=== PATIENT | male | born 1965 | race Caucasian/White ===

== ENCOUNTER 2018-11-07 19:41 | Observation (INO) | payer BC, SELFPAY ==
[2018-11-07 19:50] VITALS: BP 164/120; PULSE 103; RESP 16; TEMP 36.8
[2018-11-07 20:03] VITALS: RESP 16
[2018-11-07 20:16] VITALS: PULSE 100
[2018-11-07] MEDS: Labetalol 100 MG/20 ML VIAL 20 MG IVP ×2 (20:16→20:54)
[2018-11-07 20:32] LABS: Abs Immature Grans 0.02 k/cumm (0.0-0.09); Absolute Basophil Count 0.02 k/cumm (0.0-0.2); Absolute Monocyte Count 1.03 k/cumm (0.11-0.7); Basophils % 0.2; Eosinophils % 0.5; HGB 15.8 g/dL (13.5-17.5); Immature Grans % 0.2; Lymphocytes % 20.5; Mean Corp. HGB Concentration 33.6 g/dL (32.0-36.0); Mean Corpuscular Hemoglobin 31.3 pg (27.0-33.0); Mean Corpuscular Volume 93.3 fL (80-95); Mean Platelet Volume 11.9 fL (8.0-11.0); Monocytes % 9.4; Neutrophils % 69.2; Platelet Count 165 x1000/uL (130-400); RBC 5.04 m/cumm (4.50-6.00); RBC Distribution Width 12.4 % (11.8-14.1)
[2018-11-07 20:36] LABS: Absolute Eosinophil Count 0.06 k/cumm (0.0-0.7); Absolute Lymphocyte Count 2.26 k/cumm (1.2-3.4); Absolute Neutrophil Count 7.61 k/cumm (1.2-6.7)
--- NOTE | 2018-11-07 20:36 | DI.RAD_ITS ---
SYMPTOM/DIAGNOSIS: HYPERTENSIVE URGENCY PA AND LATERAL CHEST: Comparison is made with rib films dated 05/23/14. The heart is enlarged. The aorta is mildly tortuous. The lungs appear clear. Degenerative changes are again noted in the spine. IMPRESSION: Cardiomegaly. No acute abnormality.
--- NOTE | 2018-11-07 20:49 | W.ED.GENAD ---
Discharge Plan Disposition Patient Disposition: [facility] INPATIENT Condition: Good Discharge Details Chief Complaint: GenMedical Clinical Impression: Asymptomatic hypertensive urgency Primary Care Provider: Frank Saavedra ED Provider: Orlando Steen Medical Decision Making Patient with markedly elevated BP here that by number alone needs to be addressed. IV established and labs obtained. EKG and CXR ordered. He is mildly tachycardic and looks like he had been on beta rola in past so will give dose of labetalol for BP. Do not want to drop pressure to low to quickly. Also need to consider DM since report of blurry vision, polydypsia and polyuria as well. Quite likely patient will need admission to get blood pressure to a reasonable level. Laboratory studies for the most part are unremarkable. He is not anemic nor does he have significant elevation of LFTs. Kidney function is normal. Sugar is 142. EKG with evidence of LVH. Chest x-ray with evidence of cardiomegaly. First dose of labetalol did not bring his pressure down a lot. Second dose of 20 mg labetalol IV has got him to 200/100. Looks like he was previously on 3 different medications for blood pressure. While he is asymptomatic I would still consider this hypertensive urgency given the level of elevation. Will discuss with hospital last admission for management of blood pressure to reasonable level before discharge. Patient seen by Dr. Saavedra. Patient has agreed to admission for monitoring of blood pressure and starting oral meds. Diastolic has started to go back up status post 2 doses of IV labetalol. Lab Data Lab results reviewed: Yes I reviewed the patient's lab results. ECG Data Attestation: I personally reviewed and interpreted this ECG (s) as follows: Prior ECG tracings: not available for review Interpretation: Sinus rhythm at 85 with normal axis and intervals but evidence of LVH. No acute ST changes. HPI General Mode of arrival: ambulatory. Date/Time Provider Initiated Documentation: 11/07/18 19:58. Limitations to Documentation: no limitations. Information obtained by: patient. HPI Narrative: Patient presents to ED for evaluation of elevated blood pressure. He has a history of HTN but stop taking medications on his own sometime ago. He has not seen a PCP in years. He denies smoking but does not exercise or eat well and drinks on average 4 vodka drinks a day. He took his blood pressure last week on a whim and it was very high. He stopped drinking alcohol and started to eat a little better and try to exercise. Tonight while at work he had a short episode of lightheadedness but did not pass out or fall. He has a very mild headache. He has had blurry vision but thinks he needs new glasses. He reports drinking a lot of water and urinating frequently. He had no neuro changes, chest pain. He has decreased exercise tolerance and gets SOB quickly but does not get chest pain. He took his blood pressure tonight after the dizzy episode and found his pressure to be 250/130. This prompted him to come in. Related Data Allergies Allergy/AdvReac Type Severity Reaction Status Date / Time No Known Drug Allergies Allergy Unverified 05/12/15 11:03 General Stated Complaint: GenMedical SOFIA: 2 Review of Systems Review of Systems 03/09 Review of Systems completed and is negative except as stated above in HPI (Systems reviewed: Const, Eyes, ENT, Resp, CV, GI, , MSK, Skin, Neuro) [facility] Medical History Essential hypertension Surgical History Repair of umbilical hernia (05/26/15) Social History Smoking/Tobacco Use Status: Never Alcohol Intake: current Alcohol Intake frequency: 3 or more drinks per day Alcohol type: hard liquor Drug use: Never Exam Narrative Exam Narrative: Vitals: Afebrile. Mild tachycardia but marked hypertension. Const: Obese male in NAD. HEENT: NC/AT. Normal facial exam. Eyes: Normal conjunctiva and sclera. PERRL and EOMI Neck: Supple. Trachea midline. Lungs: Normal respiratory effort. Lungs are clear. Cor: RRR without murmur/gallop. Good radial pulses. GI: Soft and non-distended. Neuro: A+O x 3. CN II-XII in tact. Speech, gait, strength and sensation all normal. Ext: No C/C/E. Skin: Warm and dry without rash. Course Vital Signs Temperature 98.3 F 11/07/18 19:50 Pulse 103 H 11/07/18 19:50 Respiratory Rate 16 11/07/18 19:50 Blood Pressure 164/120 H 11/07/18 19:50 Temperature 98.3 F 11/07/18 19:50 Temperature Source Temporal Artery Scan 11/07/18 19:50 Pulse 100 H 11/07/18 20:16 Respiratory Rate 16 11/07/18 20:03 Respiratory Effort Non-Labored 11/07/18 20:03 Respiratory Depth Normal 11/07/18 20:03 Respiratory Pattern Normal 11/07/18 20:03 Blood Pressure 164/120 H 11/07/18 19:50 Blood Pressure Position Sitting 11/07/18 19:50 Oxygen Delivery Method Room Air 11/07/18 19:50 Oxygen Flow Rate 0 11/07/18 19:50 Lab/Test Results Lab/Test Results: Laboratory Tests Range/Units 11/07/18 20:11 WBC (4.4-10.8) k/cumm 11.00 H RBC (4.50-6.00) m/cumm 5.04 Hgb (13.5-17.5) g/dL 15.8 Hct (40.0-50.0) % 47.0 MCV (80-95) fL 93.3 MCH (27.0-33.0) pg 31.3 MCHC (32.0-36.0) g/dL 33.6 RDW (11.8-14.1) % 12.4 Plt Count (130-400) x1000/uL 165 MPV (8.0-11.0) fL 11.9 H Immature Gran % 0.2 Neutrophils % 69.2 Lymphocytes % 20.5 Monocytes % 9.4 Eosinophils % 0.5 Basophils % 0.2 Absolute Neutrophils (1.2-6.7) k/cumm 7.61 H Absolute Lymphocytes (1.2-3.4) k/cumm 2.26 Absolute Monocytes (0.11-0.7) k/cumm 1.03 H Absolute Eosinophils (0.0-0.7) k/cumm 0.06 Absolute Basophils (0.0-0.2) k/cumm 0.02
[2018-11-07 20:53] LABS: ALT 74 U/L (12-78); AST 44 U/L (15-37); Albumin 4.4 g/dL (3.4-5.0); Alkaline Phosphatase 97 U/L (46-116); Anion Gap 11.7 mmol/L (3-11); BUN 19 mg/dL (7-18); Bilirubin, Total 0.3 mg/dL (0.2-1.0); CO2 24.3 mmol/L (21.0-32.0); Calcium 9.3 mg/dL (8.5-10.1); Chloride 102 mmol/L (98-107); Glucose 142 mg/dL (70-100); Sodium 138 mmol/L (136-145); Total Protein 8.6 g/dL (6.4-8.2)
[2018-11-07 20:54] VITALS: PULSE 86
[2018-11-07 20:57] LABS: Troponin I < 0.02 ng/mL (0.00-0.06)
--- NOTE | 2018-11-07 21:22 | DI.VRAD_ITS ---
EXAM: XR Chest, 2 Views EXAM DATE/TIME: 11/07/2018 8:10 PM CLINICAL HISTORY: 53 years old, male; Signs and symptoms; Other: Hypertensive urgency TECHNIQUE: Imaging protocol: XR of the chest, 2 views. COMPARISON: CR LEFT RIBS PA CXR ONLY-3VIEWS 05/23/2014 1:02 PM FINDINGS: There is cardiomegaly. No infiltrates are present. There is no pleural effusion or pneumothorax. The pulmonary vascularity is normal. There are degenerative changes of the spine. IMPRESSION: 1. Cardiomegaly. 2. No focal infiltrates. Dictated and Authenticated by: Sher Culver MD. Ordering:ANOOP Perry MD
--- NOTE | 2018-11-07 22:15 | W.PM.HP.N ---
Date of service: 11/07/18 Time of Service: 22:16 Assessment and Plan (1) HTN (hypertension): Current visit: Yes Status: Chronic Severe hypertension, asymptomatic. Will resume prior triple therapy. Once BP begins to trend downward would advise close follow up as outpatient. History of Present Illness Chief Complaint: hypertension Narrative: 53 male with h/o HTN, non-compliant, off meds for a number of years, previously well controlled on triple therapy (Atenolol 25, HCTZ 25 and Lisinopril, unknown dose). Has noted increased BP for some time now. Today at work felt lightheaded for a few seconds, checked BP, noted 250/130 and came to ER. In ER BP reported as similar (I cannot locate this) patient given Labetalol 100 IV x 2 with BP transiently improved bu recurring most recently 160/120. Patient admitted for further management. patient denies CP, SOB, YEH. Initial labs of note for EKG showing no acute changes but LVH in limb leads and CXR with cardiomegaly. Review of Systems Review of Systems All systems reviewed & are unremarkable except as noted in HPI and below PFSH Medical History Essential hypertension Surgical History Repair of umbilical hernia (05/26/15) Social History Smoking/Tobacco Use Status: Never Alcohol Intake: current Alcohol Intake frequency: 3 or more drinks per day Alcohol type: hard liquor Drug use: Never Meds Allergies Allergy/AdvReac Type Severity Reaction Status Date / Time No Known Drug Allergies Allergy Unverified 05/12/15 11:03 Exam Narrative Exam Narrative: 160/124, 86, 14, 36.8; HEENT shows optic discs are sharp; neck supple; lungs clear; heart RRR, cannot feel PMI; abdomen no bruit, soft, NT; extr: no edema; neuro ox3, non-focal Results Labs : 11/07/18 20:11 11/07/18 20:14 Laboratory Results - last 24 hr 11/07/18 11/07/18 20:11 20:14 WBC 11.00 H RBC 5.04 Hgb 15.8 Hct 47.0 MCV 93.3 MCH 31.3 MCHC 33.6 RDW 12.4 Plt Count 165 MPV 11.9 H Immature Gran % 0.2 Neutrophils % 69.2 Lymphocytes % 20.5 Monocytes % 9.4 Eosinophils % 0.5 Basophils % 0.2 Absolute Neutrophils 7.61 H Absolute Lymphocytes 2.26 Absolute Monocytes 1.03 H Absolute Eosinophils 0.06 Absolute Basophils 0.02 Sodium 138 Potassium 4.0 Chloride 102 Carbon Dioxide 24.3 Anion Gap 11.7 H BUN 19 H Creatinine 0.90 Estimated GFR/1.73 m2 >= 60.00 Glucose 142 H Calcium 9.3 Magnesium 2.0 Total Bilirubin 0.3 AST 44 H ALT 74 Alkaline Phosphatase 97 Troponin I < 0.02 Total Protein 8.6 H Albumin 4.4 Last Vital Signs Temp 36.8 C 11/07/18 19:50 Pulse 86 11/07/18 20:54 Resp 16 11/07/18 20:03 BP 164/120 H 11/07/18 19:50
[2018-11-07] MEDS: hydroCHLOROthiazide 25 MG TAB PO (22:44)
[2018-11-07] MEDS: Lisinopril 10 MG TAB PO (22:44)
[2018-11-07] MEDS: Atenolol 25 MG TAB PO (22:45)
[2018-11-07 23:10] VITALS: BP 200/110; PULSE 75; RESP 16; TEMP 37.2; O2SAT 96
[2018-11-07 23:15] VITALS: O2SAT 96
[2018-11-08 01:00] VITALS: BP 164/80
[2018-11-08 02:22] LABS: Bilirubin Negative (Negative); Blood Negative (Negative); Clarity Clear; Glucose Negative (Negative); Ketones Negative (Negative); Leukocyte Esterase Negative (Negative); Nitrite Negative (Negative); Specific Gravity >= 1.030 (1.005-1.025); Urobilinogen 0.2 EU/dL (Up TO 0.2); pH 5.5 (5-8)
[2018-11-08 02:26] LABS: Bacteria Negative HPF (Negative); C & S Indicated? No; Casts 0-2 Hyaline LPF (Negative); Crystals Negative HPF (Negative); Epithelial Cells Rare HPF (Negative); Mucus Negative (Negative); RBC 0-2 (0-2); WBC 0-2 HPF (0-5)
[2018-11-08 04:47] VITALS: BP 157/80
[2018-11-08 07:27] VITALS: BP 205/101; PULSE 61; RESP 18; TEMP 36.3; O2SAT 96
[2018-11-08 07:45] VITALS: BP 203/130
--- NOTE | 2018-11-08 08:36 | PDOC.CMIN ---
- If Service Date Differs Date of service: 11/08/18 Time of Service: 08:36 Care Management Initial Assess REASON FOR HOSPITALIZATION:: HTN PAST MEDICAL HISTORY/PAST SURGICAL HISTORY:: Medical History: Essential hypertension. Surgical History: Repair of umbilical hernia (05/26/15) PREVIOUS FUNCTIONAL STATUS/SOCIAL/FAMILY SUPPORTS:: Robert lives alone in a single family dwelling in [place] [facility]. 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 He is completely independent with all activities. CURRENT FUNCTIONAL STATUS:: Robert was fully dressed and ready for D/C when CM visited. He stated he is feeling better and that his blood pressure is down a little. He states he knows that he needs to be more compliant with taking his meds and thaat this was a wake up call ADVANCE DIRECTIVES:: None on file at [facility] Has patient been provided with information about the portal?: No Did the patient sign up for the portal?: No CODE STATUS:: Full Code INSURANCE COVERAGE / FINANCIAL ISSUES:: BS CURRENT HOME/COMMUNITY SERVICES/EQUIPMENT:: none PRIMARY CARE PHYSICIAN:: Frank Saavedra MD POTENTIAL DISCHARGE NEEDS:: Follow up appointment with PCP and discharge plan of care. PATIENT/FAMILY EDUCATION NEEDS:: Discharge plkan, limiattions, follow up plan of care, Ask Me Three. ANTICIPATED BARRIERS TO DISCHARGE:: none TRANSPORTATION:: Robert will drive himself home in his private vehicle. PLAN:: Robert will be discharged home with no services. He will follow up with his PCP and discharge plaan of care.
--- NOTE | 2018-11-08 08:40 | INITIAL_ITS ---
- If Service Date Differs Date of service: 11/08/18 Time of Service: 08:36 Care Management Initial Assess REASON FOR HOSPITALIZATION:: HTN PAST MEDICAL HISTORY/PAST SURGICAL HISTORY:: Medical History: Essential hypertension. Surgical History: Repair of umbilical hernia (05/26/15) PREVIOUS FUNCTIONAL STATUS/SOCIAL/FAMILY SUPPORTS:: Robert lives alone in a single family dwelling in [place] [facility]. 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 He is completely independent with all activities. CURRENT FUNCTIONAL STATUS:: Robert was fully dressed and ready for D/C when CM visited. He stated he is feeling better and that his blood pressure is down a little. He states he knows that he needs to be more compliant with taking his meds and thaat this was a wake up call ADVANCE DIRECTIVES:: None on file at [facility] Has patient been provided with information about the portal?: No Did the patient sign up for the portal?: No CODE STATUS:: Full Code INSURANCE COVERAGE / FINANCIAL ISSUES:: BS CURRENT HOME/COMMUNITY SERVICES/EQUIPMENT:: none PRIMARY CARE PHYSICIAN:: Frank Saavedra MD POTENTIAL DISCHARGE NEEDS:: Follow up appointment with PCP and discharge plan of care. PATIENT/FAMILY EDUCATION NEEDS:: Discharge plkan, limiattions, follow up plan of care, Ask Me Three. ANTICIPATED BARRIERS TO DISCHARGE:: none TRANSPORTATION:: Robert will drive himself home in his private vehicle. PLAN:: Robert will be discharged home with no services. He will follow up with his PCP and discharge plaan of care.
[2018-11-08] MEDS: Normal Saline Flush 10 ML SYR IVP (08:53)
[2018-11-08 09:32] LABS: Abs Immature Grans 0.01 k/cumm (0.0-0.09); Absolute Basophil Count 0.02 k/cumm (0.0-0.2); Absolute Eosinophil Count 0.04 k/cumm (0.0-0.7); Absolute Monocyte Count 0.97 k/cumm (0.11-0.7); Absolute Neutrophil Count 5.83 k/cumm (1.2-6.7); Basophils % 0.2; Eosinophils % 0.5; HCT 46.1 % (40.0-50.0); HGB 15.6 g/dL (13.5-17.5); Immature Grans % 0.1; Lymphocytes % 20.8; Mean Corp. HGB Concentration 33.8 g/dL (32.0-36.0); Mean Corpuscular Hemoglobin 31.5 pg (27.0-33.0); Mean Corpuscular Volume 92.9 fL (80-95); Mean Platelet Volume 11.9 fL (8.0-11.0); Monocytes % 11.2; Neutrophils % 67.2; Platelet Count 173 x1000/uL (130-400); RBC 4.96 m/cumm (4.50-6.00); RBC Distribution Width 12.4 % (11.8-14.1); White Blood Cell Count 8.67 k/cumm (4.4-10.8)
[2018-11-08 09:38] LABS: Anion Gap 9.6 mmol/L (3-11); BUN 12 mg/dL (7-18); CO2 27.4 mmol/L (21.0-32.0); CREATININE 0.73 mg/dL (0.70-1.30); Calcium 9.3 mg/dL (8.5-10.1); Chloride 102 mmol/L (98-107); Glucose 129 mg/dL (70-100); Potassium 4.1 mmol/L (3.5-5.1); Sodium 139 mmol/L (136-145)
[2018-11-08] MEDS: Lisinopril 10 MG TAB PO (10:41)
[2018-11-08] MEDS: Atenolol 25 MG TAB PO (10:41)
[2018-11-08] MEDS: hydroCHLOROthiazide 25 MG TAB PO (10:42)
[2018-11-08 11:30] VITALS: BP 191/104; PULSE 58; RESP 17; TEMP 36.4; O2SAT 96
[2018-11-08 12:58] VITALS: BP 182/96; PULSE 56
--- NOTE | 2018-11-08 13:39 | W.PM.DS.N ---
Date of service: 11/08/18 Time of Service: 13:39 DS: Diagnosis Discharge Diagnosis (1) HTN (hypertension): Status: Chronic Discharge Plan Disposition Patient Disposition: HOME Condition: Improving Discharge Details Chief Complaint: GenMedical Reason For Visit: HYPERTENSION Admit Date/Time: 11/07/18 22:27 Admit Provider: Frank Saavedra Attending Provider: Frank Saavedra Primary Care Provider: Frank Saavedra ED Provider: [facility] Hospital Course: 53 male with h/o HTN, non-compliant, off meds for a number of years, previously well controlled on triple therapy (Atenolol 25, HCTZ 25 and Lisinopril, unknown dose). Has noted increased BP for some time now. Yesterday at work felt lightheaded for a few seconds, checked BP, noted 250/130 and came to ER. In ER BP reported as similar, patient given Labetalol 100 IV x 2 with BP transiently improved but recurring most recently 160/120. Patient admitted for further management. patient denies CP, SOB, YEH. Initial labs of note for EKG showing no acute changes but LVH in limb leads and CXR with cardiomegaly. BP on last check was 182/96 after HCTZ, Lisinopril and Atenolol which I am comfortable with in the setting of a BP that was 250/130 for a sustained amount of time. He will go home on the regimen and need follow up in 1 week with PCP they will need to closely monitor his blood pressure and adjust medications as needed. He should also take his blood pressure twice a day and report readings to PCP. Follow the DASH diet, increase exercise and adopt stress relieving techniques, all of the measures were discussed with the patient. Recommend an ECHO. 1) HTN (hypertension): Severe hypertension, asymptomatic. Will resume prior triple therapy. Once BP begins to trend downward would advise close follow up as outpatient. Labs not showing organ damage. Continue HCTZ, atenolol, and lisinopril Home Meds and New Rx's Prescriptions: New atenolol 25 mg tablet 25 mg PO DAILY Qty: 30 RF: 0 lisinopril 10 mg tablet 10 mg PO DAILY Qty: 30 RF: 0 hydrochlorothiazide 25 mg tablet 25 mg PO DAILY Qty: 30 RF: 0 Discharge Instructions Instructions: Heart Failure (GEN), Chronic Hypertension (GEN), DASH Eating Plan (GEN), Hypertensive Crisis (GEN), Effects of a Stroke (GEN) Additional Instructions: Follow up with a PCP in 1 week. TAKE YOUR BLOOD PRESSURE MEDICATION DAILY. Take your blood pressure twice a day, once in the morning and once in the evening, Make sure you have been resting for at least 10 min prior to taking.Write them down and bring them to you doctor appointment. START EXERCISING. At least 30 mins daily. Start using more stress reducing techniques. Seek Medical attention immediately if you start to have chest pain, shortness of breath, nausea, vomiting, diarrhea. Stand Alone Forms: Nursing Discharge Form Referrals: Frank Saavedra MD [Primary Care Provider] - (Please call PCP on Saturday to schedule a follow-up appointment) Activity:: Activity as Tolerated Equipment/Supplies:: No Equipment Needed Diet:: As Tolerated Discharge Orders Discharge Orders: Discharge Order (Routine); Ordered 11/08/18 Ordered By: Renetta Alonzo Exam Narrative Exam Narrative: ; HEENT shows optic discs are sharp; neck supple; lungs clear; heart RRR, cannot feel PMI; abdomen no bruit, soft, NT; extr: no edema; neuro ox3, non-focal DS: Data Vitals/I&O Vitals and I&O: Vital Signs Temperature 36.4 C L 11/08/18 11:30 Temperature Source Tympanic 11/08/18 11:30 Pulse 56 L 11/08/18 12:58 Pulse Rhythm Regular 11/08/18 10:51 Respiratory Rate 17 11/08/18 11:30 Respiratory Effort 11/08/18 10:51 Respiratory Depth Normal 11/08/18 10:51 Respiratory Pattern Normal 11/08/18 10:51 Blood Pressure 182/96 H 11/08/18 12:58 Blood Pressure Position Sitting 11/07/18 19:50 Pulse Oximetry 96 11/08/18 11:30 Oxygen Delivery Method Room Air 11/08/18 11:30 Oxygen Flow Rate 0 11/08/18 11:30 Comment 11/08/18 07:27 Intake & Output 11/07/18 11/08/18 11/08/18 23:59 11:59 23:59 Intake Total 1150 / 1390 240 / 1390 Balance 1150 / 1390 240 / 1390 Weight 113.398 kg Intake: Oral 1150 / 1390 240 / 1390 Other: Urine Color Yellow Urine Appearance Clear Urine Odor None Voiding Methods Toilet Completed studies during hospitalization [Text1]: EXAM: XR Chest, 2 Views EXAM DATE/TIME: 11/07/2018 8:10 PM CLINICAL HISTORY: 53 years old, male; Signs and symptoms; Other: Hypertensive urgency TECHNIQUE: Imaging protocol: XR of the chest, 2 views. COMPARISON: CR LEFT RIBS PA CXR ONLY-3VIEWS 05/23/2014 1:02 PM FINDINGS: There is cardiomegaly. No infiltrates are present. There is no pleural effusion or pneumothorax. The pulmonary vascularity is normal. There are degenerative changes of the spine. IMPRESSION: 1. Cardiomegaly. 2. No focal infiltrates. Labs on day of discharge: Labs from last 24 hours 11/08/18 11/08/18 11/08/18 09:15 09:15 09:15 WBC 8.67 RBC 4.96 Hgb 15.6 Hct 46.1 MCV 92.9 MCH 31.5 MCHC 33.8 RDW 12.4 Plt Count 173 MPV 11.9 H Immature Gran % 0.1 Neutrophils % 67.2 Lymphocytes % 20.8 Monocytes % 11.2 Eosinophils % 0.5 Basophils % 0.2 Absolute Neutrophils 5.83 Absolute Lymphocytes 1.80 Absolute Monocytes 0.97 H Absolute Eosinophils 0.04 Absolute Basophils 0.02 Sodium 139 Potassium 4.1 Chloride 102 Carbon Dioxide 27.4 Anion Gap 9.6 BUN 12 D Creatinine 0.73 Estimated GFR/1.73 m2 >= 60.00 Glucose 129 H Calcium 9.3 Magnesium 2.0 Total Bilirubin AST ALT Alkaline Phosphatase Troponin I Total Protein Albumin Urine Color Urine Clarity Urine pH Ur Specific [place] Urine Protein Urine Ketones Urine Blood Urine Nitrite Urine Bilirubin Urine Urobilinogen Ur Leukocyte Esterase Urine RBC Urine WBC Ur Epithelial Cells Urine Crystals Urine Bacteria Urine Casts Urine Mucus Ur Culture Indicated? Urine Glucose 11/08/18 11/07/18 11/07/18 01:20 20:14 20:11 WBC 11.00 H RBC 5.04 Hgb 15.8 Hct 47.0 MCV 93.3 MCH 31.3 MCHC 33.6 RDW 12.4 Plt Count 165 MPV 11.9 H Immature Gran % 0.2 Neutrophils % 69.2 Lymphocytes % 20.5 Monocytes % 9.4 Eosinophils % 0.5 Basophils % 0.2 Absolute Neutrophils 7.61 H Absolute Lymphocytes 2.26 Absolute Monocytes 1.03 H Absolute Eosinophils 0.06 Absolute Basophils 0.02 Sodium 138 Potassium 4.0 Chloride 102 Carbon Dioxide 24.3 Anion Gap 11.7 H BUN 19 H Creatinine 0.90 Estimated GFR/1.73 m2 >= 60.00 Glucose 142 H Calcium 9.3 Magnesium 2.0 Total Bilirubin 0.3 AST 44 H ALT 74 Alkaline Phosphatase 97 Troponin I < 0.02 Total Protein 8.6 H Albumin 4.4 Urine Color Yellow Urine Clarity Clear Urine pH 5.5 Ur Specific [place] >= 1.030 H Urine Protein 100 H Urine Ketones Negative Urine Blood Negative Urine Nitrite Negative Urine Bilirubin Negative Urine Urobilinogen 0.2 Ur Leukocyte Esterase Negative Urine RBC 0-2 Urine WBC 0-2 Ur Epithelial Cells Rare Urine Crystals Negative Urine Bacteria Negative Urine Casts 0-2 hyaline Urine Mucus Negative Ur Culture Indicated? No Urine Glucose Negative [facility] Medical History Essential hypertension Surgical History Repair of umbilical hernia (05/26/15) Social History Smoking/Tobacco Use Status: Never Alcohol Intake: current Alcohol Intake frequency: 3 or more drinks per day Alcohol type: hard liquor Drug use: Never
--- NOTE | 2018-11-08 17:48 | PDOC.CMDIS ---
- If Service Date Differs Date of service: 11/08/18 Time of Service: 17:48 LACE Index Scoring Tool - Questions: Length of Stay (in days): 1 Acuity (Admit via E.D.?): Yes E.D. Visits: 1 - Answers: Total Score: 5 Risk of Readmission: Low Risk Care Management Discharge Reason for Hospitalization: HTN Discharge Plan: Home with no services. Follow up with PCP. Patient/Family Education Needs: Discharge plan, limitations, Ask Me Three.
== END 2018-11-08 15:21 | disposition home or self-care (01) ==
LOC: ER 22:45 → MS 11-08 13:43
PROVIDERS: Nurse Practitioner Family; Admitting Provider General Practice; Emergency Provider Emergency Medicine; PCP General Practice; Visit Provider Internal Medicine
DX: I10 Essential (primary) hypertension (principal); T46.5X6A Underdosing of other antihypertensive drugs, initial encounter; I51.7 Cardiomegaly
CPT/HCPCS: 36415; 80048; 80053; 93005; 99222; 99239; 99285; 71046; 81003; 81015; 83735; 84484; 85025; 93010; 99217; 99219; G0378

== ENCOUNTER 2018-11-26 08:28 | Outpatient (CLI) | payer BC, SELFPAY ==
[2018-11-26 09:27] LABS: Anion Gap 11.8 mmol/L (3-11); BUN 24 mg/dL (7-18); CO2 26.2 mmol/L (21.0-32.0); CREATININE 1.03 mg/dL (0.70-1.30); Calculated LDL 128 mg/dL; Chloride 104 mmol/L (98-107); Cholesterol 189 mg/dL (50-200); Glucose 131 mg/dL (70-100); HDL Cholesterol 38 mg/dL (40-60); Potassium 4.3 mmol/L (3.5-5.1); Sodium 142 mmol/L (136-145); Triglyceride 118 mg/dL (30-150)
== END 2018-11-26 08:48 ==
PROVIDERS: PCP General Practice; Visit Provider General Practice
DX: I10 Essential (primary) hypertension (principal); Z13.220 Encounter for screening for lipoid disorders; Z13.1 Encounter for screening for diabetes mellitus
CPT/HCPCS: 36415; 80051; 80061; 82947; 83721; 84520; 82565

== ENCOUNTER 2019-01-19 10:36 | Outpatient (CLI) | payer BC, SELFPAY ==
[2019-01-19 11:53] LABS: CREATININE 1.06 mg/dL (0.70-1.30); Potassium 4.5 mmol/L (3.5-5.1)
== END 2019-01-19 10:56 ==
PROVIDERS: PCP General Practice; Visit Provider General Practice
DX: I10 Essential (primary) hypertension (principal)
CPT/HCPCS: 36415; 82565; 84132

== ENCOUNTER 2019-02-17 06:30 | Emergency (ER) | payer BC, SELFPAY ==
[2019-02-17 06:33] VITALS: BP 196/100; PULSE 102; RESP 32; TEMP 36.7; O2SAT 95
--- NOTE | 2019-02-17 06:54 | ED.GENADUL_ITS ---
Discharge Plan Disposition Patient Disposition: HOME Condition: Stable Discharge Details Chief Complaint: RespSymp Clinical Impression: Acute bronchospasm, Reactive airway disease Primary Care Provider: Frank Saavedra ED Provider: Divina Hussein Home Meds and New Rx's Prescriptions: New prednisone 20 mg tablet See Rx Instructions .ROUTE .COMPLEX Qty: 12 RF: 0 Continued atenolol 25 mg tablet 25 mg PO DAILY Qty: 30 RF: 0 lisinopril 10 mg tablet 10 mg PO DAILY Qty: 30 RF: 0 hydrochlorothiazide 25 mg tablet 25 mg PO DAILY Qty: 30 RF: 0 Discharge Instructions Instructions: Reactive Airways Disease (ED), Bronchospasm (ED) Additional Instructions: Drink plenty fluids and get plenty of rest. Take the steroids until finished. Use the albuterol inhaler as needed and directed for shortness of breath or wheezing. Follow-up with your scheduled appointment with your primary care doctor on Saturday. Return immediately to the emergency department if you develop any worsening or new concerning symptoms. Discharge Data Discharge Date/Time-TO BE ENTERED AT DEPARTURE: 02/17/19 11:38 Discharge Physician: Divina Hussein Medical Decision Making <Orlando Steen MD - Last Filed: 02/17/19 23:08> Patient presenting with shortness of breath and with exertion, mild to moderate distress. Denies having fever or URI symptoms at this time. Sore throat and cough over the weekend which resolved. Has no chest pain or pressure. He has fairly good air exchange, maybe mildly diminished. No significant wheezing. Will give DuoNeb to see if any help. But will also consider cardiac etiology, PE. Blood pressure is elevated though not to the point where I would expect flash pulmonary edema/hypertensive emergency. I do not appreciate any rails. EKG is sinus with some slight nonspecific ST depression in the precordial lateral leads. IV in place. Laboratory studies sent. DuoNeb did not really seem to help the patient, maybe a little bit. Lung sounds the same to me. Still seems quite short of breath. I have canceled chest x-ray and will proceed with CTA despite lack of risk factors for PE. He just does not seem to be straightforward reactive airway. Labs are still pending. Will go ahead and give another albuterol neb. 8:00 - Patient actually feels a little better after the second neb. Blood pressures come down. Saturation now 100%. Laboratory studies are unremarkable. First troponin negative. D-dimer negative. BNP 300 but not significantly elevated. Will proceed with CTA as planned. If negative will plan 3-hour troponin and EKG. Will give another neb and Solu-Medrol. Will sign over to my colleague, Dr. Hussein. Medical Records Medical records reviewed: Yes I reviewed the patient's medical records. Lab Data Lab results reviewed: Yes I reviewed the patient's lab results. ECG Data Attestation: I personally reviewed and interpreted this ECG (s) as follows: Prior ECG tracings: available for review Interpretation: Sinus rhythm at 88. Normal axis and intervals. Nonspecific ST depression in precordial lateral leads. Slightly different from previous done in October of this year. <Divina Hussein, - Last Filed: 02/21/19 09:08> 0800 --please see Dr. Steen's note for initial presentation, exam and plan. 53-year-old male with history of hypertension who presents with shortness of breath both with exertion since last night. Admits to URI symptoms over the weekend that has since resolved. Denies any chest pain, fever, recent travel, recent surgery. He was given 2 neb treatments and admits to improvement of symptoms. EKG notes a rate of 88, sinus with less than [address] depression noted in V6. There is no acute ST elevation. Case endorsed to follow-up on labs and CT imaging with plan for repeat troponin and EKG. Labs reviewed and note a normal white blood cell count, electrolytes, coagulation studies including d-dimer, troponin and BNP. CT chest negative. 0830 --Upon my evaluation, patient has normal breath sounds and no lower extremity edema. He appears to have minimal shortness of breath while speaking. His oxygen saturation is 94% on room air. We will give an aerogen neb and reassess. 1020 --patient feels much better. Second troponin negative and repeat EKG unchanged. He ambulated around the ED with respiratory and his oxygen saturation was 97% on room air and he denied any significant shortness of breath and felt good to go home. Will treat for reactive airway disease. We will send home with a prescription for prednisone as well as albuterol inhaler. He is advised to drink plenty fluids, get plenty of rest, follow-up with his primary care doctor and return here at any time if worse. Medical Records Medical records reviewed: Yes I reviewed the patient's medical records. Imaging Data Radiologic Study: Radiologist's impression: CT CHEST PE CTA CLINICAL HISTORY: SOB. TECHNIQUE: The exam was performed according to the usual protocol with 100 cc's of Omnipaque 350. COMPARISON: No exams were available for comparison FINDINGS: There is no evidence of a pulmonary embolism. Lungs are clear. There is no pleural effusion. The heart is not enlarged. There is no pericardial effusion. There are minimal atherosclerotic changes involving the aorta without evidence of an aneurysm or dissection. IMPRESSION: No evidence of pulmonary embolism. No evidence of acute cardiopulmonary disease. Lab Data Lab results reviewed: Yes I reviewed the patient's lab results. Labs: Laboratory Tests Range/Units 02/17/19 02/17/19 02/17/19 07:00 07:00 07:00 WBC (4.4-10.8) k/cumm 9.96 RBC (4.50-6.00) m/cumm 4.58 Hgb (13.5-17.5) g/dL 14.7 Hct (40.0-50.0) % 43.6 MCV (80-95) fL 95.2 H MCH (27.0-33.0) pg 32.1 MCHC (32.0-36.0) g/dL 33.7 RDW (11.8-14.1) % 12.6 Plt Count (130-400) x1000/uL 208 MPV (8.0-11.0) fL 11.1 H Immature Gran % 0.3 Neutrophils % 73.3 Lymphocytes % 14.1 Monocytes % 10.1 Eosinophils % 2.0 Basophils % 0.2 Absolute Neutrophils (1.2-6.7) k/cumm 7.30 H Absolute Lymphocytes (1.2-3.4) k/cumm 1.40 Absolute Monocytes (0.11-0.7) k/cumm 1.01 H Absolute Eosinophils (0.0-0.7) k/cumm 0.20 Absolute Basophils (0.0-0.2) k/cumm 0.02 PT (9.3-11.0) sec 10.1 INR (0.9-1.1) 1.0 APTT (21.0-31.4) sec 27.7 D-Dimer (<500) ng/mlFEU 323 Sodium (136-145) mmol/L 141 Potassium (3.5-5.1) mmol/L 4.0 Chloride (98-107) mmol/L 106 Carbon Dioxide (21.0-32.0) mmol/L 23.5 Anion Gap (3-11) mmol/L 11.5 H BUN (7-18) mg/dL 27 H Creatinine (0.70-1.30) mg/dL 1.20 Estimated GFR/1.73 m2 (mL/min/1.73m2) >= 60.00 Glucose (70-100) mg/dL 152 H Calcium (8.5-10.1) mg/dL 8.8 Magnesium (1.8-2.4) mg/dL 1.9 Total Bilirubin (0.2-1.0) mg/dL 0.6 AST (15-37) U/L 18 ALT (16-63) U/L 30 Alkaline Phosphatase (46-116) U/L 85 Troponin I (0.00-0.06) ng/mL < 0.05 NT-Pro-B Natriuret Pep ( - 299) pg/mL 300 H Total Protein (6.4-8.2) g/dL 8.2 Albumin (3.4-5.0) g/dL 4.2 Range/Units 02/17/19 09:57 WBC (4.4-10.8) k/cumm RBC (4.50-6.00) m/cumm Hgb (13.5-17.5) g/dL Hct (40.0-50.0) % MCV (80-95) fL MCH (27.0-33.0) pg MCHC (32.0-36.0) g/dL RDW (11.8-14.1) % Plt Count (130-400) x1000/uL MPV (8.0-11.0) fL Immature Gran % Neutrophils % Lymphocytes % Monocytes % Eosinophils % Basophils % Absolute Neutrophils (1.2-6.7) k/cumm Absolute Lymphocytes (1.2-3.4) k/cumm Absolute Monocytes (0.11-0.7) k/cumm Absolute Eosinophils (0.0-0.7) k/cumm Absolute Basophils (0.0-0.2) k/cumm PT (9.3-11.0) sec INR (0.9-1.1) APTT (21.0-31.4) sec D-Dimer (<500) ng/mlFEU Sodium (136-145) mmol/L Potassium (3.5-5.1) mmol/L Chloride (98-107) mmol/L Carbon Dioxide (21.0-32.0) mmol/L Anion Gap (3-11) mmol/L BUN (7-18) mg/dL Creatinine (0.70-1.30) mg/dL Estimated GFR/1.73 m2 (mL/min/1.73m2) Glucose (70-100) mg/dL Calcium (8.5-10.1) mg/dL Magnesium (1.8-2.4) mg/dL Total Bilirubin (0.2-1.0) mg/dL AST (15-37) U/L ALT (16-63) U/L Alkaline Phosphatase (46-116) U/L Troponin I (0.00-0.06) ng/mL < 0.05 NT-Pro-B Natriuret Pep ( - 299) pg/mL Total Protein (6.4-8.2) g/dL Albumin (3.4-5.0) g/dL ECG Data Attestation: I personally reviewed and interpreted this ECG (s) as follows: Interpretation: #1 --Rate of 88, sinus, less than [address] depression in V6. No acute ST elevation. DC 154. QTc 419. QRS 94. #2 --Rate of 89, sinus, less than [address] depression in lead I. No acute ST elevation. T wave inversion in lead III. DC 148. QTc 433. QRS 98. HPI <Orlando Steen MD - Last Filed: 02/17/19 23:08> General Mode of arrival: ambulatory . Date/Time Provider Initiated Documentation: 02/17/19 06:43 . Limitations to Documentation: no limitations . Information obtained by: patient, RN notes reviewed and old records reviewed . HPI Narrative: Patient presents to ED with complaints of progressive shortness of breath overnight. Patient reports having sore throat and cough over the weekend. This actually seemed all resolved by yesterday. However, he started to feel short of breath. Throughout the night it seemed to get worse. This morning while trying to get ready for work he could not catch his breath at all. Exertion makes him extremely short of breath. He has had no fever. His URI type symptoms have resolved. He has no chest pain, pressure, tightness. He is not a smoker. He does not have a history of asthma. He denies having any leg pain or swelling. He was in significant respiratory distress on arrival to the ED. Related Data Home Medications Medication Instructions Recorded Confirmed atenolol 25 mg PO DAILY #30 tab 11/08/18 02/17/19 hydrochlorothiazide 25 mg PO DAILY #30 tab 11/08/18 02/17/19 lisinopril 10 mg PO DAILY #30 tab 11/08/18 02/17/19 prednisone See Rx Instructions .ROUTE 02/17/19 .COMPLEX #12 tab Previous Rx's Medication Instructions Recorded atenolol 25 mg PO DAILY #30 tab 11/08/18 hydrochlorothiazide 25 mg PO DAILY #30 tab 11/08/18 lisinopril 10 mg PO DAILY #30 tab 11/08/18 prednisone See Rx Instructions .ROUTE 02/17/19 .COMPLEX #12 tab Allergies Allergy/AdvReac Type Severity Reaction Status Date / Time No Known Drug Allergies Allergy Unverified 02/17/19 06:36 General Stated Complaint: RespSymp SOFIA: 2 Review of Systems <Orlando Steen MD - Last Filed: 02/17/19 23:08> Review of Systems Narrative: 03/09 Review of Systems completed and is negative except as stated above in HPI (Systems reviewed: Const, Eyes, ENT, Resp, CV, GI, , MSK, Skin, Neuro) PFSH <Orlando Steen MD - Last Filed: 02/17/19 23:08> Medical History Essential hypertension Surgical History Repair of umbilical hernia (05/26/15) Social History Smoking/Tobacco Use Status: Never Alcohol Intake: current Alcohol Intake frequency: 3 or more drinks per day Alcohol type: hard liquor Drug use: Never Substance use type: does not use Do you feel safe at home: Yes Do you feel safe in your relationship?: Yes Exam <Orlando Steen MD - Last Filed: 02/17/19 23:08> Narrative Exam Narrative: Vitals: Afebrile. Hypertensive, tachycardic and tachypneic with respiratory distress. Saturations low to mid 90s on room air. Const: WDWN male in mild to moderate respiratory distress. HEENT: NC/AT. Normal facial exam. TMs clear bilateral. OP clear. Eyes: Normal conjunctiva and sclera. Neck: Supple. Trachea midline. No stridor. Lungs: Somewhat decreased air exchange. Slight expiratory wheezing. Cor: RRR without murmur/gallop. Tacycardic. Good radial pulses. GI: Soft. NT/ND. Neuro: A+O x 3. CN grossly in tact. Good strength and no focal deficit. Ext: No C/C/E. No calf tenderness. Skin: Warm and dry without rash. Course <Orlando Stene MD - Last Filed: 02/17/19 23:08> Vital Signs Vital signs: Vital Signs Temperature 98.1 F 02/17/19 06:33 Pulse 102 H 02/17/19 06:33 Respiratory Rate 32 H 02/17/19 06:33 Blood Pressure 196/100 H 02/17/19 06:33 Pulse Oximetry 95 02/17/19 06:33 Temperature 98.1 F 02/17/19 06:33 Temperature Source Skin 02/17/19 06:33 Pulse 102 H 02/17/19 06:33 Respiratory Rate 32 H 02/17/19 06:33 Respiratory Effort Tripod 02/17/19 06:39 Respiratory Depth Deep 02/17/19 06:39 Blood Pressure 196/100 H 02/17/19 06:33 Blood Pressure Position Sitting 02/17/19 06:33 Pulse Oximetry 95 02/17/19 06:33 Oxygen Delivery Method Room Air 02/17/19 06:33 Oxygen Flow Rate 0 02/17/19 06:33 Pain Level 0 02/17/19 06:33 Sign Out <Orlando Steen MD - Last Filed: 02/17/19 23:08> Sign Out Data: Sign Out Comment: Patient pending CTA of the chest. Will need second troponin and EKG. Will give steroids and repeat neb. Last updated by Orlando Steen MD at 02/17/19 08:06
[2019-02-17] MEDS: Albuterol/Ipratropium 3 ML UPD VIAL UPD (06:57)
[2019-02-17] MEDS: Albuterol 2.5 MG/3 ML INH SOLN VIAL UPD ×2 (07:01→07:30)
[2019-02-17 07:08] VITALS: PULSE 97; RESP 34; RESP 8; O2SAT 95
[2019-02-17 07:18] LABS: Abs Immature Grans 0.03 k/cumm (0.0-0.09); Absolute Basophil Count 0.02 k/cumm (0.0-0.2); Absolute Monocyte Count 1.01 k/cumm (0.11-0.7); Basophils % 0.2; HCT 43.6 % (40.0-50.0); HGB 14.7 g/dL (13.5-17.5); Immature Grans % 0.3; Lymphocytes % 14.1; Mean Corp. HGB Concentration 33.7 g/dL (32.0-36.0); Mean Corpuscular Hemoglobin 32.1 pg (27.0-33.0); Mean Corpuscular Volume 95.2 fL (80-95); Mean Platelet Volume 11.1 fL (8.0-11.0); Monocytes % 10.1; Neutrophils % 73.3; Platelet Count 208 x1000/uL (130-400); RBC 4.58 m/cumm (4.50-6.00); RBC Distribution Width 12.6 % (11.8-14.1); White Blood Cell Count 9.96 k/cumm (4.4-10.8)
[2019-02-17 07:26] LABS: PTT Activated 27.7 sec (21.0-31.4); Prothrombin Time 10.1 sec (9.3-11.0)
[2019-02-17 07:39] LABS: ALT 30 U/L (16-63); AST 18 U/L (15-37); Albumin 4.2 g/dL (3.4-5.0); Alkaline Phosphatase 85 U/L (46-116); Anion Gap 11.5 mmol/L (3-11); BUN 27 mg/dL (7-18); Bilirubin, Total 0.6 mg/dL (0.2-1.0); CO2 23.5 mmol/L (21.0-32.0); Calcium 8.8 mg/dL (8.5-10.1); Chloride 106 mmol/L (98-107); Glucose 152 mg/dL (70-100); Magnesium 1.9 mg/dL (1.8-2.4); NT-proBNP 300 pg/mL; Sodium 141 mmol/L (136-145); Total Protein 8.2 g/dL (6.4-8.2)
[2019-02-17 07:44] LABS: D-Dimer 323 ng/mlFEU (<500)
[2019-02-17 07:48] LABS: Troponin I < 0.05 ng/mL (0.00-0.06)
[2019-02-17] MEDS: Omnipaque 350 MG/ML 100 ML BTL IJ (08:30)
--- NOTE | 2019-02-17 08:30 | DI.CT_ITS ---
EXAM: CT CHEST PE CTA CLINICAL HISTORY: SOB. TECHNIQUE: The exam was performed according to the usual protocol with 100 cc's of Omnipaque 350. COMPARISON: No exams were available for comparison FINDINGS: There is no evidence of a pulmonary embolism. Lungs are clear. There is no pleural effusion. The hea rt is not enlarged. There is no pericardial effusion. There are minimal atherosclerotic changes invol ving the aorta without evidence of an aneurysm or dissection. IMPRESSION: No evidence of pulmonary embolism. No evidence of acute cardiopulmonary disease.
[2019-02-17] MEDS: methylPREDNISolone SUCC 125 MG VIAL IVP (09:32)
[2019-02-17 10:21] VITALS: PULSE 87; RESP 1; RESP 20; RESP 8; O2SAT 100
[2019-02-17] MEDS: Albuterol 2.5 MG/3 ML INH SOLN VIAL (10:21)
[2019-02-17 10:22] LABS: Troponin I < 0.05 ng/mL (0.00-0.06)
--- NOTE | 2019-02-17 10:33 | RESPIRATORY ---
02/17/19 Exercise SpO2 walk on RA for 400ft. Pre: 96% RA, HR 106, RR 20. During walk: SpO2 96% HR 116, Post: SpO2 97% HR 110 RR 24. Reported to Dr. Hussein.
[2019-02-17 10:51] VITALS: RESP 1; RESP 24
[2019-02-17] MEDS: Albuterol HFA 8 GM 60 PUFF INH IH (11:07)
--- NOTE | 2019-02-17 11:17 | RESPIRATORY ---
02/17/19 Pt given two puffs of ventolin inhaler with a spacer. Instructed on inhaler use, breathe hold and proper technic with a 10 sec breath hold along with waiting one min between puffs.
== END 2019-02-17 11:38 | disposition home or self-care (01) ==
PROVIDERS: Emergency Medicine; Emergency Provider Physician Assistant; PCP General Practice
DX: J98.01 Acute bronchospasm (principal); J45.909 Unspecified asthma, uncomplicated; I10 Essential (primary) hypertension
CPT/HCPCS: 36415; 71275; 80053; 93005; 94640; 99285; 83735; 83880; 84484; 85025; 85379; 85610; 85730; 93010; J2930; J3490; J7613; J7620

== ENCOUNTER 2019-03-01 18:17 | Inpatient (IN) | payer BC, SELFPAY ==
[2019-03-01] VITALS (23 sets, daily range): BP systolic 132–199; BP diastolic 86–134; PULSE 74–110; RESP 11–36; TEMP 36.5–37.6; O2SAT 95–98
--- NOTE | 2019-03-01 18:34 | DI.CT_ITS ---
EXAM: CT HEAD - STROKE PROTOCOL CLINICAL HISTORY: slurred speech, LUE weakness/numb, lt face droop. TECHNIQUE: A noncontrast enhanced examination was performed. COMPARISON: No exams were available for comparison FINDINGS: There is no evidence of an intra or extra-axial hemorrhage. Day-white matter distinction is maintain ed. Ventricles are normal. There is no skull fracture. Note is made of a small retention cyst in the left maxillary sinus. There is no evidence of a mastoid effusion. The soft tissues are unremarkable . IMPRESSION: No acute intracranial process is demonstrated.
--- NOTE | 2019-03-01 18:35 | DI.CT_ITS ---
EXAM: CT BRAIN AND NECK CTA CLINICAL HISTORY: left facial droop, LUE weakness. TECHNIQUE: Study was carried out with an intravenous injection of 100 cc of Omnipaque 350. Axial CT angiography was performed with multi-slice acquisition and multi-planar and/or 3D reconstruc tions. COMPARISON: CT CHEST PE CTA from 02/17/2019 FINDINGS: CTA BRAIN: Right internal carotid artery is unremarkable. Right anterior cerebral artery, the right m iddle and posterior cerebral arteries are unremarkable. The right vertebral artery is unremarkable. L eft internal carotid artery is unremarkable. The left anterior cerebral, left middle cerebral and lef t posterior cerebral artery are unremarkable. The left vertebral artery is intact. The basilar arter y is unremarkable with no evidence of occlusion or stenosis. There is no aneurysm. CTA EXAMINATION OF THE NECK: Visualized ascending aorta is ectatic at 4.6 cm. Right common carotid ar merlyn is unremarkable with no evidence of stenosis, dissection or occlusion. Right internal carotid a rtery is unremarkable. The right external carotid artery and right vertebral artery are unremarkable. The left common carotid artery, left internal carotid artery, external carotid artery and left verteb ral artery are unremarkable. There is no evidence of dissection, occlusion or stenosis. The bony structures are unremarkable. No evidence of a fracture or subluxation. There is no signific ant soft tissue swelling. IMPRESSION: No acute abnormality is demonstrated. No acute findings are identified.
--- NOTE | 2019-03-01 18:36 | DI.RAD_ITS ---
EXAM: XR CHEST 2V PA LATERAL INDICATION: stroke. COMPARISON: XR CHEST 2V PA LATERAL from 11/07/2018 TECHNIQUE: 2D digital imaging was performed. FINDINGS: The lungs are well expanded and free of infiltrate. There is no evidence of a pneumothorax or pleura l effusion. Cardiovascular structures are intact. IMPRESSION: No evidence of acute cardiopulmonary disease.
--- NOTE | 2019-03-01 18:37 | ED.GENADUL_ITS ---
Discharge Plan Disposition Condition: Stable Discharge Details Chief Complaint: CVA/TIA Admit Date/Time: 03/01/19 19:43 Admit Provider: Frank Watkins Attending Provider: Selena Gar Primary Care Provider: Frank Saavedra ED Provider: Corey Barboza Discharge Instructions Activity:: Activity as Tolerated Equipment/Supplies:: No Equipment Needed Diet:: As Tolerated Discharge Orders Discharge Orders: Discharge Order (Routine); Ordered 03/03/19 Ordered By: Selena Gar Discharge Data Discharge Date/Time-TO BE ENTERED AT DEPARTURE: 03/01/19 20:25 Medical Decision Making 18:50 --53-year-old male here with left upper extremity weakness, left facial droop, mild dysarthria. Patient is hypertensive and tachycardic. He is quite anxious. NIH stroke scale performed at 1840: 5 points Screening ECG was reviewed and interpreted by me: Sinus tachycardia 105 bpm, normal axis, poor R wave progression, nonspecific ST depression noted inferior lateral, symptoms similar although less pronounced on prior ECG from 02/17/2019. Will obtain stat CT head and CTA of the head and neck. 19:19 --CT head interpreted by radiology: No acute finding. CTA of the head interpreted by radiology: No acute findings. CT a of the neck interpreted by radiology: No acute findings. Chest x-ray reviewed and interpreted by radiology: No acute finding. We will give aspirin 325 mg. -- On reassessment, patient remains hypertensive with blood pressure 160/91. Continues to have persistent deficits. -- Spoke with Dr. Otto saab at [facility] [place], [place] who recommends conservative therapy. Not a candidate for TPA or intravascular treatment. Will admit to hospitalist. HPI General Mode of arrival: ambulatory . Date/Time Provider Initiated Documentation: 03/01/19 18:23 . Limitations to Documentation: no limitations . Information obtained by: patient . HPI Narrative: 53-year-old male presents with chief complaint of generally not feeling well. Patient notes that he woke up around 2 AM this morning with slurred speech and weakness of his left arm. The symptoms have persisted today. He had trouble using his left hand with fine motor today. He also noted some left facial weakness that has persisted. Symptoms are severe. No modifiers. He denies headache. No chest pain. Related Data Home Medications Medication Instructions Recorded Confirmed atenolol 25 mg PO DAILY #30 tab 11/08/18 03/01/19 hydrochlorothiazide 25 mg PO DAILY #30 tab 11/08/18 03/01/19 lisinopril 10 mg PO DAILY #30 tab 11/08/18 03/01/19 albuterol sulfate 2 puff INHALATION 6XD PRN 03/01/19 03/01/19 aspirin 81 mg PO DAILY #30 tab 03/03/19 atorvastatin [Lipitor] 40 mg PO QPM #30 tab 03/03/19 Previous Rx's Medication Instructions Recorded atenolol 25 mg PO DAILY #30 tab 11/08/18 hydrochlorothiazide 25 mg PO DAILY #30 tab 11/08/18 lisinopril 10 mg PO DAILY #30 tab 11/08/18 aspirin 81 mg PO DAILY #30 tab 03/03/19 atorvastatin [Lipitor] 40 mg PO QPM #30 tab 03/03/19 Allergies Allergy/AdvReac Type Severity Reaction Status Date / Time No Known Drug Allergies Allergy Unverified 02/17/19 06:36 General Stated Complaint: CVA/TIA SOFIA: 2 Review of Systems Review of Systems ROS Unobtainable: All systems reviewed & are unremarkable except as noted in HPI and below Constitutional Constitutional: Denies fever(s) and Denies headache(s) ENT Ears, Nose, Mouth, and Throat: Denies headache(s) Neurologic Neurologic: Reports as per HPI and Denies headache(s) [facility] Medical History Asthma (Chronic) Essential hypertension ETOH abuse (Chronic) HTN (hypertension) (Chronic) Surgical History Repair of umbilical hernia (05/26/15) Family History Mother Bladder cancer Maternal Uncle Bladder cancer Father CML (chronic myelocytic leukemia) Other Heart disease Social History Smoking/Tobacco Use Status: Never Counseling given: counseling >3 minutes Alcohol Intake: current Alcohol Intake frequency: 3 or more drinks per day Alcohol type: hard liquor Drug use: Never Substance use type: does not use Household members: none 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 [employer] Do you feel safe at home: Yes Do you feel safe in your relationship?: Yes Exam Const General: cooperative and no acute distress HENMT Head: normocephalic and atraumatic Mouth: moist mucous membranes Eyes Conjunctivae: normal conjunctivae Sclera: normal sclerae EOM: EOM intact bilaterally Neck Neck: trachea midline and supple Resp Auscultation: clear to auscultation bilaterally, no rales, no rhonchi and no wheezes Cardio Jugular venous pressure: no JVD Rate: regular rate and not tachycardic Rhythm: regular rhythm GI Palpation: soft, not firm, no guarding, no masses, not rigid and nontender Skin General skin exam: no rashes or lesions noted Neuro General: alert, awake, oriented x3 and tone normal Cranial Nerves: PERRL, accommodation normal, EOM intact bilaterally, no nystagmus and tongue midline Cognition: normal cognition Speech: other (Dysarthria mild) Motor: pronator drift (left upper extremity ) and other (Left facial droop, left upper extremity strength 4/5 ) Sensory Exam: upper extremity (Decreased sensation to light touch left upper extremity compared to right) Extrem General: no edema Psych Appearance: grossly normal Mental Status: mental status grossly normal Course Vital Signs Vital signs: Vital Signs Temperature 37.6 C H 03/01/19 18:21 Pulse 110 H 03/01/19 18:21 Respiratory Rate 16 03/01/19 18:21 Blood Pressure 199/94 H 03/01/19 18:21 Pulse Oximetry 98 03/01/19 18:21 Temperature 37.6 C H 03/01/19 18:21 Temperature Source Skin 03/01/19 18:21 Pulse 110 H 03/01/19 18:21 Respiratory Rate 16 03/01/19 18:24 Respiratory Effort Non-Labored 03/01/19 18:24 Respiratory Depth Normal 03/01/19 18:24 Respiratory Pattern Normal 03/01/19 18:24 Blood Pressure 199/94 H 03/01/19 18:21 Pulse Oximetry 98 03/01/19 18:21 Pain Level 0 03/01/19 18:21
[2019-03-01 18:47] LABS: Abs Immature Grans 0.07 k/cumm (0.0-0.09); Absolute Basophil Count 0.03 k/cumm (0.0-0.2); Absolute Monocyte Count 1.73 k/cumm (0.11-0.7); Absolute Neutrophil Count 10.86 k/cumm (1.2-6.7); Basophils % 0.2; Eosinophils % 0.9; HCT 45.6 % (40.0-50.0); HGB 15.6 g/dL (13.5-17.5); Immature Grans % 0.4; Mean Corp. HGB Concentration 34.2 g/dL (32.0-36.0); Mean Corpuscular Hemoglobin 32.2 pg (27.0-33.0); Mean Corpuscular Volume 94.2 fL (80-95); Monocytes % 10.8; Neutrophils % 67.7; Platelet Count 246 x1000/uL (130-400); RBC 4.84 m/cumm (4.50-6.00); RBC Distribution Width 12.4 % (11.8-14.1); White Blood Cell Count 16.04 k/cumm (4.4-10.8)
[2019-03-01 18:49] LABS: Absolute Eosinophil Count 0.14 k/cumm (0.0-0.7); Absolute Lymphocyte Count 3.21 k/cumm (1.2-3.4)
[2019-03-01] MEDS: Normal Saline Flush 10 ML SYR IVP ×2 (18:56→21:17)
[2019-03-01] MEDS: Omnipaque 350 MG/ML 100 ML BTL IJ (18:56)
[2019-03-01 19:01] LABS: Diff Comment Diff Reviewed; RBC Morphology Normal
--- NOTE | 2019-03-01 19:01 | DI.VRAD_ITS ---
PROCEDURE INFORMATION: Exam: CT Head Without Contrast Exam date and time: 03/01/2019 6:43 PM Clinical history: 53 years old, male; Weakness, facial; Additional info: L facial droop, weakness in lue TECHNIQUE: Imaging protocol: Computed tomography of the head without contrast. COMPARISON: No relevant prior studies available. FINDINGS: Brain: Normal. No hemorrhage. Unremarkable white matter. No mass effect. Ventricles: Normal. No ventriculomegaly. Bones/joints: Unremarkable. No acute fracture. Sinuses: Small retention cyst in the left maxillary sinus. Mastoid air cells: Visualized mastoid air cells are well aerated. Soft tissues: Unremarkable. IMPRESSION: No acute finding. Dictated and Authenticated by: German Amador MD. Ordering:CHRIS Nicole MD
--- NOTE | 2019-03-01 19:11 | DI.VRAD_ITS ---
PROCEDURE INFORMATION: Exam: CT Angiography Head With Contrast Exam date and time: 03/01/2019 6:49 PM Clinical history: 53 years old, male; Weakness; Additional info: L facial droop, weakness in lue TECHNIQUE: Imaging protocol: Computed tomography angiography of the head with intravenous contrast. 3D rendering: MIP reconstructed images were created and reviewed. COMPARISON: No relevant prior studies available. FINDINGS: Right internal carotid artery: Unremarkable. Intracranial segment is patent with no significant stenosis. No aneurysm. Right anterior cerebral artery: Unremarkable. No occlusion or significant stenosis. No aneurysm. Right middle cerebral artery: Unremarkable. No occlusion or significant stenosis. No aneurysm. Right posterior cerebral artery: Unremarkable. No occlusion or significant stenosis. No aneurysm. Right vertebral artery: Unremarkable. No occlusion or significant stenosis. No aneurysm. Left internal carotid artery: Unremarkable. Intracranial segment is patent with no significant stenosis. No aneurysm. Left anterior cerebral artery: Unremarkable. No occlusion or significant stenosis. No aneurysm. Left middle cerebral artery: Unremarkable. No occlusion or significant stenosis. No aneurysm. Left posterior cerebral artery: Unremarkable. No occlusion or significant stenosis. No aneurysm. Left vertebral artery: Unremarkable. No occlusion or significant stenosis. No aneurysm. Basilar artery: Unremarkable. No occlusion or significant stenosis. No aneurysm. IMPRESSION: No acute findings. PROCEDURE INFORMATION: Exam: CT Angiography Neck With Contrast Exam date and time: 03/01/2019 6:49 PM Clinical history: 53 years old, male; Weakness; Additional info: L facial droop, weakness in lue TECHNIQUE: Imaging protocol: Computed tomography angiography of the neck with intravenous contrast. 3D rendering: MIP reconstructed images were created and reviewed. COMPARISON: No relevant prior studies available. FINDINGS: VASCULATURE: Right common carotid artery: Unremarkable. No stenosis. No dissection or occlusion. Right internal carotid artery: Unremarkable extracranial segment. No stenosis. No dissection or occlusion. Right external carotid artery: Unremarkable. No occlusion or stenosis of the origin. Right vertebral artery: Unremarkable. No stenosis. No dissection or occlusion. Left common carotid artery: Unremarkable. No stenosis. No dissection or occlusion. Left internal carotid artery: Unremarkable extracranial segment. No stenosis. No dissection or occlusion. Left external carotid artery: Unremarkable. No occlusion or stenosis of the origin. Left vertebral artery: Unremarkable. No stenosis. No dissection or occlusion. NECK: Bones/joints: No acute fracture. Soft tissues: Normal. No significant soft tissue swelling. IMPRESSION: No acute findings. COMMENT: Reference per NASCET criteria for degree of stenosis: Mild: less than 50% stenosis. Moderate: 50-69% stenosis. Severe: 70-94% stenosis. Near occlusion: 95-99% stenosis. Dictated and Authenticated by: German Amador MD. Ordering:CHRIS Nicole MD
--- NOTE | 2019-03-01 19:12 | DI.VRAD_ITS ---
PROCEDURE INFORMATION: Exam: XR Chest, 2 Views Exam date and time: 03/01/2019 7:01 PM Clinical history: 53 years old, male; Other: Stroke; Additional info: L facial droop, weakness in lue TECHNIQUE: Imaging protocol: XR of the chest Views: 2 views. COMPARISON: CR XR CHEST 2V PA LATERAL 11/07/2018 8:34 PM FINDINGS: Lungs: Unremarkable. No consolidation. Pleural space: Unremarkable. No pleural effusion. No pneumothorax. Heart/Mediastinum: Unremarkable. No cardiomegaly. Vasculature: Mild atherosclerosis. Bones/joints: Degenerative changes in the spine. IMPRESSION: No acute finding. Dictated and Authenticated by: German Amador MD. Ordering:CHRIS Nicole MD
[2019-03-01 19:13] LABS: ALT 32 U/L (16-63); AST 21 U/L (15-37); Albumin 4.4 g/dL (3.4-5.0); Alkaline Phosphatase 81 U/L (46-116); Anion Gap 13.5 mmol/L (3-11); BUN 18 mg/dL (7-18); Bilirubin, Total 0.7 mg/dL (0.2-1.0); CO2 24.5 mmol/L (21.0-32.0); CREATININE 1.18 mg/dL (0.70-1.30); Calcium 9.2 mg/dL (8.5-10.1); Chloride 100 mmol/L (98-107); Glucose 138 mg/dL (70-100); Potassium 3.2 mmol/L (3.5-5.1); Sodium 138 mmol/L (136-145); Total Protein 8.5 g/dL (6.4-8.2)
[2019-03-01 19:14] LABS: Troponin I < 0.05 ng/mL (0.00-0.06)
[2019-03-01] MEDS: Aspirin 325 MG TAB PO (19:21)
--- NOTE | 2019-03-01 19:58 | W.PM.HP.N ---
Date of service: 03/01/19 Time of Service: 19:58 Assessment and Plan Assessment and plan (1) CVA (cerebral vascular accident): Start date: 03/01/19 Status: Acute Assessment and plan: This is a 53-year-old gentleman who awakened at 2 AM the morning of admission with left facial droop, dysarthria and left upper extremity weakness. His left upper extremity weakness is slightly improved the rest of the symptoms have persisted. He is on full dose aspirin and conservative therapy with follow-up MRI in the morning ordered. He will not be on any further anticoagulation or be transferred for thrombolytic therapy because of risk of hemorrhage with his acute stroke symptoms. He will be on neurochecks and telemetry overnight. Thus far his telemetry reveals normal sinus rhythm and his troponins were negative upon admission. Qualifiers: CVA mechanism: thrombosis Laterality of affected vessel: right Precerebral and cerebral artery: middle cerebral artery Qualified Code(s): I63.311 - Cerebral infarction due to thrombosis of right middle cerebral artery (2) HTN (hypertension): Status: Chronic Assessment and plan: Present the patient has hypertension slightly exacerbated but we will follow closely without aggressive treatments as he has had a recent stroke. Troponins were negative and telemetry does reveal normal sinus rhythm. Qualifiers: Hypertension type: essential hypertension Qualified Code(s): I10 - Essential (primary) hypertension (3) Asthma: Status: Chronic Assessment and plan: This problem is not active the patient will be treated with as needed nebulizers while in the hospital. Qualifiers: Asthma severity: mild Asthma persistence: intermittent Asthma complication type: uncomplicated Qualified Code(s): J45.20 - Mild intermittent asthma, uncomplicated History of Present Illness History of Present Illness Chief Complaint: Acute onset of left facial droop and left arm weakness Narrative: This is a 53-year-old gentleman who has had chronic hypertension who began to have left facial droop with slurred speech and left arm weakness at 02:00, early the morning of admission. He was not word searching or having problems saying what he wanted but simply slurred becasue of the weakness. He said that he is a stubborn [place] and felt that this will go away so stayed home. He did have someone with him at the time. His right-sided weakness persisted throughout the day so he could start to use his arm slightly more but had problems with fine motor activity. He reported to the ED for evaluation with persistence of neurological deficits. He had no headache, palpitations or chest pain. He had no seizure activity, GI or complaints. In the ED his evaluation revealed a non-conclusive CT of the head and CTA of the head and neck. Labs were unrevealing and the patient did have slight hypertension. The ED physician did speak to Dr. Oscar [facility] neurology and they recommended conservative therapy. He was not a candidate for TPA or invasive intravascular treatment. At the time I saw the patient he was persistent with some neurological deficits though he could not move his left arm better than earlier in the day. He had no headache and no new complaints. Review of Systems Review of Systems Narrative: 13 point review of systems otherwise unrevealing or stable. FOR[facility]LY [facility] Medical History Asthma (Chronic) Essential hypertension HTN (hypertension) (Chronic) Surgical History Repair of umbilical hernia (05/26/15) Social History Smoking/Tobacco Use Status: Never Alcohol Intake: current Alcohol Intake frequency: 3 or more drinks per day Alcohol type: hard liquor Drug use: Never Substance use type: does not use Do you feel safe at home: Yes Do you feel safe in your relationship?: Yes Meds Home Medications and Allergies Home Medications Medication Instructions Recorded Confirmed Type atenolol 25 mg PO DAILY #30 tab 11/08/18 03/01/19 Rx hydrochlorothiazide 25 mg PO DAILY #30 tab 11/08/18 03/01/19 Rx lisinopril 10 mg PO DAILY #30 tab 11/08/18 03/01/19 Rx albuterol sulfate 2 puff INHALATION 6XD PRN 03/01/19 03/01/19 History Allergies Allergy/AdvReac Type Severity Reaction Status Date / Time No Known Drug Allergies Allergy Unverified 02/17/19 06:36 Exam Narrative Exam Narrative: General: Patient appears appropriate for age, slightly anxious but alert and oriented x3. He is in no acute distress. He has a flattened affect with good eye contact. HEENT: Normocephalic with eyes revealing pupils equal and reactive to light symmetrically, extraocular movement intact without nystagmus and sclera anicteric. Ears normal, oropharynx with moist mucosa and good dentition with tongue protruding to the left. Neck: Supple without JVD and no carotid bruits. Back: Without CVA tenderness. Lungs: Fair aeration with bronchovesicular breath sounds diffusely, no adventitious sounds with no focalizing rales, no rhonchi and no wheezes. Normal inspiratory expiratory phase ratio. Heart: Regular rate and rhythm without murmurs or gallops appreciated. Abdomen: Protuberant and obese but soft, nontender and no palpable hepatosplenomegaly. Bowel sounds positive in all quadrants. Genitalia/rectal: Not examined. Extremities: Without clubbing, cyanosis or edema with peripheral pulses 2+ and full over dorsalis pedis pulses and good capillary refill. Joints normal with full range of motion. Skin: Normal color, good turgor and no rashes. Warm and dry. Neuro: Cranial nerves II through XII grossly intact except for left facial droop when patient smiles and the tongue protruding toward the left. These may be more central nervous system deficits. Motor reveals 3-5 strength of the left upper extremity otherwise 5 out of 5 strength over the rest of the exam. No Babinski's elicited. Sensory grossly intact. Results Imaging Imaging Studies: Exam(s) PROCEDURE INFORMATION: Exam: XR Chest, 2 Views Exam date and time: 03/01/2019 7:01 PM Clinical history: 53 years old, male; Other: Stroke; Additional info: L facial droop, weakness in lue TECHNIQUE: Imaging protocol: XR of the chest Views: 2 views. COMPARISON: CR XR CHEST 2V PA LATERAL 11/07/2018 8:34 PM FINDINGS: Lungs: Unremarkable. No consolidation. Pleural space: Unremarkable. No pleural effusion. No pneumothorax. Heart/Mediastinum: Unremarkable. No cardiomegaly. Vasculature: Mild atherosclerosis. Bones/joints: Degenerative changes in the spine. IMPRESSION: No acute finding. Dictated and Authenticated by: German Amador MD. Exam(s) PROCEDURE INFORMATION: Exam: CT Head Without Contrast Exam date and time: 03/01/2019 6:43 PM Clinical history: 53 years old, male; Weakness, facial; Additional info: L facial droop, weakness in lue TECHNIQUE: Imaging protocol: Computed tomography of the head without contrast. COMPARISON: No relevant prior studies available. FINDINGS: Brain: Normal. No hemorrhage. Unremarkable white matter. No mass effect. Ventricles: Normal. No ventriculomegaly. Bones/joints: Unremarkable. No acute fracture. Sinuses: Small retention cyst in the left maxillary sinus. Mastoid air cells: Visualized mastoid air cells are well aerated. Soft tissues: Unremarkable. IMPRESSION: No acute finding. Dictated and Authenticated by: German Amador MD. Exam(s) PROCEDURE INFORMATION: Exam: CT Angiography Head With Contrast Exam date and time: 03/01/2019 6:49 PM Clinical history: 53 years old, male; Weakness; Additional info: L facial droop, weakness in lue TECHNIQUE: Imaging protocol: Computed tomography angiography of the head with intravenous contrast. 3D rendering: MIP reconstructed images were created and reviewed. COMPARISON: No relevant prior studies available. FINDINGS: Right internal carotid artery: Unremarkable. Intracranial segment is patent with no significant stenosis. No aneurysm. Right anterior cerebral artery: Unremarkable. No occlusion or significant stenosis. No aneurysm. Right middle cerebral artery: Unremarkable. No occlusion or significant stenosis. No aneurysm. Right posterior cerebral artery: Unremarkable. No occlusion or significant stenosis. No aneurysm. Right vertebral artery: Unremarkable. No occlusion or significant stenosis. No aneurysm. Left internal carotid artery: Unremarkable. Intracranial segment is patent with no significant stenosis. No aneurysm. Left anterior cerebral artery: Unremarkable. No occlusion or significant stenosis. No aneurysm. Left middle cerebral artery: Unremarkable. No occlusion or significant stenosis. No aneurysm. Left posterior cerebral artery: Unremarkable. No occlusion or significant stenosis. No aneurysm. Left vertebral artery: Unremarkable. No occlusion or significant stenosis. No aneurysm. Basilar artery: Unremarkable. No occlusion or significant stenosis. No aneurysm. IMPRESSION: No acute findings. PROCEDURE INFORMATION: Exam: CT Angiography Neck With Contrast Exam date and time: 03/01/2019 6:49 PM Clinical history: 53 years old, male; Weakness; Additional info: L facial droop, weakness in lue TECHNIQUE: Imaging protocol: Computed tomography angiography of the neck with intravenous contrast. 3D rendering: MIP reconstructed images were created and reviewed. COMPARISON: No relevant prior studies available. FINDINGS: VASCULATURE: Right common carotid artery: Unremarkable. No stenosis. No dissection or occlusion. Right internal carotid artery: Unremarkable extracranial segment. No stenosis. No dissection or occlusion. Right external carotid artery: Unremarkable. No occlusion or stenosis of the origin. Right vertebral artery: Unremarkable. No stenosis. No dissection or occlusion. Left common carotid artery: Unremarkable. No stenosis. No dissection or occlusion. Left internal carotid artery: Unremarkable extracranial segment. No stenosis. No dissection or occlusion. Left external carotid artery: Unremarkable. No occlusion or stenosis of the origin. Left vertebral artery: Unremarkable. No stenosis. No dissection or occlusion. NECK: Bones/joints: No acute fracture. Soft tissues: Normal. No significant soft tissue swelling. IMPRESSION: No acute findings. COMMENT: Reference per NASCET criteria for degree of stenosis: Mild: less than 50% stenosis. Moderate: 50-69% stenosis. Severe: 70-94% stenosis. Near occlusion: 95-99% stenosis. Dictated and Authenticated by: German Amador MD Labs Result diagrams: 03/01/19 18:30 03/01/19 18:30 Labs: Laboratory Results - last 24 hr 03/01/19 03/01/19 18:30 18:30 WBC 16.04 H RBC 4.84 Hgb 15.6 Hct 45.6 MCV 94.2 MCH 32.2 MCHC 34.2 RDW 12.4 Plt Count 246 MPV 11.0 Immature Gran % 0.4 Neutrophils % 67.7 Lymphocytes % 20.0 Monocytes % 10.8 Eosinophils % 0.9 Basophils % 0.2 Absolute Neutrophils 10.86 H Absolute Lymphocytes 3.21 Absolute Monocytes 1.73 H Absolute Eosinophils 0.14 Absolute Basophils 0.03 Differential Comment Diff reviewed RBC Morphology Normal Sodium 138 Potassium 3.2 L Chloride 100 Carbon Dioxide 24.5 Anion Gap 13.5 H BUN 18 Creatinine 1.18 Estimated GFR/1.73 m2 >= 60.00 Glucose 138 H Calcium 9.2 Magnesium 2.0 Total Bilirubin 0.7 AST 21 ALT 32 Alkaline Phosphatase 81 Troponin I < 0.05 Total Protein 8.5 H Albumin 4.4 Last Vital Signs Temp 37.6 C H 03/01/19 18:21 Pulse 89 03/01/19 18:52 Resp 24 03/01/19 18:53 BP 169/86 H 03/01/19 18:52 Pulse Ox 98 03/01/19 18:53
[2019-03-01] MEDS: POTASSIUM CHLORIDE 10 MEQ/100 ML BAG 100 MEQ IVPB (21:16)
[2019-03-01 21:40] LABS: Prothrombin Time 10.4 sec (9.3-11.0)
[2019-03-01 21:55] LABS: TSH (W/Ref FT4) 2.55 uIU/mL (0.36-3.74)
[2019-03-01 22:08] LABS: Troponin I < 0.05 ng/mL (0.00-0.06)
[2019-03-02] VITALS (10 sets, daily range): BP systolic 128–173; BP diastolic 80–109; PULSE 66–91; RESP 17–18; TEMP 36.3–37.2; O2SAT 94–96
[2019-03-02] MEDS: Atorvastatin 40 MG TAB PO ×2 (02:13→20:12)
[2019-03-02 07:29] LABS: Mean Corp. HGB Concentration 33.3 g/dL (32.0-36.0); Mean Corpuscular Volume 95.9 fL (80-95); Mean Platelet Volume 11.1 fL (8.0-11.0); Platelet Count 225 x1000/uL (130-400); RBC 4.38 m/cumm (4.50-6.00); RBC Distribution Width 12.4 % (11.8-14.1); White Blood Cell Count 11.37 k/cumm (4.4-10.8)
[2019-03-02 07:45] LABS: ALT 28 U/L (16-63); AST 16 U/L (15-37); Albumin 3.8 g/dL (3.4-5.0); Alkaline Phosphatase 70 U/L (46-116); Anion Gap 7.9 mmol/L (3-11); BUN 16 mg/dL (7-18); Bilirubin, Total 0.8 mg/dL (0.2-1.0); CO2 28.1 mmol/L (21.0-32.0); CREATININE 1.03 mg/dL (0.70-1.30); Calcium 8.8 mg/dL (8.5-10.1); Calculated LDL 113 mg/dL; Chloride 103 mmol/L (98-107); Cholesterol 180 mg/dL (50-200); Glucose 121 mg/dL (70-100); HDL Cholesterol 43 mg/dL (40-60); Potassium 4.1 mmol/L (3.5-5.1); Sodium 139 mmol/L (136-145); Total Protein 7.5 g/dL (6.4-8.2); Triglyceride 123 mg/dL (30-150)
[2019-03-02] MEDS: Potassium Chloride 10 MEQ TABCR PO (08:32)
[2019-03-02] MEDS: Aspirin E.C. 325 MG TABEC PO (08:32)
[2019-03-02] MEDS: LORazepam 2 MG/ML VIAL 1 MG IVP ×2 (10:43→11:40)
[2019-03-02] MEDS: Normal Saline Flush 10 ML SYR IVP ×2 (10:44→11:40)
[2019-03-02 11:03] LABS: Bilirubin Negative (Negative); Blood Negative (Negative); Clarity Clear (Clear); Glucose Negative (Negative); Ketones Negative (Negative); Leukocyte Esterase Negative (Negative); Nitrite Negative (Negative); Specific Gravity 1.015 (1.005-1.025)
--- NOTE | 2019-03-02 12:08 | DI.MRI_ITS ---
EXAM: MR BRAIN WO CLINICAL HISTORY: suspected CVA. TECHNIQUE: Multiplanar multisequence MRI was performed. COMPARISON: No exams were available for comparison FINDINGS: MR examination of the brain was performed according to the usual protocol. There is slight generaliz ed cerebral atrophy. Slight prominence of periventricular white matter signal noted may represent ea rly microvascular ischemic changes. There is crescentic area of abnormal signal which appears to cor respond to posterior limb of the internal capsule on the right seen on FLAIR images. Diffusion-weigh winston imaging shows diffusion restriction this area and ADC mapping confirms low signal at this site. Findings are suggestive of a small area of infarction, acute or subacute. No other signal abnormalit y identified in the brain. The temporal bone structures appear intact as visualized. Orbital struct ures appear normal. Pituitary is unremarkable as visualized. There is grossly normal flow in the ci [id number] vasculature. Susceptibility weighted imaging is unremarkable. IMPRESSION: Conclusion findings suggesting acute or subacute infarction, nonhemorrhagic, in the right internal ca psule posterior limb.
--- NOTE | 2019-03-02 12:13 | PHARADMIT ---
Admission Pharmacy Clinical Review CVA R cerebral hemisphere, HTN Code Status Full Code Current Weight 106.5 kg Renally Cleared and Narrow Therapeutic Index Meds Crcl ~88.0 mL/min current meds okay QTc Value / Action Taken QTc 439 BP Control, Fever BP 173/105 afebrile Electrolytes reviewed within normal limits DVT Prophylaxis none due to risk of hemorrhage with acute stroke symptoms per h&P Opiate Usage / Scheduled Bowel Regimen Ordered no/prn Plt/SCr for Heparin / Enoxaparin plt 225 SCr 1.03 INR for Warfarin n/a H/H stable, WBC/Bands h/h 14.0/42.0 WBC 11.37 Antibiotic appropriateness none Cultures and Sensitivities urine culture pending Surgical ABX d/c within 24 hr n/a DM control / Insulin Dosing BG 121 none Heart Failure (Check EF%) (CAN's, B-Block, Diuretics) atenolol, HCTZ, lisinopril IV to PO Switch n/a Home Meds Reviewed yes Home Meds Not Ordered all ordered Comments MRI today speech consult ordered
--- NOTE | 2019-03-02 14:43 | IN_ITS ---
Date of service: 03/02/19 Time of Service: 13:25 PT Notes Inpatient Physical Therapy Evaluation Date: 03/02/19 Referring Doctor: Dr. Gar PT Orders: PT CONSULT: limited ability to ambulate Precautions: standard Patient Profile/Admitting Diagnosis: From the emergency room 03/01/19 after presenting with facial droop, dysarthria, and left upper weakness. He was diagnosed with acute CVA and admitted for medical management. PMHX: Hypertension, asthma Social History/Home Situation: Patient lives with a roommate in the community, home has 4 steps to enter. He is fully independent at baseline. 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 Equipment Owned/DME: None Subjective: Patient states that he is feeling fine, and is anxious to leave the hospital as soon as possible. 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 He reports that he has had weakness in his left upper extremity, although feels significantly better today. He has been up walking around his room independently. Objective: General Observation: Resting in bed. Readily conversant and pleasant. No lines. Mild facial droop on the left. Mental Status: A&Ox3. Pain: denies ROM: Right Upper Extremity: WFL Left Upper Extremity: WFL Right Lower Extremity: WFL Left Lower Extremity: WFL Strength: Right Upper Extremity: Shoulder flexion 5/5. Biceps 5/5. Internal rotation 5/5. External rotation 5/5. Community Health Program Coordinator is strong, although not assessed by dynomometer. Left Upper Extremity: Shoulder flexion 3-/5. Biceps 3/5. Shoulder internal rotation 3+/5. Shoulder external rotation 3-/5. Patient lacks full bridge maintainer initially; with mirroring activities is able to perform a full, although weak, bridge maintainer. Digit adduction 3/5. Abduction 3/5. Right Lower Extremity: Hip flexion 5/5. Quads 5/5. Ankle dorsiflexion 5/5. Left Lower Extremity: Hip flexion 5/5. Quads 5/5. Ankle dorsiflexion 5/5. Bed Mobility/Transfers: Supine?sit: Independent with HOB at 0 degrees Sit to supine: Independent with HOB at 0 degrees Sit?stand: Independent Stand?sit: Independent Gait: Patient ambulance 300 feet independently, without assistive device. Balance: Static Sitting: Normal Dynamic Sitting: Normal Static Standing: Good Dynamic Standing: Good Patient is able to tolerate unsupported small base of support standing, although with increased trunk sway and need for CG. He is able to effectively complete single leg standing x10 seconds on each side with CG. Coordination: Moderate deficit with alternating toe tapping. Fine motor: Severely diminished fine motor with thumb to digit tapping on the left Special Tests: Mobility Limitations Standardized Measure [facility] 6 clicks Basic Mobility Inpatient Short Form: Raw Score: 24 CMS Score: 0% deficit Informed Consent/Education: Patient instructed in purpose of PT consult and plan of care. Treatment: Today's session consisted of evaluation, followed by instruction in upper extremity strengthening activities. Patient was instructed in mirroring exercises with bilateral completion of gripping activities, intrinsic hand strengthening, and gravity reduced shoulder strengthening activities. These can all be found noted on flowsheet. Assessment: Patient is a 53 year old male referred to physical therapy services with the diagnosis of CVA. Patient presents with clinical signs and symptoms consistent with diagnosis, with improving overall mobility per patient report although continued left hemiparesis with significant upper extremity weakness. Patient is extremely anxious to leave the hospital and get back to work, and he does demonstrate safety sufficient to allow for return home once medically cleared. He will however require PT or OT intervention to address his upper extremity deficits on an outpatient basis. I started him with an early exercise program today and encouraged him to complete these on an hourly basis during the acute phases of recovery to maximize functional outcomes. He currently demonstrates the following impairment level findings: 1. Decreased left upper extremity strength 2. Decreased coordination Impairments are contributing to the following functional limitations: A 1. Patient lacks functional reach of left upper extremity 2. Patient lacks functional bridge maintainer with left upper extremity Patient is assessed as a Moderate [id number] complexity based on the following: History: 53-year-old male presenting with left hemiparesis due to CVA. Complicating factors include hypertension, and strong desire to leave the hospital as soon as possible due to a highly demanding job. Examination: Functional limitations as noted above Presentation: Evolving, due to patient being acutely status post CVA Decision Making: Moderate complexity Goals: Goals X1 week 1. Independent with home exercise program 2. Patient able to demonstrate effective functional reach with left upper extremity Plan of Care/Treatment Plan: 1-2x/day, 7 days/week x 1 week. Plan of care has been reviewed with the NURSING ASSISTANTS TEACHER providing the service under Physical Therapy direction. Initiate Physical Therapy intervention for strengthening, bed mobility, transfers, gait, stairs, balance training, use of assistive device. DISCHARGE RECOMMENDATIONS: Home with recommendation for outpatient PT/OT TREATMENT CODE/TIME: 1:25-2:00 ([id number], [id number]) Davina Tejeda, PT, DPT [facility]
--- NOTE | 2019-03-02 16:51 | NCONE_ITS ---
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 Bashir is a 53 year-old, right-handed man who was admitted for: #1. Right hemisphere ischemic stroke manifested by dysarthria, dysphagia, and left arm >face > leg weakness likely secondary to small vessel disease. Continue work-up with TTE, A1c, and telemetry. Pending TTE, will consider prolonged cardiac monitoring. In the meantime, continue aspirin + atorvastatin for secondary stroke prevention. Continue permissive hypertension - can slowly re-start home BP meds tomorrow. Needs PT/OT. Consider sleep study as an outpatient. #2. Dysphagia/dysarthria. Bedside swallow study was negative. Unfortunately, we do not have ST available at this time. Will likely need outpatient ST. He should follow-up in the neurology clinic in 4-6 weeks. History of Present Illness History of Present Illness Chief Complaint: stroke Narrative: Handedness: right. HPI: Mr. Bashir is a 53 year-old man with a PMH of hypertension, asthma, and alcohol use. He woke up on 03/01/19 at ~2am to use the bathroom (he gets up ~2x per night since starting HCTZ). At that time, he noted left arm weakness. He went back to bed. When he awoke later, he noted left face weakness and dysarthria in addition to the left arm weakness. His symptoms persisted throughout the day, so that he eventually presented to the ER. In the ER, he was noted to have a BP 199/94. A laboratory work-up was significant for WBC16.04 --> 11.37. He was started on aspirin 325mg daily along with atorvastatin 40mg HS and admitted for further work-up. His initial NIHSS was 5. He was not a candidate for tPA as he was outside of the time window. Since admission, he has had modest improvement in all of his symptoms. He has not choked on any liquids but did choke a little on some coffee cake. We do not have ST available in our hospital at this time. He has undergone the work-up as below. He sleeps between 8-10 hours per night. He is not sure if he snores. He generally feels rested. -CT head: small right BG hypodensity concerning for an acute/subacute infarct. I personally viewed these images. -MRI brain w/o: acute/subacute ischemic infarct in the right internal capsule. I personally viewed these images. -CTA head/neck: no significant stenosis. I personally viewed these images. -TTE: pending. -Labs: A1c pending. LDL 113. -Tele: unremarkable. Consults Requesting physician: Frank Watkins Review of Systems Review of Systems ROS Unobtainable: All systems reviewed & are unremarkable except as noted in HPI and below PFSH Medical History Asthma (Chronic) Essential hypertension ETOH abuse (Chronic) HTN (hypertension) (Chronic) Surgical History Repair of umbilical hernia (05/26/15) Family History Mother Bladder cancer Maternal Uncle Bladder cancer Father CML (chronic myelocytic leukemia) Other Heart disease Social History Smoking/Tobacco Use Status: Never Counseling given: counseling >3 minutes Alcohol Intake: current Alcohol Intake frequency: 3 or more drinks per day Alcohol type: hard liquor Drug use: Never Substance use type: does not use Household members: none 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 [employer] Do you feel safe at home: Yes Do you feel safe in your relationship?: Yes Visit Medication and Allergies Active Medications Generic Name Dose Route Start Last Admin Trade Name Freq PRN Reason Stop Dose Admin Acetaminophen 650 mg 03/01/19 19:43 Tylenol PO Q4H PRN PRN Al Hydrox/Mg Hydrox/Simethicone 30 ml 03/01/19 19:43 Mylanta Liquid PO Q2H PRN PRN Albuterol Sulfate 2.5 mg 03/01/19 19:54 Proventil Updraft UPD Q3H PRN PRN Aspirin 325 mg 03/02/19 08:30 03/02/19 08:32 Ecotrin PO 325 mg DAILY JAY Administration Atenolol 25 mg 03/02/19 08:30 03/02/19 08:33 Tenormin PO Not Given DAILY [facility] Atorvastatin Calcium 40 mg 03/02/19 20:00 Lipitor PO QPM [facility] Dimethicone/Zinc Oxide 0 gm 03/01/19 19:43 Antonio Protect Cream TP PRN PRN Docusate Sodium 100 mg 03/01/19 19:43 Colace PO TID PRN PRN Hydrochlorothiazide 25 mg 03/02/19 08:30 03/02/19 08:33 Hydrodiuril PO Not Given DAILY [facility] IV Miscellaneous Supplies 1 each 03/01/19 18:30 IV DIRECTED [facility] Lisinopril 10 mg 03/02/19 08:30 03/02/19 08:34 Prinivil PO Not Given DAILY [facility] Magnesium Hydroxide 30 ml 03/01/19 19:43 Milk Of Magnesia PO DAILY PRN PRN Polyethylene Glycol 17 gm 03/01/19 19:43 Miralax PO DAILY PRN PRN Constipation Potassium Chloride 10 meq 03/02/19 08:30 03/02/19 08:32 K-Dur PO 10 meq DAILY JAY Administration Sodium Chloride 0 ml 03/01/19 18:29 03/02/19 11:40 Saline Flush 10 Ml Syringe IVP 10 ml PRN PRN Administration Allergies No Known Drug Allergies Allergy (Unverified 02/17/19 06:36) Exam Narrative Exam Narrative: Physical Exam: Gen: Patient of apparent stated age, NAD Head and face: no facial or cranial abnormalities Neck: Supple, no meningismus, no occipital tenderness CV: RRR, no murmur Resp: CTA B/L Abd: soft, nontender, nondistended Ext: No edema. No clubbing or cyanosis. No bony deformity. Neuro Exam: Language: fluency, naming, repetition, and comprehension intact; Mental Status: AAOx3, current events intact, fund of knowledge intact; Speech: mild dysarthria Cranial nerves: Funduscopy: not performed CN II: visual dc intact CN III, IV, : extraocular movements intact, no nystagmus, pupils symmetric and reactive to light CN V: face sensation intact to LT and PP CN VII: L lower face weakness noticeable when smiling; CN VIII: hearing intact bilaterally CN IX, X: palate rises symmetrically CN XI: trapezius/SCM 5/5 bilaterally CN XII: protrudes tongue symmetrically Sensory: intact to LT, PP, and joint position in all extremities; reduced vibration in the toes bilaterally; Motor: bulk and tone intact. Fine motor movements reduced on the left with a le ft pronator drift. Strength 5/5 throughout RUE and RLE. 4-/5 LUE with 5/5 at deltoid and wrist extension. 4+/5 L hip flexor; all else LLE 5/5. Reflexes: 2+ at the biceps, triceps, brachioradialis; reduced at the patella and achilles tendons bilaterally; R toe down going; L neutral; Coordination: FTN and HTS intact bilaterally Gait: deferred; Results Last Vital Signs Temp 37 C 03/02/19 16:42 Pulse 77 03/02/19 16:42 Resp 18 03/02/19 16:42 BP 154/101 H 03/02/19 16:42 Pulse Ox 94 L 03/02/19 16:42 Labs Result diagrams: 03/02/19 06:40 03/02/19 06:40 Labs: Laboratory Results - last 24 hr 03/01/19 03/01/19 03/01/19 18:30 18:30 21:20 WBC 16.04 H RBC 4.84 Hgb 15.6 Hct 45.6 MCV 94.2 MCH 32.2 MCHC 34.2 RDW 12.4 Plt Count 246 MPV 11.0 Immature Gran % 0.4 Neutrophils % 67.7 Lymphocytes % 20.0 Monocytes % 10.8 Eosinophils % 0.9 Basophils % 0.2 Absolute Neutrophils 10.86 H Absolute Lymphocytes 3.21 Absolute Monocytes 1.73 H Absolute Eosinophils 0.14 Absolute Basophils 0.03 Differential Comment Diff reviewed RBC Morphology Normal PT INR Sodium 138 Potassium 3.2 L Chloride 100 Carbon Dioxide 24.5 Anion Gap 13.5 H BUN 18 Creatinine 1.18 Estimated GFR/1.73 m2 >= 60.00 Glucose 138 H Calcium 9.2 Magnesium 2.0 Total Bilirubin 0.7 AST 21 ALT 32 Alkaline Phosphatase 81 Troponin I < 0.05 < 0.05 Total Protein 8.5 H Albumin 4.4 Triglycerides Total Cholesterol LDL Cholesterol, Calc HDL Cholesterol TSH Urine Color Urine Clarity Urine pH Ur Specific [place] Urine Protein Urine Ketones Urine Blood Urine Nitrite Urine Bilirubin Urine Urobilinogen Ur Leukocyte Esterase Urine Glucose 03/01/19 03/01/19 03/02/19 21:20 21:20 06:40 WBC RBC Hgb Hct MCV MCH MCHC RDW Plt Count MPV Immature Gran % Neutrophils % Lymphocytes % Monocytes % Eosinophils % Basophils % Absolute Neutrophils Absolute Lymphocytes Absolute Monocytes Absolute Eosinophils Absolute Basophils Differential Comment RBC Morphology PT 10.4 INR 1.0 Sodium 139 Potassium 4.1 D Chloride 103 Carbon Dioxide 28.1 Anion Gap 7.9 BUN 16 Creatinine 1.03 Estimated GFR/1.73 m2 >= 60.00 Glucose 121 H Calcium 8.8 Magnesium Total Bilirubin 0.8 AST 16 ALT 28 Alkaline Phosphatase 70 Troponin I Total Protein 7.5 Albumin 3.8 Triglycerides 123 Total Cholesterol 180 LDL Cholesterol, Calc 113 HDL Cholesterol 43 TSH 2.55 Urine Color Urine Clarity Urine pH Ur Specific [place] Urine Protein Urine Ketones Urine Blood Urine Nitrite Urine Bilirubin Urine Urobilinogen Ur Leukocyte Esterase Urine Glucose 03/02/19 03/02/19 06:40 10:44 WBC 11.37 H RBC 4.38 L Hgb 14.0 Hct 42.0 MCV 95.9 H MCH 32.0 MCHC 33.3 RDW 12.4 Plt Count 225 MPV 11.1 H Immature Gran % Neutrophils % Lymphocytes % Monocytes % Eosinophils % Basophils % Absolute Neutrophils Absolute Lymphocytes Absolute Monocytes Absolute Eosinophils Absolute Basophils Differential Comment RBC Morphology PT INR Sodium Potassium Chloride Carbon Dioxide Anion Gap BUN Creatinine Estimated GFR/1.73 m2 Glucose Calcium Magnesium Total Bilirubin AST ALT Alkaline Phosphatase Troponin I Total Protein Albumin Triglycerides Total Cholesterol LDL Cholesterol, Calc HDL Cholesterol TSH Urine Color Yellow Urine Clarity Clear Urine pH 8.0 Ur Specific [place] 1.015 Urine Protein Negative Urine Ketones Negative Urine Blood Negative Urine Nitrite Negative Urine Bilirubin Negative Urine Urobilinogen 1.0 H Ur Leukocyte Esterase Negative Urine Glucose Negative
--- NOTE | 2019-03-02 19:21 | INITIAL_ITS ---
- If Service Date Differs Date of service: 03/02/19 Time of Service: 19:21 Care Management Initial Assess REASON FOR HOSPITALIZATION:: CVA PAST MEDICAL HISTORY/PAST SURGICAL HISTORY:: Medical History: Asthma (Chronic). Essential hypertension. HTN (hypertension) (Chronic). Surgical History: Repair of umbilical hernia (05/26/15) PREVIOUS FUNCTIONAL STATUS/SOCIAL/FAMILY SUPPORTS:: Henrry lives in a single family, 2 story home in [place], [place]. He has a roomate that he has known for a long time who needs some assistance which Henrry provides. 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 He is completely independent in the community and with all care and acticvities. Henrry has 2 brothers and a sister who all live locally and are very supportive. CURRENT FUNCTIONAL STATUS:: Henrry was sitting up in bed when CM came to meet with him. He was pleasant and cooperative and asked pertinent questions. Henrry shared that he had had high blood pressure for years but had decided to stop taking his medication until he was hospitalized a few months ago for a hypertensive emergency. He stated that he knows he works too hard and has a lot of stress and that he needs to slow down. ADVANCE DIRECTIVES:: Does not have currently but would like a copy of the [place] State Directives. Has patient been provided with information about the portal?: No Did the patient sign up for the portal?: No (no interest) CODE STATUS:: Full Code INSURANCE COVERAGE / FINANCIAL ISSUES:: BC BS CURRENT HOME/COMMUNITY SERVICES/EQUIPMENT:: none PRIMARY CARE PHYSICIAN:: Bartolome Saavedra POTENTIAL DISCHARGE NEEDS:: Follow up with PCP and discharge plan of care PATIENT/FAMILY EDUCATION NEEDS:: Discharge plan, limitations, follow up plan and Ask Me Three TRANSPORTATION:: via private vehicle with family PLAN:: Henrry will be discharged home with new PT and OT, possibly on an outpatient basis vs home health. He will transport with family. CM to continue to support patient, family and discharge planning needs.
--- NOTE | 2019-03-02 19:21 | PGE_ITS ---
Date of Service Date of service: 03/02/19 Time of Service: 19:21 Assessment and Plan Assessment and plan (1) CVA (cerebral vascular accident): Status: Acute Assessment and plan: Awaiting echo. For now, continue aspirin/statin. Monitor on tele. Qualifiers: CVA mechanism: thrombosis Precerebral and cerebral artery: middle cerebral artery Laterality of affected vessel: right Qualified Code(s): I63.3 11 - Cerebral infarction due to thrombosis of right middle cerebral artery (2) HTN (hypertension): Status: Chronic Assessment and plan: Hold antihypertensives today/tonight - permissive hypertension. Qualifiers: Hypertension type: essential hypertension Qualified Code(s): I10 - Essential (primary) hypertension (3) Asthma: Status: Chronic Assessment and plan: Asymptomatic - f/u as outpatient. Qualifiers: Asthma severity: mild Asthma persistence: intermittent Asthma complication type: uncomplicated Qualified Code(s): J45.20 - Mild intermittent asthma, uncomplicated (4) Obesity: Status: Chronic Assessment and plan: Patient could have YAMEL - something to consider if there any evidence of Afib on tele/pulmonary hypertension on echo. (5) DVT prophylaxis: Status: Acute Assessment and plan: SCD's. Chemical ppx On hold in setting of acute CVA - increases risk of hemorrhagic conversion (6) Discharge planning issues: Status: Acute Assessment and plan: Full code Likely discharge home tomorrow Subjective Subjective Interval history since last seen: Mr Bashir states he is feeling a little bit better today. He did rule in for a CVA based on his MRI. He was able to walk with PT unassisted. Denies dizziness, headache, visual changes, numbness, tingling, chest pain, shortness of breath, nausea, difficulty swallowing. He continues to report weakness in his LUE, but not in his LLE. Exam Narrative Exam Narrative: General: very pleasant middle-aged male who appears to be in great spirits, joking, A&Ox3 Neuro: L-facial droop, but the tongue deviation I saw was to the right. LUE strenght 3-4/5, LLE 4/5, RUE/RLE 5/5 strength Heart: RRR, no m/r/g Lungs: CTAB GI: abdomen is soft, nontender, nondistended Extremities: no e/c/c BLE's, 1+ pedal pulses B Objective Objective Clinical Data: Abnormal lab results 03/02/19 03/02/19 03/02/19 Range/Units 06:40 06:40 10:44 WBC 11.37 H (4.4-10.8) k/cumm RBC 4.38 L (4.50-6.00) m/cumm MCV 95.9 H (80-95) fL MPV 11.1 H (8.0-11.0) fL Glucose 121 H (70-100) mg/dL Urine Urobilinogen 1.0 H (Up TO 0.2) EU/dL Vital Signs Temperature 37 C 03/02/19 16:42 Temperature Source Tympanic 03/02/19 16:42 Pulse 77 03/02/19 16:42 Pulse Rhythm Regular 03/02/19 09:46 Pulse 89 03/01/19 20:01 Respiratory Rate 18 03/02/19 16:42 Respiratory Effort 03/02/19 09:46 Respiratory Depth Normal 03/02/19 09:46 Respiratory Pattern Normal 03/02/19 09:46 Blood Pressure 154/101 H 03/02/19 16:42 Blood Pressure Mean 106 03/01/19 20:00 Pulse Oximetry 94 L 03/02/19 16:42 Oxygen Delivery Method Room Air 03/02/19 16:42 Oxygen Flow Rate 0 03/02/19 16:42 Pain Level 0 03/02/19 16:42 Comment 03/02/19 11:02 Intake & Output 03/01/19 03/02/19 03/02/19 23:59 11:59 23:59 Intake Total 250 / 740 490 / 740 Output Total 400 / 400 Balance 250 / 340 90 / 340 Weight 109 kg 106.5 kg Intake: Oral 250 / 740 490 / 740 Output: Urine 400 / 400 Other: Urine Color Pale Yellow Yellow Urine Appearance Clear Clear Urine Odor Normal Normal None Comment pt reported voiding twice this moring Voiding Methods Toilet Toilet Laboratory Results WBC 11.37 k/cumm (4.4-10.8) H 03/02/19 06:40 RBC 4.38 m/cumm (4.50-6.00) L 03/02/19 06:40 Hgb 14.0 g/dL (13.5-17.5) 03/02/19 06:40 Hct 42.0 % (40.0-50.0) 03/02/19 06:40 MCV 95.9 fL (80-95) H 03/02/19 06:40 MCH 32.0 pg (27.0-33.0) 03/02/19 06:40 MCHC 33.3 g/dL (32.0-36.0) 03/02/19 06:40 RDW 12.4 % (11.8-14.1) 03/02/19 06:40 Plt Count 225 x1000/uL (130-400) 03/02/19 06:40 MPV 11.1 fL (8.0-11.0) H 03/02/19 06:40 Immature Gran % 0.4 03/01/19 18:30 Neutrophils % 67.7 03/01/19 18:30 Lymphocytes % 20.0 03/01/19 18:30 Monocytes % 10.8 03/01/19 18:30 Eosinophils % 0.9 03/01/19 18:30 Basophils % 0.2 03/01/19 18:30 Absolute Neutrophils 10.86 k/cumm (1.2-6.7) H 03/01/19 18:30 Absolute Lymphocytes 3.21 k/cumm (1.2-3.4) 03/01/19 18:30 Absolute Monocytes 1.73 k/cumm (0.11-0.7) H 03/01/19 18:30 Absolute Eosinophils 0.14 k/cumm (0.0-0.7) 03/01/19 18:30 Absolute Basophils 0.03 k/cumm (0.0-0.2) 03/01/19 18:30 Differential Comment Diff reviewed 03/01/19 18:30 RBC Morphology Normal 03/01/19 18:30 PT 10.4 sec (9.3-11.0) 03/01/19 21:20 INR 1.0 (0.9-1.1) 03/01/19 21:20 Sodium 139 mmol/L (136-145) 03/02/19 06:40 Potassium 4.1 mmol/L (3.5-5.1) D 03/02/19 06:40 Chloride 103 mmol/L (98-107) 03/02/19 06:40 Carbon Dioxide 28.1 mmol/L (21.0-32.0) 03/02/19 06:40 Anion Gap 7.9 mmol/L (3-11) 03/02/19 06:40 BUN 16 mg/dL (7-18) 03/02/19 06:40 Creatinine 1.03 mg/dL (0.70-1.30) 03/02/19 06:40 Estimated GFR/1.73 m2 >= 60.00 (mL/min/1.73m2) 03/02/19 06:40 Glucose 121 mg/dL (70-100) H 03/02/19 06:40 Calcium 8.8 mg/dL (8.5-10.1) 03/02/19 06:40 Magnesium 2.0 mg/dL (1.8-2.4) 03/01/19 18:30 Total Bilirubin 0.8 mg/dL (0.2-1.0) 03/02/19 06:40 AST 16 U/L (15-37) 03/02/19 06:40 ALT 28 U/L (16-63) 03/02/19 06:40 Alkaline Phosphatase 70 U/L (46-116) 03/02/19 06:40 Troponin I < 0.05 ng/mL (0.00-0.06) 03/01/19 21:20 Total Protein 7.5 g/dL (6.4-8.2) 03/02/19 06:40 Albumin 3.8 g/dL (3.4-5.0) 03/02/19 06:40 Triglycerides 123 mg/dL (30-150) 03/02/19 06:40 Total Cholesterol 180 mg/dL (50-200) 03/02/19 06:40 LDL Cholesterol, Calc 113 mg/dL 03/02/19 06:40 HDL Cholesterol 43 mg/dL (40-60) 03/02/19 06:40 TSH 2.55 uIU/mL (0.36-3.74) 03/01/19 21:20 Urine Color Yellow (Yellow) 03/02/19 10:44 Urine Clarity Clear (Clear) 03/02/19 10:44 Urine pH 8.0 (5-8) 03/02/19 10:44 Ur Specific [place] 1.015 (1.005-1.025) 03/02/19 10:44 Urine Protein Negative mg/dL (Negative) 03/02/19 10:44 Urine Ketones Negative mg/dL (Negative) 03/02/19 10:44 Urine Blood Negative (Negative) 03/02/19 10:44 Urine Nitrite Negative (Negative) 03/02/19 10:44 Urine Bilirubin Negative (Negative) 03/02/19 10:44 Urine Urobilinogen 1.0 EU/dL (Up TO 0.2) H 03/02/19 10:44 Ur Leukocyte Esterase Negative (Negative) 03/02/19 10:44 Urine Glucose Negative mg/dL (Negative) 03/02/19 10:44 MRI brain: Conclusion findings suggesting acute or subacute infarction, nonhemorrhagic, in the right internal capsule posterior limb.
[2019-03-02] MEDS: Melatonin 3 MG TAB PO (21:27)
[2019-03-03] VITALS (10 sets, daily range): BP systolic 134–154; BP diastolic 75–99; PULSE 65–94; RESP 16–18; TEMP 35.9–37.6; O2SAT 96–99
[2019-03-03 07:32] LABS: Abs Immature Grans 0.03 k/cumm (0.0-0.09); Absolute Basophil Count 0.02 k/cumm (0.0-0.2); Absolute Eosinophil Count 0.31 k/cumm (0.0-0.7); Absolute Lymphocyte Count 1.61 k/cumm (1.2-3.4); Absolute Monocyte Count 1.14 k/cumm (0.11-0.7); Absolute Neutrophil Count 7.67 k/cumm (1.2-6.7); Basophils % 0.2; Eosinophils % 2.9; HCT 42.4 % (40.0-50.0); HGB 14.2 g/dL (13.5-17.5); Immature Grans % 0.3; Lymphocytes % 14.9; Mean Corp. HGB Concentration 33.5 g/dL (32.0-36.0); Mean Corpuscular Hemoglobin 31.8 pg (27.0-33.0); Mean Corpuscular Volume 94.9 fL (80-95); Mean Platelet Volume 11.2 fL (8.0-11.0); Monocytes % 10.6; Neutrophils % 71.1; Platelet Count 231 x1000/uL (130-400); RBC 4.47 m/cumm (4.50-6.00); RBC Distribution Width 12.2 % (11.8-14.1); White Blood Cell Count 10.78 k/cumm (4.4-10.8)
[2019-03-03 07:35] LABS: Anion Gap 12.1 mmol/L (3-11); BUN 17 mg/dL (7-18); CO2 23.9 mmol/L (21.0-32.0); CREATININE 0.93 mg/dL (0.70-1.30); Calcium 8.9 mg/dL (8.5-10.1); Chloride 104 mmol/L (98-107); Glucose 121 mg/dL (70-100); Magnesium 1.9 mg/dL (1.8-2.4); Potassium 4.1 mmol/L (3.5-5.1); Sodium 140 mmol/L (136-145)
[2019-03-03 07:39] LABS: Hemoglobin A1C 5.7 % (4.5-6.2)
[2019-03-03] MEDS: Potassium Chloride 10 MEQ TABCR PO (08:00)
[2019-03-03] MEDS: Aspirin E.C. 325 MG TABEC PO (08:00)
--- NOTE | 2019-03-03 08:23 | PT.INTREAT ---
Date of service: 03/03/19 Time of Service: 08:24 PT Notes Inpatient Physical Therapy Treatment Note [facility] Date: 03/03/19 PRECAUTIONS: Fall, L UE weakness SUBJECTIVE: Robert states that he is feeling significantly better, reporting that he has regained strength in his L UE, that he has been performing his HEP independently, as instructed, and that he was able to get a good night's sleep. OBJECTIVE: PAIN: No c/o pain BED MOBILITY/TRANSFERS Sit-stand: I Stand-sit: I GAIT Assistive Device: No AD Weight bearing: Full Assist: I Distance: 400' THEREX: Reviewed HEP, added foam cube squeezes x10 each hour. STAIRS: Up/down 3x4 and 2x6 using 1 rail and a step-over pattern, independently ASSESSMENT: Patient tolerated session well without complaint. He is independent with gait, transfers, and stairs at this time. PLAN: As per primary PT TREATMENT CODE/TIME: 8 minutes; [id number]
--- NOTE | 2019-03-03 10:30 | OT.INIE ---
Occupational Therapy Notes Inpatient Occupational Therapy Evaluation Date: 03/03/19 Referring Doctor:Selena Gar MD OT Orders: Eval and treat- Limited ability Precautions: Standard PATIENT PROFILE/ADMITTING DIAGNOSIS: Pt is a 53 year old male who was referred to skilled OT services through the ER on 03/01/19 with facial droop, dysarthria, and left upper weakness. He was diagnosed with acute CVA. Past Medical History: Medical History Asthma (Chronic) Essential hypertension ETOH abuse (Chronic) HTN (hypertension) (Chronic) Surgical History Repair of umbilical hernia (05/26/15) Social History/Home Situation: Pt lives with a roommate who he reports that he cares for. He states that he is totally (I) at baseline for all ADLs/IADLs. 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 He has a tub/shower for bathing which he reports that he stands and has no difficulty. He reports that he has 3-4 stairs to enter his home and has (B) railings. Equipment owned/DME: None SUBJECTIVE: Pt was sitting in chair when OT arrived. He was agreeable to skilled OT services and reports that he would like to return home today if possible. OBJECTIVE: General Observation: Pleasant and able to answer questions appropriately, pt was dressing in hat, pants and hospital gown when OT arrived. Mental Status: A&Ox3 Pain: no c/o pain ROM: RUE AROM WFL L UE AROM WFL STRENGTH: RUE 5/5 throughout globally LUE 5/5 throughout globally FUNCTIONAL MOBILITY/ADLS: Transfers no (A) Device Supine-sit (I) Sit-supine (I) Sit-Stand (I) Stand-sit (I) Bed-Chair (I) BATHING standing at sink Bathing UE (I) Bathing LE (I) DRESSING Sitting in chair Dressing UE (I) don and doffing hospital gown Dressing LE (I) don and doffing (B) socks and pants GROOMING (I) with brushing teeth standing at sink TOILETING On toilet (I) EATING NT BALANCE: Static sitting Normal Dynamic Sitting Normal Static Standing Normal Dynamic Standing Normal SPECIAL TESTS: Daily Activity Limitations Standardized Measure [facility] AM -PAC ?6 clicks? Daily Activity Inpatient Short Form: Raw score: 24 Standardized score: 57.54 CMS score: 0.00% INFORMED CONSENT/EDUCATION: Pt instructed in purpose of OT Consult and plan of care. ASSESSMENT: Patient is a 53-year-old male referred to occupational therapy services with diagnosis of with acute CVA. Pt was seen for OT consult. He has full functional mobility and full (I) in his ADL/IADL Routines. His strength is at his baseline level of function and he functionally is able to perform his ADLs at his baseline level of function. Based on this, OT will plan to discharge pt from skilled OT services. Patient is assessed as a Low [id number] complexity based on the following: History: See above Examination: see functional limitations as listed above Presentation: evolving Decision Making: [facility] score 24 GOALS N/A PLAN OF CARE/TREATMENT PLAN: OT consult only. DISCHARGE RECOMMENDATIONS home when medically cleared per MD. TREATMENT TIME/MINUTES/CODES [id number], [id number], 15 minutes (07:55) Ifeoma Fagan OTR/L [facility]
--- NOTE | 2019-03-03 12:25 | DI.US_ITS ---
APPROVED REPORT EXAM: Comprehensive 2D, Doppler, and color-flow Echocardiogram Patient [place]: [place] Historian: ALESHA Arevalo (AE) Rhythm: NSR Indications: suspected CVA Left Ventricle The left ventricle is normal size. The left ventricular systolic function is normal. The left ventric ular ejection fraction is within the normal range. There is normal left ventricular wall thickness. T here is normal LV segmental wall motion. Diastolic function is indeterminant LVEF is 60-65%. Right Ventricle The right ventricle is normal size. The right ventricular systolic function is normal. Atria The left atrium size is normal. The right atrium size is normal. lipomatous IAS. Aortic Valve The aortic valve is normal in structure. There is no aortic valvular stenosis. No aortic regurgitatio n is present. Mitral Valve The mitral valve is normal in structure. No evidence of mitral valve stenosis. There is no mitral justin ve regurgitation noted. Tricuspid Valve The tricuspid valve is normal in structure. Trace to mild tricuspid regurgitation. Estimated RVSP is within normal limits Pulmonic Valve The pulmonary valve is normal in structure. Trace pulmonic regurgitation. Great Vessels mildly dilated aortic root (4.0cm) normal in size. collapses more than 50%. lots of IVC flow Pericardium There is no pericardial effusion. 2D Dimensions IVSd 1.5 cm M: 0.6-1.2 LA Volume Index A4C 24.0 mL/m2 PWd 1.3 cm M: 0.6 - 1.2 LA Area A4C 18.5 cm2 LVDd 4.6 cm M: 4.2 - 5.9 LVDs 3.0 cm M: 2.5 - 4.0 Aortic Root 3.8 cm M: 3.1 - 3.7 RA Area A4C 12.0 cm2 LVOT 2.0 cm (M/F) 1.5-2.5 Ascending Aorta 4.0 cm M: 2.6 - 3.4 LVEF (Lanier's) 60.8 % M: 52 - 72 FS 34.6 % LV Diastology E/A Ratio 0.8 MED E' 0.0 (<0.07 m/s) LV E/e MED 14.5 (>14) LAT E' 0.1 (<0.1 m/s) LV E/e LAT 10.4 (>14) Aortic Valve LVOT Peak Nestor. 1.5 m/s LVOT Peak Gr. 9.3 mmHg LVOT Mean Gr. 4.1 mmHg LVOT VTI 0.3 m Mitral Valve MV E Max Nestor. 0.7 (0.4-1.3 m/s) MV A Velocity 0.9 (0.4-1.3 m/s) E/A Ratio 0.7 MV Decel. Time 239.0 (160-240 msec) MV PHT 69.4 msec MVA PHT 3.2 cm2 Tricuspid Valve TR P. Velocity 2.6 m/s TR P. Gradient 27.9 mmHg Conclusion Left Ventricle : The left ventricle is normal size. There is normal left ventricular wall thickness. Diastolic function is indeterminant The left ventricular systolic function is normal. The left ventri cular ejection fraction is within the normal range. There is normal LV segmental wall motion. LVEF is 60-65%. Right Ventricle : The right ventricle is normal size. The right ventricular systolic function is norm al. Atria : The left atrium size is normal. The right atrium size is normal. Aortic Valve : The aortic valve is normal in structure. No aortic regurgitation is present. There is no aortic valvular stenosis. Mitral Valve : The mitral valve is normal in structure. There is no mitral valve regurgitation noted. Tricuspid Valve : The tricuspid valve is normal in structure. Trace to mild tricuspid regurgitation. Estimated RVSP is within normal limits Great Vessels : mildly dilated aortic root (4.0cm) Pericardium : There is no pericardial effusion. Great Vessels : normal in size. collapses more than 50%. lots of IVC flow Summary: This study is not ideal for evaluating CVA as the study was not done with bubbles. However, there is no clear cardiac source of emboli.
--- NOTE | 2019-03-03 16:28 | W.PM.PROGNOT ---
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 Bashir is a 53 year-old, right-handed man who was admitted for: #1. Right hemisphere ischemic stroke manifested by dysarthria, dysphagia, and left arm >face > leg weakness likely secondary to small vessel disease. Work-up is complete. I do not thin he needs extended cardiac monitoring at this time. Continue aspirin (switching to 81mg daily is fine) + atorvastatin for secondary stroke prevention. Ok to slowly resume home BP meds. Consider sleep study as an outpatient. PT/OT recs as per them. #2. Dysphagia/dysarthria. This has resolved. No need for outpatient PT. He should follow-up in the neurology clinic in 4-6 weeks. Subjective Subjective Interval history since last seen: Stable overnight. No events on tele. Significant improvement neurologically. Feels essentially back to baseline. TTE performed with normal EF and LA. A1c 5.7. Exam Narrative Exam Narrative: Physical Exam: Constitutional: Patient of apparent stated age, well nourished, well developed, no acute distress Neuro: MS/Language/Speech: Alert, oriented, clear language (fluency and comprehension), no dysarthria CN: no facial asymmetry Motor: Normal bulk and tone. FMM intact, no pronator drift. 5/5 strength in bilateral upper and lower extremities except for 4++++/5 in LUE biceps/triceps. Coordination: no ataxia Gait: cleared by PT Objective Objective Clinical Data: Abnormal lab results 03/03/19 03/03/19 Range/Units 06:58 06:58 RBC 4.47 L (4.50-6.00) m/cumm MPV 11.2 H (8.0-11.0) fL Absolute Neutrophils 7.67 H (1.2-6.7) k/cumm Absolute Monocytes 1.14 H (0.11-0.7) k/cumm Anion Gap 12.1 H (3-11) mmol/L Glucose 121 H (70-100) mg/dL Vital Signs Temperature 37.0 C 03/03/19 15:29 Temperature Source Tympanic 03/03/19 15:29 Pulse 79 03/03/19 15:29 Pulse Rhythm Regular 03/03/19 07:52 Pulse 89 03/01/19 20:01 Respiratory Rate 18 03/03/19 15:29 Respiratory Effort Non-Labored 03/03/19 07:52 Respiratory Depth Normal 03/03/19 07:52 Respiratory Pattern Normal 03/03/19 07:52 Blood Pressure 138/82 03/03/19 15:29 Blood Pressure Mean 106 03/01/19 20:00 Pulse Oximetry 96 03/03/19 15:29 Oxygen Delivery Method Room Air 03/03/19 15:29 Oxygen Flow Rate 0 03/03/19 15:29 Pain Level 0 03/03/19 11:33 Comment 03/03/19 07:20 Intake & Output 03/02/19 03/03/19 03/03/19 23:59 11:59 23:59 Intake Total 490 / 740 240 / 480 240 / 480 Output Total 400 / 400 Balance 90 / 340 240 / 480 240 / 480 Weight 107.1 kg Intake: Oral 490 / 740 240 / 480 240 / 480 Output: Urine 400 / 400 Other: Urine Color Pale Yellow Urine Appearance Clear Clear Urine Odor None Comment patient denies any urinary problems Voiding Methods Toilet Laboratory Results WBC 10.78 k/cumm (4.4-10.8) 03/03/19 06:58 RBC 4.47 m/cumm (4.50-6.00) L 03/03/19 06:58 Hgb 14.2 g/dL (13.5-17.5) 03/03/19 06:58 Hct 42.4 % (40.0-50.0) 03/03/19 06:58 MCV 94.9 fL (80-95) 03/03/19 06:58 MCH 31.8 pg (27.0-33.0) 03/03/19 06:58 MCHC 33.5 g/dL (32.0-36.0) 03/03/19 06:58 RDW 12.2 % (11.8-14.1) 03/03/19 06:58 Plt Count 231 x1000/uL (130-400) 03/03/19 06:58 MPV 11.2 fL (8.0-11.0) H 03/03/19 06:58 Immature Gran % 0.3 03/03/19 06:58 Neutrophils % 71.1 03/03/19 06:58 Lymphocytes % 14.9 03/03/19 06:58 Monocytes % 10.6 03/03/19 06:58 Eosinophils % 2.9 03/03/19 06:58 Basophils % 0.2 03/03/19 06:58 Absolute Neutrophils 7.67 k/cumm (1.2-6.7) H 03/03/19 06:58 Absolute Lymphocytes 1.61 k/cumm (1.2-3.4) 03/03/19 06:58 Absolute Monocytes 1.14 k/cumm (0.11-0.7) H 03/03/19 06:58 Absolute Eosinophils 0.31 k/cumm (0.0-0.7) 03/03/19 06:58 Absolute Basophils 0.02 k/cumm (0.0-0.2) 03/03/19 06:58 Differential Comment Diff reviewed 03/01/19 18:30 RBC Morphology Normal 03/01/19 18:30 PT 10.4 sec (9.3-11.0) 03/01/19 21:20 INR 1.0 (0.9-1.1) 03/01/19 21:20 Sodium 140 mmol/L (136-145) 03/03/19 06:58 Potassium 4.1 mmol/L (3.5-5.1) 03/03/19 06:58 Chloride 104 mmol/L (98-107) 03/03/19 06:58 Carbon Dioxide 23.9 mmol/L (21.0-32.0) 03/03/19 06:58 Anion Gap 12.1 mmol/L (3-11) H 03/03/19 06:58 BUN 17 mg/dL (7-18) 03/03/19 06:58 Creatinine 0.93 mg/dL (0.70-1.30) 03/03/19 06:58 Estimated GFR/1.73 m2 >= 60.00 (mL/min/1.73m2) 03/03/19 06:58 Glucose 121 mg/dL (70-100) H 03/03/19 06:58 Hemoglobin A1c 5.7 % (4.5-6.2) 03/03/19 06:58 Calcium 8.9 mg/dL (8.5-10.1) 03/03/19 06:58 Magnesium 1.9 mg/dL (1.8-2.4) 03/03/19 06:58 Total Bilirubin 0.8 mg/dL (0.2-1.0) 03/02/19 06:40 AST 16 U/L (15-37) 03/02/19 06:40 ALT 28 U/L (16-63) 03/02/19 06:40 Alkaline Phosphatase 70 U/L (46-116) 03/02/19 06:40 Troponin I < 0.05 ng/mL (0.00-0.06) 03/01/19 21:20 Total Protein 7.5 g/dL (6.4-8.2) 03/02/19 06:40 Albumin 3.8 g/dL (3.4-5.0) 03/02/19 06:40 Triglycerides 123 mg/dL (30-150) 03/02/19 06:40 Total Cholesterol 180 mg/dL (50-200) 03/02/19 06:40 LDL Cholesterol, Calc 113 mg/dL 03/02/19 06:40 HDL Cholesterol 43 mg/dL (40-60) 03/02/19 06:40 TSH 2.55 uIU/mL (0.36-3.74) 03/01/19 21:20 Urine Color Yellow (Yellow) 03/02/19 10:44 Urine Clarity Clear (Clear) 03/02/19 10:44 Urine pH 8.0 (5-8) 03/02/19 10:44 Ur Specific [place] 1.015 (1.005-1.025) 03/02/19 10:44 Urine Protein Negative mg/dL (Negative) 03/02/19 10:44 Urine Ketones Negative mg/dL (Negative) 03/02/19 10:44 Urine Blood Negative (Negative) 03/02/19 10:44 Urine Nitrite Negative (Negative) 03/02/19 10:44 Urine Bilirubin Negative (Negative) 03/02/19 10:44 Urine Urobilinogen 1.0 EU/dL (Up TO 0.2) H 03/02/19 10:44 Ur Leukocyte Esterase Negative (Negative) 03/02/19 10:44 Urine Glucose Negative mg/dL (Negative) 03/02/19 10:44
--- NOTE | 2019-03-03 17:16 | PDOC.CMDIS ---
- If Service Date Differs Date of service: 03/03/19 Time of Service: 17:16 LACE Index Scoring Tool - Questions: Length of Stay (in days): 2 Acuity (Admit via E.D.?): Yes Comorbidities: Cerebrovascular Disease E.D. Visits: 3 - Answers: Total Score: 9 Risk of Readmission: Low Risk Care Management Discharge Reason for Hospitalization: CVA Discharge Plan: Henrry will discharge home today with new outpatient PT. He will follow up with his PCP and discharge plan of care. Henrry will transport via private vehicle with family. Patient/Family Education Needs: Discharge plan, limitations, follow up plan, Ask Me Three
--- NOTE | 2019-03-03 17:25 | DSE_ITS ---
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: Status: Acute (2) Left hemiparesis: Status: Acute (3) Dysarthria: Status: Resolved Discharge Plan Disposition Patient Disposition: HOME Condition: Stable Discharge Details Chief Complaint: CVA/TIA Reason For Visit: CVA R CEREBRAL HEMISPHERE, HTN Admit Date/Time: 03/01/19 19:43 Admit Provider: Frank Watkins Attending Provider: Frank Watkins Primary Care Provider: Frank Saavedra ED Provider: Corey Barboza Hospital Course Hospital Course: Mr Gutierrez is a 53 year old male with PMHx of hypertension, asthma, and obesity, who was admitted to [facility] on 03/01/19 with an acute right hemispheric thrombotic stroke, felt to be due to small vessel disease. His neurological deficits on presentation were L facail droop, L-sided deviation of the tongue, dysarthria, dysphagia, LUE and LLE weakness. He was treated with aspirin, statin, permissive hypertension. He did not have any arrhythmic events on tele. His echo did not show any structural abnormalities. The MRI of his brain revealed an acute ischemic stroke in the posterior limb or right internal capsule. By 03/03/19, his deficits are nearly completely resolved. The patient is being referred to speech therapy and physical therapy which he can attend if he feels that it is needed (if he notices some of the deficits more at home). He is being asked to resume his blood pressure medications one at a time, to follow up with his PCP in 1-[address] Palacios in 4-6 weeks. Care for patient and completion of his discharge summary on the day of discharge took 45 minutes. Home Meds and New Rx's Prescriptions: New atorvastatin [Lipitor] 40 mg Tablet 40 mg PO QPM Qty: 30 RF: 0 aspirin 81 mg tablet,delayed release (DR/EC) 81 mg PO DAILY Qty: 30 RF: 0 Continued albuterol sulfate 90 mcg/actuation Hfa Aerosol Inhaler 2 puff INHALATION 6XD PRNRF: 0 atenolol 25 mg tablet 25 mg PO DAILY Qty: 30 RF: 0 lisinopril 10 mg tablet 10 mg PO DAILY Qty: 30 RF: 0 hydrochlorothiazide 25 mg tablet 25 mg PO DAILY Qty: 30 RF: 0 Discharge Instructions Instructions: Aspirin (By mouth), Atorvastatin (By mouth), Ischemic Stroke (DC), Effects of a Stroke (DC) Additional Instructions: Return to the hospital with any fever, bleedin, chest pain, shortness of breath, or new neurological symptoms. Follow up with your PCP within 1-[address] Palacios in 4-6 weeks. Follow up with physical therapy and speech therapy if you are noticing any residual deficits from your stroke. Care Plan Goals: Home with referrals for outpatient speech and physical therapy prn. Referrals: Frank Saavedra MD [Primary Care Provider] - Vielka Palacios MD [ [facility] STAFF PHYSICIAN] - Domingo Archibald PT [PHYSICAL THERAPIST] - (prn follow up post-CVA) Activity:: Activity as Tolerated Equipment/Supplies:: No Equipment Needed Diet:: As Tolerated Discharge Orders Discharge Orders: Discharge Order (Routine); Ordered 03/03/19 Ordered By: Selena Gar DS: Summary Status at Discharge Functional status at discharge: independent ambulation Overall status at discharge: patient is back to baseline Mental Status: mental status grossly normal Speech and Movement: speech and movement normal Mood: congruent mood Affect: normal affect Exam Narrative Exam Narrative: General: very pleasant middle-aged male who appears to be in great spirits, joking, A&Ox3 Neuro: L facial droop resolved, tongue midline, LUE/LLE/RUE/RLE strength 5/5. No dysarthria. Heart: RRR, no m/r/g Lungs: CTAB GI: abdomen is soft, nontender, nondistended Extremities: no e/c/c BLE's, 1+ pedal pulses B Psych Mental Status: mental status grossly normal Speech and Movement: speech and movement normal Mood: congruent mood Affect: normal affect DS: Data Vitals/I&O Vitals and I&O: Vital Signs Temperature 37.0 C 03/03/19 15:29 Temperature Source Tympanic 03/03/19 15:29 Pulse 82 03/03/19 15:35 Pulse Rhythm Regular 03/03/19 07:52 Pulse 89 03/01/19 20:01 Respiratory Rate 18 03/03/19 15:29 Respiratory Effort Non-Labored 03/03/19 07:52 Respiratory Depth Normal 03/03/19 07:52 Respiratory Pattern Normal 03/03/19 07:52 Blood Pressure 138/82 03/03/19 15:29 Blood Pressure Mean 106 03/01/19 20:00 Pulse Oximetry 96 03/03/19 15:29 Oxygen Delivery Method Room Air 03/03/19 15:29 Oxygen Flow Rate 0 03/03/19 15:29 Pain Level 0 03/03/19 11:33 Comment 03/03/19 07:20 Intake & Output 03/02/19 03/03/19 03/03/19 23:59 11:59 23:59 Intake Total 490 / 740 240 / 480 240 / 480 Output Total 400 / 400 Balance 90 / 340 240 / 480 240 / 480 Weight 107.1 kg Intake: Oral 490 / 740 240 / 480 240 / 480 Output: Urine 400 / 400 Other: Urine Color Pale Yellow Urine Appearance Clear Clear Urine Odor None Comment patient denies any urinary problems Voiding Methods Toilet Data Completed and Pending Completed studies during hospitalization [Text1]: CT head without contrast 03/01/19: No acute intracranial process is demonstrated. CTA head/neck: No acute abnormality is demonstrated. No acute findings are identified. CXR: No evidence of acute cardiopulmonary disease. MRI brain w/o contrast 03/02/19: Conclusion findings suggesting acute or subacute infarction, nonhemorrhagic, in the right internal capsule posterior limb. Echo 03/03/19: Left Ventricle : The left ventricle is normal size. There is normal left ventricular wall thickness. Diastolic function is indeterminant The left ventricular systolic function is normal. The left ventricular ejection fraction is within the normal range. There is normal LV segmental wall motion. LVEF is 60-65%. Right Ventricle : The right ventricle is normal size. The right ventricular systolic function is normal. Atria : The left atrium size is normal. The right atrium size is normal. Aortic Valve : The aortic valve is normal in structure. No aortic regurgitation is present. There is no aortic valvular stenosis. Mitral Valve : The mitral valve is normal in structure. There is no mitral valve regurgitation noted. Tricuspid Valve : The tricuspid valve is normal in structure. Trace to mild tricuspid regurgitation. Estimated RVSP is within normal limits Great Vessels : mildly dilated aortic root (4.0cm) Pericardium : There is no pericardial effusion. Great Vessels : normal in size. collapses more than 50%. lots of IVC flow Summary: This study is not ideal for evaluating CVA as the study was not done with bubbles. However, there is no clear cardiac source of emboli. Labs on day of discharge: Labs from last 24 hours 03/03/19 03/03/19 03/03/19 06:58 06:58 06:58 WBC 10.78 RBC 4.47 L Hgb 14.2 Hct 42.4 MCV 94.9 MCH 31.8 MCHC 33.5 RDW 12.2 Plt Count 231 MPV 11.2 H Immature Gran % 0.3 Neutrophils % 71.1 Lymphocytes % 14.9 Monocytes % 10.6 Eosinophils % 2.9 Basophils % 0.2 Absolute Neutrophils 7.67 H Absolute Lymphocytes 1.61 Absolute Monocytes 1.14 H Absolute Eosinophils 0.31 Absolute Basophils 0.02 Sodium 140 Potassium 4.1 Chloride 104 Carbon Dioxide 23.9 Anion Gap 12.1 H BUN 17 Creatinine 0.93 Estimated GFR/1.73 m2 >= 60.00 Glucose 121 H Hemoglobin A1c 5.7 Calcium 8.9 Magnesium 1.9 Preliminary micro results at discharge 03/02/19 10:44 Urine Culture - Preliminary Urine - Clean Catch Gram Positive Pamela,Mixed [facility] Medical History Asthma (Chronic) Essential hypertension ETOH abuse (Chronic) HTN (hypertension) (Chronic) Surgical History Repair of umbilical hernia (05/26/15) Family History Mother Bladder cancer Maternal Uncle Bladder cancer Father CML (chronic myelocytic leukemia) Other Heart disease Social History Smoking/Tobacco Use Status: Never Counseling given: counseling >3 minutes Alcohol Intake: current Alcohol Intake frequency: 3 or more drinks per day Alcohol type: hard liquor Drug use: Never Substance use type: does not use Household members: none 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
--- NOTE | 2019-03-04 13:06 | INDS_ITS ---
Date of service: 03/03/19 PT Notes Inpatient Physical Therapy Discharge Summary Dates: 03/02/2019 Dates of Service: 03/02/2019 through 03/03/2019 This is a clinical summary of care provided on the duration of dates listed above. No charge was made in the completion of this documentation. Referring Doctor: Dr. Gar PT Orders: PT CONSULT: limited ability to ambulate Precautions: Standard. Patient Profile/Admitting Diagnosis: From the emergency room 03/01/19 after presenting with facial droop, dysarthria, and left upper weakness. He was diagnosed with acute CVA and admitted for medical management. PMHX: Hypertension, asthma Social History/Home Situation: Patient lives with a roommate in the community, home has 4 steps to enter. He is fully independent at baseline. 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 Equipment Owned/DME: None Subjective: NT Objective: General Observation: NT Mental Status: NT Pain: denies ROM: Right Upper Extremity: WFL Left Upper Extremity: WFL Right Lower Extremity: WFL Left Lower Extremity: WFL Strength: Right Upper Extremity: Shoulder flexion 5/5. Biceps 5/5. Internal rotation 5/5. External rotation 5/5. Stock Raiser is strong, although not assessed by dynomometer. Left Upper Extremity: Shoulder flexion 3-/5. Biceps 3/5. Shoulder internal rotation 3+/5. Shoulder external rotation 3-/5. Patient lacks full packaging associate initially; with mirroring activities is able to perform a full, although weak, packaging associate. Digit adduction 3/5. Abduction 3/5. Right Lower Extremity: Hip flexion 5/5. Quads 5/5. Ankle dorsiflexion 5/5. Left Lower Extremity: Hip flexion 5/5. Quads 5/5. Ankle dorsiflexion 5/5. Bed Mobility/Transfers: Supine?sit: Independent with HOB at 0 degrees Sit to supine: Independent with HOB at 0 degrees Sit?stand: Independent Stand?sit: Independent Gait: Patient ambulance 300 feet independently, without assistive device. Balance: Static Sitting: Normal Dynamic Sitting: Normal Static Standing: Good Dynamic Standing: Good Patient is able to tolerate unsupported small base of support standing, although with increased trunk sway and need for CG. He is able to effectively complete single leg standing x10 seconds on each side with CG. Coordination: Moderate deficit with alternating toe tapping. Fine motor: Severely diminished fine motor with thumb to digit tapping on the left Assessment: Patient is a 53-year-old male referred to physical therapy services with the diagnosis of CVA. Patient presents with clinical signs and symptoms consistent with diagnosis, with improving overall mobility per patient report although continued left hemiparesis with significant upper extremity weakness. Patient is extremely anxious to leave the hospital and get back to work, and he does demonstrate safety sufficient to allow for return home once medically cleared. He will however require PT or OT intervention to address his upper extremity deficits on an outpatient basis. I started him with an early exercise program today and encouraged him to complete these on an hourly basis during the acute phases of recovery to maximize functional outcomes. He currently demonstrates the following impairment level findings: 1. Decreased left upper extremity strength 2. Decreased coordination Impairments are contributing to the following functional limitations: 1. Patient lacks functional reach of left upper extremity 2. Patient lacks functional packaging associate with left upper extremity Goals: Goals X1 week 1. Independent with home exercise program MET 2. Patient able to demonstrate effective functional reach with left upper extremity MET DISCHARGE RECOMMENDATIONS: Home with recommendation for outpatient PT/OT. TREATMENT CODE/TIME: NC. Bessy Mackey, PT, DPT, CLT [facility]
== END 2019-03-03 18:11 | disposition home or self-care (01) | DRG 65 ==
LOC: ER 18:23 → MS 20:29
PROVIDERS: Admitting Provider Family Medicine; Emergency Provider Student in an Organized Health Care Education/Training Program; PCP General Practice; Visit Provider Internal Medicine
DX: I63.311 Cerebral infarction due to thrombosis of right middle cerebral artery (principal); G81.94 Hemiplegia, unspecified affecting left nondominant side; I67.89 Other cerebrovascular disease; R29.810 Facial weakness; R47.1 Dysarthria and anarthria; R13.10 Dysphagia, unspecified; I10 Essential (primary) hypertension; R73.03 Prediabetes
CPT/HCPCS: 36415; 36416; 70496; 70498; 80048; 80053; 80061; 82962; 85027; 93005; 97112; 97162; 97165; 97530; 97535; 99223; 99232; 99239; 99255; 99285; 70450; 70551; 71046; 81003; 83036; 83735; 84443; 84484; 85025; 85610; 87086; 93010; 93306; J2060; J3480; J3490

== ENCOUNTER 2019-07-10 00:33 | Outpatient (CLI) | payer BC, SELFPAY ==
[2019-07-10 08:38] LABS: ALT 27 U/L (16-63); Calculated LDL 107 mg/dL (<100); Cholesterol 172 mg/dL (<200); HDL Cholesterol 56 mg/dL (40-60); Triglyceride 45 mg/dL (<150)
== END 2019-07-10 00:53 ==
PROVIDERS: PCP Family Medicine; Visit Provider Family Medicine
DX: I10 Essential (primary) hypertension (principal); M10.9 Gout, unspecified; I63.311 Cerebral infarction due to thrombosis of right middle cerebral artery; J45.20 Mild intermittent asthma, uncomplicated
CPT/HCPCS: 36415; 80061; 84460

== ENCOUNTER 2020-05-05 21:15 | Outpatient (REF) | payer BC, SELFPAY | END 2020-05-05 21:35 | LOC: NCHCN 21:15 | PROVIDERS: PCP Family Medicine; Visit Provider Physician Assistant | DX: L08.9 Local infection of the skin and subcutaneous tissue, unspecified (principal); B95.8 Unspecified staphylococcus as the cause of diseases classified elsewhere | CPT/HCPCS: 87077; 87070; 87205 ==

== ENCOUNTER 2020-08-22 15:17 | Outpatient (REF) | payer BC, SELFPAY ==
[2020-08-22 20:58] LABS: Calculated LDL 109 mg/dL (<100); Cholesterol 188 mg/dL (<200); HDL Cholesterol 60 mg/dL (40-60); Triglyceride 98 mg/dL (<150)
[2020-08-22 21:25] LABS: Hemoglobin A1C 6.1 % (<5.7)
== END 2020-08-22 15:18 | disposition home or self-care (01) ==
LOC: LBN 15:17
PROVIDERS: PCP Family Medicine; Visit Provider Nurse Practitioner Family
DX: E78.5 Hyperlipidemia, unspecified (principal); Z13.1 Encounter for screening for diabetes mellitus
CPT/HCPCS: 80061; 83036

== ENCOUNTER 2020-09-09 09:51 | Outpatient (CLI) | payer BC, SELFPAY ==
[2020-09-10 15:02] LABS: COVID-19 RT-PCR UVMMC Result Negative (Negative)
== END 2020-09-09 09:52 | disposition home or self-care (01) ==
LOC: LBO 09:51
PROVIDERS: PCP Family Medicine; Visit Provider Nurse Practitioner Family
DX: Z20.822 Contact with and (suspected) exposure to COVID-19 (principal)
CPT/HCPCS: U0003

== ENCOUNTER 2020-09-10 12:32 | Outpatient (CLI) | payer BC, SELFPAY ==
--- NOTE | 2020-09-10 12:45 | DI.RAD_ITS ---
EXAM: XR WRIST RT COMPLETE CLINICAL HISTORY: right wrist pain - r/o osteopathalogy TECHNIQUE: COMPARISON: No exams were available for comparison FINDINGS: Four views were obtained. There is question of linear lucency in the navicular waist seen on one vie w, fracture cannot be confirmed but the possibility of a nondisplaced fracture is raised. CT correla tion suggested if clinically appropriate. IMPRESSION: RADIATION DOSE DELIVERED: Total DLP
--- NOTE | 2020-09-10 13:29 | DI.VRAD_ITS ---
PROCEDURE INFORMATION: Exam: XR Right Wrist Exam date and time: 09/10/2020 12:54 PM Age: 55 years old Clinical indication: Injury or trauma; Fall; Blunt trauma (contusions or hematomas); Wrist; Right TECHNIQUE: Imaging protocol: XR Right wrist. Views: 3 or more views. COMPARISON: No relevant prior studies available. FINDINGS: Bones/joints: Lucency in the distal pole of the scaphoid suspicious for a nondisplaced fracture. CT would be helpful in further evaluation. Benign cystic changes in the lunate. Soft tissues: Soft tissue swelling IMPRESSION: Linear lucency in the distal pole of the scaphoid suspicious for a nondisplaced fracture. CT would be helpful in further evaluation. Dictated and Authenticated by: Emily Kaufman MD. Ordering:LALITA Kong MD
== END 2020-09-10 12:52 ==
PROVIDERS: PCP Family Medicine; Visit Provider Nurse Practitioner Family
DX: M25.531 Pain in right wrist (principal); R93.7 Abnormal findings on diagnostic imaging of other parts of musculoskeletal system
CPT/HCPCS: 73110

== ENCOUNTER 2020-09-10 16:42 | Outpatient (REF) | payer BC, SELFPAY ==
[2020-09-10 15:16] LABS: Uric Acid 8.1 mg/dL (3.5-7.2)
== END 2020-09-10 16:43 | disposition home or self-care (01) ==
LOC: LBN 16:42
PROVIDERS: PCP Family Medicine; Visit Provider Nurse Practitioner Family
DX: M25.531 Pain in right wrist (principal)
CPT/HCPCS: 84550

== ENCOUNTER 2020-09-15 03:22 | Outpatient (CLI) | payer BC, SELFPAY ==
[2020-09-16 10:02] LABS: COVID-19 RT-PCR UVMMC Result Negative (Negative)
== END 2020-09-15 03:23 | disposition home or self-care (01) ==
LOC: LBO 03:22
PROVIDERS: PCP Family Medicine; Visit Provider Nurse Practitioner Family
DX: Z20.822 Contact with and (suspected) exposure to COVID-19 (principal)
CPT/HCPCS: U0003

== ENCOUNTER 2020-11-21 10:17 | Outpatient (CLI) | payer BC, SELFPAY ==
--- NOTE | 2020-11-21 10:00 | DI.RAD_ITS ---
Exam(s) XR WRIST RT LIMITED EXAM: XR WRIST RT LIMITED CLINICAL HISTORY: pain. TECHNIQUE: 2D digital imaging was performed. COMPARISON: CR,XR XR WRIST RT COMPLETE from 09/10/2020 FINDINGS: On this limited two view study there is no evidence of obvious fracture nor carpal dislocation.. The re is no radiopaque foreign body. No significant osseous lesions. No radiopaque foreign body IMPRESSION: DATA REPOSITORY: RADIATION DOSE DELIVERED:
== END 2020-11-21 10:18 | disposition home or self-care (01) ==
LOC: DIORS 10:17
PROVIDERS: PCP Nurse Practitioner Family; Referring Provider Nurse Practitioner Family; Visit Provider Physician Assistant Surgical
DX: M25.531 Pain in right wrist (principal)
CPT/HCPCS: 73100

== ENCOUNTER 2021-03-30 21:11 | Outpatient (REF) | payer BC, SELFPAY ==
[2021-04-01 09:26] LABS: COVID-19 RT-PCR UVMMC Result Negative (Negative)
== END 2021-03-30 21:12 | disposition home or self-care (01) ==
LOC: NCHCN 21:11
PROVIDERS: PCP Nurse Practitioner Family; Visit Provider Nurse Practitioner Family
DX: Z20.822 Contact with and (suspected) exposure to COVID-19 (principal)
CPT/HCPCS: U0003

== ENCOUNTER 2021-12-04 11:09 | Day surgery (SDC) | payer BC, SELFPAY ==
--- NOTE | 2021-12-04 10:30 | HPE_ITS ---
Assessment and Plan Assessment and plan (1) Nuclear sclerotic cataract of left eye: Status: Chronic Assessment and plan: Assessment: Nuclear cataract of the left eye, following pars plana vitrectomy/retinal detachment surgery plan: Cataract extraction with lens implantation of the left eye. (2) History of vitrectomy: Status: Acute (3) History of detached retina repair: Status: Acute History of Present Illness History of Present Illness Chief Complaint: Progressive decreased vision, left eye Narrative: The patient is a 56-year-old male who suffered a retinal detachment in the left eye in April 2021. He underwent surgical repair at [facility] with pars plana vitrectomy, endolaser, and gas. He has now developed a dense nuclear cataract in the left eye with significant decreased visual acuity and myopic shift. The option of cataract surgery was offered to the patient and he wished to proceed. 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 (Acute) Gout (Chronic) Hyperlipemia (Acute) Scapholunate ligament injury with no instability (Acute) Nuclear sclerotic cataract of left eye (Chronic) History of vitrectomy (Acute) History of detached retina repair (Acute) Medical History (Updated 12/04/21 @ 12:56 by Soledad Dow) Essential hypertension History of claustrophobia Surgical History Repair of umbilical hernia (05/26/15) Family History Mother , age 59 Bladder cancer Asthma Hypertension Maternal Uncle Bladder cancer Father , age 86 CML (chronic myelocytic leukemia) Stroke Brother Asthma Brother Asthma Maternal Grandfather No problems noted. Paternal Grandfather , age 72 Heart disease Maternal Grandmother No problems noted. 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 [employer] Pets and animals: Yes Pets and animals: cat(s), dog(s) and fish Sexually active: No Do you think of yourself as: straight/heterosexual Current gender identity: male What is your relationship status?: never How often do you talk on the phone with friends or family?: three or more times per week How often do you get together with friends or relatives?: twice per week How often do you attend quaker or moravian services?: decline to answer Do you belong to any clubs or organized social groups?: yes Panel score (0-1 are the most socially isolated patients): 2 What type of physical activity do you participate in: none Frequency: does not exercise Kyung/Cheondoism: None Special kyung needs: No Seatbelt use: always Drive intox or ride w/intox 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 Do you feel safe at home: Yes Do you feel safe in your relationship?: Yes Meds Allergies and Home Medications Allergies Allergy/AdvReac Type Severity Reaction Status Date / Time atorvastatin [From Lipitor] Allergy Intermediate rash Verified 12/04/21 12:19 Home Medications Medication Instructions Recorded Confirmed Type albuterol sulfate 90 mcg/actuation 2 puff inhalation Q4H PRN 11/11/20 12/04/21 Rx aerosol inhaler bronchospasm #8.5 grams metoprolol succinate 25 mg 25 mg PO DAILY #90 tabs 12/08/20 12/04/21 Rx tablet,extended release 24 hr buspirone 30 mg tablet 30 mg PO BID #60 tabs 02/01/21 12/04/21 Rx hydrochlorothiazide 25 mg tablet 25 mg PO DAILY #90 tabs 02/01/21 12/04/21 Rx nifedipine 30 mg tablet,extended 30 mg PO DAILY #90 tabs 02/01/21 12/04/21 Rx release pravastatin 10 mg tablet 10 mg PO QHS #90 tabs 02/01/21 12/04/21 Rx loratadine 10 mg tablet (Claritin) 10 mg PO DAILY #90 tabs 03/30/21 12/04/21 Rx aspirin 81 mg tablet,delayed 81 mg PO DAILY #90 tabs 09/11/21 12/04/21 Rx release lisinopril 40 mg tablet 40 mg PO DAILY #90 tabs 09/11/21 12/04/21 Rx Exam Eyes Other: Corrected visual acuity is 20/25 right eye, 20/70 left eye. Intraocular pressure is 16 right eye, 11 left eye. Extraocular motility is normal. Slit- lamp examination reveals a moderate nuclear cataract with moderate brunescent in the left eye. The right lens is clear. Otherwise the anterior segment is garrison l in both eyes. Funduscopic examination reveals disc cupping of 0.3 OU. In the left eye there are laser scars superior temporally. Resp Auscultation: clear to auscultation bilaterally Cardio Rate: regular rate Rhythm: regular rhythm
[2021-12-04] MEDS: Tropicam./Phenyleph. (1/2.5%) 5 ML BTL OS ×3 (12:37→12:56)
[2021-12-04 12:39] VITALS: BP 158/101; PULSE 89; RESP 16; TEMP 37.2; O2SAT 98
--- NOTE | 2021-12-04 12:42 | ANES.PREOP_ITS ---
General Info Date of Service Date Performed: 12/04/21 Height: 6 ft Weight: 113.398 kg Body Mass Index (BMI): 33.9 Surgical Procedure: Operation Date: 12/04/21 14:40 Proposed Procedure Side Surgeon p Cataract Extraction with IOL Implant Left Boston Villarreal MD Meds Allergies and Home Medications Allergies Allergy/AdvReac Type Severity Reaction Status Date / Time atorvastatin [From Lipitor] Allergy Intermediate rash Verified 12/04/21 12:19 Home Medication Medication Instructions Recorded albuterol sulfate 90 mcg/actuation 2 puff inhalation Q4H PRN 11/11/20 aerosol inhaler bronchospasm #8.5 grams metoprolol succinate 25 mg 25 mg PO DAILY #90 tabs 12/08/20 tablet,extended release 24 hr buspirone 30 mg tablet 30 mg PO BID #60 tabs 02/01/21 hydrochlorothiazide 25 mg tablet 25 mg PO DAILY #90 tabs 02/01/21 nifedipine 30 mg tablet,extended 30 mg PO DAILY #90 tabs 02/01/21 release pravastatin 10 mg tablet 10 mg PO QHS #90 tabs 02/01/21 loratadine 10 mg tablet (Claritin) 10 mg PO DAILY #90 tabs 03/30/21 aspirin 81 mg tablet,delayed 81 mg PO DAILY #90 tabs 09/11/21 release lisinopril 40 mg tablet 40 mg PO DAILY #90 tabs 09/11/21 Current Visit Medications: Current Medications Generic Name Dose Route Start Last Admin Trade Name Freq PRN Reason Stop Dose Admin Acetaminophen 1,000 mg 12/04/21 06:00 Acetaminophen 500 Mg Tab PO Q4H PRN PRN Miscellaneous Medication 0 ml 12/04/21 06:00 Prednisolone 1%, Moxifloxacin 0.5%, Nepafenac 0.1% 5ml Btl OS DIRECTED [facility] Miscellaneous Medication 0 ml 12/04/21 06:00 12/04/21 12:37 Tropicam./Phenyleph. 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 Obesity E66.9 Asthma J45.909 HTN (hypertension) 10/21/13 I10 Medical History Medical History (Updated 12/04/21 @ 12:56 by Soledad Dow) Essential hypertension History of claustrophobia Surgical History Surgical History Repair of umbilical hernia (05/26/15) Tobacco Smoking/Tobacco Use Status: Never Passive smoking exposure: Yes Counseling given: counseling >3 minutes Alcohol Alcohol Intake: current Alcohol intake frequency: 3 or more drinks per day Alcohol type: hard liquor Substance Use Substance use: Never Substance use type: does not use Vital Signs and Lab Results Lab Results Blood Type / Crossmatch: No Data to Display Complete Blood Count: No Data to Display Complete Metabolic Panel: No Data to Display Liver Function Panel: No Data to Display Coagulation Panel: No Data to Display Cardiac Panel: No Data to Display Arterial Blood Gas: No Data to Display Venous Blood Gas: No Data to Display Pancreas Panel: No Data to Display Thyroid Panel: No Data to Display Infectious Disease: No Data to Display Blood Cultures: No Data to Display Toxicology Panel: No Data to Display Imaging and Studies Imaging and Studies Study information below may be from another EMR and interpreted by another provider. Please see original notes in EMR for more complete details. Echocardiogram Summary: Left Ventricle : The left ventricle is normal size. There is normal left ventricular wall thickness. Diastolic function is indeterminant The left ventricular systolic function is normal. The left ventricular ejection fraction is within the normal range. There is normal LV segmental wall motion. LVEF is 60-65%. Right Ventricle : The right ventricle is normal size. The right ventricular systolic function is normal. Atria : The left atrium size is normal. The right atrium size is normal. Aortic Valve : The aortic valve is normal in structure. No aortic regurgitation is present. There is no aortic valvular stenosis. Mitral Valve : The mitral valve is normal in structure. There is no mitral valve regurgitation noted. Tricuspid Valve : The tricuspid valve is normal in structure. Trace to mild tricuspid regurgitation. Estimated RVSP is within normal limits Great Vessels : mildly dilated aortic root (4.0cm) Pericardium : There is no pericardial effusion. Great Vessels : normal in size. collapses more than 50%. lots of IVC flow Summary: This study is not ideal for evaluating CVA as the study was not done with bubbles. However, there is no clear cardiac source of emboli. 03/03/19 Anesthesia Assessment and Plan Anesthesia History Personal History: No History of Anesthesia Complications Family History: No Family History of Anesthesia Complications Exercise Tolerance Exercise Tolerance: Metabolic Equivalents<4 Pertinent Negatives Pertinent Negatives: No Symptoms of GERD, No Major Cardiovascular Symptoms or Complaints, No Major Pulmonary Symptoms or Complaints and No History of CVA/TIA Cardiac & Pulmonary Exam Cardiac Exam: Normal S1/S2 Heart Sounds Pulmonary Exam: Clear Bilateral Breath Sounds and Active Dry Cough Implantable Cardiac Device Does patient have a Pacemaker or an ICD?: No Airway Exam Known Difficult Airway: No Mallampati Class: 3 Mouth Opening: Normal (> 3cm) Thyromental Distance: Greater than 3 cm Neck Range of Motion: Full ROM Neck Circumference: Normal Teeth Condition: Normal Dentition ASA Classification ASA Score: ASA 2 Emergency Case?: No NPO Status NPO Status: NPO Clears >2 hours, Solids >8 hours Anesthesia Plan Resuscitation Status: Full Code Anesthesia Technique: MAC Anesthesia Airway Planned: Natural Airway Monitors Used: Standard Monitors
[2021-12-04 13:39] VITALS: BMI 33.9
[2021-12-04] MEDS: Balanced Salt Soln.-PLUS 500 ML BAG (14:15)
[2021-12-04] MEDS: Tetracaine 0.5% 4 ML BTL OS (14:15)
[2021-12-04] MEDS: Duovisc Viscoelastic System EACH 1 EACH (14:16)
[2021-12-04] MEDS: Lidocaine 2% Jelly 6 ML SYR (14:18)
[2021-12-04] MEDS: Povidone-Iodine Ophth 30 ML BTL (14:20)
[2021-12-04] MEDS: Trypan Blue 0.06% 0.5 ML SYR (14:20)
--- NOTE | 2021-12-04 14:33 | W.PM.DSUDISC ---
Discharge Plan Disposition Patient Disposition: HOME Condition: Good Discharge Details Attending Provider: Boston Villarreal Primary Care Provider: Ector Mora Home Meds and New Rx's Prescriptions: No Action loratadine [Claritin] 10 mg tablet 10 mg PO DAILY Qty: 90 3RF albuterol sulfate 90 mcg/actuation HFA aerosol inhaler 2 puff INHALATION Q4H PRN (Reason: bronchospasm) Qty: 8.5 5RF metoprolol succinate 25 mg tablet extended release 24 hr 25 mg PO DAILY Qty: 90 3RF buspirone 30 mg tablet 30 mg PO BID Qty: 60 11RF Rx Instructions: One half tab twice daily for 2 weeks then 1 tab twice daily hydrochlorothiazide 25 mg tablet 25 mg PO DAILY Qty: 90 3RF nifedipine 30 mg tablet extended release 30 mg PO DAILY Qty: 90 3RF pravastatin 10 mg tablet 10 mg PO QHS Qty: 90 3RF lisinopril 40 mg tablet 40 mg PO DAILY Qty: 90 4RF aspirin 81 mg tablet,delayed release (DR/EC) 81 mg PO DAILY Qty: 90 1RF Discharge Instructions Stand Alone Forms: Post-op Topical Cataract, Xavier Colin (DSU) Discharge Orders Discharge Orders: Discharge Order (Routine); Ordered 12/04/21 Ordered By: Boston Villarreal DS: Diagnosis Discharge Diagnosis (1) Nuclear sclerotic cataract of left eye: Status: Resolved (2) History of vitrectomy: Status: Resolved (3) History of detached retina repair: Status: Resolved
--- NOTE | 2021-12-04 14:34 | W.PM.OP ---
Date of service: 12/04/21 Time of Service: 14:34 Operative Note Operative Note DATE OF PROCEDURE: 12/04/21 PRE-OP DIAGNOSIS: Nuclear cataract, left eye Status post pars plana vitrectomy with endolaser and gas for retinal detachment repair, left eye Poor red reflex, left eye secondary to cataract POST-OP DIAGNOSIS: same Severe diffuse zonular laxity PROCEDURE: Cataract extraction using phacoemulsification with intraocular lens implant, left eye, using capsular staining with Vision Blue Implantation of capsular tension ring SURGEON: Boston Villarreal ANESTHESIA TYPE: Local By Surgeon and MAC Refer to Anesthesia Record COMPLICATIONS: None Patient was transported to: same day Patient's condition: stable Implants: Christian [employer] Christian / [employer] Tecnis [id number] Morcher Type 15A Capsular tension ring Indications: Progressive decreased vision due to cataract, left eye, with poor red reflex Procedure Description: CATARACT SURGERY OPERATIVE REPORT PREOPERATIVE DIAGNOSIS: 1. Nuclear cataract, left eye 2. Poor red reflex secondary to #1 3. Status post pars plana vitrectomy with endolaser and gas for retinal detachment POSTOPERATIVE DIAGNOSIS: Same OPERATION: 1. Cataract extraction using phacoemulsification with posterior chamber intraocular lens implant, left eye. 2. Capsular staining with Vision Blue 3. Implantation of capsular tension ring, Morcher Type 15A IOL: IOL Donor Specialist/Model: Christian & Christian / LINDA Tecnis [id number] IOL Power: + 17.0 diopters IOL Serial Number: [id number] Optic Diameter: 6.0 mm Haptic/Overall Diameter: 13.0 mm PHACO INFO: Gonzalez Centurion Vision System with OZil and Active Fluidics Cumulative Dispersed Energy (CDE): 9.50 seconds SURGEON: Boston Villarreal MD, EDMUNDO ANESTHESIA: Monitored [facility] [place] [place] with local sub-tenon's anesthetic infiltration COMPLICATIONS: None SPECIMENS: None INDICATIONS FOR PROCEDURE: The patient is a 56-year-old gentleman with history of myopia who underwent repair of retinal detachment in the left eye in April 2021 with pars plana vitrectomy, endolaser, and gas. He has now developed a significant nuclear cataract of the left eye. The option of cataract surgery was offered to the patient and he wished to proceed. PROCEDURE: The correct surgical eye was identified and marked as the left eye and the pupil was dilated in the preoperative area using mydriatics and cycloplegics. The dilated pupil size was 8.0 mm. Oral sedation was administered in the form of an Imprimis MKO Melt (midazolam 3mg/ketamine 25mg/ondansetron 2mg). . The patient was brought to the operating room where cardiopulmonary monitoring was instituted and surgical time-out was performed, confirming the correct operative eye and IOL power. Topical anesthesia was administered and ophthalmic povidone-iodine 5% was instilled into the conjunctival fornices. Lidocaine gel was applied to the cornea and the arlene-ocular area was prepped with Betadine 10% solution and draped in the usual sterile fashion for intraocular surgery, including an aperture drape. A Tegaderm transparent film dressing was cut in half and used to cover the lashes and lid margins. Care was taken to sequester the lashes and lid margins under the Tegaderm dressing. A lid speculum was placed between the lids of the operative eye and the Gonzalez LuxOR Revalia operating microscope was maneuvered into position. Sonya scissors were then used to make a conjunctival buttonhole approximately 6mm posterior to the limbus in the inferonasal quadrant. Blunt dissection was carried out to expose bare sclera, and a blunt-tipped sub-tenon?s anesthesia cannula was introduced and passed posteriorly along the globe where non-preserved plain lidocaine was injected into posterior sub-Tenon?s space. A sideport knife was used to make a paracentesis port superiorly/superiortemporally. Intraocular phenylephrine/lidocaine was injected int the anterior chamber.. Air was then injected into the anterior chamber, followed by Vision Blue, which was painted over the anterior capsule and then irrigated out using BSS. The anterior chamber was filled with viscoelastic. A keratome knife was used to create a 2-plane near clear corneal tunnel extending approximately 2 mm into clear cornea temporally. A flap was raised on the anterior capsule and capsulorhexis forceps were used to complete a continuous curvilinear capsulorhexis of 5.5 mm. The anterior chamber was noted to be quite deep with significant zonular laxity. Balanced salt solution was then used to perform cortical cleaving hydrodissection and nuclear hydrodelineation until the lens could be freely rotated within the capsular bag. The lens nucleus was then disassembled and removed within the capsular bag and iris plane using phacoemulsification. Residual cortical material was removed using the 45-degree angled silicone I/A tip with 0.3mm port. The posterior capsule was carefully polished to remove as much residual lens epithelial cells as safely possible. The capsular bag was then inflated and the anterior chamber deepened with viscoelastic. A Morcher Type 15A capsular tension ring was then inserted into the capsular bag for additional zonular support. The lens implant described above was inserted into the capsular bag using the LINDA [place] Injector. A Kuglen hook was used to dial the IOL into position. Residual viscoelastic was then removed first from posterior to the IOL, then from the anterior chamber using the I/A handpiece. The lens implant was noted to center nicely within the capsular bag. The incisions were stromally hydrated, and the anterior chamber was reformed using BSS. Then 0.5cc of moxifloxacin 1.0mg/ml were injected into the capsular bag and anterior chamber. The incisions were checked with a Weck spear and found to be secure. Several drops of ophthalmic povidone-iodine 5% were then applied to the eye followed by two drops of Imprimis combination prednisolone/moxifloxacin/nepafenac solution. The drapes were removed and a clear plastic protective eye shield was placed over the eye. The patient was then returned to Same Day Surgery in stable condition.
[2021-12-04 14:39] VITALS: BP 138/93; PULSE 80; RESP 16; TEMP 36.6; O2SAT 97
--- NOTE | 2021-12-04 14:52 | W.ANESPOSTOP ---
Postoperative Evaluation Date, Time and Location Date Performed: 12/04/21 Time Performed: 14:52 Patient Location: Day Surgery Unit Vital Signs Most Recent Imported Vital Signs: Most Recent Vital Signs Temp Pulse Resp BP Pulse Ox 36.6 C 80 16 138/93 H 97 12/04/21 14:39 12/04/21 14:39 12/04/21 14:39 12/04/21 14:39 12/04/21 14:39 Pain Score Most Recent Pain Score: Most Recent Pain Score Pain Level 0 12/04/21 12:39 Assessment Mental Status: Awake (Alert & Oriented to Patient Baseline) Airway and Respiratory Function: Patent airway with normal (patient baseline) respiratory exam Cardiovascular Function: Hemodynamically Stable Hydration Status: Adequately Hydrated Nausea & Vomiting: No Nausea or Vomiting Pain: Pt. Denies Any Pain Peripheral Nerve Block: Patient did not receive a nerve block
[2021-12-04 14:53] VITALS: BP 149/90; PULSE 77; RESP 16; TEMP 36.5; O2SAT 97
== END 2021-12-04 15:12 | disposition home or self-care (01) ==
PROVIDERS: PCP Nurse Practitioner Family; Visit Provider Ophthalmology
PROC: (CPT 66982; principal; 2021-12-04 14:30)
DX: H25.12 Age-related nuclear cataract, left eye (principal); H21.89 Other specified disorders of iris and ciliary body; I10 Essential (primary) hypertension; J45.909 Unspecified asthma, uncomplicated; E78.5 Hyperlipidemia, unspecified; F10.10 Alcohol abuse, uncomplicated
CPT/HCPCS: 66982; V2632

== ENCOUNTER 2022-04-26 16:53 | Emergency (ER) | payer BC, SELFPAY ==
[2022-04-26 17:11] VITALS: BP 165/103; PULSE 92; RESP 15; TEMP 36.9; O2SAT 98
--- NOTE | 2022-04-26 18:10 | DI.RAD_ITS ---
Exam(s) XR KNEE LT 3V AP,LAT,MARK EXAM: XR KNEE LT 3V AP,LAT,MARK CLINICAL HISTORY: Left knee pain. TECHNIQUE: 2D digital imaging was performed. Three views. COMPARISON: No exams were available for comparison FINDINGS: BONES: No acute fracture is present. No bony destructive lesion is seen. JOINTS: The knee is normally aligned. No joint effusion is seen. SOFT TISSUE: Anterior soft tissue swelling. IMPRESSION: Anterior soft tissue swelling. No bony abnormality. DATA REPOSITORY: RADIATION DOSE DELIVERED:
--- NOTE | 2022-04-26 18:53 | DI.VRAD_ITS ---
PROCEDURE INFORMATION: Exam: XR Left Knee Exam date and time: 04/26/2022 18:42 Age: 56 years old Clinical indication: Pain; Knee; Left; Additional info: Left knee pain, no injury TECHNIQUE: Imaging protocol: Radiologic exam of the Left knee. Views: 3 views. COMPARISON: No relevant prior studies available. FINDINGS: Bones/joints: No acute fracture or subluxation. Soft tissues: Swelling in the anterior knee without a significant joint effusion. IMPRESSION: 1. No acute bony pathology. 2. Swelling in the anterior knee without a significant joint effusion. Dictated and Authenticated by: Brenda Mtz MD. Ordering:LAURA Marina MD
[2022-04-26 19:33] VITALS: PULSE 87; TEMP 37.1; O2SAT 96
--- NOTE | 2022-04-26 19:44 | ED.GENADUL_ITS ---
Discharge Plan Disposition Condition: Stable Discharge Details Chief Complaint: GenMedical Clinical Impression: Swelling of left lower extremity Primary Care Provider: Ector Mora ED Provider: Laina Coppola Home Meds and New Rx's Prescriptions: Continued loratadine [Claritin] 10 mg tablet 10 mg PO DAILY Qty: 90 3RF buspirone 30 mg tablet 30 mg PO BID Qty: 60 11RF Rx Instructions: One half tab twice daily for 2 weeks then 1 tab twice daily lisinopril 40 mg tablet 40 mg PO DAILY Qty: 90 4RF aspirin 81 mg tablet,delayed release (DR/EC) 81 mg PO DAILY Qty: 90 1RF metoprolol succinate 25 mg tablet extended release 24 hr 25 mg PO DAILY Qty: 90 3RF albuterol sulfate 90 mcg/actuation HFA aerosol inhaler 2 puff INHALATION Q4H PRN (Reason: bronchospasm) Qty: 8.5 5RF hydrochlorothiazide 25 mg tablet 25 mg PO DAILY Qty: 90 3RF nifedipine 30 mg tablet extended release 30 mg PO DAILY Qty: 90 3RF pravastatin 10 mg tablet 10 mg PO QHS Qty: 90 3RF Discharge Instructions Instructions: Leg Edema (ED) Additional Instructions: Please present to the radiology department tomorrow for an ultrasound Doppler of your lower extremity. I am concerned that you do have a blood clot in your leg. Please take your aspirin tomorrow morning. We did give you an Eliquis which is a blood thinner tonight. Please present to the ER directly after getting the ultrasound done. Please return to the ER sooner for any chest pain, shortness of breath or concerns. Follow up with primary care provider in 3-5 days. Return to ED sooner if any worsening or concerns. Increase oral fluids. Take the pain medication with food every 4-6 hours as directed. Referrals: Ector Mora, [employer] [Primary Care Provider] - 1 week Discharge Data Discharge Date/Time-TO BE ENTERED AT DEPARTURE: 04/26/22 20:47 Medical Decision Making 56-year-old male presents to the ER with chief complaint of left lower extremity pain and swelling which he reports for the last 2 weeks. Reports that the Pain went away on Saturday and then came back on Saturday. He denies any known injury. Denies any chest pain no shortness of breath does have a history of gout he did take some Medication which he states did not work. He was sent here by his PCP to rule out DVT. He is speaking in full sentences has no other complaints or associated symptoms. Denies any fever or chills. Past medical history includes CVA approximately 3 years ago, hypertension, gout, hyperlipidemia, obesity, asthma X-ray ordered from waiting room, results are noted below no bony abnormality. I do suspect DVT. We will give patient 10 mg of Eliquis and I will order an outpatient ultrasound to rule out DVT given some oxycodone home with instructions to return in the a.m. This text was generated using [employer] system, please disregard any oddities of phrase or misspellings. Imaging Data Radiologic Study: Imaging: X-Ray Radiologist's impression: Imaging protocol: Radiologic exam of the Left knee. Views: 3 views. COMPARISON: No relevant prior studies available. FINDINGS: Bones/joints: No acute fracture or subluxation. Soft tissues: Swelling in the anterior knee without a significant joint effusion. IMPRESSION: 1. No acute bony pathology. 2. Swelling in the anterior knee without a significant joint effusion. Sign Out No HPI General Mode of arrival: ambulatory . Date/Time Provider Initiated Documentation: 04/26/22 17:31 . Limitations to Documentation: no limitations . Information obtained by: patient, RN notes reviewed and old records reviewed . HPI Narrative: 56-year-old male presents to the ER with chief complaint of left lower extremity pain and swelling which he reports for the last 2 weeks. Reports that the Pain went away on Saturday and then came back on Saturday. He denies any known injury. Denies any chest pain no shortness of breath does have a history of gout he did take some Medication which he states did not work. He was sent here by his PCP to rule out DVT. He is speaking in full sentences has no other complaints or associated symptoms. Denies any fever or chills. Past medical history includes CVA approximately 3 years ago, hypertension, gout, hyperlipidemia, obesity, asthma Related Data Home Medications Medication Instructions Recorded Confirmed buspirone 30 mg tablet 30 mg PO BID #60 tabs 02/01/21 04/27/22 loratadine 10 mg tablet (Claritin) 10 mg PO DAILY #90 tabs 03/30/21 04/27/22 aspirin 81 mg tablet,delayed 81 mg PO DAILY #90 tabs 09/11/21 04/27/22 release lisinopril 40 mg tablet 40 mg PO DAILY #90 tabs 09/11/21 04/27/22 metoprolol succinate 25 mg 25 mg PO DAILY #90 tabs 22 04/27/22 tablet,extended release 24 hr albuterol sulfate 90 mcg/actuation 2 puff inhalation Q4H PRN 03/30/22 04/27/22 aerosol inhaler bronchospasm #8.5 grams hydrochlorothiazide 25 mg tablet 25 mg PO DAILY #90 tabs 04/18/22 04/27/22 nifedipine 30 mg tablet,extended 30 mg PO DAILY #90 tabs 04/18/22 04/27/22 release pravastatin 10 mg tablet 10 mg PO QHS #90 tabs 04/18/22 04/27/22 Previous Rx's Medication Instructions Recorded buspirone 30 mg tablet 30 mg PO BID #60 tabs 02/01/21 loratadine 10 mg tablet (Claritin) 10 mg PO DAILY #90 tabs 03/30/21 aspirin 81 mg tablet,delayed 81 mg PO DAILY #90 tabs 09/11/21 release lisinopril 40 mg tablet 40 mg PO DAILY #90 tabs 09/11/21 metoprolol succinate 25 mg 25 mg PO DAILY #90 tabs 03/23/22 tablet,extended release 24 hr albuterol sulfate 90 mcg/actuation 2 puff inhalation Q4H PRN 03/30/22 aerosol inhaler bronchospasm #8.5 grams hydrochlorothiazide 25 mg tablet 25 mg PO DAILY #90 tabs 04/18/22 nifedipine 30 mg tablet,extended 30 mg PO DAILY #90 tabs 04/18/22 release pravastatin 10 mg tablet 10 mg PO QHS #90 tabs 04/18/22 Allergies Allergy/AdvReac Type Severity Reaction Status Date / Time atorvastatin [From Lipitor] Allergy Intermediate rash Verified 04/27/22 10:16 General Stated Complaint: GenMedical SOFIA: 3 Review of Systems All systems reviewed & are unremarkable except as noted in HPI and below Cardiovascular Cardiovascular: Denies chest pain at rest and Denies dyspnea Respiratory Respiratory: Denies dyspnea Musculoskeletal Musculoskeletal: Reports as per HPI, Reports arthralgias and Reports other (Leg swelling) PFSH All Active Problems Swelling of left lower extremity (Acute) Left leg pain (Acute) HTN (hypertension) (Chronic 10/21/13) Asthma (Chronic) Obesity (Chronic) ETOH abuse (Chronic) 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 Paternal Grandfather , age 72 Heart disease Maternal Grandmother No problems noted. 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[employer] Pets and animals: Yes Pets and animals: cat(s), dog(s) and fish Sexually active: No Do you think of yourself as: straight/heterosexual Current gender identity: male What is your relationship status?: never How often do you talk on the phone with friends or family?: three or more times per week How often do you get together with friends or relatives?: twice per week How often do you attend evangelical or rastafari services?: decline to answer Do you belong to any clubs or organized social groups?: yes Panel score (0-1 are the most socially isolated patients): 2 What type of physical activity do you participate in: none Frequency: does not exercise Kyung/Congregation: None Special kyung needs: No Seatbelt use: always Drive intox or ride w/intox motor vehicle escort driver: No Do you feel safe at home: Yes Do you feel safe in your relationship?: Yes Exam Narrative Exam Narrative: Constitutional: Alert and oriented x3. Appears stated age. Normal body habitus. Head: Normocephalic, no trauma. Eyes: Pupils PERRL, Red reflex noted, EOM's intact. Eyelids symmetrical without lesions, discharge, or swelling. ENT: Bilateral TM's WNL, External ear normal to inspection, no mastoid TTP, swelling, or erythema, Nasal turbinates WNL, no nasal discharge. Normal dentition, Posterior pharynx WNL, no exudate. Chest: RRR, Normal S1, S2, distal pulses intact. Resp: Lungs clear to auscultation bilaterally, no wheezes, rales, or rhonchi. Abdomen: Soft, non-distended, Normoactive bowel sounds all 4 quads. Musculoskeletal: Normal gait, 5/5 strength to all four extremities. Does have some left lower extremity swelling, tenderness and warmth. Swelling noted from lower knee down to foot. No significant erythema. Skin: No suspicious rashes or lesions. Capillary refill less than 2 sec. Neurologic: Cranial nerves II-XII intact. Alert and oriented x 3. Motor: No deficits noted. Sensory: Intact bilaterally all 4 extremities. Reflexes: DTR's intact bilaterally.. Hematologic/Lymphatic: No ecchymosis, no lymphadenopathy. Extrem Left lower extremity: lower leg Details: tenderness, localized swelling, non- pitting edema and warmth Course Vital Signs Vital signs: Vital Signs Temperature 36.9 C 04/26/22 17:11 Pulse 92 H 04/26/22 17:11 Respiratory Rate 15 04/26/22 17:11 Blood Pressure 165/103 H 04/26/22 17:11 Pulse Oximetry 98 04/26/22 17:11 Temperature 37.1 C 04/26/22 19:33 Temperature Source Tympanic 04/26/22 19:33 Pulse 87 04/26/22 19:33 Respiratory Rate 15 04/26/22 17:11 Blood Pressure 165/103 H 04/26/22 17:11 Blood Pressure Position Sitting 04/26/22 17:11 Pulse Oximetry 96 04/26/22 19:33 Oxygen Delivery Method Room Air 04/26/22 19:33 Oxygen Flow Rate 0 04/26/22 19:33 Pain Level 10 04/26/22 19:33
[2022-04-26 20:32] VITALS: RESP 22
[2022-04-26] MEDS: Apixaban 5 MG TAB 10 MG PO (20:35)
== END 2022-04-26 20:47 ==
PROVIDERS: Emergency Provider Registered Nurse Emergency; PCP Nurse Practitioner Family
DX: M79.89 Other specified soft tissue disorders (principal); M79.662 Pain in left lower leg; M25.562 Pain in left knee
CPT/HCPCS: 73562; 99283

== ENCOUNTER 2022-04-27 09:52 | Emergency (ER) | payer BC, SELFPAY ==
--- OUTSIDE RECORDS SUMMARY | 2022-04-27 10:05 | XMS_ITS | Encounter Summary ---
:1965 Author Organization [facility] Address [address] [place] [address] Care Team Providers Name Role Phone Unavailable Primary Care Provider Unavailable Encounter Details Date Type Department Care Team Description 05/21/2021 Orders Only [facility] Orlando Walton MD Horses[place] retinal tear of left eye (Prim anastasia Dx); Ophthalmology - [address] Vitre ous hemorrhage of left eye (HCC-CMS) (HCC); [facility] Bilateral retinal lattice degeneration [address] [place] [address] [address], [place] [id number] (Wo rk) Social History Tobacco Use Types Packs/Day Years Used Date Smoking Tobacco: Never Assessed Sex Assigned at Date Recorded Not on file documented as of this encounter Plan of Treatment Not on filedocumented as of this encounter Visit Diagnoses Diagnosis Horseshoe retinal tear of left eye - Joy brower Horseshoe tear of retina without detachm ent Vitreous hemorrhage of left eye (HCC-CMS ) (HCC) Vitreous hemorrhage 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
--- OUTSIDE RECORDS SUMMARY | 2022-04-27 10:05 | XMS_ITS | Encounter Summary ---
:1965 Author Organization [facility] Address [address] [place] [address] Care Team Providers Name Role Phone Ector Mora Primary Care Provider Reason for Visit Auth/Cert Specialty Diagnoses / Procedures Referred By Contact Refer red To Contact Diagnoses Horseshoe retinal tear of left eye Vitreous hemorrhage of left eye (HCC-CMS) (HCC) Bilateral retinal lattice degeneration Procedures NY VITRECTOMY,FOCAL LASER RX RETINA NY PROPH RETINAL DTCHMNT W/O DRG PHOTOCOAGULATION VITRECTOMY, MECHANICAL, PARS PLANA APPROACH, WITH ENDOLASER FOCAL PHOTOCOAGULATION PHOTOCOAGULATION, RETINA, FOR RETINAL DETACHMENT PROPHYLAXIS Referral ID Status Reason Start Date Expiration Date Visits Requ ested Visits Authorized [id number] 1 1 Encounter Details Date Type Department Care Team Description 05/22/2021 Hospital Encounter [facility] OR Orlando Walton MD 111 [facility] [address] [phone] [facility] Level [address] [place] [address] (Wo rk) Social History Tobacco Use Types Packs/Day Years Used Date Smoking Tobacco: Never Smokeless Tobacco: Never Sex Assigned at Date Recorded Not on file documented as of this encounter Last Filed Vital Signs Vital Sign Reading Time Taken Comments Blood Pressure 147/82 05/22/20212014 EST Pulse - - Temperature 37 ??C (98.6 ??F) 05/22/20212005 EST Respiratory Rate 18 05/22/20212014 EST Oxygen Saturation 94% 05/22/20212014 EST Inhaled Oxygen Concentration - - Weight 117.5 kg (259 lb 0.7 oz) 05/22/2021 1447 EST Height 182.9 cm (6') 05/22/2021 1447 EST Body Mass Index 35.13 05/22/2021 1447 EST documented in this encounter Discharge Instructions Discharge Instr - AVS First Orlando Chaudhari MD - 05/22/2021 19:20 EST Sleep right ear down for 7 days. Avoid sleeping on your back - face up - until gas bubble is gone. Avoid lifting weights over 10 pds, bending below the waist or straining for 7 days. Keep patch on the eye until tomorrow's follow-up appointment. documented in this encounter Medications at Time of Discharge Medication Sig Dispensed Refills Start Date End Date albuterol 90 mcg/actuation Inhale 2 Puffs as 0 inhaler directed every 4 hours as needed for Wheezing. aspirin chewable 81 mg tablet Take 81 mg by 0 mouth daily. busPIRone (BUSPAR) 30 mg Take 30 mg by 0 tablet mouth 2 times daily. hydroCHLOROthiazide Take 25 mg by 0 (HYDRODIURIL) 25 mg tablet mouth daily. lisinopriL (PRINIVIL) 40 mg Take 40 mg by 0 tablet mouth daily. loratadine (CLARITIN) 10 mg Take 10 mg by 0 tablet mouth daily. metoprolol SUCCinate Take 25 mg by 0 (TOPROL-XL) 25 mg tablet mouth daily. NIFEdipine XL (PROCARDIA-XL) Take 30 mg by 0 30 mg tablet mouth daily. pravastatin (PRAVACHOL) 10 mg Take 10 mg by 0 tablet mouth daily. predniSONE (DELTASONE) 20 mg Take 20 mg by 0 tablet mouth daily. documented as of this encounter Discharge Disposition Disposition Code Departure Means Destination Comments Home or Self Snf home with sister documented in this encounter Progress Notes Camila Vergara RN - 05/22/2021 1607 EST 1553: MD Shannon at to evaluate patient d/t elevated BP. IVP Labetalol given per MD Shannon. BP now 123/87. Pt now c/o mild headache. 1604: Versed and IV Tylenol given per MD Shannon. Galindo, Shastajose Doshi APRN CNM - 05/22/[address] Shiva ames paged regarding pts HTN. Shasta Doshi IVAN Galindo CNM 05/22/21 15:06 documented in this encounter Procedure Notes Orlando Walton MD - 05/22/2021 1921 ESTProcedure(s): NY RPR RETINAL DTCHMNT W/VITRECTOMY ANY METH; NY PROPH RETINAL DTCHMNT W/O DRG PHOTOCOAGULATION Pre-Procedure Diagnose(s): Retinal tear of left eye; Vitreous hemorrhage of left eye (HCC-CMS) (HCC); Lattice degeneration of both retinas Post-Procedure Diagnose(s): Retinal detachment of left eye with multiple breaks; Vitreous hemorrhageof left eye (HCC-CMS) (HCC); Lattice degeneration of both retinas Surgery date: 05/22/2021 Pre-operative diagnosis: Vitreal heme and retinal tear left eye. Lattice degeneration right eye. Post operative diagnosis: Multiple retinal tears, localized retinal detachment, lattice degenerationand vitreal heme secondary to vessels bridging tears left eye. Lattice degeneration right eye. Surgery: Pars plana vitrectomy, fluid-air exchange, endolaser, 20% SF6 gas left eye. Prophylactic laser retinopexy around lattice lesions right eye. Surgeon: Orlando Walton MD Anesthesia: General Findings: Four retinal tears associated to lattice lesions in superotemporal quadrant, with localized retinal detachment posterior to equator, inferior lattice degeneration left eye. Superior and inferior patched of lattice degeneration right eye. Technique: Patient was identified in the pre-operative area, informed consent having previously been obtained, discussing risks including pain, bleeding, high eye pressure, infection, inflammation, need for more surgery, loss of of vision and loss of eye. Operative left eye was marked. Patient was then transported to the operating room and laid in supine position. A time out was called to identify the patient, the operative site, and the procedure being performed. General anesthesia via endotracheal intubation was induced without difficulty. The patient was positioned under the microscope and the left eye was prepped with povidone iodine and draped in the usual sterile fashion for ophthalmic surgery. Appropriate exposure was achieved with the use of a lid speculum. Three trocars were inserted 4.0 mm from the limbus, one in the inferotemporal quadrant, one in the superotemporal quadrant, and one in the superonasal quadrant. The infusion port was placed through theinferotemporal trocar and visualized in the vitreous cavity prior to starting the infusion. There were no problems with the cannula placements. Core vitrectomy was then performed with light pipe and vitrector. The posterior hyaloid was detachedfrom the posterior pole. The vitreous hemorrhage was evacuated. Vitreous was then shaved peripherally. Careful examination of the retina through the Resight wide angle lens, using scleral indentation, revealed four retinal tears associated to lattice lesions in the superotemporal quadrant, with a localized retinal detachment posterior to the equator, and inferior patched of lattice degeneration. The tears were marked with endodiathermy. Fluid-air exchange was performed using a soft tip cannula. Endolaser was applied around the retinal tears and patches of lattice as well as 360 degrees posterior to the ora sussy. All 3 cannulas were removed, and each of the sclerotomies was closed using 7-0 vicryl if not water/air tight. Intraocular pressure was ensured to be physiologic. Solumedrol and Ancef solutions were injected subconjunctivally. The lid speculum was removed, Maxitrol ointment was placed onto the eye. A patch and shield were placed for protection on the left eye. Attention was then directed to the right eye. Laser (#950 spots) was applied in a barricade fashion around the inferior and superior patches of lattice degeneration using light indirect ophthalmoscope and scleral indentation, through a 20D lens. Anesthesia was reversed, and the patient was brought to the postanesthesia care unit in stable condition. The patient tolerated the procedure well without complication. Estimated Blood Loss Minimal. Total IV Fluids Per anesthesia documentation. Specimen(s) None. Complications None. documented in this encounter Nursing Notes Camila Vergara RN - 05/22/2021 8981 EST Preop Covid DOS screening questionnaire Please document by exception (only check those that apply). Have you had any of the following symptoms recently? No Yes Chronic ? Cough Shortness of breath or difficulty breathing Fever Chills Fatigue Muscle or body aches Severe Headache New loss of taste or smell Sore throat Congestion or runny nose Rash Nausea, vomiting, or diarrhea (rare in adults. More common in children) Were you covid tested? No When: Results: Vaccinated: YES See admission vital signs documentation for admission temperature. documented in this encounter Plan of Treatment Not on filedocumented as of this encounter Procedures Procedure Name Priority Date/Time Associated Diagnosis Comme nts PHOTOCOAGULATION, 05/22/2021 16:59 EST Horseshoe retin al tear RETINA, FOR RETINAL of left eye DETACHMENT PROPHYLAXIS Vitreous hemorrhag e of left eye ([facility]) (HCC) Bilateral retinal lattice degeneration Special Needs endolaser and indirect laser VITRECTOMY, MECHANICAL, PARS 05/22/2021 16:59 ES T Horseshoe retinal tear of left PLANA APPROACH, WITH ENDOLASER e ye FOCAL PHOTOCOAGULATION Vitreous hemorrhag e of left eye ([facility]) (H CC) Bilateral retinal lattice degeneration Special Needs endolaser and indirect laser documented in this encounter Visit Diagnoses Diagnosis Vitreous hemorrhage of left eye ([facility] ) ([facility]) Vitreous hemorrhage Lattice degeneration of retina, bilatera l 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 Horseshoe tear of retina without detachm ent documented in this encounter Admitting Diagnoses Diagnosis Vitreous hemorrhage of left eye ([facility] ) ([facility]) Vitreous hemorrhage Lattice degeneration of retina, bilatera l 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1 mg/mL syringe 0.5 mg 0.5 mg, intravenous, PRN, Starting on Mo n 05/22/21 at 1854, Until Sat05/22/21 at 2239, Symptomatic HR < 50, Routine, Recovery (only) diphenhydrAMINE (BENADRYL) injection 12. 5 mg 12.5 mg, intravenous, PRN, 1 dose, Starting on Sat at 1854, Until Sat05/22/21 at 2239, nausea, Routine, Recovery (only) fentaNYL citrate (PF) injection 25-50 mc g 25-50 mcg, intravenous, EVERY 5 MIN PRN, Starting on Sat05/22/21 at 1854, Until Sat05/22/21 at 2239, Pain, Routine, Recovery (only) lactated ringers (LR) infusion Restarted 05/22/2021 17:09 EST 30 mL/hr, intravenous, CONTINUOUS, Starting on Sat05/22/21 at 1500, Until Sat05/22/21 at 2239, Routine, Preprocedure New Bag 05/22/2021 15:16 EST 30 mL/hr 30 mL/hr lactated ringers (LR) infusion New Bag 05/22/2021 19:43 EST 75 mL/hr at 75 mL/hr, intravenous, PACU CONTINUOUS, Starting on Sat05/22/21 at 1915, Until Sat05/22/21 at 223, Routine, Recovery (only) Restarted 05/22/2021 19:30 EST 75 mL/hr metoclopramide (REGLAN) injection 10 mg 10 mg, intravenous, PRN, 1 dose, Starting on 05/22 at 1854, Until Sat05/22/21 at 2239, Nausea, Routine, Recovery (only) naloxone (NARCAN) injection 0.2 mg 0.2 mg, intravenous, PRN, Starting on Mo n 05/22/21 at 1854, Until Sat05/22/21 at 2239, Opioid Reversal, Routine, Recovery (only) ondansetron (PF) (ZOFRAN) injection 4 mg 4 mg, intravenous, PRN, 1 dose, Starting on Sat at 1854, Until Sat05/22/21 at 2239, Nausea, Vomiting, Routine, Recovery (only) phenylephrine (MYDFRIN) 2.5 % ophthalmic Given 05/22/2021 15:57 EST 1 Drop solution 1 Drop 1 Drop, right eye, PRE-OP Q 5 MINUTES, 3 doses, Starting on Sat05/22/21 at 1523, Until Sat05/22/21 at 1557, vitreoretinal surgery, Routine, Preprocedure Given 05/22/2021 15:51 EST 1 Drop Given 05/22/2021 15:43 EST 1 Drop phenylephrine (MYDFRIN) 2.5 % ophthalmic Given 05/22/2021 15:57 EST 1 Drop solution 1 Drop 1 Drop, left eye, PRE-OP Q 5 MINUTES, 3 doses, Starting on Sat05/22/21 at 1523, Until Sat05/22/21 at 1557, vitreoretinal surgery, Routine, Preprocedure Given 05/22/2021 15:50 EST 1 Drop Given 05/22/2021 15:44 EST 1 Drop tropicamide (MYDRIACYL) 1 % ophthalmic solution Given 05/22/2021 15:57 EST 1 Drop 1 Drop 1 Drop, both eyes, PRE-OP Q 5 MINUTES, 3 doses, Starting on Sat05/22/21 at 1523, Until Sat05/22/21 at 1557, vitreoretinal surgery, Routine, Preprocedure Given 05/22/2021 15:51 EST 1 Drop Given 05/22/2021 15:42 EST 1 Drop documented in this encounter Historical Medications This list may reflect changes made after this encounter. Medication Sig Dispensed Refills Start Date End Date predniSONE (DELTASONE) 20 mg Take 20 mg by 0 tablet mouth daily. pravastatin (PRAVACHOL) 10 mg Take 10 mg by 0 tablet mouth daily. NIFEdipine XL (PROCARDIA-XL) Take 30 mg by 0 30 mg tablet mouth daily. metoprolol SUCCinate Take 25 mg by 0 (TOPROL-XL) 25 mg tablet mouth daily. loratadine (CLARITIN) 10 mg Take 10 mg by 0 tablet mouth daily. lisinopriL (PRINIVIL) 40 mg Take 40 mg by 0 tablet mouth daily. hydroCHLOROthiazide Take 25 mg by 0 (HYDRODIURIL) 25 mg tablet mouth daily. busPIRone (BUSPAR) 30 mg Take 30 mg by 0 tablet mouth 2 times daily. aspirin chewable 81 mg tablet Take 81 mg by 0 mouth daily. albuterol 90 mcg/actuation Inhale 2 Puffs as 0 inhaler directed every 4 hours as needed for Wheezing. added in this encounter Active and Recently Administered Medications Times are shown in EST. Continuous Medication Order 05/20/2021 05/21/2021 05/22/2021 lactated ringers (LR) infusion 1 516 (New Bag - Provider: Barbra Briceno RN)1708 (Paused - Provider: Deric Swan CRNA - Comment: Switch to gravity)1709 (Restarted - Provider: Deric Swan CRNA) at 30 mL/hr, 30 mL/hr, intravenous, CONT INUOUS, Starting on Sat05/22/21 at 1500, Until Sat05/22/21 at 2239, Routine, Preprocedure lactated ringers (LR) infusion 1 930 (Restarted - Provider: Jose Luis Marin RN)1943 (New Bag - Provider: Jose Luis Marin RN) at 75 mL/hr, intravenous, PACU CONTINUOU S, Starting on Sat05/22/21 at 1915, Until Sat05/22/21 at 2239, Routine, Recovery (only) PRN Medication Order 05/20/2021 05/21/2021 05/22/2021 acetaminophen (TYLENOL) solution unit dose cup 995 mg(Linked Tania up 1) 995 mg (rounded from 1,000 mg), oral, NY N, 1 dose, Starting on Sat05/22/21 at 2200, Until Sat05/22/21 at 2239, Pain, Routine, Recovery (only) acetaminophen (TYLENOL) tablet 1,000 mg(Linked Group 1) 1,000 mg, oral, PRN, 1 dose, Starting on Sat05/22/21 at 2200, Until Sat05/22/21 at 2239, Pain, Routine, Recovery (only) atropine 0.1 mg/mL syringe 0.5 mg 0.5 mg, intravenous, PRN, Starting on Mo n 05/22/21 at 1854, Until 05/22/21 at 2239, Symptomatic HR < 50, Routine, Recovery (only) diphenhydrAMINE (BENADRYL) injection 12.5 mg 12.5 mg, intravenous, PRN, 1 dose, Start ing on Sat05/22/21 at 1854, Until Sat05/22/21 at 2239, nausea, Routine, Recovery (only) fentaNYL citrate (PF) injection 25-50 mcg 25-50 mcg, intravenous, EVERY 5 MIN PRN, Starting on Sat05/22/21 at 1854, Until Sat05/22/21 at 2239, Pain, Routine, Recovery (only) methylPREDNISolone sod suc(PF) (SOLU-MEDROL) injection (CANCELED ) 1836 (Given - Provider: Orlando Walton MD - Comment: [id number]) PRN, Starting on Sat05/22/21 at 1837, U ntil Sat05/22/21 at 1924, Routine, Intraprocedure metoclopramide (REGLAN) injection 10 mg 10 mg, intravenous, PRN, 1 dose, Startin g on Sat05/22/21 at 1854, Until Sat05/22/21 at 2239, Nausea, Routine, Recovery (only) naloxone (NARCAN) injection 0.2 mg 0.2 mg, intravenous, PRN, Starting on Mo 05/22/21 at 1854, Until Sat05/22/21 at 2239, Opioid Reversal, Routine, Recovery (only) ondansetron (PF) (ZOFRAN) injection 4 mg 4 mg, intravenous, PRN, 1 dose, Starting on Sat05/22/21 at 1854, Until Sat05/22/21 at 2239, Nausea, Vomiting, Routine, Recovery (only) phenylephrine (MYDFRIN) 2.5 % ophthalmic solution 1 Drop (COMPLE ILA) 1543 (Given - Provider: Shasta Galindo APRN CNM)1551 (Given - Provider: Shasta Gailndo APRN CNM)1557 (Given - Provider: Shasta Galindo APRN CNM) 1 Drop, right eye, PRE-OP Q 5 MINUTES, 3 doses, Starting on Sat05/22/21 at 1523, Until Discontinued, vitreoretinal surgery, Routine, Preprocedure phenylephrine (MYDFRIN) 2.5 % ophthalmic solution 1 Drop (COMPLE ILA) 1544 (Given - Provider: Shasta Galindo APRN CNM)1550 (Given - Provider: Shasta Galindo APRN CNM)1557 (Given - Provider: Shasta Galindo APRN CNM) 1 Drop, left eye, PRE-OP Q 5 MINUTES, 3 doses, Starting on Sat05/22/21 at 1523, Until Discontinued, vitreoretinal surgery, Routine, Preprocedure sterile water (PF) 2.5 mL with ceFAZolin (ANCEF) 1 g (CANCELED) 1837 (Given - Provider: Orlando Walton MD) PRN, Starting on Sat05/22/21 at 1837, U ntil Sat05/22/21 at 1924, Routine, Intraprocedure tropicamide (MYDRIACYL) 1 % ophthalmic solution 1 Drop (COMPLETE D) 1542 (Given - Provider: Shasta Galindo APRN CNM)1551 (Given - Provider: Shasta Galindo APRN CNM)1557 (Given - Provider: Shasta Galindo APRN CNM) 1 Drop, both eyes, PRE-OP Q 5 MINUTES, 3 doses, Starting on Sat05/22/21 at 1523, Until Discontinued, vitreoretinal surgery, Routine, Preprocedure Linked Groups Order Group 1: acetaminophen (TYLENOL) solution unit dose cup 995 mgJump to med 995 mg (rounded from 1,000 mg), oral, [place] N, 1 dose, Starting on Sat05/22/21 at 2200, Until Sat05/22/21 at 2239, Pain, Routine, Recovery (only) Or acetaminophen (TYLENOL) tablet 1,000 mgJump to med 1,000 mg, oral, PRN, 1 dose, Starting on Sat05/22/21 at 2200, Until Sat05/22/21 at 2239, Pain, Routine, Recovery (only) documented in this encounter Orders Medications Ordered That Might Not Have Count Last Ord ered Date First Ordered Date Been Administered acetaminophen (TYLENOL) solution unit dose 1 05/22 cup 995 mg acetaminophen (TYLENOL) tablet 1,000 mg 1 05/22/20 21 atropine 0.1 mg/mL syringe 0.5 mg 1 05/22/2021 diphenhydrAMINE (BENADRYL) injection 12.5 1 2020 mg fentaNYL citrate (PF) injection 25-50 mcg 1 2020 HYDROmorphone (DILAUDID) tablet 2-4 mg 1 HYDROmorphone (PF) (DILAUDID) 0.5 mg/0.5 1 021 mL syringe 0.3-0.5 mg lidocaine (PF) 10 mg/mL (1 %) injection 2 1 2020 mg methylPREDNISolone sod suc(PF) 1 05/22/2021 (SOLU-MEDROL) injection metoclopramide (REGLAN) injection 10 mg 1 05/22/20 21 naloxone (NARCAN) injection 0.2 mg 1 05/22/2021 ondansetron (PF) (ZOFRAN) injection 4 mg 1 021 sterile water (PF) 2.5 mL with ceFAZolin 1 021 (ANCEF) 1 g Discharge Count Last Ordered Date First Ordered Date DISCHARGE PATIENT 1 05/22/2021 documented in this encounter Care Teams Technical Services Consultant Relationship Specialty Start Date End Date Ector Mora PCP - General Family Medicine - 05/22/[address] [place] [id number] documented as of this encounter
--- OUTSIDE RECORDS SUMMARY | 2022-04-27 10:05 | XMS_ITS | Encounter Summary ---
:1965 Author Organization [facility] Address [address] [place] [address] Care Team Providers Name Role Phone Ector Mora Primary Care Provider Encounter Details Date Type Department Care Team Description 09/15/2020 Lab Requisition [facility] Outr Resulting Lab, Pathology & Laboratory Provider [facility] [address] [place], [place] [id number] Social History Tobacco Use Types Packs/Day Years Used Date Smoking Tobacco: Never Assessed Sex Assigned at Date Recorded Not on file documented as of this encounter Plan of Treatment Not on filedocumented as of this encounter Procedures Procedure Name Priority Date/Time Associated Diagnosis Comme nts COVID-19 TEST [facility] Today 09/15/2020 8:41 EDT LAB PCR COVID-19 TESTING Routine 09/15/2020 8:41 EDT Resu lts for this procedure are i n the results section. documented in this encounter Results [facility] (09/15/2020 8:41 EDT) Specimen Anatomical Location Collection Method Collection Time Received Time (Source) / Laterality / Volume Swab ENTIRE NASOPHARYNX 09/15/2020 8:41 2020 / Unknown EDT 16:04 EDT Provider Outr Resulting Lab MICROBIOLOGY - GENERAL ORD ERABLES Performing Organization Address City/State/ZIP Code Phon e Number [facility] [address] [place] [address] SERVICES COVID-19 TESTING (09/15/2020 8:41 EDT) [facility] Signature COVID-19 Negative Negative 09/16/2020 [facility] MEDICAL rt-PCR Result 9:55 EDT [facility] Comment: This test has not been FDA cleared or ap proved. This test has been authorized by FDA under an EUA for use by authorized laboratories. This test has been authorized only for detection of nucleic acid fro m 2019-nCoV, not for any other viruses o r pathogens. This test is only authorized for the duration of the declaration that circumstances exist justifying the authorization of emergency use of in vitro d iagnostic tests for detection and/or phan gnosis of 2019-nCoV under section 564(b)(1) of Act, 21 U.S.C ?? 360bbb-3(b) (1), unless the authorization is terminated or revoked sooner. Negative results do not preclude 2019-nC oV infection and should not be used as the sole basis for treatment or other patient management decisions. Negative results must be combined with clinical observa tions, patient history, and epidemiologi gerald information. Testing was performed using the angelo SA RS-CoV-2 assay ([employer] on the Angelo 6800 System Performing Lab [address] [address] [facility] Lab 09/16/2020 9:5 5 EDT [facility] SERVICES Specimen Anatomical Collection Method Collection Time Receive d Time (Source) Location / / Volume Laterality Swab 09/15/2020 8:41 09/15/2020 EDT 16:04 EDT Provider Outr Resulting Lab MICROBIOLOGY - GENERAL ORD ERABLES Performing Organization Address City/State/ZIP Code Phon e Number [facility] [address] [place] [address] SERVICES documented in this encounter Visit Diagnoses Not on filedocumented in this encounter Care Teams Table Games Dual Rate Supervisor Relationship Specialty Start Date End Date cEtor Mora PCP - General Family Medicine - 05/22/[address] [place] [phone] documented as of this encounter
--- OUTSIDE RECORDS SUMMARY | 2022-04-27 10:05 | XMS_ITS | Encounter Summary ---
:1965 Author Organization [facility] Address [address] [place] [address] Care Team Providers Name Role Phone Ector Mora Primary Care Provider Reason for Visit Auth/Cert Specialty Diagnoses / Procedures Referred By Contact Refer red To Contact Diagnoses Horseshoe retinal tear of left eye Vitreous hemorrhage of left eye (HCC-CMS) (HCC) Bilateral retinal lattice degeneration Procedures SC VITRECTOMY,FOCAL LASER RX RETINA SC PROPH RETINAL DTCHMNT W/O DRG PHOTOCOAGULATION VITRECTOMY, MECHANICAL, PARS PLANA APPROACH, WITH ENDOLASER FOCAL PHOTOCOAGULATION PHOTOCOAGULATION, RETINA, FOR RETINAL DETACHMENT PROPHYLAXIS Referral ID Status Reason Start Date Expiration Date Visits Requ ested Visits Authorized [id number] 1 1 Encounter Details Date Type Department Care Team Description 05/22/2021 Surgery [facility] OR Orlando Walton MD Vitrectomy Laser, LEFT [address] [facility] e [address] [facility] EYE, Laser RIGHT EYE [place], [place] [id number] [place] [address] [[id number] (CPT??)] [phone] [address], [address] [place] [address] (Wo rk) Surgery Details Date/Time Status Location OR Service Patient Class Case Case Trauma Class Type Case? 05/22/21 Posted [facility] - Less 1650 Outpatient than 24 Surgery hours Panel 1 Procedure LRB Anes Op Region Wound Class Commen ts Vitrectomy Laser, LEFT EYE, Laser Left General Eye Cl ass I/ Clean RIGHT EYE PHOTOCOAGULATION, RETINA, FOR RETINAL Right General Eye Class I/ Clean DETACHMENT PROPHYLAXIS Surgeon Surgeon Role Service Panel Orlando Walotn MD Primary Ophthalmology 1 Special Needs endolaser and indirect laser documented in this encounter Social History Tobacco Use Types Packs/Day Years Used Date Smoking Tobacco: Never Smokeless Tobacco: Never Sex Assigned at Date Recorded Not on file documented as of this encounter Last Filed Vital Signs Vital Sign Reading Time Taken Comments Blood Pressure 136/84 05/22/2021 1645 EST Pulse - - Temperature 36.7 ??C (98.1 ??F) 05/22/2021 1455 EST Respiratory Rate - - Oxygen Saturation 98% 05/22/2021 1455 EST Inhaled Oxygen Concentration - - Weight 117.5 kg (259 lb 0.7 oz) 05/22/2021 1447 EST Height 182.9 cm (6') 05/22/2021 1447 EST Body Mass Index 35.13 05/22/2021 1447 EST documented in this encounter Discharge Instructions Discharge Instr - AVS First PageOrlando Walton MD - 05/22/2021 19:20 EST Sleep right [...] Departure Means Destination Comments Home or Self Senior Care home with sister documented in this encounter Progress Notes Camila Vergara RN - 05/22/2021 1607 EST 1553: MD Shannon at to evaluate patient d/t elevated BP. IVP Labetalol given per MD Shannon. BP now 123/87. Pt now c/o mild headache. 1604: Versed and IV Tylenol given per MD Shannon. Shasta Galindo APRN CNM - 05/22/[address] Shannon cortex paged regarding pts HTN. Shasta Galindo APRN CNM 05/22/21 15:06 documented in this encounter Procedure Notes Orlando Walton MD - 05/22/2021 1921 ESTProcedure(s): SC RPR RETINAL DTCHMNT W/VITRECTOMY ANY METH; SC PROPH RETINAL DTCHMNT W/O DRG PHOTOCOAGULATION Pre-Procedure Diagnose(s): Retinal tear of left eye; Vitreous hemorrhage of left eye ([facility]) ([facility]); Lattice degeneration of both retinas Post-Procedure Diagnose(s): Retinal detachment of left eye with multiple breaks; Vitreous hemorrhageof left eye (HCC-CMS) ([facility]); Lattice degeneration of both retinas Surgery date: [...] documented in this encounter Nursing Notes Camila Vergara, AKHIL - 05/22/2021 1624 EST Preop Covid DOS screening questionnaire Please [...] PROPHYLAXIS Vitreous hemorrhag e of left eye ([facility]) ([facility]) Bilateral retinal lattice degeneration Special Needs endolaser and indirect laser VITRECTOMY, MECHANICAL, PARS 05/22/2021 16:59 ES T Horseshoe retinal tear of left PLANA APPROACH, WITH ENDOLASER e ye FOCAL PHOTOCOAGULATION Vitreous hemorrhag e of left eye ([facility]) ([facility]) Bilateral retinal lattice degeneration Special Needs endolaser and indirect laser documented in this encounter Visit Diagnoses Diagnosis Vitreous hemorrhage of left eye ([facility] ) ([facility]) Vitreous hemorrhage Lattice degeneration of retina, bilatera l 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 Horseshoe tear of retina without detachm ent Horseshoe retinal tear of left eye Horseshoe tear of retina without detachm ent Vitreous hemorrhage of left eye ([facility] ) ([facility]) Vitreous hemorrhage 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 documented in this encounter Admitting Diagnoses Diagnosis Vitreous hemorrhage of left eye (HCC-CMS ) (HCC) Vitreous hemorrhage Lattice degeneration of retina, bilatera [...] on Sat05/22/21 at 2200, Until Sat05/22/21 at 2238, Pain, Routine, Recov hammad (only) acetaminophen (TYLENOL) tablet 1,000 mg 1,000 mg, oral, PRN, 1 dose, Starting on Sat05/22/21 at 2200, Until Sat05/22/21 at 2238, Pain, Routine, Recovery (only) atropine 0.1 mg/mL syringe 0.5 mg 0.5 mg, intravenous, PRN, Starting on Mo n 05/22/21 at 1854, Until Sat05/22/21 at 2238, Symptomatic HR < 50, Routine, Recovery (only) diphenhydrAMINE (BENADRYL) injection 12. 5 mg 12.5 mg, intravenous, PRN, 1 dose, Starting on Sat at 1854, Until Sat05/22/21 at 2238, nausea, Routine, Recovery (only) fentaNYL citrate (PF) injection 25-50 mc g 25-50 mcg, intravenous, EVERY 5 MIN PRN, Starting on Sat05/22/21 at 1854, Until Sat05/22/21 at 2238, Pain, Routine, Recovery (only) lactated ringers (LR) infusion Restarted 05/22/2021 17:09 EST 30 mL/hr, intravenous, CONTINUOUS, Starting on Sat05/22/21 at 1500, Until Sat05/22/21 at 2238, Routine, Preprocedure New Bag 05/22/2021 15:16 EST 30 mL/hr 30 mL/hr lactated ringers (LR) infusion New Bag 05/22/2021 19:43 EST 75 mL/hr at 75 mL/hr, intravenous, PACU CONTINUOUS, Starting on Sat05/22/21 at 1915, Until Sat05/22/21 at 2239, Routine, Recovery (only) Restarted 05/22/2021 19:30 EST 75 mL/hr methylPREDNISolone sod suc(PF) Given 05/22/2021 18:37 EST 0.5 mg Left Eye (SOLU-MEDROL) injection PRN, Starting on Sat05/22/21 at 1837, Until Sat05/22/21 at 1924, Routine, Intraprocedure metoclopramide (REGLAN) [...] Drop Given 05/22/2021 15:44 EST 1 Drop sterile water (PF) 2.5 mL with ceFAZolin Given 05/22/2021 18:37 EST 2.5 mL Left Eye (ANCEF) 1 g PRN, Starting on Sat05/22/21 at 1837, Until Sat05/22/21 at 1924, Routine, Intraprocedure tropicamide (MYDRIACYL) 1 % ophthalmic solution Given [...] 1 930 (Restarted - Provider: Jose Luis Marin, AKHIL)1943 (New Bag - Provider: Jose Luis Marin RN) at 75 mL/hr, intravenous, PACU CONTINUOU S, Starting on Sat05/22/21 at 1915, Until Sat05/22/21 at 2239, Routine, Recovery (only) PRN Medication Order 05/20/2021 05/21/2021 05/22/2021 acetaminophen (TYLENOL) solution unit dose cup 995 mg(Linked Tania up 1) 995 mg (rounded from 1,000 mg), oral, SC N, 1 dose, Starting on Sat05/22/21 at 2200, Until Sat05/22/21 at 223, Pain, Routine, Recovery (only) acetaminophen (TYLENOL) tablet 1,000 mg(Linked Group 1) 1,000 mg, oral, PRN, 1 dose, Starting on Sat05/22/21 at 2200, Until Sat05/22/21 at 223, Pain, Routine, Recovery (only) atropine 0.1 mg/mL syringe 0.5 mg 0.5 mg, intravenous, PRN, Starting on Mo n 05/22/21 at 1854, Until Sat05/22/21 at 2239, Symptomatic HR < 50, Routine, Recovery (only) diphenhydrAMINE (BENADRYL) injection 12.5 mg 12.5 mg, intravenous, PRN, 1 dose, Start ing on Sat05/22/21 at 1854, Until Sat05/22/21 at 223, nausea, Routine, Recovery (only) fentaNYL citrate (PF) injection 25-50 mcg 25-50 mcg, intravenous, EVERY 5 MIN PRN, Starting on Sat05/22/21 at 1854, Until Sat05/22/21 at 2239, Pain, Routine, Recovery (only) methylPREDNISolone sod suc(PF) (SOLU-MEDROL) injection (CANCELED ) 1836 (Given - Provider: Orlando Walton MD - Comment: [id number]) PRN, Starting on Sat05/22/21 at 1837, U [...] mL with ceFAZolin (ANCEF) 1 g (CANCELED) 1836 (Given - Provider: Orlando Walton MD) PRN, Starting on Sat05/22/21 at 1837, U ntil Sat05/22/21 at 1924, Routine, Intraprocedure tropicamide (MYDRIACYL) 1 % ophthalmic solution 1 Drop (COMPLETE D) 1542 (Given - Provider: Shasta Galindo APRN CNM)1551 (Given - Provider: Shasta S Galindo, HEEL BREASTER CNM)1557 (Given - Provider: Shasta Galindo APRN CNM) 1 Drop, both eyes, PRE-OP Q 5 MINUTES, 3 doses, Starting on Sat05/22/21 at 1523, Until Discontinued, vitreoretinal surgery, Routine, Preprocedure Linked Groups Order Group 1: acetaminophen (TYLENOL) solution unit dose cup 995 mgJump to med 995 mg (rounded from 1,000 mg), oral, SC N, 1 dose, Starting on Sat05/22/21 at [...] acetaminophen (TYLENOL) tablet 1,000 mg 1 05/22/20 atropine 0.1 mg/mL syringe 0.5 mg 1 05/22/2021 diphenhydrAMINE (BENADRYL) injection 12.5 1 2020 mg fentaNYL citrate (PF) injection 25-50 mcg 1 2020 HYDROmorphone (DILAUDID) tablet 2-4 mg 1 HYDROmorphone (PF) (DILAUDID) 0.5 mg/0.5 1 021 mL syringe 0.3-0.5 mg lidocaine (PF) 10 mg/mL (1 %) injection 2 1 2020 mg metoclopramide (REGLAN) injection 10 mg 1 05/22/20 naloxone (NARCAN) injection 0.2 mg 1 05/22/2021 ondansetron (PF) (ZOFRAN) injection 4 mg 1 021 Discharge Count Last Ordered Date First Ordered Date DISCHARGE PATIENT 1 05/22/2021 documented in this encounter Care Teams Chief Diversity Officer Relationship Specialty Start Date End Date Ector Mora PCP - General Family Medicine - 05/22/[address] [phone] documented as of this encounter
--- OUTSIDE RECORDS SUMMARY | 2022-04-27 10:05 | XMS_ITS | Encounter Summary ---
:1965 Author Organization [facility] Address [address] [place] [address] Care Team Providers Name Role Phone Ector Mora Primary Care Provider Encounter Details Date Type Department Care Team Description 09/09/2020 Lab Requisition [facility] Outr Resulting Lab, Pathology & Laboratory Provider [facility] [address] [id number] Social History Tobacco Use Types Packs/Day Years Used Date Smoking Tobacco: Never Assessed Sex Assigned at Date Recorded Not on file documented as of this encounter Plan of Treatment Not on filedocumented as of this encounter Procedures Procedure Name Priority Date/Time Associated Diagnosis Comme nts COVID-19 TEST [facility] Today 09/09/2020 10:39 LAB PCR EDT COVID-19 TESTING Routine 09/09/2020 10:39 Results for this EDT procedure are i n the results section. documented in this encounter Results COVID-19 TEST [facility] LAB PCR (09/09/2020 10:39 EDT) Specimen Anatomical Location Collection Method Collection Time Received Time (Source) / Laterality / Volume Swab ENTIRE NASOPHARYNX 09/09/2020 10:39 09/09 / Unknown EDT 15:45 EDT Provider Outr Resulting Lab MICROBIOLOGY - GENERAL ORD ERABLES Performing Organization Address City/State/ZIP Code Phon e Number [facility] [address] [place] [address] SERVICES COVID-19 TESTING (09/09/2020 10:39 EDT) [facility] COVID-19 Negative Negative 09/10/2020 [facility] MEDICAL rt-PCR Result 14:58 EDT [facility]ENTER [facility] SERVICES Comment: This test [...] using the angelo SA RS-CoV-2 assay ([employer] on the Angelo 6800 System Performing Lab Angelo [address] [facility] 09/10/2020 14:58 E DT [facility] Lab LABORATORY SERVICES Specimen Anatomical Collection Method Collection Time Receive d Time (Source) Location / / Volume Laterality Swab 09/09/2020 10:39 09/09/2020 EDT 15:45 EDT Provider Outr Resulting Lab MICROBIOLOGY - GENERAL ORD ERABLES Performing Organization Address City/State/ZIP Code Phon e Number [facility] [address] [place] [address] SERVICES documented in this encounter Visit Diagnoses Not on filedocumented in this encounter Care Teams Tumor Registrar Relationship Specialty Start Date End Date Ector Mora PCP - General Family Medicine - 05/22/[address] [place] [address] documented as of this encounter
--- OUTSIDE RECORDS SUMMARY | 2022-04-27 10:05 | XMS_ITS | Encounter Summary ---
:1965 Author Organization [facility] Address [address] [place] [address] Care Team Providers Name Role Phone Ector Mora Primary Care Provider Encounter Details Date Type Department Care Team Description 03/31/2021 Lab Requisition [facility] Outr Resulting Lab, Pathology & Laboratory Provider [facility] [address] [id number] Social History Tobacco Use Types Packs/Day Years Used Date Smoking Tobacco: Never Assessed Sex Assigned at Date Recorded Not on file documented as of this encounter Plan of Treatment Not on filedocumented as of this encounter Procedures Procedure Name Priority Date/Time Associated Diagnosis Comme nts COVID-19 TEST [facility] Today 03/30/2021 9:20 EDT LAB PCR COVID-19 TESTING Routine 03/30/2021 9:20 EDT Resu lts for this procedure are i n the results section. documented in this encounter Results COVID-19 TEST [facility] (03/30/2021 9:20 EDT) Specimen Anatomical Location Collection Method Collection Time Received Time (Source) / Laterality / Volume Swab ENTIRE NASOPHARYNX 03/30/2021 9:20 2020 / Unknown EDT 15:54 EDT Provider Outr Resulting Lab MICROBIOLOGY - GENERAL ORD ERABLES Performing Organization Address City/State/ZIP Code Phon e Number [facility] [address] [place] [address] SERVICES COVID-19 TESTING (03/30/2021 9:20 EDT) [facility] Signature COVID-19 Negative Negative 04/01/2021 [facility] MEDICAL rt-PCR Result 9:19 EDT CENTER LAB[facility] SERVICES Comment: This test [...] using the angelo SA RS-CoV-2 assay ([employer] on the Angelo 6800 System Performing Lab Angel[address] [facility] Lab 04/01/2021 9:1 9 EDT [facility] SERVICES Specimen Anatomical Collection Method Collection Time Receive d Time (Source) Location / / Volume Laterality Swab 03/30/2021 9:20 03/31/2021 EDT 15:54 EDT Provider Outr Resulting Lab MICROBIOLOGY - GENERAL ORD ERABLES Performing Organization Address City/State/ZIP Code Phon e Number [facility] [address] [place] [address] SERVICES documented in this encounter Visit Diagnoses Not on filedocumented in this encounter Care Teams Manager Trust Relationship Specialty Start Date End Date Ector Mora PCP - General Family Medicine - 05/22/[address] [place] [phone] documented as of this encounter
--- OUTSIDE RECORDS SUMMARY | 2022-04-27 10:05 | XMS_ITS | Encounter Summary ---
:1965 Author Organization [facility] Address [address] [place] [address] Care Team Providers Name Role Phone Ector Mora Primary Care Provider Reason for Visit Reason Comments Eye Problem Encounter Details Date Type Department Care Team Description 10/03/[address] [facility] Orlando Walton MD Ophthalmology - [address], [address] [place] [address] [place], [place] [phone] (Wo rk) Social History Tobacco Use Types Packs/Day Years Used Date Smoking Tobacco: Never Smokeless Tobacco: Never Sex Assigned at Date Recorded Not on file documented as of this encounter Progress Notes Orlando Walton MD - 10/03/2021 1445 EDT Chief Complaint Patient presents with ??? Eye Problem Comments 2 month f/u. HST left eye S/p PPV, EL, SF6 left eye 05/22/21. Lattice degeneration both eyes, s/p laser of lattice right eye 05/22/21. Vision seems a little worse in the left eye, wondering if cataract is worse. No pain, flashes, or floaters. No drops. HPI Location: Both eyes Pain: 0 - No pain Quality: Severity: Moderate Duration: Months Timing: Constant Lasts: Months Context: 2 month f/u. HST left eye S/p PPV, EL, SF6 left eye 05/22/21. Lattice degeneration both eyes, s/p laser of lattice right eye 05/22/21. Vision seems a little worse in the left eye, wondering ifcataract is worse. No pain, flashes, or floaters. No drops. Modifying factors: Glasses. s/p PPV, EL, SF6 left eye 05/22/21. s/p laser of lattice right eye 05/22/21. Associated Signs & Symptoms: Vision seems a little worse in the left eye, wondering if cataract is worse. No pain, flashes, or floaters. Visual Fluctuations: None Attestation: Base Eye Exam Visual Acuity (Snellen - Linear) Right Left Dist cc 20/25 -1 20/60 Dist ph cc 20/50 Correction: Glasses Tonometry (Applanation, 14:49) Right Left Pressure 17 17 Pupils Pupils Dark Light React APD Right PERRL 4 3 Brisk None Left PERRL 6 non reactive None Extraocular Movement Right Left Full, Ortho Full, Ortho Neuro/Psych Oriented x3: Yes Mood/Affect: Normal Dilation Both eyes: Tropicamide 1%, Phenylephrine 2.5% @ 14:49 Slit Lamp and Fundus Exam Slit Lamp Exam Right Left Lids/Lashes Normal Normal Conjunctiva/Sclera White and quiet White and quiet Cornea Clear Clear Anterior Chamber Deep and quiet Deep and quiet Iris Round and reactive Round and reactive Lens 1+ Cortical cataract 2+ Nuclear sclerosis, 1+ Cortical cataract, feathering Vitreous Clear, no posterior vitreous detachment Clear, S/P PPV Fundus Exam Right Left Disc Healthy Rim Healthy Rim C/D Ratio 0.1 Macula Normal Normal Vessels Normal Normal Periphery Lattice degeneration surrounded by laser barricade attached with retinal tears surroundedby laser scars Please refer to large retinal drawing. DIAGNOSES: 1. Bilateral retinal lattice degeneration 2. Horseshoe retinal tear of left eye 3. Mixed type age-related cataract, both eyes Assessment Retina attached both eyes S/p 05/22/2021 PPV, EL, SF6 for tears and vitreal heme left eye S/p 05/22/2021 laser retinopexy around lattice lesions right eye No PVR ?? Myopic shift with significant cataract formation in the left eye Pt will see Dr. Villarreal in October for evaluation I would like to see patient one month after cataract surgery Return in about 6 months (around 04/05/2022). I have reviewed the past medical, family, social and surgical history. I have reviewed the meds, allergies, and problem list. I performed my own HPI and reviewed the ROS. I personally completed the exam. The patient was instructed to call our office or go to emergency room if worse vision, worse symptoms, or new/other concerns arise. Orlando Walton MD I am scribing for Dr. Orlando Walton MD while he is personally performing the service. LEO Raphael (Scribe) documented in this encounter Plan of Treatment Not on filedocumented as of this encounter Visit Diagnoses Diagnosis Bilateral retinal lattice degeneration - Primary 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 Horseshoe tear of retina without detachm ent Mixed type age-related cataract, both ey es documented in this encounter Eye Exam Visual Acuity (Snellen - Linear) Right eye Left eye Dist cc 20/25 -1 20/60 Dist ph cc 20/50 Correction: Glasses Tonometry (Applanation, 14:49) Right eye Left eye Pressure 17 17 Pupils Pupils Dark Light React APD Right eye PERRL 4 3 Brisk None Left eye PERRL 6 non reactive None Extraocular Movement Right eye Left eye Full, Ortho Full, Ortho Neuro/Psych Oriented x3: Yes Mood/Affect: Normal Dilation Both eyes: Tropicamide 1%, Phenylephrine 2.5% @ 14:49 Slit Lamp Exam Right eye Left eye Lids/Lashes Normal Normal Conjunctiva/Sclera White and quiet White and quiet Cornea Clear Clear Anterior Chamber Deep and quiet Deep and quiet Iris Round and reactive Round and reactive Lens 1+ Cortical cataract 2+ Nuclear sclerosi s, 1+ Cortical cataract, feathering Vitreous Clear, no posterior vitreous Clear, S/P PPV detachment Fundus Exam Right eye Left eye Disc Healthy Rim Healthy Rim C/D Ratio 0.1 Macula Normal Normal Vessels Normal Normal Periphery Lattice degeneration surrounded by attac hed with retinal tears laser barricade surrounded by laser scars Care Teams Gear Finisher Relationship Specialty Start Date End Date Ector Mora PCP - General Family Medicine - 05/22/[address] [phone] documented as of this encounter
--- OUTSIDE RECORDS SUMMARY | 2022-04-27 10:05 | XMS_ITS | Encounter Summary ---
:1965 Author Organization [facility] Address [address] [place] [address] Care Team Providers Name Role Phone Ector Mora Primary Care Provider Reason for Visit Reason Comments Post-OP Follow Up Encounter Details Date Type Department Care Team Description 08/03/2021 Office Visit [facility] Orlando Walton MD Ophthalmology - [address], [address], [address] [place] [address] [place], [place] [phone] (Wo rk) Social History Tobacco Use Types Packs/Day Years Used Date Smoking Tobacco: Never Smokeless Tobacco: Never Sex Assigned at Date Recorded Not on file documented as of this encounter Progress Notes Orlando Walton MD - 08/03/2021 6728 EST Chief Complaint Patient presents with ??? Post-OP Follow Up Comments S/p PPV, EL, SF6 for tears and vitreal heme left eye 05/22/2021, s/p laser retinopexy around lattice lesions right eye 05/22/2021. Pt c/o blurred vision left >> right eye. Pt feel both eyes don't seem right since surgery. Denies eye pain/discomfort. Pred BID both eyes. Gtts: Pred 2/2. HPI Location: Both eyes Pain: 0 - No pain Quality: Severity: Moderate Duration: Months Timing: Constant Lasts: Continuous Context: S/p PPV, EL, SF6 for tears and vitreal heme left eye 05/22/2021, s/p laser retinopexy around lattice lesions right eye 05/22/2021. Pt c/o blurred vision left >> right eye. Pt feel both eyes don't seem right since surgery. Denies eye pain/discomfort. Pred BID both eyes. Gtts: Pred 2/2. Modifying factors: Glasses- new left lens updated 1 mo ago. Associated Signs & Symptoms: Blurred vision left eye >> right eye. Visual Fluctuations: Attestation: Base Eye Exam Visual Acuity (Snellen - Linear) Right Left Dist cc 20/20 -1 20/70 Dist ph cc 20/40 Correction: Glasses Tonometry (Applanation, 14:56) Right Left Pressure 17 20 Pupils Dark React APD Right 4 Slow None Left 7 no reactive None Neuro/Psych Oriented x3: Yes Mood/Affect: Normal Dilation Both eyes: Tropicamide 1%, Phenylephrine 2.5% @ 14:59 Slit Lamp and Fundus Exam Slit Lamp Exam Right Left Lids/Lashes Normal Normal Conjunctiva/Sclera White and quiet White and quiet Cornea Clear Clear Anterior Chamber Deep and quiet Deep and quiet Iris Round and reactive Round and reactive Lens 1+ Cortical cataract 1+ Nuclear sclerosis, 1+ Cortical cataract, feathering Vitreous Clear, no posterior vitreous detachment Clear, S/P PPV Fundus Exam Right Left Disc Healthy Rim Healthy Rim C/D Ratio 0.1 Macula Normal Normal Vessels Normal Normal Periphery Lattice degeneration surrounded by laser barricade attached with retinal tears surroundedby laser scars Please refer to large retinal drawing. IMAGING: DIAGNOSES: 1. Horseshoe retinal tear of left eye 2. Lattice degeneration of retina, bilateral Assessment Retina attached both eyes S/p 05/22/2021 PPV, EL, SF6 for tears and vitreal heme left eye S/p 05/22/2021 laser retinopexy around lattice lesions right eye No PVR Stop PF ?? Myopic shift with significant cataract formation in the left eye Patient hesitant to consult for CE+IOL Consult with tuckpointer cleaner caulker for refraction update left eye Return in 2 months I have reviewed the past medical, family, [...] while he is personally performing the service. BRIAN Velasquez (Scribe) documented in this encounter Plan of Treatment Not on filedocumented as of this encounter Visit Diagnoses Diagnosis Horseshoe retinal tear of left eye - Joy brower Horseshoe tear of retina without detachm ent Lattice degeneration of retina, bilatera l Lattice degeneration of peripheral retin a documented in this encounter Eye Exam Visual Acuity (Snellen - Linear) Right eye Left eye Dist cc 20/20 -1 20/70 Dist ph cc 20/40 Correction: Glasses Tonometry (Applanation, 14:56) Right eye Left eye Pressure 17 20 Pupils Dark React APD Right eye 4 Slow None Left eye 7 no reactive None Neuro/Psych Oriented x3: Yes Mood/Affect: Normal Dilation Both eyes: Tropicamide 1%, Phenylephrine 2.5% @ 14:59 Slit Lamp Exam Right eye Left eye Lids/Lashes Normal Normal Conjunctiva/Sclera White and quiet White and quiet Cornea Clear Clear Anterior Chamber Deep and quiet Deep and quiet Iris Round and reactive Round and reactive Lens 1+ Cortical cataract 1+ Nuclear sclerosi s, 1+ Cortical cataract, feathering Vitreous Clear, no posterior vitreous Clear, S/P PPV detachment Fundus Exam Right eye Left eye Disc Healthy Rim Healthy Rim C/D Ratio 0.1 Macula Normal Normal Vessels Normal Normal Periphery Lattice degeneration surrounded by attac hed with retinal tears laser barricade surrounded by laser scars Care Teams Formula Weigher Relationship Specialty Start Date End Date Ector Mora PCP - General Family Medicine - 05/22/[address] [phone] documented as of this encounter
--- OUTSIDE RECORDS SUMMARY | 2022-04-27 10:05 | XMS_ITS | Encounter Summary ---
:1965 Author Organization [facility] Address [address] [place] [address] Care Team Providers Name Role Phone Ector Mora Primary Care Provider Reason for Visit Auth/Cert Specialty Diagnoses / Procedures Referred By Contact Refer red To Contact Diagnoses Horseshoe retinal tear of left eye Vitreous hemorrhage of left eye (HCC-CMS) (HCC) Bilateral retinal lattice degeneration Procedures OH VITRECTOMY,FOCAL LASER RX RETINA OH PROPH RETINAL DTCHMNT W/O DRG PHOTOCOAGULATION VITRECTOMY, MECHANICAL, PARS PLANA APPROACH, WITH ENDOLASER FOCAL PHOTOCOAGULATION PHOTOCOAGULATION, RETINA, FOR RETINAL DETACHMENT PROPHYLAXIS Referral ID Status Reason Start Date Expiration Date Visits Requ ested Visits Authorized [id number] 1 1 Encounter Details Date Type Department Care Team Description 05/22/2021 Anesthesia Event [facility] OR Diomedes Crum MD [address] [phone] [place] [address] Gracie Solano CRNA [address] [phone] [place] [address] Anesthesia Record Procedure Summary Procedure Name Responsible Anesthesia Start Anesthesia Stop Anesthesiologist Time Time Vitrectomy Laser, Diomedes Crum MD 05/22/21 1709 05/22/21 1931 LEFT EYE, Laser RIGHT EYE (Left: Eye) Events Date Time Event Comment 05/22/2021 1709 An Start The patient was re-evaluated immediately before moderate or deep sedation use, before anesthesia induction, or be fore the anesthesia procedure. 1709 An Start Data 1718 An Induction The patient was reevaluated immediately before moderate or deep sedation use and before anesthesia induction. 1722 An Intubation 1732 Anesthesia Ready 10 minute post intubation wait for absence of preop Covid test 191 An Extubation Spontaneous vent ilation resumed; any neuromuscular blockade reverse d or spontaneously resolved; TOF and DBS without fade ; purposeful movement; awake extubation 191 An Patient Move Spurious BP 1924 an stop data 193 Handoff to RN I completed my h andoff to the receiving nurse during which we: 1. Carey ntified the patient 2. Identified the responsible provider 3. Reviewed the pertinent medical history 4. Discussed the surgical course 5. Reviewed intra-o p anesthesia management and issues during anesthesi a 6. Set expectations for post-procedure p eriod 7. Allowed opportunity for questions and ac knowledgement of understanding. 1930 An Stop Name Total ePHEDrine pre-filled syringe 5 mg fentanyl citrate (PF) injection 100 mcg midazolam (versed) 1 mg/mL 2 mL vial 2 mg ondansetron (PF) (ZOFRAN) injection 4 mg lidocaine 2% (PF) injection glass vial 100 mg propOFol (DIPRIVAN) injection 853,350 mcg rocuronium 10 mg/mL vial 130 mg sugammadex 100 mg/mL 2 mL vial 200 mg labetalol 20 mg/4 mL pre-filled syringe 10 mg acetaminophen 10 mg/ml 100 mL infusion 1,000 mg albuterol inhaler 10 Puff lactated ringers (LR) infusion 0 mL Agents Name Insp Sevoflurane Exp Sevoflurane O2 N2O Air Blood No blood administrations on file. Lines, Drains, and Airways Type Details Placement Removal Wound 05/22/21; 175; Incision; 05/22/21 1751 by Left; Eye; N Vannessa Watson, AKHIL Peripheral IV 05/22/21; 1458; 05/29/21; 05/22/21 1458 by 05/22 by 20; 1.25; B Shasta Mei, Kasi Yuan ea RN Introcan; Posterior, CNM Right; Forearm; Inserted by RN (Camila Griffin RN); 1; None; 2% Chlorhexidine with IPA; 05/22/21; 2034; Discharged; No complications Non-Surgical Airway 05/22/21; 1746 (created 05/22/21 1746 by 1917 by via procedure Deric Swan K ardamion documentation); 05/22/21; SNEHA Ugarte CRNA 1917 documented in this encounter Social History Tobacco Use Types Packs/Day Years Used Date Smoking Tobacco: Never Smokeless Tobacco: Never Sex Assigned at Date Recorded Not on file documented as of this encounter OR Notes Anesthesia Postprocedure Evaluation - Deric Swan CRNA - 05/22/2021 193 EST Patient: Robert Bashir Vital signs were reviewed with the recovery nurse. Complete vitals history is available in the Epic flowsheets. Vitals Value Taken Time BP 113/65 05/22/210 Temp 05/22/211932 Resp 19 05/22/211932 Pulse From Oximetry 73 BPM 05/22/211932 SpO2 96 % 05/22/211932 Vitals shown include unvalidated device data. Last Pain Score - Numeric Pain Level (Scale 1-10): 0 Type of Anesthesia - general Anesthesia Post Evaluation Post-procedure vitals reviewed and are stable. Level of consciousness: alert and oriented Temperature status: normothermia Respiratory status: airway patent, O2 Sat-appropriate for condition and room air Cardiovascular status: appropriate for condition Hydration status: adequate Nausea/Vomiting: none Pain management: adequate Post-Op Assessment: patient tolerated procedure well with no complications Patient participation: able to participate Disposition: outpatient/home Anesthesia Complications: No apparent anesthesia complications Anesthesia Procedure Notes - Deric Swan CRNA - 05/22/2021 1745 ESTAssociated Order(s): Airway Airway Date/Time: 05/22/2021 17:22 Urgency: elective Airway not difficult General Information and Staff Patient location during procedure: OR Performed: resident/HIGH SCHOOL ACADEMIC COACH/AA Indications and Patient Condition Indications for airway management: anesthesia Sedation level: GA Preoxygenated: yes Patient position: sniffing Ventilation assessment: 2 - Oral airway inserted Final Airway Details Final airway type: endotracheal airway Successful airway: ETT Cuffed: yes Successful intubation technique: direct laryngoscopy Facilitating devices/methods: intubating stylet Endotracheal tube insertion site: oral Blade: Ortiz Blade size: #3 ETT size (mm): 7.5 Cormack-Lehane Classification: grade I - full view of glottis Placement verified by: capnometry and palpation of cuff Inital cuff pressure (cm H2O): 25 Measured from: teeth ETT to teeth (cm): 22 Number of attempts at approach: 1 Anesthesia Preprocedure Evaluation - Norma Shannon MD - 05/22/2021 0716 EST Images from the original note were not included. Anesthesia Preprocedure Evaluation Robert is a 55 year old male with a history of stroke (takes baby ASA daily), hypertension, asthma (uses inhaler 4 x per week), per Dr. Fox's note. No other PMH found in [facility] [place]. He presents with ahorseshoe retinal tear of left eye. He presents for a vitrectomy of that left eye. Patient Medical History, including Anesthesia History reviewed. Chart and Nursing Notes reviewed, including NPO status and Medication History. Additional ROS/History Findings: COVID-19 vaccination status unknown. No recent PCR on file. Not on File Review of Systems Constitutional: Negative for chills and fever. HENT: Negative for sore throat. Respiratory: Negative for cough, shortness of breath and wheezing. Cardiovascular: Negative for chest pain and palpitations. Gastrointestinal: Negative for heartburn. Neurological: Positive for headaches. No past medical history on file. Relevant Problems No relevant active problems Physical Exam Airway Mallampati: II TM distance: >3 FB Neck ROM: full Cardiovascular - normal exam Rhythm: regular Rate: normal Dental Pulmonary - normal exam Breath sounds clear to auscultation Abdominal (+) obese Anesthesia Plan ASA 3 Anesthesia Type - general, to include intravenous induction. Block for post-op pain? No Anesthesia plan and risks discussed. Informed consent obtained from patient. Specific risks discussed were nausea and vomiting. Code status discussed? No The preoperative history and physical which was performed within 30 days of this procedure, has beenreviewed and the clinically appropriate elements of the physical examination have been repeated. There are no changes to the documented history and physical or, if so, such changes are documented in this note PAT Note Notes from 04/22/21 through 05/22/21 No notes of this type exist for this encounter. documented in this encounter Plan of Treatment Not on filedocumented as of this encounter Procedures Procedure Name Priority Date/Time Associated Comments Diagnosis ANESTHESIA Routine 05/22/2021 17:22 Results for this INTUBATION EST procedure are i n the results section. documented in this encounter Results OH AN ELECTIVE ENDOTRACHEAL AIRWAY (05/22/2021 17:22 EST) Narrative Deric Swan CRNA - 021 17:22 EST Deric Swan CRNA ? 05/22/2021 17:46 Airway Date/Time: 05/22/2021 17:22 Urgency: elective Airway not difficult General Information and Staff Patient location during procedure: OR Performed: resident/HIGH SCHOOL ACADEMIC COACH/AA Indications and Patient Condition Indications for airway management: anest hesia Sedation level: GA Preoxygenated: yes Patient position: sniffing Ventilation assessment: 2 - Oral airway inserted Final Airway Details Final airway type: endotracheal airway Successful airway: ETT Cuffed: yes Successful intubation technique: direct laryngoscopy Facilitating devices/methods: intubating stylet Endotracheal tube insertion site: oral Blade: Ortiz Blade size: #3 ETT size (mm): 7.5 Cormack-Lehane Classification: grade I - full view of glottis Placement verified by: capnometry and pa lpation of cuff Inital cuff pressure (cm H2O): 25 Measured from: teeth ETT to teeth (cm): 22 Number of attempts at approach: 1 Luis Daniel Lemos MD ANESTHESIA ORDERABLES documented in this encounter Visit Diagnoses Not on filedocumented in this encounter Administered Medications Inactive Administered Medications - up to 3 most recent administrations Medication Order MAR Action Action Date Dose Rate Site acetaminophen (OFIRMEV) IV Given 05/22/2021 16:04 EST 1,000 mg solution intravenous, PRN, Starting on Sat05/22/21 at 1604, Until Sat05/22/21 at 1931, Routine, Anesthesia Intraprocedure albuterol inhaler Given 05/22/2021 17:22 EST 10 Puffs inhalation, PRN, Starting on Sat05/22/21 at 1722, Until Sat05/22/21 at 1931, Routine, Anesthesia Intraprocedure ePHEDrine injection 25 mg/5 mL syringe Given 05/22/2021 18:27 EST 5 mg intravenous, PRN, Starting on Sat05/22/21 at 1827, Until Sat05/22/21 at 1931, Routine, Anesthesia Intraprocedure fentaNYL citrate (PF) injection Given 05/22/2021 17:19 EST 100 mcg intravenous, PRN, Starting on Sat05/22/21 at 1719, Until Sat05/22/21 at 193, Routine, Anesthesia Intraprocedure labetaloL (TRANDATE) injection Given 05/22/2021 15:53 EST 10 mg intravenous, PRN, Starting on Sat05/22/21 at 1553, Until Sat05/22/21 at 193, Routine, Anesthesia Intraprocedure lactated ringers (LR) infusion Restarted 05/22/2021 17:09 EST 30 mL/hr, intravenous, CONTINUOUS, Starting on Sat05/22/21 at 1500, Until Sat05/22/21 at 2239, Routine, Preprocedure New Bag 05/22/2021 15:16 EST 30 mL/hr 30 mL/hr lidocaine (PF) 20 mg/mL (2 %) injection Given 05/22/2021 17:20 EST 100 mg intravenous, PRN, Starting on Sat05/22/21 at 1720, Until Sat05/22/21 at 193, Routine, Anesthesia Intraprocedure midazolam (PF) (VERSED) injection Given 05/22/2021 16:04 EST 2 mg intravenous, PRN, Starting on Sat05/22/21 at 1604, Until Sat05/22/21 at 193, Routine, Anesthesia Intraprocedure ondansetron (PF) (ZOFRAN) injection Given 05/22/2021 18:41 EST 4 mg intravenous, PRN, Starting on Sat05/22/21 at 1841, Until Sat05/22/21 at 1931, Routine, Anesthesia Intraprocedure propOFol (DIPRIVAN) injection Restarted 05/22/2021 18:43 100 mcg/kg/min 70.5 mL/hr intravenous, PRN, Starting on EST 05/22/21 at 1720, Until Sat05/22/21 at 1931, Routine, Anesthesia Intraprocedure Given 05/22/2021 18:42 EST 40 mg New Bag 05/22/2021 17:33 EST 40 mcg/kg/min 28.2 mL/hr rocuronium (ZEMURON) injection Given 05/22/2021 18:22 EST 30 mg intravenous, PRN, Starting on 05/22/21 at 1721, Until 05/22/21 at 1931, Routine, Anesthesia Intraprocedure Given 05/22/2021 17:50 EST 40 mg Given 05/22/2021 17:21 EST 60 mg sugammadex (BRIDION) injection Given 05/22/2021 19:13 EST 200 mg intravenous, PRN, Starting on Sat05/22/21 at 1913, Until 05/22/21 at 193, Routine, Anesthesia Intraprocedure documented in this encounter Care Teams Corn Crop Supervisor Relationship Specialty Start Date End Date Ector Mora PCP - General Family Medicine - 05/22/[address] [phone] documented as of this encounter
--- OUTSIDE RECORDS SUMMARY | 2022-04-27 10:05 | XMS_ITS | Encounter Summary ---
:1965 Author Organization 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 Post-OP Follow Up Comments Post op (?) left eye - HST with VH. Post LASER right for lattice (preventative). No eye pain. +floaters left, ?new. HPI Location: Both eyes Pain: 0 - No pain Quality: Blurry Severity: Moderate Duration: Days Timing: Constant Lasts: Continuous Context: post op for vitreous hemorrhage and retinal tear left eye and lattice degeneration right eye, with LASER Modifying factors: S/p PPV, AFX, laser, 20% SF6 left eye 05/22/21 and s/p Prophylactic laser retinopexy around lattice lesions right eye 05/22/21 Associated Signs & Symptoms: No pain in his left eye. Sleeps on right side now. Visual Fluctuations: None Attestation: Base Eye Exam Visual Acuity (Snellen - Linear) Right Left Dist cc 20/25 20/80-2 Dist ph cc NI Correction: Glasses Tonometry (Applanation, 14:51, WS) Right Left Pressure 15 11 Pupils Dark Light React Right 5 5 Slow Left 8 8 Fixed WS Neuro/Psych Oriented x3: Yes Mood/Affect: Normal Dilation Both eyes: Tropicamide 1%, Phenylephrine 2.5% @ 14:51 Slit Lamp and Fundus Exam Slit Lamp Exam Right Left Lids/Lashes Normal Normal Conjunctiva/Sclera White and quiet White and quiet Cornea Clear Clear Anterior Chamber Deep and quiet Deep and quiet Iris Round and reactive Round and reactive Lens 1+ Nuclear sclerosis, 1+ Cortical cataract 1+ Nuclear sclerosis, 1+ Cortical cataract, feathering Vitreous Clear, no posterior vitreous detachment 30% gas fill Fundus Exam Right Left Disc Healthy Rim Healthy Rim C/D Ratio 0.1 Macula Normal Normal Vessels Normal Normal Periphery Lattice degeneration surrounded by laser barricade attached with retinal tears surroundedby laser scars Please refer to large retinal drawing. IMAGING: DIAGNOSES: 1. Horseshoe retinal tear of left eye 2. Bilateral retinal lattice degeneration Assessment Retina attached both eyes S/p 05/22/2021 PPV, EL, SF6 for tears and vitreal heme left eye S/p 05/22/2021 laser retinopexy around lattice lesions right eye Vision limited by lens feathering and cataract PF qid left eye Sleep right ear down for one more week. Then just avoid face up positioning. 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 documented in this encounter Eye Exam Visual Acuity (Snellen - Linear) Right eye Left eye Dist cc 20/25 20/80-2 Dist ph cc NI Correction: Glasses Tonometry (Applanation, 14:51, WS) Right eye Left eye Pressure 15 11 Pupils Dark Light React Right eye 5 5 Slow Left eye 8 8 Fixed WS Neuro/Psych Oriented x3: Yes Mood/Affect: Normal Dilation Both eyes: Tropicamide 1%, Phenylephrine 2.5% @ 14:51 Slit Lamp Exam Right eye Left eye Lids/Lashes Normal Normal Conjunctiva/Sclera White and quiet White and quiet Cornea Clear Clear Anterior Chamber Deep and quiet Deep and quiet Iris Round and reactive Round and reactive Lens 1+ Nuclear sclerosis, 1+ Cortical 1+ Nuc lear sclerosis, 1+ Cortical cataract cataract, feathering Vitreous Clear, no posterior vitreous 30% gas steve l detachment Fundus Exam Right eye Left eye Disc Healthy Rim Healthy Rim C/D Ratio 0.1 Macula Normal Normal Vessels Normal Normal Periphery Lattice degeneration surrounded by attac hed with retinal tears laser barricade surrounded by laser scars Care Teams Sketcher Relationship Specialty Start Date End Date Ector Mora PCP - General Family Medicine - 05/22/[address] [phone] documented as of this encounter
--- OUTSIDE RECORDS SUMMARY | 2022-04-27 10:05 | XMS_ITS | Encounter Summary ---
:1965 Author Organization [facility] Address [address] [place] [address] Care Team Providers Name Role Phone Ector Mora Primary Care Provider Reason for Visit Reason Comments Eye Problem Encounter Details Date Type Department Care Team Description 01/09/2022 Office Visit [facility] Orlando Walton MD Ophthalmology - [address], [address], [address] [place] [address] [place], [place] [phone] (Wo rk) Social History Tobacco Use Types Packs/Day Years Used Date Smoking Tobacco: Never Smokeless Tobacco: Never Sex Assigned at Date Recorded Not on file documented as of this encounter Progress Notes Orlando Walton MD - 01/09/2022 1500 EDT Chief Complaint Patient presents with ??? Eye Problem Comments Follow up on Hx of PPVx, EL, Gas SF6 left eye and s/p Laser to lattice right eye 05/22/21. Recent Cataract Sx with Dr Mari. HPI Location: Left eye Pain: 0 - No pain Quality: Severity: Mild Duration: Months Timing: Constant Lasts: Continuous Context: Follow up on Hx of PPVx, EL, Gas SF6 left eye and s/p Laser to lattice right eye 05/22/21. Recent Cataract Sx with Dr Mari. Modifying factors: S/p Cataract Sx 12/04/21 Associated Signs & Symptoms: VA improved greatly per pt. after Sx. No new F and F. No pain. No drops. Visual Fluctuations: None Attestation: Base Eye Exam Visual Acuity (Snellen - Linear) Right Left Dist sc 20/25 20/40 -1 Dist ph sc 20/20 -1 Tonometry (Applanation, 15:02) Right Left Pressure 15 14 Pupils Pupils APD Right PERRL - Left PERRL - Neuro/Psych Oriented x3: Yes Mood/Affect: Normal Dilation Both eyes: Tropicamide 1%, Phenylephrine 2.5% @ 15:02 Slit Lamp and Fundus Exam Slit Lamp Exam Right Left Lids/Lashes Normal Normal Conjunctiva/Sclera White and quiet White and quiet Cornea Clear Clear Anterior Chamber Deep and quiet Deep and quiet Iris Dilated Dilated Lens 1+ Cortical cataract Posterior chamber intraocular lens Vitreous Clear, no posterior vitreous detachment Clear, S/P PPV Fundus Exam Right Left Disc Healthy Rim Healthy Rim C/D Ratio 0.1 Macula Normal Normal Vessels Normal Normal Periphery Lattice degeneration surrounded by laser barricade attached with retinal tears surroundedby laser scars, atrophic hole Please refer to large retinal drawing. IMAGING: Prophylaxis of Retinal Detachment, Laser - OS - Left Eye Oph Retinal Laser Note Robert Bashir is here and consented to the following: Procedure Laser Retinopexy Indication: Hole Side: Left Eye Surgeon: Orlando Walton MD PROCEDURE: Anesthesia Type: Topical Proparacine HCl 0.4% Ophthalmic solution The patient was taken to the laser room where a total of 90 spots of 0.1 sec duration and green wavelength were placed around temporal hole. Lens used: super quad lens. Power: 200 mW Spot size: 400 um I certify that a Final Verification has been performed by the surgical team immediately prior to this procedure to verbally confirm patient identity, procedure and when applicable, site. Name of Rand Maker: RR Post op diagnosis/findings: retinal hole left Disposition/ Complications: The patient tolerated the procedure well and left the office in good condition. Followup/ Instructions: 6-8 months DIAGNOSES: 1. Horseshoe retinal tear of left eye 2. Bilateral retinal lattice degeneration 3. Pseudophakia of left eye 4. Retinal hole, left PROPHYLAXIS OF RETINAL DETACHMENT, LASER - OS - LEFT EYE Assessment Retina attached both eyes S/p 05/22/2021 PPV, EL, SF6 for tears and vitreal heme left eye S/p 05/22/2021 laser retinopexy around lattice lesions right eye No PVR Retinal hole left eye Offer laser retinopexy today to reduce risk of vision loss or retinal detachment Patient agrees Beautiful Pseudophakia left eye Return in about 8 months (around 09/09/2022), or if symptoms worsen or fail to improve. I have reviewed the past medical, family, [...] Procedure Name Priority Date/Time Associated Comments Diagnosis PROPHYLAXIS OF Routine 01/09/2022 16:32 Retinal hole, left Res ults for this RETINAL DETACHMENT, EDT procedur e are in LASER - OS - LEFT EYE the re sults section. documented in this encounter Results PROPHYLAXIS OF RETINAL DETACHMENT, LASER - OS - LEFT EYE (01/09/2022 16:32 EDT) Specimen (Source) Anatomical Location Collection Method / Collectio n Time Received Time / Laterality Volume Narrative [facility] POINT OF CARE - 01/10/2022 12:14 E DT Oph Retinal Laser Note Robert Bashir is here and consented to the following: Procedure Laser Retinopexy Indication: Hole Side: Left Eye Surgeon: Orlando Walton MD PROCEDURE: Anesthesia Type: Topical Proparacine HCl 0.4% Ophthalmic solution The patient was taken to the laser room where a total of 90 spots of 0.1 sec duration and green wavelength were p laced around temporal hole. Lens used: super quad lens. Power: 200 mW Spot size: 400 um I certify that a Final Verification has been performed by the surgical team immediately prior to this procedure to verbally confirm patient identity, procedure and when applicable, site. Name of Rand Maker: RR Post op diagnosis/findings: retinal hole left Disposition/ Complications: The patient tolerated the procedure well and left the office in good condition. Followup/ Instructions: 6-8 months Orlando Walton MD OPHTH CLINIC PROCEDURES Performing Organization Address City/State/ZIP Code Phon e Number [facility] POINT OF CARE documented in this encounter Visit Diagnoses Diagnosis Horseshoe retinal tear of left eye - Joy brower Horseshoe tear of retina without detachm ent 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 Pseudophakia of left eye Lens replaced by other means Retinal hole, left documented in this encounter Eye Exam Visual Acuity (Snellen - Linear) Right eye Left eye Dist sc 20/25 20/40 -1 Dist ph sc 20/20 -1 Tonometry (Applanation, 15:02) Right eye Left eye Pressure 15 14 Pupils Pupils APD Right eye PERRL - Left eye PERRL - Neuro/Psych Oriented x3: Yes Mood/Affect: Normal Dilation Both eyes: Tropicamide 1%, Phenylephrine 2.5% @ 15:02 Slit Lamp Exam Right eye Left eye Lids/Lashes Normal Normal Conjunctiva/Sclera White and quiet White and quiet Cornea Clear Clear Anterior Chamber Deep and quiet Deep and quiet Iris Dilated Dilated Lens 1+ Cortical cataract Posterior chamber i ntraocular lens Vitreous Clear, no posterior vitreous Clear, S/P PPV detachment Fundus Exam Right eye Left eye Disc Healthy Rim Healthy Rim C/D Ratio 0.1 Macula Normal Normal Vessels Normal Normal Periphery Lattice degeneration surrounded by attac hed with retinal tears laser barricade surrounded by laser scars, atrophic hole Care Teams Pattern Cutter Relationship Specialty Start Date End Date Ector Mora PCP - General Family Medicine - 05/22/[address] [place] [phone] documented as of this encounter
--- OUTSIDE RECORDS SUMMARY | 2022-04-27 10:05 | XMS_ITS | Encounter Summary ---
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 You may wear your eyeglasses during the day. You should wear the plastic eye shield over your eye while sleeping for 7 days. Avoid bending, stooping, lifting objects over 15 pounds, or any strenuous activity for one week. Avoid getting water in the eye for one week. Take Tylenol or gently apply ice compresses to the eye to relieve mild discomfort. No tub bathing, swimming or hot tubbing for 1 month. You may shower, but try to avoid getting water directly in the eye. The following position is required after surgery and should be maintained 45 minutes out of each hour: head upright during the day and sleep on right ear at night It is common to experience some discomfort immediately after the surgery and for several days afterward. This is primarily related to swelling on the outside of the eye and around the eyelids. A scratchy feeling or occasional sharp pain is normal. Ice compresses gently placed on the swollen areas (ice placed inside a resealable plastic bag works well) reduce the aching and soreness. Tylenol E.S. is also helpful for minor aching. If you have a deep ache or throbbing pain that does not respond to Tylenol or other [id number] medication, please call Dr Melgoza at [phone]. Redness is common and gradually diminishes over time. Some patients may notice a patch of blood on the outside of the eye. This is similar to bruising on the skin and slowly resolves on its own. Visual recovery varies with different types of surgery and the preop problem and may take several weeks to months to occur. If, however, you should experience a sudden loss of vision postop call Jenn Chand or Dr. Gee immediately at [phone]. You may begin using drops after the patch has been removed. Please wait five minutes between different drops given at the same time. Your drops are listed below: Prednisolone and Ofloxacin left eye 4x a day Bring all drops with you for each follow-up appointment. If you have any questions or concerns you may call Dr. Barajas, Dr Walton, Dr. Melgoza or Dr. Gee at [phone] and they will be happy to assist you. documented in this encounter Progress Notes Orlando Walton MD - 05/23/2021 0945 EST Chief Complaint Patient presents with ??? Post-OP Follow Up Comments 1 day post op for vitreous hemorrhage and retinal tear left eye and lattice degeneration right eye. HPI Location: Both eyes Pain: 0 - No pain Quality: Blurry Severity: Moderate Duration: Days Timing: Constant Lasts: Continuous Context: 1 day post op for vitreous hemorrhage and retinal tear left eye and lattice degeneration right eye. Modifying factors: S/p PPV, AFX, laser, 20% SF6 left eye 05/22/21 and s/p Prophylactic laser retinopexy around lattice lesions right eye 05/22/21 Associated Signs & Symptoms: Patient slept good. No pain in his left eye. Discomfort in his neckform having his head tipped down. Visual Fluctuations: None Attestation: Base Eye Exam Visual Acuity (Snellen - Linear) Right Left Dist sc 20/30 -1 CF at face Dist ph sc 20/25 Tonometry (Applanation, 10:36) Right Left Pressure 11 10 Pupils Dark Right Left dilated Neuro/Psych Oriented x3: Yes Mood/Affect: Normal Dilation Both eyes: Tropicamide 1%, Phenylephrine 2.5% @ 10:37 Slit Lamp and Fundus Exam Slit Lamp Exam Right Left Lids/Lashes Normal Normal Conjunctiva/Sclera White and quiet White and quiet Cornea Clear Clear Anterior Chamber Deep and quiet Deep and quiet Iris Round and reactive Round and reactive Lens 1+ Nuclear sclerosis, 1+ Cortical cataract 1+ Nuclear sclerosis, 1+ Cortical cataract, feathering Vitreous Clear, no posterior vitreous detachment >90% gas fill Fundus Exam Right Left Disc Healthy Rim Healthy Rim C/D Ratio 0.1 Macula Normal Normal Vessels Normal Normal Periphery Lattice degeneration surrounded by laser barricade attached with retinal tears surroundedby laser scars Please refer to large retinal drawing. DIAGNOSES: 1. 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 FELIPE Mcarthur (Scribe) documented in this encounter Plan of Treatment Not on filedocumented as of this encounter Visit Diagnoses Diagnosis Horseshoe retinal tear of left eye - Joy brower Horseshoe tear of retina without detachm ent 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 documented in this encounter Eye Exam Visual Acuity (Snellen - Linear) Right eye Left eye Dist sc 20/30 -1 CF at face Dist ph sc 20/25 Tonometry (Applanation, 10:36) Right eye Left eye Pressure 11 10 Pupils Dark Right eye Left eye dilated Neuro/Psych Oriented x3: Yes Mood/Affect: Normal Dilation Both eyes: Tropicamide 1%, Phenylephrine 2.5% @ 10:37 Slit Lamp Exam Right eye Left eye Lids/Lashes Normal Normal Conjunctiva/Sclera White and quiet White and quiet Cornea Clear Clear Anterior Chamber Deep and quiet Deep and quiet Iris Round and reactive Round and reactive Lens 1+ Nuclear sclerosis, 1+ Cortical 1+ Nuc lear sclerosis, 1+ Cortical cataract cataract, feathering Vitreous Clear, no posterior vitreous >90% gas fi ll detachment Fundus Exam Right eye Left eye Disc Healthy Rim Healthy Rim C/D Ratio 0.1 Macula Normal Normal Vessels Normal Normal Periphery Lattice degeneration surrounded by attac hed with retinal tears laser barricade surrounded by laser scars Care Teams Shirt Marker Relationship Specialty Start Date End Date Ector Mora PCP - General Family Medicine - 05/22/[address] [phone] documented as of this encounter
--- OUTSIDE RECORDS SUMMARY | 2022-04-27 10:05 | XMS_ITS | Clinical Summary ---
:1965 Author Organization [facility] Address [address] [place] [address] Care Team Providers Name Role Phone Ector Mora Primary Care Provider Allergies No known active allergies Medications Medication Sig Dispensed Refills Start Date End Date Status albuterol 90 mcg/actuation Inhale 2 Puffs 0 Active inhaler as directed every 4 hours as needed for Wheezing. aspirin chewable 81 mg Take 81 mg by 0 Active tablet mouth daily. busPIRone (BUSPAR) 30 mg Take 30 mg by 0 Active tablet mouth 2 times daily. hydroCHLOROthiazide Take 25 mg by 0 Active (HYDRODIURIL) 25 mg tablet mouth daily. lisinopriL (PRINIVIL) 40 Take 40 mg by 0 Active mg tablet mouth daily. loratadine (CLARITIN) 10 Take 10 mg by 0 Active mg tablet mouth daily. metoprolol SUCCinate Take 25 mg by 0 Active (TOPROL-XL) 25 mg tablet mouth daily. NIFEdipine XL Take 30 mg by 0 Ac tive (PROCARDIA-XL) 30 mg mouth daily. tablet pravastatin (PRAVACHOL) 10 Take 10 mg by 0 Active mg tablet mouth daily. predniSONE (DELTASONE) 20 Take 20 mg by 0 Active mg tablet mouth daily. prednisoLONE (PRED FORTE) Place 1 Drop 10 mL 3 05/29/2021 Active 1 % ophthalmic suspension into the left eye 4 times daily. Additional Information Patient not taking. Reported on 10/03/2021 ofloxacin (OCUFLOX) 0.3 % Place 1 Drop into the left 10 mL 3 05/29/2021 Active ophthalmic solution eye 4 times daily. Additional Information Patient not taking. Reported on 06/22/2021 Active Problems Problem Noted Date Vitreous hemorrhage of left eye (HCC-CMS) 05/21/2021 Mixed type age-related cataract, both eyes 05/21/2021 Bilateral retinal lattice degeneration 05/21/2021 Horseshoe retinal tear of left eye 05/21/2021 Overview: Added automatically from request for kamla nuñez [id number] Medical History Medical History Date Comments Cerebral artery occlusion with cerebral infarction ([facility] ([facility]) 2019 Hypertension Asthma Social History Tobacco Use Types Packs/Day Years Used Date Smoking Tobacco: Never Smokeless Tobacco: Never Sex Assigned at Date Recorded Not on file Obstetrics History Last Filed Vital Signs Vital Sign Reading [...] Body Mass Index 35.13 05/22/2021 1447 EST Plan of Treatment Health Maintenance Due Date Last Done Comments Hepatitis C Screen 1965 COVID-19 Vaccine (#1) 01/15/1966 Insurance Payer Benefit Plan / Subscriber ID Effective Dates Phone Addre ss Type Group [facility] [id number] 2020-Present [address] [facility] [place] [address] Diane QUIROZ (Work) [id number] Robert Bashir Personal/Family Self [address] (Home) [place] [address] Diane QUIROZ (Work) [phone] Robert Bashir Personal/Family Self [address] (Home) [place] [address] Diane QUIROZ (Work) [id number] Robert Bashir Personal/Family Self [address] (Home) [place] [address] GABRIELLA V T (Work) [phone] Robert Bashir Personal/Family Self [address] (Home) [facility] [phone] GABRIELLA V T (Work) [phone] Robert Bashir Personal/Family Self [address] (Home) [place] [address] GABRIELLA, V T (Work) [phone] Robert Bashir Personal/Family Self [address] (Home) [place] [address] GABRIELLA V T (Work) [phone] Robert Bashir Personal/Family Self [address] (Home) [place] [address] GABRIELLA V T (Work) [phone] Advance Directives For more information, please contact: [phone] Latest Code Status on File Code Status Date Activated Date Inactivated Comments Full Code 05/22/2021 14:44 05/22/2021 19:34 When the patient has NO PULSE: Full Code / CPR Who Made the Decision? Default/Not Discussed Care Teams Turbine Engineer Relationship Specialty Start Date End Date Ector Mora PCP - General Family Medicine - 05/22/[address] [phone]
--- OUTSIDE RECORDS SUMMARY | 2022-04-27 10:05 | XMS_ITS | Encounter Summary ---
:1965 Author Organization [facility] Address [address] [place] [address] Care Team Providers Name Role Phone Ector Mora Primary Care Provider Reason for Visit Reason Onset Date Comments Medications Refill 05/24/2021 Encounter Details Date Type Department Care Team Description 05/24/2021 Refill [facility] Orlando Walton MD Medications Refill Ophthalmology - [address], [address], [address] [place], [place] [address] [place] [phone] (Wo rk) Social History Tobacco Use Types Packs/Day Years Used Date Smoking Tobacco: Never Smokeless Tobacco: Never Sex Assigned at Date Recorded Not on file documented as of this encounter Ordered Prescriptions Prescription Sig Dispensed Refills Start Date End Date ofloxacin (OCUFLOX) 0.3 % Place 1 Drop into 10 mL 3 07/2021 ophthalmic solution the left eye 4 times daily. prednisoLONE (PRED FORTE) 1 Place 1 Drop into 10 mL 3 0 05/29/2021 % ophthalmic suspension the left eye 4 times daily. documented in this encounter Miscellaneous Notes Telephone Encounter - Dayne Cespedes RN - 05/24/2021 0988 EST Called and spoke to patient. Stated meds were called in. He should follow up with them before heading over to pick them up. .Dayne Cespedes RN 05/24/2021 9:33 Telephone Encounter - Allison Moe - 05/24/2021 0916 EST Patient called looking for his two prescriptions that he was told to take. He just got off the phone with his pharmacy and they don't have them yet. I told the patient they are waiting for Dr. Walton to sign off on them. He's concerned that he hasn't started them. Telephone Encounter - Karlene Ferrer, AKHIL - 05/24/2021 0911 EST Spoke to [facility] to order Prednisolone Acetate 1% ophthalmic solution 10 mL with 3 refills with directions of instilling 1 drop into the left eye 4 times daily. In addition, Ofloxacin 0.3% ophthalmic solution 10 mL with 3 refills with directions of instilling 1 drop into the left eye [address] Walton's orders. Karlene Ferrer, AKHIL Telephone Encounter - Mily Mann - 05/24/2021 0858 EST Pt's pharmacy called. He is supposed to be on some post surgical drops but neither were called in. Should be Prednisolone and Ofloxacin documented in this encounter Plan of Treatment Not on filedocumented as of this encounter Visit Diagnoses Not on filedocumented in this encounter Care Teams Etl Manager Relationship Specialty Start Date End Date Ector Mora PCP - General Family Medicine - 05/22/[address] [phone] documented as of this encounter
--- OUTSIDE RECORDS SUMMARY | 2022-04-27 10:05 | XMS_ITS | Encounter Summary ---
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 Post-OP Follow Up Comments S/p 05/22/2021 PPV, EL, SF6 for tears and vitreal heme left eye, S/p 05/22/2021 laser retinopexy around lattice lesions right eye, Va both eyes stable no change, no pain in eyes but increased YEH around the whole head, only rare floaters now, no flashes, PF QID left eye, HPI Location: Both eyes Pain: 0 - No pain Quality: Blurry Severity: Moderate Duration: Days Timing: Constant Lasts: Continuous Context: S/p 05/22/2021 PPV, EL, SF6 for tears and vitreal heme left eyeS/p 05/22/2021 laser retinopexy around lattice lesions right eye Modifying factors: surgery/laser Associated Signs & Symptoms: no pain Visual Fluctuations: None Attestation: Base Eye Exam Visual Acuity (Snellen - Linear) Right Left Dist cc 20/20 -1 20/250-1 Dist ph cc 20/30 Correction: Glasses Tonometry (Applanation, 15:16) Right Left Pressure 15 19 Pupils Dark Light React APD Right 4 3 Slow None Left 7 non reactive None Neuro/Psych Oriented x3: Yes Mood/Affect: Normal Dilation Both eyes: Tropicamide 1%, Phenylephrine 2.5% @ 15:16 Slit Lamp and Fundus Exam Slit Lamp [...] 2. 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 MIGUELANGEL Ny (Scribe) documented in this encounter Plan of [...] eye Left eye Dist cc 20/20 -1 20/250-1 Dist ph cc 20/30 Correction: Glasses Tonometry (Applanation, 15:16) Right eye Left eye Pressure 15 19 Pupils Dark Light React APD Right eye 4 3 Slow None Left eye 7 non reactive None Neuro/Psych Oriented x3: Yes Mood/Affect: Normal Dilation Both eyes: Tropicamide 1%, Phenylephrine 2.5% @ 15:16 Slit Lamp Exam Right eye Left eye [...] barricade surrounded by laser scars Care Teams Fitness Worker Relationship Specialty Start Date End Date Ector Mora PCP - General Family Medicine - 05/22/[address] [phone] documented as of this encounter
--- OUTSIDE RECORDS SUMMARY | 2022-04-27 10:05 | XMS_ITS | Encounter Summary ---
:1965 Author Organization [facility] Address [address] [place] [address] Care Team Providers Name Role Phone Ector Mora Primary Care Provider Reason for Visit Reason Onset Date Comments Other 05/22/2021 Surgery Encounter Details Date Type Department Care Team Description 05/22/2021 Telephone [facility] Orlando Walton MD Other (Surgery) Ophthalmology - [address], [address], [facility] [address] [place], [place] [address] [place] [phone] (Wo rk) Social History Tobacco Use Types Packs/Day Years Used Date Smoking Tobacco: Never Smokeless Tobacco: Never Sex Assigned at Date Recorded Not on file documented as of this encounter Miscellaneous Notes Telephone Encounter - Yuriy Small - 05/22/2021 0949 EST Called patient back to give them OR time for TODAY 05/[address] Walton. Also gave patient fasting instructions and set them up with one day post op appointment Telephone Encounter - Melanie Lopez - 05/22/2021 0843 EST PT called to find out what time his surgery would be today. I did transfer him to OR line to see if they had an update yet. PCB if you have more info for him, as he is trying to organize a ride. Thanks! documented in this encounter Plan of Treatment Not on filedocumented as of this encounter Visit Diagnoses Not on filedocumented in this encounter Care Teams Mining Technician Relationship Specialty Start Date End Date Ector Mora PCP - General Family Medicine - 05/22/[address] [phone] documented as of this encounter
[2022-04-27 10:14] VITALS: BP 168/84; PULSE 88; RESP 18; TEMP 37.2; O2SAT 98
--- NOTE | 2022-04-27 10:46 | ED.GENADUL_ITS ---
Discharge Plan Disposition Patient Disposition: Home Condition: Stable Discharge Details Clinical Impression: Left leg pain Primary Care Provider: Ector Mora ED Provider: Adam Spivey Home Meds and New Rx's Prescriptions: Continued loratadine [Claritin] 10 mg tablet 10 mg PO DAILY Qty: 90 3RF buspirone 30 mg tablet 30 mg PO BID Qty: 60 11RF Rx Instructions: One half tab twice daily for 2 weeks then 1 tab twice daily lisinopril 40 mg tablet 40 mg PO DAILY Qty: 90 4RF aspirin 81 mg tablet,delayed release (DR/EC) 81 mg PO DAILY Qty: 90 1RF metoprolol succinate 25 mg tablet extended release 24 hr 25 mg PO DAILY Qty: 90 3RF albuterol sulfate 90 mcg/actuation HFA aerosol inhaler 2 puff INHALATION Q4H PRN (Reason: bronchospasm) Qty: 8.5 5RF hydrochlorothiazide 25 mg tablet 25 mg PO DAILY Qty: 90 3RF nifedipine 30 mg tablet extended release 30 mg PO DAILY Qty: 90 3RF pravastatin 10 mg tablet 10 mg PO QHS Qty: 90 3RF Discharge Instructions Instructions: Leg Pain (ED) Additional Instructions: Ultrasound of your left lower extremity is negative for DVT. Rest, elevate, cool and/or warm compresses every 2 hours for 20 minutes. Please watch for new or worsening symptoms and return to the ER for any concerns. Lastly, please contact your primary care provider later today or tomorrow to discuss your ER visit, ongoing symptoms, need for outpatient reevaluation. Medical Decision Making 56-year-old gentleman presents complaining of 2-3 weeks of left lower extremity pain, x-ray negative yesterday, given 1 dose of Eliquis and sent to the ra diology department today for ultrasound, presents now for results. Clinically he appears well, nontoxic. Pulse in the 80s, afebrile. Ultrasound is unremarkable. Discussed findings with patient. Patient is relieved. Crutches were offered but declined. Patient has 1 additional Percocet as provided in the ER yesterday. We discussed [id number] medication and if he continues to need additional stronger analgesia this will need to go through his PCP. Recommended contacting his PCP to discuss his ongoing symptoms and need for outpatient reevaluation. Standard discharge and return precautions were provided. Patient understands, is agreeable to this plan, and has no additional questions or concerns upon discharge. This documentation was generated using [employer]ian dictation system, please disregard any oddities of phrase or misspellings. Medical Records Medical records reviewed: Yes I reviewed the patient's medical records. Imaging Data Radiologic Study: Attestation: I personally reviewed and interpreted this imaging study as follows: Imaging: Ultrasound Radiologist's impression: Exam(s) US LOWER EXTREMITY VENOUS LT EXAM: US LOWER EXTREMITY VENOUS LT CLINICAL HISTORY: LEFT LOWER EXTREMITY SWELLING, PAIN. TECHNIQUE: Lower extremity venous ultrasound performed using grayscale, color- flow, and spectral Doppler analysis. COMPARISON: No exams were available for comparison FINDINGS: The common femoral, femoral and popliteal veins demonstrate normal compressibility, augmentation, and color Doppler. The posterior tibial veins are patent. No saphenous vein thrombosis or other superficial venous thrombosis is seen. No hematoma or Murcia's cyst is seen. Mild edema in the lower leg. IMPRESSION: Negative lower extremity ultrasound. No evidence of DVT. Sign Out No HPI General Mode of arrival: ambulatory . Date/Time Provider Initiated Documentation: 04/27/22 10:38 . Limitations to Documentation: no limitations . Information obtained by: patient . History of Present Illness 56 year old M presents to the emergency department with the chief complaint of LLE pain, described as moderate, with intensity rated at 6. Quality is described as aching, and is localized to the left and lower extremity. Patient reports no radiation. Patient started experiencing this week(s) (2-3) and it has been constant. No relieving factors improve symptom(s), No exacerbating factors reported . Patient notes no other symptoms.. Patient did receive the following treatments prior to arrival, none HPI Narrative: Pt here for US results Related Data Home Medications Medication Instructions Recorded Confirmed buspirone 30 mg tablet 30 mg PO BID #60 tabs 02/01/21 04/27/22 loratadine 10 mg tablet (Claritin) 10 mg PO DAILY #90 tabs 03/30/21 04/27/22 aspirin 81 mg tablet,delayed 81 mg PO DAILY #90 tabs 09/11/21 04/27/22 release lisinopril 40 mg tablet 40 mg PO DAILY #90 tabs 09/11/21 04/27/22 metoprolol succinate 25 mg 25 mg PO DAILY #90 tabs 03/23/22 04/27/22 tablet,extended release 24 hr albuterol sulfate 90 mcg/actuation 2 puff inhalation Q4H PRN 03/30/22 04/27/22 aerosol inhaler bronchospasm #8.5 grams hydrochlorothiazide 25 mg tablet 25 mg PO DAILY #90 tabs 04/18/22 04/27/22 nifedipine 30 mg tablet,extended 30 mg PO DAILY #90 tabs 04/18/22 04/27/22 release pravastatin 10 mg tablet 10 mg PO QHS #90 tabs 04/18/22 04/27/22 Previous Rx's Medication Instructions Recorded buspirone 30 mg tablet 30 mg PO BID #60 tabs 02/01/21 loratadine 10 mg tablet (Claritin) 10 mg PO DAILY #90 tabs 03/30/21 aspirin 81 mg tablet,delayed 81 mg PO DAILY #90 tabs 09/11/21 release lisinopril 40 mg tablet 40 mg PO DAILY #90 tabs 09/11/21 metoprolol succinate 25 mg 25 mg PO DAILY #90 tabs 03/23/22 tablet,extended release 24 hr albuterol sulfate 90 mcg/actuation 2 puff inhalation Q4H PRN 03/30/22 aerosol inhaler bronchospasm #8.5 grams hydrochlorothiazide 25 mg tablet 25 mg PO DAILY #90 tabs 04/18/22 nifedipine 30 mg tablet,extended 30 mg PO DAILY #90 tabs 04/18/22 release pravastatin 10 mg tablet 10 mg PO QHS #90 tabs 04/18/22 Allergies Allergy/AdvReac Type Severity Reaction Status Date / Time atorvastatin [From Lipitor] Allergy Intermediate rash Verified 04/27/22 10:16 General Stated Complaint: Recheck SOFIA: 4 Review of Systems Constitutional Constitutional: Denies fever(s) and Denies weakness Cardiovascular Cardiovascular: Denies chest pain and Denies dyspnea Respiratory Respiratory: Denies dyspnea Musculoskeletal Musculoskeletal: Denies arthralgias, Denies numbness and Denies tingling Integumentary/Breasts Skin/Breast: Denies erythema Neurologic Neurologic: Denies numbness, Denies tingling and Denies weakness PFSH All Active Problems Swelling of left lower extremity (Acute) Left leg pain (Acute) HTN (hypertension) (Chronic 10/21/13) Asthma (Chronic) Obesity (Chronic) ETOH abuse (Chronic) 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 Paternal Grandfather , age 72 Heart disease Maternal Grandmother No problems noted. 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 [employer] Pets and animals: Yes Pets and animals: cat(s), dog(s) and fish Sexually active: No Do you think of yourself as: straight/heterosexual Current gender identity: male What is your relationship status?: never How often do you talk on the phone with friends or family?: three or more times per week How often do you get together with friends or relatives?: twice per week How often do you attend christianity or yazdanism services?: decline to answer Do you belong to any clubs or organized social groups?: yes Panel score (0-1 are the most socially isolated patients): 2 What type of physical activity do you participate in: none Frequency: does not exercise Kyung/Rastafarian: None Special kyung needs: No Seatbelt use: always Drive intox or ride w/intox hazardous materials driver: No Do you feel safe at home: Yes Do you feel safe in your relationship?: Yes Exam Const General: cooperative, healthy appearing, comfortable and no acute distress Orientation: alert and awake [facility] Head: normal to inspection, normocephalic and atraumatic Eyes Conjunctivae: conjunctivae normal Neck Neck: normal visual inspection, full ROM, trachea midline and supple Resp Effort & Inspection: normal respiratory effort and able to speak in complete sentences Cardio Rate: regular rate Rhythm: regular rhythm Skin General skin exam: no rashes or lesions noted Neuro General: patient alert, patient awake, moves all extremities and no focal motor deficits Cognition: normal cognition Speech: speech normal Gait: antalgic Motor: muscle tone normal throughout Sensory Exam: no sensory deficits noted Extrem General: full ROM and capillary refill normal Other: Left lower extremity diffuse discomfort across the entire lower extremity from the knee to ankle. There is 1+ edema. Normal capillary refill and pedal pulse. He has multiple varicose veins. Knee and ankle with full range of motion. Stable. No erythema, warmth, signs of secondary infection. Psych Appearance: grossly normal Mental Status: mental status grossly normal Course Vital Signs Vital signs: Vital Signs Temperature 37.2 C 04/27/22 10:14 Pulse 88 04/27/22 10:14 Respiratory Rate 18 04/27/22 10:14 Blood Pressure 168/84 H 04/27/22 10:14 Pulse Oximetry 98 04/27/22 10:14 Temperature 37.2 C 04/27/22 10:14 Temperature Source Temporal Artery Scan 04/27/22 10:14 Pulse 88 04/27/22 10:14 Respiratory Rate 18 04/27/22 10:14 Respiratory Effort Non-Labored 04/27/22 10:16 Blood Pressure 168/84 H 04/27/22 10:14 Blood Pressure Position Sitting 04/27/22 10:14 Pulse Oximetry 98 04/27/22 10:14 Oxygen Delivery Method Room Air 04/27/22 10:14 Oxygen Flow Rate 0 04/27/22 10:14 PAWSS Have you Been Recently Intoxicated or Drunk Within the Last 30 days?: No Have you Ever Experienced Previous Episodes of Alcohol Withdrawal?: No Have you ever Experienced Withdrawal Seizures?: No Have you ever Experienced Delirium Tremens(DT)s?: No Have you ever undergone Alcohol Rehabilitation Treatment (i.e, inpt ot outpatient treatment programs)?: No Have you ever Experienced Blackouts?: No Have you ever Combined Alcohol with other Downers within the last 90 days?: No Have you ever Combined Alcohol with any other Substance of Abuse during the last 90 days?: No Positive Blood Alcohol level on Presentation? [PCS.BAL]: No Evidence of Increased Autonomic Activity (i.e. HR>120, tremor, sweating, agitation, nausea)?: No Result: 0
== END 2022-04-27 11:04 | disposition home or self-care (01) ==
PROVIDERS: Emergency Provider Physician Assistant; PCP Nurse Practitioner Family
DX: M79.662 Pain in left lower leg (principal); Z71.2 Person consulting for explanation of examination or test findings

== ENCOUNTER 2022-06-12 13:39 | Outpatient (CLI) | payer BC, SELFPAY ==
[2022-06-12 14:59] LABS: Uric Acid 9.4 mg/dL (3.5-7.2)
== END 2022-06-12 13:40 | disposition home or self-care (01) ==
LOC: LBO 13:40
PROVIDERS: PCP Nurse Practitioner Family; Visit Provider Nurse Practitioner Family
DX: M10.9 Gout, unspecified (principal)
CPT/HCPCS: 36415; 84550

== ENCOUNTER 2022-07-16 02:50 | Outpatient (CLI) | payer BC, SELFPAY ==
[2022-07-16 15:21] LABS: Uric Acid 8.1 mg/dL (3.5-7.2)
== END 2022-07-16 02:51 | disposition home or self-care (01) ==
LOC: LBO 02:50
PROVIDERS: PCP Nurse Practitioner Family; Visit Provider Nurse Practitioner Family
DX: M10.9 Gout, unspecified (principal)
CPT/HCPCS: 36415; 84550

== ENCOUNTER 2022-10-05 01:38 | Outpatient (CLI) | payer BC, SELFPAY ==
[2022-10-05 15:54] LABS: CREATININE 1.2 mg/dL (0.70-1.30); Estimated GFR 69.66 (mL/min/1.73m2)
== END 2022-10-05 01:39 | disposition home or self-care (01) ==
LOC: LBO 01:39
PROVIDERS: PCP Nurse Practitioner Family; Visit Provider Nurse Practitioner Family
DX: I10 Essential (primary) hypertension (principal)
CPT/HCPCS: 36415; 82565; 84132

== ENCOUNTER 2022-10-10 11:09 | Outpatient (CLI) | payer BC, SELFPAY ==
[2022-10-10 16:16] LABS: Abs Immature Grans 0.05 10^3/uL (0.0-0.06); Absolute Basophil Count 0.03 10^3/uL (0.0-0.2); Absolute Eosinophil Count 0.26 10^3/uL (0.0-0.7); Absolute Lymphocyte Count 2.56 10^3/uL (1.2-3.4); Absolute Monocyte Count 0.91 10^3/uL (0.1-0.8); Basophils % 0.3; Eosinophils % 2.4; HCT 39.5 % (40.0-50.0); Immature Grans % 0.5; Lymphocytes % 23.6; MCH 30.7 pg (27.0-33.0); MCHC 32.9 % (32.0-36.0); MCV 93 fL (80-95); MPV 10.7 fL (8.0-11.0); Monocytes % 8.4; Neutrophils % 64.8; Platelet Count 219 10^3/uL (130-400); RBC 4.24 10^6/uL (4.36-5.78); RDW 12.7 % (11.8-14.1); RDW-SD 43.3 fL; WBC 10.85 10^3/uL (4.4-10.8)
[2022-10-10 16:21] LABS: Absolute Neutrophil Count 7.03 10^3/uL (1.2-6.7)
[2022-10-10 16:30] LABS: Prothrombin Time 9.9 sec (9.3-11.0)
[2022-10-10 17:13] LABS: ALT 38 U/L (16-63); AST 22 U/L (15-37); Albumin 4.1 g/dL (3.4-5.0); Alkaline Phosphatase 100 U/L (46-116); Anion Gap 8.6 mmol/L (3-11); BUN 27 mg/dL (7-18); Bilirubin, Total 0.3 mg/dL (0.2-1.0); CO2 27.4 mmol/L (21.0-32.0); CREATININE 1.2 mg/dL (0.70-1.30); Calcium 9.4 mg/dL (8.5-10.1); Chloride 104 mmol/L (98-107); Estimated GFR 69.66 (mL/min/1.73m2); Glucose 118 mg/dL (74-106); Sodium 140 mmol/L (136-145)
== END 2022-10-10 11:10 | disposition home or self-care (01) ==
LOC: LBO 11:09
PROVIDERS: PCP Nurse Practitioner Family; Visit Provider Family Medicine
DX: R23.3 Spontaneous ecchymoses (principal); I10 Essential (primary) hypertension
CPT/HCPCS: 36415; 80053; 85025; 85610

== ENCOUNTER 2022-10-23 03:58 | Outpatient (CLI) | payer BC, SELFPAY ==
[2022-10-23 16:26] LABS: Abs Immature Grans 0.07 10^3/uL (0.0-0.06); Absolute Basophil Count 0.04 10^3/uL (0.0-0.2); Absolute Eosinophil Count 0.13 10^3/uL (0.0-0.7); Absolute Lymphocyte Count 2.52 10^3/uL (1.2-3.4); Absolute Neutrophil Count 8.05 10^3/uL (1.2-6.7); Basophils % 0.3; Eosinophils % 1.1; HCT 41.1 % (40.0-50.0); HGB 13.4 g/dL (13.5-17.5); Immature Grans % 0.6; MCH 30.7 pg (27.0-33.0); MCHC 32.6 % (32.0-36.0); MCV 94 fL (80-95); MPV 10.6 fL (8.0-11.0); Platelet Count 245 10^3/uL (130-400); RBC 4.37 10^6/uL (4.36-5.78); RDW 12.8 % (11.8-14.1); RDW-SD 44.3 fL; WBC 12.01 10^3/uL (4.4-10.8)
[2022-10-23 17:03] LABS: Iron 48 ug/dL (65-175); Total Iron Binding Capacity 228 ug/dL (250-450); Transferrin Sat 21 % (20-55)
[2022-10-23 17:17] LABS: Ferritin 338 ng/mL (26-388)
[2022-10-25 09:54] LABS: Transferrin 195 mg/dL (201-352)
== END 2022-10-23 03:59 | disposition home or self-care (01) ==
LOC: LBO 03:58
PROVIDERS: PCP Nurse Practitioner Family; Visit Provider Nurse Practitioner Family
DX: D50.9 Iron deficiency anemia, unspecified (principal)
CPT/HCPCS: 36415; 82728; 83540; 83550; 84466; 85025

== ENCOUNTER 2022-11-19 10:21 | Day surgery (SDC) | payer BC, SELFPAY ==
--- NOTE | 2022-11-18 19:43 | W.PM.DSUDISC ---
Date of service: 11/19/22 Time of Service: 14:04 Discharge Plan Disposition Patient Disposition: Home Condition: Good Discharge Details Reason For Visit: Colonoscopy and EGD Attending Provider: Jose Vail Primary Care Provider: Ector Mora Home Meds and New Rx's Prescriptions: Continued lisinopril 40 mg tablet 40 mg PO DAILY Qty: 90 4RF metoprolol succinate 25 mg tablet extended release 24 hr 25 mg PO DAILY Qty: 90 3RF albuterol sulfate 90 mcg/actuation HFA aerosol inhaler 2 puff INHALATION Q4H PRN (Reason: bronchospasm) Qty: 8.5 5RF hydrochlorothiazide 25 mg tablet 25 mg PO DAILY Qty: 90 3RF nifedipine 30 mg tablet extended release 30 mg PO DAILY Qty: 90 3RF pravastatin 10 mg tablet 10 mg PO QHS Qty: 90 3RF loratadine [Claritin] 10 mg tablet 10 mg PO DAILY Qty: 90 3RF allopurinol 100 mg tablet 100 mg PO DAILY Qty: 90 0RF aspirin 81 mg tablet,delayed release (DR/EC) 81 mg PO DAILY Qty: 90 3RF indomethacin 50 mg capsule 50 mg PO BID Qty: 90 0RF Rx Instructions: administer with food or milk buspirone 30 mg tablet 30 mg PO BID Qty: 180 3RF Rx Instructions: One half tab twice daily for 2 weeks then 1 tab twice daily Discontinued polyethylene glycol 3350 17 gram/dose powder 238 g PO ONCE Qty: 238 0RF Rx Instructions: take per colonoscopy instructions bisacodyl [Dulcolax (bisacodyl)] 5 mg tablet,delayed release (DR/EC) 5 mg PO ONCE Qty: 4 0RF Rx Instructions: take per colonoscopy instructions Discharge Instructions Instructions: Gastritis (GEN), Diet for Stomach Ulcers and Gastritis (GEN), Colorectal Polyps (GEN) Additional Instructions: Henrry, I was able to complete your upper and lower endoscopies today. Like we talked about after the procedure, you do have a little bit of inflammation in the lining of the stomach known as gastritis. The best way to take care of this is with simple dietary modifications and weight loss. We have attached some information here regarding general management of inflammation of the stomach. If you start to develop symptoms like heartburn or indigestion, then I would recommend treatment with medical therapy. In the absence of symptoms, however, I do not think there is much to gain by adding medications. Like I told you, I also took multiple biopsies of the upper portion your GI tract, and we can wait to see what those show. On your colonoscopy, I did find a large polyp. I believe I removed this entirely. Like I mentioned, it gets sent off to the pathologist for a final report regarding the nature of the polyp. Based on the size of it, however, I suspect that you will need another colonoscopy in the next year to make sure it has not recurred, and no other new large polyps have grown. 1. If tolerated, consume a soft, low fiber diet for 1-2 days. 2[address] Do not drive, drink alcohol, operate machinery, make critical decisions, or do activities that require coordination or balance for 24 hours. 3. Because air was put into your colon during the procedure, expelling air from your rectum (passing gas or farting) is normal. 4. You may not have a bowel movement for 1-3 days because of the colonoscopy prep. This is normal. 5. You may experience a sore throat for 24 to 48 hours. You may use throat lozenges or gargle with warm salt water to relieve the discomfort. 6. Because air was put into your stomach during the procedure, you may experience some belching. 7. Go directly to the emergency room if you notice any of the following: Develop chills (warm to touch), or if you have a thermometer and your temperature is above 101 Difficulty breathing or difficultly swallowing Persistent vomiting Severe abdominal pain, other than gas cramps Severe chest pain Black, tarry stools Any bleeding ? exceeding one tablespoon 8. Call your physician if the site where your intravenous was started becomes red, swollen, painful, and warm to touch. 9. Your physician has reviewed your pre-procedure medications. Please continue to take those medications as previously ordered. You will be given specific information/education regarding any changes to your medications before leaving. Activity:: Activity as Tolerated Diet:: As Tolerated Discharge Orders Discharge Orders: Discharge Order (Routine); Ordered 11/18/22 Ordered By: Jose Vail DS: Diagnosis Discharge Diagnosis (1) Microcytic anemia: Status: Acute Asessment and Plan: Follow-up on biopsy results
--- NOTE | 2022-11-18 19:46 | W.PM.ENDDOP ---
Date of service: 11/19/22 Time of Service: 13:54 Endoscopy Report DATE OF PROCEDURE: 11/19/22 PRE-OP DIAGNOSIS: Anemia POST-OP DIAGNOSIS: other (Gastritis, cecal polyp) PROCEDURE: EGD and colonoscopy SURGEON: Jose Vail ANESTHESIA TYPE: General:No Airway ESTIMATED BLOOD LOSS: 15 PATHOLOGY: other (Biopsies of duodenum, gastric antrum and body; cecal polyp) COMPLICATIONS: None DISPOSITION: same day INDICATIONS: Robert is 57 years old. He has never had any screening colonoscopy. He has recently developed miicrocytic anemia. PREP: Miralax/Dulcolax PROCEDURE START TIME: 12:54 PROCEDURE END TIME: 13:30 COLONOSCOPY RETRACTION TIME: 18 FINDINGS: Fuhs gastritis, normal-appearing Z-line and GE junction at 42 cm; cecal polyp PROCEDURE DESCRIPTION: After the initiation of monitored anesthetic care, and with the assistance of a bite block, I advanced a standard gastroscope through the mouth past the hypopharynx and into the esophagus.? Under the direct vision of the scope, I advanced down the esophagus into the stomach.? Once I entered the stomach, I performed a brief inspection, followed by retroflexion towards the gastric cardia.? This appeared normal.? After that, I gently advanced the scope around the incisura angularis and examined the pylorus. There was diffuse gastritis mostly involving punctate areas of the gastric body. There was some radiation emanating from the gastric antrum and pylorus. It did not appear consistent with true gastric antral vascular ectasia. It seemed more consistent with simple gastritis.? Next, I advanced the scope through the pylorus into the duodenum.? The mucosa was pink and healthy appearing.? There were no abnormalities.? I was able to visualize bile draining into the duodenum through the ampulla Vater. I did perform some random biopsies of the duodenum. next, I began retracting the endoscope.? I brought the camera back into the stomach and perform random biopsies of the gastric antrum and gastric body.? I then gently desufflated some of the stomach, and withdrew the endoscope into the distal esophagus. The Z-line was regular and normal-appearing at the GE junction measuring 42 cm from the incisors.. ?Finally, I withdrew the scope along the length of the esophagus taking great care to examine the entirety of the mucosa.? I did not appreciate any abnormalities. We then moved him into the left lateral decubitus position, I began by performing an external anorectal exam.? Perineum and skin were normal, as was the anal verge.? There was no evidence of external hemorrhoids.? Next, I performed a digital rectal exam.? I did not appreciate any abnormal findings.? Next, I advanced a colonoscope into the rectal vault.? I performed retroflexion.? There were grade 1 internal hemorrhoids.? Using insufflation, I then advanced the colonoscope beyond the rectal folds and into the sigmoid colon before advancing towards the cecum.? The quality of the prep was excellent.? The scope was noted to be in the cecum by identification of the ileocecal valve and appendiceal orifice.? Within the cecum was a large polyp. It was sessile. I estimate this to be greater than 1 cm. I was able to remove it with energized snare polypectomy. It required 2 passes of the snare. I then began withdrawing the colonoscope using repeated irrigation as necessary for full evaluation of the colonic mucosa. ?Once the scope was withdrawn to the level of the rectum, great care was taken to examine portions of the rectal folds.? Finally, the scope was withdrawn and the patient was brought to the same-day surgery recovery unit as the anesthetic wore off. ?The findings and instructions were shared with the patient prior to discharge.
[2022-11-19 11:33] VITALS: BP 156/101; PULSE 98; RESP 20; TEMP 37.1; O2SAT 97
[2022-11-19] MEDS: Lactated Ringers 1,000 ML 80 ML IV (11:55)
--- NOTE | 2022-11-19 12:05 | W.ANESPRE ---
General Info Date of Service Date Performed: 11/19/22 Height: 6 ft Weight: 120.6 kg Body Mass Index (BMI): 36.0 Surgical Procedure: Operation Date: 11/19/22 12:20 Proposed Procedure Side Surgeon p Colonoscopy/Gastroscopy w/Biopsies Jose Vail MD Meds Allergies and Home Medications Allergies Allergy/AdvReac Type Severity Reaction Status Date / Time atorvastatin [From Lipitor] Allergy Intermediate rash Verified 11/19/22 11:27 Home Medication Medication Instructions Recorded lisinopril 40 mg tablet 40 mg PO DAILY #90 tabs 09/11/21 metoprolol succinate 25 mg 25 mg PO DAILY #90 tabs 03/23/22 tablet,extended release 24 hr albuterol sulfate 90 mcg/actuation 2 puff inhalation Q4H PRN 03/30/22 aerosol inhaler bronchospasm #8.5 grams hydrochlorothiazide 25 mg tablet 25 mg PO DAILY #90 tabs 04/18/22 nifedipine 30 mg tablet,extended 30 mg PO DAILY #90 tabs 04/18/22 release pravastatin 10 mg tablet 10 mg PO QHS #90 tabs 04/18/22 allopurinol 100 mg tablet 100 mg PO DAILY #90 tabs 06/18/22 loratadine 10 mg tablet (Claritin) 10 mg PO DAILY #90 tabs 06/18/22 aspirin 81 mg tablet,delayed 81 mg PO DAILY #90 tabs 07/12/22 release indomethacin 50 mg capsule 50 mg PO BID #90 caps 07/20/22 buspirone 30 mg tablet 30 mg PO BID #180 tabs 07/26/22 Current Visit Medications: Current Medications Generic Name Dose Route Start Last Admin Trade Name Aamir PRN Reason Stop Dose Admin Hyoscyamine Sulfate 0.125 mg 11/18/22 19:47 Hyoscyamine 0.125 Mg Sl/Oral/Chew SL 12/18/22 19:46 DIRECTED PRN Ringer's Solution 1,000 mls @ 80 mls/hr 11/19/22 06:00 11/19/22 11:55 IV 11/19/22 23:59 80 mls/hr INFUSION JAY Administration IV Miscellaneous Supplies 1 each 11/19/22 06:00 Iv Access IV 11/19/22 23:59 DIRECTED JAY Ondansetron HCl 4 mg 11/18/22 19:47 Ondansetron 4 Mg/2 Ml Vial IVP 12/18/22 19:46 Q4H PRN PRN Nausea / Vomiting Sodium Chloride 0 ml 11/19/22 06:00 Normal Saline Flush 10 Ml Syr IV 11/19/22 23:59 PRN PRN Sodium Chloride 0 ml 11/19/22 06:00 Normal Saline 10 Ml Vial IJ 11/19/22 23:59 DIRECTED PRN Sterile Water 0 ml 11/19/22 06:00 Water,Injection,Sterile 10 Ml Vial IJ 11/19/22 23:59 DIRECTED PRN PFSH Active Problems Active Problems: Problem Status Onset Code HTN (hypertension) 10/21/13 I10 Asthma J45.909 Obesity E66.9 ETOH abuse F10.10 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 Gout M10.9 Hyperlipemia E78.5 Scapholunate ligament injury with no instability S69.90XA History of vitrectomy Z98.890 History of detached retina repair Z98.890, Z86.69 Varicose vein of leg I83.90 Daily consumption of alcohol Z78.9 Chronic iron deficiency anemia D50.9 Microcytic anemia D50.9 Medical History Medical History Essential hypertension History of claustrophobia Surgical History Surgical History (Updated 11/19/22 @ 11:32 by Abi Small) Hx of detached retina repair Hx of tonsillectomy Nuclear sclerotic cataract of left eye Surgical Repair of umbilical hernia (05/26/15) Tobacco Smoking/Tobacco Use Status: Never Passive smoking exposure: Yes Counseling given: counseling >3 minutes Alcohol Alcohol Intake: current Alcohol intake frequency: 3 or more drinks per day Alcohol type: hard liquor Substance Use Substance use: Never Substance use type: does not use Details: alcohol: t-2. one drink Vital Signs and Lab Results Vital Signs Most Recent Vital Signs in EMR: Most Recent Vital Signs Temp Pulse Resp BP Pulse Ox 37.1 C 98 H 20 156/101 H 97 11/19/22 11:33 11/19/22 11:33 11/19/22 11:33 11/19/22 11:33 11/19/22 11:33 Lab Results Blood Type / Crossmatch: No Data to Display Complete Blood Count: White Blood Count 12.01 10^3/uL (4.4-10.8) H 10/23/22 16:12 Red Blood Count 4.37 10^6/uL (4.36-5.78) 10/23/22 16:12 Hemoglobin 13.4 g/dL (13.5-17.5) L 10/23/22 16:12 Hematocrit 41.1 % (40.0-50.0) 10/23/22 16:12 Platelet Count 245 10^3/uL (130-400) 10/23/22 16:12 Complete Metabolic Panel: No Data to Display Liver Function Panel: No Data to Display Coagulation Panel: No Data to Display Cardiac Panel: No Data to Display Arterial Blood Gas: No Data to Display Venous Blood Gas: No Data to Display Pancreas Panel: No Data to Display Thyroid Panel: No Data to Display Infectious Disease: No Data to Display Blood Cultures: No Data to Display Toxicology Panel: No Data to Display Imaging and Studies Imaging and Studies Study information below may be from another EMR and interpreted by another provider. Please see original notes in EMR for more complete details. Echocardiogram Summary: Left Ventricle : The left ventricle is normal size. There is normal left ventricular wall thickness. Diastolic function is indeterminant The left ventricular systolic function is normal. The left ventricular ejection fraction is within the normal range. There is normal LV segmental wall motion. LVEF is 60-65%. Right Ventricle : The right ventricle is normal size. The right ventricular systolic function is normal. Atria : The left atrium size is normal. The right atrium size is normal. Aortic Valve : The aortic valve is normal in structure. No aortic regurgitation is present. There is no aortic valvular stenosis. Mitral Valve : The mitral valve is normal in structure. There is no mitral valve regurgitation noted. Tricuspid Valve : The tricuspid valve is normal in structure. Trace to mild tricuspid regurgitation. Estimated RVSP is within normal limits Great Vessels : mildly dilated aortic root (4.0cm) Pericardium : There is no pericardial effusion. Great Vessels : normal in size. collapses more than 50%. lots of IVC flow Summary: This study is not ideal for evaluating CVA as the study was not done with bubbles. However, there is no clear cardiac source of emboli. 03/03/19 Anesthesia Assessment and Plan Anesthesia History Personal History: No History of Anesthesia Complications Family History: No Family History of Anesthesia Complications Exercise Tolerance Exercise Tolerance: Metabolic Equivalents<4 Pertinent Negatives Pertinent Negatives: No Symptoms of GERD Cardiac & Pulmonary Exam Cardiac Exam: Normal S1/S2 Heart Sounds Pulmonary Exam: Clear Bilateral Breath Sounds Implantable Cardiac Device Does patient have a Pacemaker or an ICD?: No Airway Exam Known Difficult Airway: No Mallampati Class: 3 Mouth Opening: Normal (> 3cm) Thyromental Distance: Greater than 3 cm Neck Range of Motion: Full ROM Neck Circumference: Normal Teeth Condition: Normal Dentition ASA Classification ASA Score: ASA 2 Emergency Case?: No NPO Status NPO Status: NPO Clears >2 hours, Solids >8 hours Anesthesia Plan Resuscitation Status: Full Code Anesthesia Technique: General Anesthesia Airway Planned: Natural Airway Monitors Used: Standard Monitors
[2022-11-19 12:24] VITALS: BMI 36.0
--- NOTE | 2022-11-19 12:57 | STOM_PTH ---
PATIENT: Robert Bashir LOC: [facility] U#:[id number] AGE/SX: 57/M ROOM: RE11/19/[address]: Jose Vail MD : [id number] BED: DIS: 11/19/2022 SPEC #: [id number] RECD: 11/19/22 17:54 STATUS: [facility] #: [id number] TRAVIS: 11/19/22 12:[address]: Jose Vail DEPT: Surgical Specimen RECD BY: Nydia Minor ENTERED: 11/19/22 17:55 SP TYPE: STOMACH OTHR DR: Ector Mora, SAFETY DIRECTOR Tissues: 1 - BIOPSY BOWEL 2 - STOMACH BIOPSY 3 - STOMACH BIOPSY 4 - BIOPSY BOWEL Procedures: GROSS AND MICRO LEVEL 4 Comments: [id number]
[2022-11-19 13:40] VITALS: BP 91/57; PULSE 84; RESP 16; TEMP 36.7; O2SAT 92
[2022-11-19 14:12] VITALS: BP 108/76; PULSE 82; RESP 18; TEMP 36.5; O2SAT 95
[2022-11-19 14:25] VITALS: BP 111/77; PULSE 80; RESP 18; O2SAT 94
--- NOTE | 2022-11-19 15:18 | W.ANESPOSTOP ---
Postoperative Evaluation Date, Time and Location Date Performed: 11/19/22 Time Performed: 15:18 Patient Location: Day Surgery Unit Vital Signs Most Recent Imported Vital Signs: Most Recent Vital Signs Temp Pulse Resp BP Pulse Ox 36.5 C 80 18 111/77 94 11/19/22 14:12 11/19/22 14:25 11/19/22 14:25 11/19/22 14:25 11/19/22 14:25 Pain Score Most Recent Pain Score: Most Recent Pain Score Pain Level 0 11/19/22 14:12 Assessment Mental Status: Awake (Alert & Oriented to Patient Baseline) Airway and Respiratory Function: Patent airway with normal (patient baseline) respiratory exam Cardiovascular Function: Hemodynamically Stable Hydration Status: Adequately Hydrated Nausea & Vomiting: No Nausea or Vomiting Pain: Pt. Denies Any Pain Peripheral Nerve Block: Patient did not receive a nerve block Postoperative Comments:: Discussed case and answered patients questions. Patient clear for discharge.
== END 2022-11-19 14:45 | disposition home or self-care (01) ==
PROVIDERS: PCP Nurse Practitioner Family; Visit Provider Surgery
PROC: (CPT 45385; principal; 2022-11-19 12:15)
DX: D50.9 Iron deficiency anemia, unspecified (principal); D37.4 Neoplasm of uncertain behavior of colon; K29.70 Gastritis, unspecified, without bleeding
CPT/HCPCS: 45385; 43239; 88305

== ENCOUNTER 2022-12-24 00:56 | Outpatient (CLI) | payer BC, SELFPAY ==
--- NOTE | 2022-12-24 08:00 | DI.CT_ITS ---
Exam(s) CT ABDOMEN WO/W EXAM: CT ABDOMEN WO/W CLINICAL HISTORY: Left kidney mass seen on US, KIDNEY MASS, N28.89. TECHNIQUE: Imaging Protocol: Axial computed tomography images with coronal and sagittal reformatted images were created and reviewed CONTRAST MATERIAL: Intravenous: Omnipaque-350 100cc Oral: None COMPARISON: Ultrasound of 11/23/2022. FINDINGS: VISUALIZED LUNG BASES: No nodules nor pleural effusions evident. ABDOMEN: There is no ascites. LIVER: Hepatic steatosis. No discrete focal hepatic lesions. No dilated intrahepatic ducts. GALLBLADDER/BILIARY: No obvious gallbladder pathology. CBD is not dilated. PANCREAS: There is a cystic lesion in the superior aspect of the pancreatic body measuring approximat arun 1.3 by 0.7 by 1.6 cm. Requires further workup to rule out neoplasm. Pancreatic duct is not dila winston. SPLEEN: Spleen is not enlarged. No obvious intrasplenic lesions. Splenic and portal veins are paten t. ADRENALS: There are no significant adrenal masses. KIDNEYS:There are multiple cysts in both kidneys both cortical, parapelvic, and exophytic. The large st cyst is exophytic off the posterior aspect of the right kidney and measures 6.5 cm wide by 3.8 cm AP by 7.3 cm cephalocaudal. There are no solid renal masses. In there no consistent filling defects in the infundibulum and renal pelves. There is a solitary nondilated ureter on each side. The urin anastasia bladder is not enlarged. It is thickened wall and hyperdense urine. No diverticuli. ABDOMINAL AORTA: Abdominal aorta is not enlarged. LYMPH NODES:There is no retroperitoneal nor paraaortic adenopathy. ABDOMINAL WALL: Anterior abdominal wall midline umbilical fat containing hernia. No bowel loops ther ein. No bowel obstruction. There is a containing left inguinal hernia. Does not contain bowel loop s. Density in the region of the right inguinal ring is probably related to prior right inguinal fredrick ia surgery GI: There is no evidence of bowel obstruction, free air, nor abscess. PELVIS: GI: No evidence of appendicitis.No evidence of sigmoid diverticulitis. LYMPH NODES: There is no intrapelvic nor inguinal adenopathy. REPRODUCTIVE: Prostate minimally prominent. URINARY BLADDER: As above. OSSEOUS: No fractures and no significant osseous lesions. IMPRESSION: 1. Multiple cysts in both kidneys ranging up to 7 cm size. The cysts are cortical and exophytic as w ell as parapelvic. There is no solid lesion identified in the kidneys. In the lateral cortex of the left kidney there are few cysts adjacent to each other but without true solid mass at this level. T here is no hydronephrosis. Increased urine density in the urinary bladder and thickened bladder wall . 2. There is a 13 x 16 by 7 mm nodule in the superior aspect of the pancreatic body. Probable cystic neoplasm. Recommend MRI with IV contrast/pancreatic protocol sequences. 3. Hepatic steatosis. No discrete focal hepatic lesions. No dilated intrahepatic ducts. 4. Anterior abdominal wall fat containing umbilical hernia. Left inguinal hernia can't dating fat no bowel loops. Evidence of previous right inguinal hernia surgery. No evidence of bowel obstruction. Other findings as above. RADIATION DOSE DELIVERED: 4,024.31mGy.cm Total DLP DATA REPOSITORY: All CT scans at this facility are submitted to the National Radiology Data Registry (NRDR) Dose Index Registry (DIR) with the [employer] (ACR). RADIATION OPTIMIZATION: All CT scans at this facility use at least one of these dose optimization te chniques: automated exposure control; mA and/or kV adjustment per patient size (includes targeted exa ms where dose is matched to clinical indication); or iterative reconstruction.
[2022-12-24 09:38] LABS: CREATININE 1.2 mg/dL (0.70-1.30); Estimated GFR 69.66 (mL/min/1.73m2)
[2022-12-24] MEDS: Normal Saline - Diluent 50 ML VIAL IJ (09:56)
[2022-12-24] MEDS: Omnipaque 350 MG/ML 500 ML BTL-Imaging package IJ (09:58)
== END 2022-12-24 01:16 ==
LOC: DI 00:56
PROVIDERS: PCP Nurse Practitioner Family; Visit Provider Surgery
DX: N28.89 Other specified disorders of kidney and ureter (principal); K76.0 Fatty (change of) liver, not elsewhere classified; K86.89 Other specified diseases of pancreas
CPT/HCPCS: 74170; 82565

== ENCOUNTER → 2023-01-18 00:33 | Outpatient (CLI) | payer BC, SELFPAY ==
--- NOTE | 2023-01-18 06:00 | DI.MRI_ITS ---
Exam(s) MR ABDOMEN WO/W EXAM: MR ABDOMEN WO/W CLINICAL HISTORY: F/U MASS IN PANCREAS ON CT,KIDNEY MASS,,K86.89,N28.89 TECHNIQUE: Multiplanar multisequence MRI of the Abdomen was performed. CONTRAST MATERIAL: IV Contrast: 20 mL of Dotarem contrast administered. COMPARISON: CT CT ABDOMEN WO/W from 12/24/2022 FINDINGS: Liver: Unremarkable. Pancreas: There is a 2.2 x 1.0 cm cyst at the superior aspect of the body of the pancreas. Following contrast administration there is no enhancement of the cyst. No solid parenchymal or enhancing panc reatic mass is seen. Gallbladder and Bile Ducts: No evidence of cholelithiasis. No biliary ductal dilatation. Adrenals: Unremarkable. Kidneys: There are bilateral simple renal cysts present. The cysts are homogeneously hyperintense on the T2 weighted images. The largest is in the right kidney and measures 4.0 x 6.8 cm. There are se en a few tiny (less than 4 mm) round cortical hyperintense foci in each kidney. They are too small f or further characterization. Spleen: Unremarkable. Bowel: There are few scattered diverticula but no evidence of acute diverticulitis. Aorta: Unremarkable. Soft Tissues: Unremarkable. Bone: Unremarkable. Lymph Nodes: Unremarkable. IMPRESSION: 1. 2.2 x 1.0 cm simple cyst in the superior aspect of the pancreatic body. Follow-up MRI examination s every 6 months x4 is recommended. Then need yearly follow-up examination is x2. (Tony santa, 201 7). 2. Simple bilateral renal cysts. No follow-up is recommended. DATA REPOSITORY:
[2023-01-18] MEDS: Gadoterate meglumine 20 ML VIAL IVP (08:05)
[2023-01-18] MEDS: Normal Saline - Diluent 50 ML VIAL IJ (08:06)
== END ==
PROVIDERS: PCP Nurse Practitioner Family; Visit Provider Surgery
DX: K86.89 Other specified diseases of pancreas (principal); N28.89 Other specified disorders of kidney and ureter
CPT/HCPCS: 74183

== ENCOUNTER 2023-02-04 21:30 | Outpatient (REF) | payer BC, SELFPAY ==
[2023-02-04 22:06] LABS: Abs Immature Grans 0.03 10^3/uL (0.0-0.06); Absolute Basophil Count 0.01 10^3/uL (0.0-0.2); Absolute Eosinophil Count 0.13 10^3/uL (0.0-0.7); Absolute Lymphocyte Count 1.77 10^3/uL (1.2-3.4); Absolute Monocyte Count 0.74 10^3/uL (0.1-0.8); Absolute Neutrophil Count 7.12 10^3/uL (1.2-6.7); Basophils % 0.1; Eosinophils % 1.3; HCT 43.9 % (40.0-50.0); HGB 14.7 g/dL (13.5-17.5); Immature Grans % 0.3; Lymphocytes % 18.1; MCH 30.5 pg (27.0-33.0); MCHC 33.5 % (32.0-36.0); MCV 91 fL (80-95); Monocytes % 7.6; Neutrophils % 72.6; Platelet Count 210 10^3/uL (130-400); RBC 4.82 10^6/uL (4.36-5.78); RDW 11.9 % (11.8-14.1); RDW-SD 39.5 fL
[2023-02-04 22:29] LABS: ALT 35 U/L (16-63); AST 18 U/L (15-37); Albumin 4.3 g/dL (3.4-5.0); Alkaline Phosphatase 91 U/L (46-116); Anion Gap 9.8 mmol/L (3-11); BUN 20 mg/dL (7-18); Bilirubin, Total 0.5 mg/dL (0.2-1.0); CO2 26.2 mmol/L (21.0-32.0); CREATININE 1.1 mg/dL (0.70-1.30); Calcium 9.5 mg/dL (8.5-10.1); Chloride 103 mmol/L (98-107); Estimated GFR 77.33 (mL/min/1.73m2); Glucose 229 mg/dL (74-106); Potassium 3.6 mmol/L (3.5-5.1); Sodium 139 mmol/L (136-145); TSH (W/Ref FT4) 1.87 uIU/mL (0.36-3.74); Total Protein 7.9 g/dL (6.4-8.2)
[2023-02-05 08:59] LABS: Lab Add On Test DONE
[2023-02-05 09:36] LABS: Hemoglobin A1C 6.4 % (<5.7)
== END 2023-02-04 21:31 | disposition home or self-care (01) ==
LOC: NCHCN 21:30
PROVIDERS: PCP Nurse Practitioner Family; Visit Provider Nurse Practitioner Family
DX: R53.83 Other fatigue (principal); D50.9 Iron deficiency anemia, unspecified; R73.09 Other abnormal glucose; K76.0 Fatty (change of) liver, not elsewhere classified
CPT/HCPCS: 80053; 83036; 84443; 85025

== ENCOUNTER 2023-04-11 19:17 | Inpatient (IN) | payer BC, SELFPAY ==
[2023-04-11] VITALS (46 sets, daily range): BP systolic 126–204; BP diastolic 67–98; PULSE 87–116; RESP 13–26; TEMP 37.4; O2SAT 90–94
--- NOTE | 2023-04-11 19:15 | RT.EKG_ITS ---
APPROVED REPORT Exam: Resting ECG Reason for Exam: DIFFICULTY BREATHING Patient Location: E HR:107 bpm ECG Measurements Heart Rate 107 AXIS OH 155 P -7 QRSd 94 QRS 79 QT 345 T 0 QTc 461 Conclusion Sinus tachycardia...rate> 99
--- NOTE | 2023-04-11 19:15 | DI.RAD_ITS ---
Exam(s) XR PORTABLE CHEST AP EXAM: XR PORTABLE CHEST AP CLINICAL HISTORY: sob. TECHNIQUE: 2D digital imaging was performed. COMPARISON: No exams were available for comparison FINDINGS: Single AP portable view. Heart size is upper normal. The mediastinum is not widened. Less than optimal inspiratory effort. No obvious infiltrates nor pleural effusions. No pulmonary ed krishna. IMPRESSION: No acute pulmonary findings on this single AP portable view of the chest. Less than optimal lung volumes DATA REPOSITORY: RADIATION DOSE DELIVERED:
--- NOTE | 2023-04-11 19:23 | ED.GENADUL_ITS ---
Discharge Plan Disposition Patient Disposition: Admit to [facility] Condition: Stable Discharge Details Clinical Impression: Pneumonia, Asthma Primary Care Provider: Ector Mora ED Provider: Orlando Baez Tovey Meds and New Rx's Prescriptions: No Action famotidine [Pepcid] 40 mg tablet 40 mg PO DAILY Qty: 90 4RF hydrocortisone 2.5 % cream 1 applic topical QID PRN (Reason: skin irritation) Qty: 30 3RF Rx Instructions: for legs and foot rash. lorazepam [Ativan] 1 mg tablet 1 mg PO .as directed PRN (Reason: anxiety) Qty: 1 0RF Rx Instructions: 60 mins prior to MRI. Do not drive for 8hrs after taking this medication lorazepam [Ativan] 1 mg tablet 1 mg PO DAILY PRN (Reason: 60 mins prior to MRI ) Qty: 1 0RF Rx Instructions: do not drive after taking this medication prednisone 10 mg tablet 10 mg PO DIRECTED Qty: 30 0RF Rx Instructions: 40 mg po qd x 3 days, then 30 mg po qd x 3 days, then 20 mg po qd x 3 days, then 10 mg po qd x 3 days, then stop allopurinol 100 mg tablet 100 mg PO DAILY PRN metoprolol succinate 25 mg tablet extended release 24 hr 25 mg PO DAILY Qty: 90 3RF albuterol sulfate 90 mcg/actuation HFA aerosol inhaler 2 puff INHALATION Q4H PRN (Reason: bronchospasm) Qty: 8.5 5RF hydrochlorothiazide 25 mg tablet 25 mg PO DAILY Qty: 90 3RF nifedipine 30 mg tablet extended release 30 mg PO DAILY Qty: 90 3RF pravastatin 10 mg tablet 10 mg PO QHS Qty: 90 3RF loratadine [Claritin] 10 mg tablet 10 mg PO DAILY Qty: 90 3RF aspirin 81 mg tablet,delayed release (DR/EC) 81 mg PO DAILY Qty: 90 3RF indomethacin 50 mg capsule 50 mg PO BID Qty: 90 0RF Rx Instructions: administer with food or milk buspirone 30 mg tablet 30 mg PO BID Qty: 180 3RF Rx Instructions: One half tab twice daily for 2 weeks then 1 tab twice daily lisinopril 40 mg tablet 40 mg PO DAILY Qty: 90 4RF HPI General Date/Time Provider Initiated Documentation: 04/11/23 19:20 . HPI Narrative: 57 year old male presents to the ED via EMS with c/o sob tonight. He has hx of asthma, says he was outside when sx's started. On EMS arrival noted he was very wheezy. Given duoneb and cleared up right away, but shortly afterwards started to wheeze again, so given another neb, and then steroids, as well. On arrival to the ED pt feeling better, but still not back to normal. No cp, no fever/chills or cough. Related Data Home Medications Medication Instructions Recorded Confirmed metoprolol succinate 25 mg 25 mg PO DAILY #90 tabs 03/23/22 04/11/23 tablet,extended release 24 hr albuterol sulfate 90 mcg/actuation 2 puff inhalation Q4H PRN 03/30/22 04/11/23 aerosol inhaler bronchospasm #8.5 grams hydrochlorothiazide 25 mg tablet 25 mg PO DAILY #90 tabs 04/18/22 04/11/23 nifedipine 30 mg tablet,extended 30 mg PO DAILY #90 tabs 04/18/22 02/04/23 release pravastatin 10 mg tablet 10 mg PO QHS #90 tabs 04/18/22 02/04/23 loratadine 10 mg tablet (Claritin) 10 mg PO DAILY #90 tabs 06/18/22 04/11/23 aspirin 81 mg tablet,delayed 81 mg PO DAILY #90 tabs 07/12/22 04/11/23 release indomethacin 50 mg capsule 50 mg PO BID #90 caps 07/20/22 04/11/23 buspirone 30 mg tablet 30 mg PO BID #180 tabs 07/26/22 04/11/23 lisinopril 40 mg tablet 40 mg PO DAILY #90 tabs 11/21/22 04/11/23 famotidine 40 mg tablet (Pepcid) 40 mg PO DAILY #90 tabs 12/27/22 04/11/23 hydrocortisone 2.5 % topical cream 1 applic topical QID PRN skin 12/27/22 04/11/23 irritation #30 grams lorazepam 1 mg tablet (Ativan) 1 mg PO .as directed PRN anxiety 12/27/22 02/04/23 #1 tab lorazepam 1 mg tablet (Ativan) 1 mg PO DAILY PRN 60 mins prior to 01/01/23 04/11/23 MRI #1 tab allopurinol 100 mg tablet 100 mg PO DAILY PRN 01/21/23 04/11/23 prednisone 10 mg tablet 10 mg PO DIRECTED #30 tabs 02/04/23 04/11/23 Previous Rx's Medication Instructions Recorded metoprolol succinate 25 mg 25 mg PO DAILY #90 tabs 03/23/22 tablet,extended release 24 hr albuterol sulfate 90 mcg/actuation 2 puff inhalation Q4H PRN 03/30/22 aerosol inhaler bronchospasm #8.5 grams hydrochlorothiazide 25 mg tablet 25 mg PO DAILY #90 tabs 04/18/22 nifedipine 30 mg tablet,extended 30 mg PO DAILY #90 tabs 04/18/22 release pravastatin 10 mg tablet 10 mg PO QHS #90 tabs 04/18/22 loratadine 10 mg tablet (Claritin) 10 mg PO DAILY #90 tabs 06/18/22 aspirin 81 mg tablet,delayed 81 mg PO DAILY #90 tabs 07/12/22 release indomethacin 50 mg capsule 50 mg PO BID #90 caps 07/20/22 buspirone 30 mg tablet 30 mg PO BID #180 tabs 07/26/22 lisinopril 40 mg tablet 40 mg PO DAILY #90 tabs 11/21/22 famotidine 40 mg tablet (Pepcid) 40 mg PO DAILY #90 tabs 12/27/22 hydrocortisone 2.5 % topical cream 1 applic topical QID PRN skin 12/27/22 irritation #30 grams lorazepam 1 mg tablet (Ativan) 1 mg PO .as directed PRN anxiety 12/27/22 #1 tab lorazepam 1 mg tablet (Ativan) 1 mg PO DAILY PRN 60 mins prior to 01/01/23 MRI #1 tab prednisone 10 mg tablet 10 mg PO DIRECTED #30 tabs 02/04/23 Allergies Allergy/AdvReac Type Severity Reaction Status Date / Time atorvastatin [From Lipitor] Allergy Intermediate rash Verified 04/11/23 19:28 General SOFIA: 4 Review of Systems Narrative: CONST: no fever or chills HEENT: no sore throat SKIN: no rashes PULM: +sob CARD: no cp, no palpitations ABD: no abd pain EXTR: no swelling NEURO: No focal weakness PFSH All Active Problems (Updated 04/11/23 @ 22:25 by Orlando Baez MD) Asthma (Chronic) Pneumonia (Acute) Hyperglycemia (Acute) Fatigue (Acute) Benign cystic neoplasm of exocrine pancreas (Acute) Renal cyst (Acute) Dermatitis, contact (Acute) Yeast dermatitis (Acute) NAFLD (nonalcoholic fatty liver disease) (Acute) Mass of pancreas (Acute) Cysts in the head of the pancreas. 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 4+ Obesity (Chronic) Asthma (Chronic) Occasional problem HTN (hypertension) (Chronic 10/21/13) Medical History Essential hypertension History of claustrophobia Surgical History History of colonoscopy (~11/19/22) History of esophagogastroduodenoscopy (EGD) (~11/19/22) Hx of detached retina repair Hx of tonsillectomy Nuclear sclerotic cataract of left eye Surgical Repair of umbilical hernia (05/26/15) Family History Mother , age 59 Bladder cancer Asthma Hypertension Maternal Uncle Bladder cancer Father , age 86 CML (chronic myelocytic leukemia) Stroke Brother Asthma Brother Asthma Maternal Grandfather No problems noted. Paternal Grandfather , age 72 Heart disease Maternal Grandmother No problems noted. Paternal Grandmother , age 82 Cancer blood Social History Smoking/Tobacco Use Status: Never Counseling given: counseling >3 minutes Smoking risk assessment performed?: Yes Alcohol Intake: current Alcohol Intake frequency: 3 or more drinks per day Alcohol type: hard liquor Drug use: Never Substance use type: does not use Details: alcohol: t-2. 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 [employer] Pets and animals: Yes Pets and animals: cat(s), dog(s) and fish Sexually active: No Do you think of yourself as: straight/heterosexual Current gender identity: male What is your relationship status?: never How often do you talk on the phone with friends or family?: three or more times per week How often do you get together with friends or relatives?: twice per week How often do you attend methodist or holiness services?: decline to answer Do you belong to any clubs or organized social groups?: yes Panel score (0-1 are the most socially isolated patients): 2 What type of physical activity do you participate in: none Frequency: does not exercise Kyung/Restorationist: None Special kyung needs: No Seatbelt use: always Drive intox or ride w/intox electric truck driver: No Do you feel safe at home: Yes Do you feel safe in your relationship?: Yes Exam Narrative Exam Narrative: Const: well appearing, no acute distress HEENT: normocephalic, atraumatic; MMM Lungs: diminished air movement, no wheezing Heart: RRR Abd: soft, NT/ND Ext: well perfused Neuro: non-focal Skin: no rashes Course Reevaluation(s) Initial Evaluation: 2022 - pt feeling better after neb, still feels a little tight, and still diminished on repeat exam. Reevaluation: 2117 - Pt says feeling sob at time, but ok at other times. Notably requiring supplemental O2, just bumped up to 5L and sats 92-93%. CTA chest ordered. Reevaluation #2: CTA neg for PE, but looks like some pna. Pt says that he has been coughing a lot today, more then normal. Added blood cx's, lactic, covid/flu/ and abx. He does have hx of alcohol use, but says that he quit. lactic 3.2. IVF added, 3500 cc total, (113x30+3390 mL) Consultations Consultation #1: spoke to the hospitalist, will accept on service for further eval and tx. Critical Care Time Critical Care Time Critical Care Time: Yes Total Critical Care Time: 35
[2023-04-11] MEDS: Albuterol/Ipratropium 3 ML UPD VIAL UPD (19:35)
[2023-04-11 19:39] LABS: BE (Venous) 1 mmol/L (-2-3); HCO3 (Venous) 26 mmol/L (23-28); O2 Sat (Venous) 70 %; TCO2 (Venous) 23 mmol/L (24-29); pCO2 (Venous) 45 mmHg (41-51); pH (Venous) 7.37 (7.31-7.41); pO2 (Venous) 39 mmHg
[2023-04-11 19:40] LABS: HCT 42.3 % (40.0-50.0); HGB 14.2 g/dL (13.5-17.5); MCH 30.5 pg (27.0-33.0); MCHC 33.6 % (32.0-36.0); MCV 91 fL (80-95); MPV 10.3 fL (8.0-11.0); Platelet Count 267 10^3/uL (130-400); RBC 4.66 10^6/uL (4.36-5.78); RDW 11.9 % (11.8-14.1); WBC 21.82 10^3/uL (4.4-10.8)
[2023-04-11 20:00] LABS: Absolute Lymphocyte Count 1.96 10^3/uL (1.2-3.4); Absolute Neutrophil Count 17.46 10^3/uL (1.2-6.7); Atypical Lymphocytes % 3; Diff Comment Manual Differential; RBC Morphology Normal
[2023-04-11 20:03] LABS: ALT 30 U/L (16-63); AST 17 U/L (15-37); Albumin 4.5 g/dL (3.4-5.0); Alkaline Phosphatase 92 U/L (46-116); Anion Gap 11.5 mmol/L (3-11); BUN 33 mg/dL (7-18); Bilirubin, Total 0.7 mg/dL (0.2-1.0); CO2 25.5 mmol/L (21.0-32.0); CREATININE 1.5 mg/dL (0.70-1.30); Calcium 9.6 mg/dL (8.5-10.1); Chloride 98 mmol/L (98-107); Glucose 193 mg/dL (74-106); NT-proBNP 178 pg/mL (<300); Potassium 3.3 mmol/L (3.5-5.1); Sodium 135 mmol/L (136-145); Total Protein 8.6 g/dL (6.4-8.2); Troponin I < 50 ng/L (<or=60)
--- NOTE | 2023-04-11 20:24 | DI.VRAD_ITS ---
PROCEDURE INFORMATION: Exam: XR Chest Exam date and time: 04/11/2023 19:58 Age: 57 years old Clinical indication: Shortness of breath TECHNIQUE: Imaging protocol: Radiologic exam of the chest. Views: 1 view. COMPARISON: CR XR CHEST 2V PA LATERAL 03/01/2019 18:58 FINDINGS: Lungs: Low lung volumes without gross airspace disease on portable imaging. Pleural spaces: No pleural effusion. No pneumothorax. Heart/Mediastinum: No cardiomegaly. Bones/joints: No acute fracture. IMPRESSION: Low lung volumes without gross airspace disease on portable imaging. Dictated and Authenticated by: Brenda Mtz MD. Ordering:REYMUNDO Perry MD
--- NOTE | 2023-04-11 20:45 | DI.CT_ITS ---
Exam(s) CT CHEST PE CTA EXAM: CT CHEST PE CTA CLINICAL HISTORY: hypoxic. TECHNIQUE: Imaging Protocol: CT angiography of the chest was performed using pulmonary embolus belen col. Multi planar reconstructions were performed. CONTRAST MATERIAL: Intravenous: Omnipaque 350 Contrast volume: 100 cc COMPARISON: CT CT ABDOMEN WO/W from 12/24/2022 FINDINGS: CHEST: PULMONARY ARTERIES: There are no intraluminal filling defects to suggest acute pulmonary emboli. LUNGS: There are no confluent infiltrates nor evidence of pulmonary infarction.. No concerning pulmo nary nodules. There are no pleural effusions. MEDIASTINUM: There is no hilar nor mediastinal adenopathy. Visualized thyroid unremarkable. CARDIAC: Heart size is upper normal. There is no pericardial effusion.Caliber of the thoracic aorta is within normal limits. No evidence of aortic dissection. There is no significant shift of the inte rventricular septum. PARTIALLY VISUALIZED UPPERMOST ABDOMEN: Multiple benign cysts noted in both kidneys. No adrenal mass es. Spleen size normal. No ascites evident. OSSEOUS: No significant osseous lesions.. IMPRESSION: 1. No evidence of acute pulmonary emboli. No evidence of pulmonary infarction.No pleural effusions. No confluent infiltrates. No intrathoracic adenopathy. 2. No significant findings. RADIATION DOSE DELIVERED: Total DLP DATA REPOSITORY: All CT scans at this facility are submitted to the National Radiology Data Registry (NRDR) Dose Index Registry (DIR) with the [employer] (ACR). RADIATION OPTIMIZATION: All CT scans at this facility use at least one of these dose optimization te chniques: automated exposure control; mA and/or kV adjustment per patient size (includes targeted exa ms where dose is matched to clinical indication); or iterative reconstruction.
[2023-04-11] MEDS: Normal Saline Flush 10 ML SYR IVP (21:16)
[2023-04-11] MEDS: Normal Saline - Diluent 50 ML VIAL IJ (21:19)
[2023-04-11] MEDS: Omnipaque 350 MG/ML 100 ML BTL IJ (21:20)
[2023-04-11] MEDS: Normal Saline 1,000 ML 1000 ML IV (21:44)
--- NOTE | 2023-04-11 21:45 | DI.VRAD_ITS ---
PROCEDURE INFORMATION: Exam: CTA Chest With Contrast Exam date and time: 04/11/2023 21:22 Age: 57 years old Clinical indication: Other: Hypoxic TECHNIQUE: Imaging protocol: Computed tomographic angiography of the chest with contrast. Exam focused on the arteries. 3D rendering (Not supervised by radiologist): MIP and/or 3D reconstructed images were created by the technologist. Contrast material: OMNI 350; Contrast volume: 100 ml; Contrast route: INTRAVENOUS (IV); COMPARISON: CT CHEST PE CTA 02/17/2019 08:08 FINDINGS: Pulmonary arteries: No pulmonary emboli. Slight motion artifact distally. Aorta: Tortuous aorta. No aortic aneurysm. No aortic dissection. Lungs: The lungs appear hyperinflated. Minimal ground-glass opacities in right middle lobe and lingula. No airspace consolidation. Pleural spaces: No pneumothorax. No pleural effusion. Heart: No cardiomegaly. No pericardial effusion. Lymph nodes: No enlarged lymph nodes. Kidneys and ureters: Benign-appearing renal cysts and probable cysts. Bones/joints: Exaggerated thoracic kyphosis. Degenerative changes in the spine. No acute fracture or subluxation. Soft tissues: No suspicious lesions. IMPRESSION: 1. No pulmonary emboli are seen. 2. Minimal right middle lobe and lingular pneumonitis or atypical infection most likely. Dictated and Authenticated by: Brenda Mtz MD. Ordering:REYMUNOD Perry MD
[2023-04-11] MEDS: PIPERACILLIN/TAZO 4.5 GM in Normal Saline 100 ML IVPB (22:15)
[2023-04-11 22:21] LABS: Source Nasal/Nares
[2023-04-11 22:41] LABS: Lactate 3.2 mmol/L (0.6-1.4)
[2023-04-11 22:53] LABS: COVID-19 PCR Negative (Negative)
[2023-04-11 23:02] LABS: Troponin I < 50 ng/L (<or=60)
--- NOTE | 2023-04-11 23:22 | W.PM.HP.N ---
Date of service: 04/11/23 Time of Service: 23:22 Assessment and Plan Assessment and plan (1) Pneumonia: Start date: 04/11/23 Status: Acute Assessment and plan: This is a 57-year-old gentleman presenting with acute onset of respiratory symptoms consistent with exacerbation of asthma but also atypical right middle lobe and lingular infection. He was started on IV Rocephin with Zithromax and this will be continued. His asthma exacerbation will also be treated with more frequent nebulizer treatments and IV Solu-Medrol. He does have a history of hyperglycemia this may be exacerbated with IV Solu-Medrol. Glucometer measurements and insulin coverage will be given during his hospital stay. He also had early SIRS with IV hydration for mild dehydration and lactic acidosis to be given overnight. If patient is doing better he may be able to maintain hydration and hopefully he will not progress to sepsis. Procalcitonin will be checked. Patient is a full code. Qualifiers: Laterality: unspecified laterality Lung location: unspecified part of lung Pneumonia type: due to unspecified organism Qualified Code(s): J18.9 - Pneumonia, unspecified organism (2) SIRS (systemic inflammatory response syndrome): Start date: 04/11/23 Status: Acute Assessment and plan: Patient presented with tachycardia and markedly elevated WBC as well as lactic acidosis. He appears to be in early SIRS and will be treated aggressively with IV hydration to clear his lactic acidosis and hopefully correct his slightly elevated creatinine from his baseline. He appears slightly dehydrated. Check procalcitonin and follow-up lactate in the morning with IV hydration overnight. Watch for fluid overload. (3) Asthma exacerbation: Start date: 04/11/23 Status: Acute Assessment and plan: Patient has chronic asthma and uses his rescue inhaler almost daily. Patient will be treated with aggressive nebulizer treatments during the hospital stay with IV Solu-Medrol and oxygen supplementation as needed. Long-term he should be on controller inhaler therapy. Weight loss would be helpful as well. Qualifiers: Asthma persistence: persistent Asthma severity: moderate Qualified Code(s): J45.41 - Moderate persistent asthma with (acute) exacerbation (4) Hypokalemia: Start date: 04/11/23 Status: Acute Assessment and plan: Patient will be treated with oral potassium and continue this daily which may be needed with his chronic therapy using hydrochlorothiazide. He is on lisinopril as well and potassium supplement needs to be followed closely on this combination of medications. He also takes indomethacin daily which may cause worsening renal function. (5) Hyperglycemia: Status: Chronic Assessment and plan: The problem may be exacerbated with IV Solu-Medrol treatment for his exacerbation of asthma. 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 Long-term weight loss would be helpful. (6) Essential hypertension: Assessment and plan: Exacerbated with acute episode. Adjust medical therapy during his hospital stay. (7) Hyperlipemia: Status: Chronic Assessment and plan: Continue outpatient therapy. Qualifiers: Hyperlipidemia type: mixed hyperlipidemia Qualified Code(s): E78.2 - Mixed hyperlipidemia (8) Gout: Status: Chronic Assessment and plan: Continue outpatient therapy. Qualifiers: Chronicity: chronic Gout etiology: idiopathic Gout site: multiple sites Presence of tophus: without tophus Qualified Code(s): M1A.09X0 - Idiopathic chronic gout, multiple sites, without tophus (tophi) History of Present Illness History of Present Illness Chief Complaint: Worsening dyspnea upon exertion for 24 hours. Narrative: This is a 57-year-old male patient who has a history of asthma who only intermittently takes rescue inhalers but does do this almost daily and certainly several times weekly. He is a non-smoker. He said over the last 24 hours he had increasing shortness of breath and dyspnea with exertion prompting the patient to call EMS the night of admission because of acute exacerbation with wheezing. EMS did evaluate the patient at home and found him to be extremely short of breath and wheezing which responded to DuoNeb quickly but then the patient had recurrence. He did receive IV steroids in the field. At the time patient got to the ED with feeling better but not back to his baseline. He was not having fever chills or productive cough of this found to have atypical infiltrates in his right lungs prompting admission for treatment of pneumonia with IV therapy and treatment of his new onset hypoxemia with his asthma exacerbation. He is a full code. Review of Systems Narrative: 13 point review of systems otherwise unrevealing or stable. [facility] All Active Problems (Updated 04/12/23 @ 05:34 by Frank Watkins) Asthma exacerbation (Acute) Hypokalemia (Acute) SIRS (systemic inflammatory response syndrome) (Acute) Asthma (Chronic) Pneumonia (Acute) Hyperglycemia (Chronic) Fatigue (Acute) Benign cystic neoplasm of exocrine pancreas (Acute) Renal cyst (Acute) Dermatitis, contact (Acute) Yeast dermatitis (Acute) NAFLD (nonalcoholic fatty liver disease) (Acute) Mass of pancreas (Acute) Cysts in the head of the pancreas. 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 4+ Obesity (Chronic) Asthma (Chronic) Occasional problem HTN (hypertension) (Chronic 10/21/13) Medical History History of claustrophobia Essential hypertension Surgical History History of esophagogastroduodenoscopy (EGD) (~11/19/22) History of colonoscopy (~11/19/22) Hx of tonsillectomy Hx of detached retina repair Nuclear sclerotic cataract of left eye Surgical Repair of umbilical hernia (05/26/15) Family History Mother , age 59 Bladder cancer Asthma Hypertension Maternal Uncle Bladder cancer Father , age 86 CML (chronic myelocytic leukemia) Stroke Brother Asthma Brother Asthma Maternal Grandfather No problems noted. Paternal Grandfather , age 72 Heart disease Maternal Grandmother No problems noted. Paternal Grandmother , age 82 Cancer blood Social History Smoking/Tobacco Use Status: Never Counseling given: counseling >3 minutes Smoking risk assessment performed?: Yes Alcohol Intake: current Alcohol Intake frequency: 3 or more drinks per day Alcohol type: hard liquor Drug use: Never Substance use type: does not use Details: alcohol: t-2. 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 [employer] Pets and animals: Yes Pets and animals: cat(s), dog(s) and fish Sexually active: No Do you think of yourself as: straight/heterosexual Current gender identity: male What is your relationship status?: never How often do you talk on the phone with friends or family?: three or more times per week How often do you get together with friends or relatives?: twice per week How often do you attend uatsdin or yazidi services?: decline to answer Do you belong to any clubs or organized social groups?: yes Panel score (0-1 are the most socially isolated patients): 2 What type of physical activity do you participate in: none Frequency: does not exercise Kyung/Congregation: None Special kyung needs: No Seatbelt use: always Drive intox or ride w/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 Do you feel safe at home: Yes Do you feel safe in your relationship?: Yes Meds Allergies and Home Medications Allergies Allergy/AdvReac Type Severity Reaction Status Date / Time atorvastatin [From Lipitor] Allergy Intermediate rash Verified 04/11/23 19:28 Home Medications Medication Instructions Recorded Confirmed Type metoprolol succinate 25 mg 25 mg PO DAILY #90 tabs 03/23/22 04/12/23 Rx tablet,extended release 24 hr albuterol sulfate 90 mcg/actuation 2 puff inhalation Q4H PRN 03/30/22 04/12/23 Rx aerosol inhaler bronchospasm #8.5 grams hydrochlorothiazide 25 mg tablet 25 mg PO DAILY #90 tabs 04/18/22 04/12/23 Rx nifedipine 30 mg tablet,extended 30 mg PO DAILY #90 tabs 04/18/22 04/12/23 Rx release pravastatin 10 mg tablet 10 mg PO QHS #90 tabs 04/18/22 04/12/23 Rx loratadine 10 mg tablet (Claritin) 10 mg PO DAILY #90 tabs 06/18/22 04/12/23 Rx aspirin 81 mg tablet,delayed 81 mg PO DAILY #90 tabs 07/12/22 04/12/23 Rx release indomethacin 50 mg capsule 50 mg PO BID #90 caps 07/20/22 04/12/23 Rx buspirone 30 mg tablet 30 mg PO BID #180 tabs 07/26/22 04/12/23 Rx lisinopril 40 mg tablet 40 mg PO DAILY #90 tabs 11/21/22 04/12/23 Rx famotidine 40 mg tablet (Pepcid) 40 mg PO DAILY #90 tabs 12/27/22 04/12/23 Rx allopurinol 100 mg tablet 100 mg PO DAILY 01/21/23 04/12/23 History lorazepam 1 mg tablet (Ativan) 1 mg PO DAILY anxiety 04/12/23 04/12/23 History Exam Narrative Exam Narrative: General: Patient appears appropriate for age, moderately obese, alert and oriented x3 and in moderate respiratory distress speaking in short sentences with conversation. He is comfortable when not speaking but slightly tachypneic. HEENT: Normocephalic, eyes with pupils equal react light symmetrically, extraocular movement intact and sclera anicteric. Oropharynx with moist mucosa and fair dentition. Neck: Supple without JVD. Back: Stooped posture without CVA tenderness. Lungs: Fair aeration with bronchovesicular breath sounds diffusely, no focalizing rales or rhonchi with decreased aeration on the right compared to left. No expiratory wheeze. Only slightly increased expiratory phase. Heart: Regular rate and rhythm with no murmurs gallops or EXTR. Abdomen: Obese contour, soft and nontender to palpation with no palpable hepatosplenomegaly. Bowel sounds positive all quadrants. Genitalia/rectal: Exam deferred. Extremities: No clubbing, cyanosis or pitting edema. Peripheral pulses intact. Skin: Normal color, warm and dry. Neuro: Cranial nerves II through XII gross intact, no focal motor deficits and no tremor. Psych: Normal affect and mood. No abnormal thought processes. Remote and recent memory grossly intact. Results Imaging Imaging Studies: Exam: CTA Chest With Contrast Exam date and time: 04/11/2023 21:22 Age: 57 years old Clinical indication: Other: Hypoxic TECHNIQUE: Imaging protocol: Computed tomographic angiography of the chest with contrast. Exam focused on the arteries. 3D rendering (Not supervised by radiologist): MIP and/or 3D reconstructed images were created by the technologist. Contrast material: OMNI 350; Contrast volume: 100 ml; Contrast route: INTRAVENOUS (IV); COMPARISON: CT CHEST PE CTA 02/17/2019 08:08 FINDINGS: Pulmonary arteries: No pulmonary emboli. Slight motion artifact distally. Aorta: Tortuous aorta. No aortic aneurysm. No aortic dissection. Lungs: The lungs appear hyperinflated. Minimal ground-glass opacities in right middle lobe and lingula. No airspace consolidation. Pleural spaces: No pneumothorax. No pleural effusion. Heart: No cardiomegaly. No pericardial effusion. Lymph nodes: No enlarged lymph nodes. Kidneys and ureters: Benign-appearing renal cysts and probable cysts. Bones/joints: Exaggerated thoracic kyphosis. Degenerative changes in the spine. No acute fracture or subluxation. Soft tissues: No suspicious lesions. IMPRESSION: 1. No pulmonary emboli are seen. 2. Minimal right middle lobe and lingular pneumonitis or atypical infection most likely. Labs 04/11/23 19:33 04/11/23 19:33 Labs: Laboratory Results - last 24 hr 04/11/23 04/11/23 04/11/23 19:33 20:12 20:12 WBC 21.82 H RBC 4.66 Hgb 14.2 Hct 42.3 MCV 91 MCH 30.5 MCHC 33.6 RDW 11.9 Plt Count 267 MPV 10.3 Immature Gran % 0.0 Neutrophils % 80.0 Lymphocytes % 6.0 Atypical Lymphs % 3 Monocytes % 11.0 Eosinophils % 0.0 Basophils % 0.0 Nucleated RBC % 0.0 Absolute Neutrophils 17.46 H Absolute Lymphocytes 1.96 Absolute Monocytes 2.40 H Absolute Eosinophils 0.00 Absolute Basophils 0.00 RBC Morphology Normal VBG pH 7.37 VBG pCO2 45 VBG pO2 39 VBG HCO3 26 VBG Total CO2 23 L VBG O2 Saturation 70 VBG Base Excess 1 VBG Lactate Sodium 135 L Potassium 3.3 L Chloride 98 Carbon Dioxide 25.5 Anion Gap 11.5 H BUN 33 H Creatinine 1.5 H Est GFR (CKD-EPI 2020) 53.30 Glucose 193 H Calcium 9.6 Total Bilirubin 0.7 AST 17 ALT 30 Alkaline Phosphatase 92 Troponin I < 50 NT-Pro-B Natriuret Pep 178 Total Protein 8.6 H Albumin 4.5 COVID-19 Source Cancelled Nasal/Nares SARS-CoV-2 (PCR) Cancelled Influenza Type A (PCR) Influenza Type B (PCR) RSV (PCR) 04/11/23 04/11/23 20:12 22:35 WBC RBC Hgb Hct MCV MCH MCHC RDW Plt Count MPV Immature Gran % Neutrophils % Lymphocytes % Atypical Lymphs % Monocytes % Eosinophils % Basophils % Nucleated RBC % Absolute Neutrophils Absolute Lymphocytes Absolute Monocytes Absolute Eosinophils Absolute Basophils RBC Morphology VBG pH VBG pCO2 VBG pO2 VBG HCO3 VBG Total CO2 VBG O2 Saturation VBG Base Excess VBG Lactate 3.2 H* Sodium Potassium Chloride Carbon Dioxide Anion Gap BUN Creatinine Est GFR (CKD-EPI 2020) Glucose Calcium Total Bilirubin AST ALT Alkaline Phosphatase Troponin I < 50 NT-Pro-B Natriuret Pep Total Protein Albumin COVID-19 Source SARS-CoV-2 (PCR) Negative Influenza Type A (PCR) Cancelled Influenza Type B (PCR) Cancelled RSV (PCR) Cancelled Last Vital Signs Temp 37.4 C 04/11/23 19:16 Pulse 101 H 04/11/23 20:31 Resp 13 04/11/23 20:40 BP 157/82 H 04/11/23 20:31 Pulse Ox 94 04/11/23 20:30 Time Spent Time spent with Patient: >75 minutes Time was spent: preparing to see the patient(eg.review tests), obtaining and/or reviewing separately otained hiistory, ordering medications,tests, procedures, referring, communicating with other health infant childcare provider, indepentently interpreting results and counseling the patient
[2023-04-12] VITALS (22 sets, daily range): BP systolic 128–162; BP diastolic 77–94; PULSE 72–91; RESP 2–22; TEMP 36.3–37.4; O2SAT 92–96
[2023-04-12] MEDS: Normal Saline 1,000 ML 1000 ML IV (00:15)
[2023-04-12] MEDS: methylPREDNISolone SUCC 125 MG VIAL 80 MG IVP (02:00)
[2023-04-12] MEDS: Potassium Chloride 20 MEQ TABCR 40 MEQ PO (02:01)
[2023-04-12] MEDS: Normal Saline Flush 10 ML SYR IVP ×2 (02:02→13:59)
[2023-04-12] MEDS: Normal Saline 1,000 ML 125 ML IV (02:03)
[2023-04-12] MEDS: DOXYCYCLINE 100 MG in Normal Saline 100 ML IVPB ×2 (03:32→13:55)
[2023-04-12] MEDS: LORazepam 1 MG TAB PO ×3 (03:32→21:14)
[2023-04-12] MEDS: PIPERACILLIN/TAZO 4.5 GM in Normal Saline 100 ML IVPB (06:04)
[2023-04-12 06:48] LABS: HCT 42.2 % (40.0-50.0); HGB 14.1 g/dL (13.5-17.5); MCH 30.5 pg (27.0-33.0); MCHC 33.4 % (32.0-36.0); MCV 91 fL (80-95); MPV 10.3 fL (8.0-11.0); Platelet Count 256 10^3/uL (130-400); RBC 4.62 10^6/uL (4.36-5.78); RDW-SD 40.3 fL; WBC 10.25 10^3/uL (4.4-10.8)
[2023-04-12 07:21] LABS: Procalcitonin < 0.1 ng/mL
[2023-04-12 07:30] LABS: ALT 27 U/L (16-63); AST 15 U/L (15-37); Alkaline Phosphatase 84 U/L (46-116); BUN 23 mg/dL (7-18); Bilirubin, Total 0.5 mg/dL (0.2-1.0); Calcium 9.6 mg/dL (8.5-10.1); Chloride 104 mmol/L (98-107); Glucose 234 mg/dL (74-106); Potassium 4.4 mmol/L (3.5-5.1); Sodium 139 mmol/L (136-145); Total Protein 8.4 g/dL (6.4-8.2)
[2023-04-12] MEDS: Famotidine 20 MG TAB 40 MG PO (07:40)
[2023-04-12] MEDS: Lisinopril 20 MG TAB 40 MG PO (07:40)
[2023-04-12] MEDS: Aspirin E.C. 81 MG TABEC PO (07:40)
[2023-04-12] MEDS: busPIRone 15 MG TAB 30 MG PO ×2 (07:41→19:49)
[2023-04-12] MEDS: hydroCHLOROthiazide 25 MG TAB PO (07:41)
[2023-04-12] MEDS: Metoprolol CR 25 MG TABCR PO (07:41)
[2023-04-12] MEDS: Loratidine 10 MG TAB PO (07:41)
[2023-04-12] MEDS: Potassium Chloride 20 MEQ TABCR PO ×2 (07:42→19:49)
[2023-04-12] MEDS: Enoxaparin 40 MG/0.4 ML SYR SC (07:42)
[2023-04-12] MEDS: Albuterol/Ipratropium 3 ML UPD VIAL UPD ×3 (08:36→19:50)
[2023-04-12] MEDS: Insulin Aspart 300 UNITS/3 ML PEN SC ×3 (10:23→17:04)
--- NOTE | 2023-04-12 10:30 | INITIAL_ITS ---
Date of service: 04/12/23 Time of Service: 10:30 Care Management Initial Assmt Initial Assessment REASON FOR HOSPITALIZATION:: Pnemonia, SIRS, Exacerbation of asthma, KAT PREVIOUS FUNCTIONAL STATUS/SOCIAL/FAMILY SUPPORTS:: Robert resides in [facility], he has family locally and is independent at baseline. CURRENT FUNCTIONAL STATUS:: Lying in bed, pleasant in interaction, comedic in nature; light interaction. 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 Otherwise no general concerns noted. ADVANCE DIRECTIVES:: None on file Has patient been provided with info about the portal/API?: Yes Did the patient sign up for the portal?: Yes CODE STATUS:: Full Code INSURANCE COVERAGE / FINANCIAL ISSUES:: [place]/BS [place] CURRENT HOME/COMMUNITY SERVICES/EQUIPMENT:: [employer] PRIMARY CARE PHYSICIAN:: Ector Mora POTENTIAL DISCHARGE NEEDS:: Follow up appointments. PATIENT/FAMILY EDUCATION NEEDS:: Review discharge instructions, discuss [employer]. ANTICIPATED BARRIERS TO DISCHARGE:: None identified. TRANSPORTATION:: Via private vehicle with family. PLAN:: Robert will return home when ready per MD. He will follow up with his PCP and plan of care as prescribed. No additional services anticipated. CM continues to follow. PFSH All Active Problems (Updated 04/12/23 @ 10:35 by Kwan Dan MD) Severe sepsis (Acute) Acute respiratory failure with hypoxia (Acute) Sepsis (Acute) Asthma exacerbation (Acute) Hypokalemia (Acute) SIRS (systemic inflammatory response syndrome) (Acute) Asthma (Chronic) Pneumonia (Acute) Hyperglycemia (Chronic) Fatigue (Acute) Benign cystic neoplasm of exocrine pancreas (Acute) Renal cyst (Acute) Dermatitis, contact (Acute) Yeast dermatitis (Acute) NAFLD (nonalcoholic fatty liver disease) (Acute) Mass of pancreas (Acute) Cysts in the head of the pancreas. 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 4+ Obesity (Chronic) Asthma (Chronic) Occasional problem HTN (hypertension) (Chronic 10/21/13) Medical History History of claustrophobia Essential hypertension Surgical History History of esophagogastroduodenoscopy (EGD) (~11/19/22) History of colonoscopy (~11/19/22) Hx of tonsillectomy Hx of detached retina repair Nuclear sclerotic cataract of left eye Surgical Repair of umbilical hernia (05/26/15) Family History Mother , age 59 Bladder cancer Asthma Hypertension Maternal Uncle Bladder cancer Father , age 86 CML (chronic myelocytic leukemia) Stroke Brother Asthma Brother Asthma Maternal Grandfather No problems noted. Paternal Grandfather , age 72 Heart disease Maternal Grandmother No problems noted. Paternal Grandmother , age 82 Cancer blood Social History Smoking/Tobacco Use Status: Never Counseling given: counseling >3 minutes Smoking risk assessment performed?: Yes Alcohol Intake: current Alcohol Intake frequency: 3 or more drinks per day Alcohol type: hard liquor Drug use: Never Substance use type: does not use Details: alcohol: t-2. 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 [employer] Pets and animals: Yes Pets and animals: cat(s), dog(s) and fish Sexually active: No Do you think of yourself as: straight/heterosexual Current gender identity: male What is your relationship status?: never How often do you talk on the phone with friends or family?: three or more times per week How often do you get together with friends or relatives?: twice per week How often do you attend religious or hinduism services?: decline to answer Do you belong to any clubs or organized social groups?: yes Panel score (0-1 are the most socially isolated patients): 2 What type of physical activity do you participate in: none Frequency: does not exercise Kyung/Yazdanism: None Special kyung needs: No Seatbelt use: always Drive 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
--- NOTE | 2023-04-12 10:32 | W.PM.PROGNOT ---
Date of Service Date of service: 04/12/23 Time of Service: 10:32 Assessment and Plan Assessment and plan (1) Severe sepsis: Status: Acute Assessment and plan: - Patient met sepsis criteria on admission with a white blood cell count of 21.8, and a heart rate of about 100 bpm as well as source of infection being a pneumonia with a superimposed asthma exacerbation -Initial lactic was 3.2 making patient severe sepsis though there is no other sign of endorgan damage -Repeat lactic was 2.0 -Sepsis pathology appears to have resolved as patient's heart rate and white blood cell count have improved -Was initially given a combination of Zosyn and doxycycline on room admission which appears to have been continued -We will continue doxycycline and discontinue Zosyn in favor of ceftriaxone -Follow-up a.m. CBC (2) Pneumonia: Start date: 04/11/23 Status: Acute Assessment and plan: - Source of infection as noted above Qualifiers: Pneumonia type: due to unspecified organism Laterality: unspecified laterality Lung location: unspecified part of lung Qualified Code(s): J18.9 - Pneumonia, unspecified organism (3) Asthma exacerbation: Start date: 04/11/23 Status: Acute Assessment and plan: -Patient also presented with wheezing and acute hypoxic respiratory failure likely secondary to combination of asthma and pneumonia as noted above -Received IV Solu-Medrol and nebulizer treatments on admission, transition to p.o. prednisone 40 mg daily -Continue nebulizer treatments with as needed albuterol for shortness of breath Qualifiers: Asthma severity: moderate Asthma persistence: persistent Qualified Code(s): J45.41 - Moderate persistent asthma with (acute) exacerbation (4) Acute respiratory failure with hypoxia: Status: Acute Assessment and plan: -due to asthma and PNA as noted above -wean O2 as tolerated (5) Hypokalemia: Start date: 04/11/23 Status: Acute Assessment and plan: - Was 3.3 on admission -Status post p.o. replacement -4.4 this a.m., follow-up a.m. BMP (6) Hyperglycemia: Status: Chronic Assessment and plan: - Likely elevated secondary to steroid use -Continue to monitor and initial sliding scale insulin as needed (7) Essential hypertension: Assessment and plan: - Continue home HCTZ lisinopril, Toprol-XL, nifedipine (8) Hyperlipemia: Status: Chronic Assessment and plan: Continue outpatient therapy. Qualifiers: Hyperlipidemia type: mixed hyperlipidemia Qualified Code(s): E78.2 - Mixed hyperlipidemia (9) Gout: Status: Chronic Assessment and plan: Continue outpatient therapy. Qualifiers: Gout site: multiple sites Gout etiology: idiopathic Chronicity: chronic Presence of tophus: without tophus Qualified Code(s): M1A.09X0 - Idiopathic chronic gout, multiple sites, without tophus (tophi) Subjective Subjective Interval history since last seen: Patient states that he is feeling better as compared to admission though he is not back to his baseline due to exertional shortness of breath. Otherwise he has no other complaints or concerns at this time. Exam Narrative Exam Narrative: Well-appearing older gentleman sitting on the edge of the bed with 3 L nasal cannula in place, no acute distress, AOx4, heart regular rate rhythm, lungs with diffuse expiratory wheezing particularly in the upper lobes, abdomen soft, nondistended, nontender Objective Last Vital Signs Temp 97.7 F 04/12/23 07:36 Pulse 84 04/12/23 08:42 Resp 16 04/12/23 08:42 BP 159/89 H 04/12/23 07:36 Pulse Ox 93 04/12/23 10:30 Laboratory Results - last 24 hr 04/11/23 04/11/23 04/11/23 19:33 20:12 20:12 WBC 21.82 H RBC 4.66 Hgb 14.2 Hct 42.3 MCV 91 MCH 30.5 MCHC 33.6 RDW 11.9 Plt Count 267 MPV 10.3 Immature Gran % 0.0 Neutrophils % 80.0 Lymphocytes % 6.0 Atypical Lymphs % 3 Monocytes % 11.0 Eosinophils % 0.0 Basophils % 0.0 Nucleated RBC % 0.0 Absolute Neutrophils 17.46 H Absolute Lymphocytes 1.96 Absolute Monocytes 2.40 H Absolute Eosinophils 0.00 Absolute Basophils 0.00 RBC Morphology Normal VBG pH 7.37 VBG pCO2 45 VBG pO2 39 VBG HCO3 26 VBG Total CO2 23 L VBG O2 Saturation 70 VBG Base Excess 1 VBG Lactate Sodium 135 L Potassium 3.3 L Chloride 98 Carbon Dioxide 25.5 Anion Gap 11.5 H BUN 33 H Creatinine 1.5 H Est GFR (CKD-EPI 2020) 53.30 Glucose 193 H Calcium 9.6 Magnesium Total Bilirubin 0.7 AST 17 ALT 30 Alkaline Phosphatase 92 Troponin I < 50 NT-Pro-B Natriuret Pep 178 Total Protein 8.6 H Albumin 4.5 Procalcitonin COVID-19 Source Cancelled Nasal/Nares SARS-CoV-2 (PCR) Cancelled Influenza Type A (PCR) Influenza Type B (PCR) RSV (PCR) 04/11/23 04/11/23 04/12/23 20:12 22:35 06:32 WBC 10.25 RBC 4.62 Hgb 14.1 Hct 42.2 MCV 91 MCH 30.5 MCHC 33.4 RDW 12.0 Plt Count 256 MPV 10.3 Immature Gran % Neutrophils % Lymphocytes % Atypical Lymphs % Monocytes % Eosinophils % Basophils % Nucleated RBC % Absolute Neutrophils Absolute Lymphocytes Absolute Monocytes Absolute Eosinophils Absolute Basophils RBC Morphology VBG pH VBG pCO2 VBG pO2 VBG HCO3 VBG Total CO2 VBG O2 Saturation VBG Base Excess VBG Lactate 3.2 H* 2.0 H Sodium 139 Potassium 4.4 D Chloride 104 Carbon Dioxide 21.0 Anion Gap 14.0 H BUN 23 H Creatinine 1.0 Est GFR (CKD-EPI 2020) 86.70 Glucose 234 H Calcium 9.6 Magnesium Cancelled Total Bilirubin AST ALT Alkaline Phosphatase Troponin I < 50 NT-Pro-B Natriuret Pep Total Protein Albumin Procalcitonin COVID-19 Source SARS-CoV-2 (PCR) Negative Influenza Type A (PCR) Cancelled Influenza Type B (PCR) Cancelled RSV (PCR) Cancelled 04/12/23 06:32 WBC RBC Hgb Hct MCV MCH MCHC RDW Plt Count MPV Immature Gran % Neutrophils % Lymphocytes % Atypical Lymphs % Monocytes % Eosinophils % Basophils % Nucleated RBC % Absolute Neutrophils Absolute Lymphocytes Absolute Monocytes Absolute Eosinophils Absolute Basophils RBC Morphology VBG pH VBG pCO2 VBG pO2 VBG HCO3 VBG Total CO2 VBG O2 Saturation VBG Base Excess VBG Lactate Sodium Potassium Chloride Carbon Dioxide Anion Gap BUN Creatinine Est GFR (CKD-EPI 2020) Glucose Calcium Magnesium 2.0 Total Bilirubin 0.5 AST 15 ALT 27 Alkaline Phosphatase 84 Troponin I NT-Pro-B Natriuret Pep Total Protein 8.4 H Albumin 4.0 Procalcitonin < 0.1 COVID-19 Source SARS-CoV-2 (PCR) Influenza Type A (PCR) Influenza Type B (PCR) RSV (PCR) Time Spent with Patient Time Spent with Patient: >50 minutes Time was spent: preparing to see the patient(eg.review tests), obtaining and/or reviewing separately otained hiistory, ordering medications,tests, procedures, referring, communicating with other health healthcare project manager, indepentently interpreting results, counseling the patient and care coordination
[2023-04-12] MEDS: cefTRIAXone 1 GM/50 ML BAG IVPB (10:34)
[2023-04-12] MEDS: predniSONE 20 MG TAB 40 MG PO (10:35)
--- NOTE | 2023-04-12 11:51 | PHA.REVIEW2 ---
Pharmacy Admission Review Admission Clinical Review Admission Pharmacy Review: (Updated 04/12/23 @ 10:35 by Kwan Dan MD) Severe sepsis (Acute) Acute respiratory failure with hypoxia (Acute) Asthma exacerbation (Acute) Hypokalemia (Acute) SIRS (systemic inflammatory response syndrome) (Acute) Pneumonia (Acute) atorvastatin [From Lipitor] Allergy (Intermediate, Verified 04/11/23 19:28) rash Resuscitation Status Full Code Height 6 ft Weight 113.398 kg Pharmacy Admission Review Renal Dosing Renal Dosing: BUN 23 mg/dL (7-18) H 04/12/23 06:32 Creatinine 1.0 mg/dL (0.70-1.30) 04/12/23 06:32 Medications needing adjustments: Reviewed (CrCl = 103 mL/min) Anticoagulation Anticoagulation: Hgb 14.1 g/dL (13.5-17.5) 04/12/23 06:32 Hct 42.2 % (40.0-50.0) 04/12/23 06:32 Plt Count 256 10^3/uL (130-400) 04/12/23 06:32 Creatinine 1.0 mg/dL (0.70-1.30) 04/12/23 06:32 DVT Prophylaxis: Reviewed Medications: Enoxaparin (40mg q24h) Opiate Usage Evaluate Pain Scale/Pains Meds: N/A Relevant Labs Relevant Labs: Sodium 139 mmol/L (136-145) 04/12/23 06:32 Potassium 4.4 mmol/L (3.5-5.1) D 04/12/23 06:32 Chloride 104 mmol/L (98-107) 04/12/23 06:32 Magnesium 2.0 mg/dL (1.8-2.4) 04/12/23 06:32 Magnesium Cancelled 04/12/23 06:32 Electrolytes, C-Reactive P, ESR: Reviewed (Glucose 239 (currently on prednisone), Lactate 2 (was 3.2 04/11), WBC 10.25 (was 21.82 04/11), continue to monitor potassium) DM Control DM Control: Reviewed (No diabetes noted in medical history but previous A1C was 6.4 on 02/04/23, does have hyperglycemia likely due to current steroid regimen (prednisone). Does have order for sliding scale ) Cardiac Review Cardiac Review: Troponin I < 50 ng/L (<or=60) 04/11/23 22:35 NT-Pro-B Natriuret Pep 178 pg/mL (<300) 04/11/23 19:33 BP, HR, EF%: Reviewed (BP 143/88, HR 89) List meds needing interventions: Per MD note, states to continue home meds (HCTZ lisinopril, Toprol-XL, nifedipine), no current order for nifedipine, sent message to provider who will be sending in order QTc Review QTc: Reviewed IV to PO Switch IV Medications: Reviewed Home Meds Home Med List reviewed: Reviewed Relevent Home Meds Not ordered & why?: No order for nifedipine, reached out to MD, he is putting in order Current Meds Current Medication Order Review: Reviewed Pharmacy Antibiotic Review Relevant Labs: Relevant Labs 04/12/23 06:32 Procalcitonin < 0.1 Pharmacy Antibiotic Activity: Abx regimen adjustment (Pt was switched from Zosyn to ceftriaxone, blood cultures pending)
--- NOTE | 2023-04-12 13:06 | CHAPLAIN ---
Henrry was resting in bed when I visited. I explained my role and offered support. Henrry said his siblings have been in touch with him and visiting. They're good kids, he said. He seems to be comfortable being here. I will continue to visit.
[2023-04-12] MEDS: NIFEdipine-CR 30 MG TABCR PO (13:12)
[2023-04-13] VITALS (8 sets, daily range): BP systolic 108–148; BP diastolic 61–92; PULSE 66–79; RESP 2–22; TEMP 36.1–36.9; O2SAT 92–96
[2023-04-13] MEDS: Normal Saline Flush 10 ML SYR IVP (01:41)
[2023-04-13] MEDS: DOXYCYCLINE 100 MG in Normal Saline 100 ML IVPB ×2 (01:42→14:20)
[2023-04-13] MEDS: Albuterol/Ipratropium 3 ML UPD VIAL UPD ×2 (02:14→14:43)
[2023-04-13 06:49] LABS: HCT 41.2 % (40.0-50.0); HGB 13.3 g/dL (13.5-17.5); MCH 30.2 pg (27.0-33.0); MCHC 32.3 % (32.0-36.0); MCV 94 fL (80-95); MPV 10.2 fL (8.0-11.0); Platelet Count 247 10^3/uL (130-400); RDW 12.3 % (11.8-14.1); RDW-SD 42.7 fL; WBC 14.54 10^3/uL (4.4-10.8)
[2023-04-13 07:11] LABS: Anion Gap 9.7 mmol/L (3-11); BUN 26 mg/dL (7-18); CO2 23.3 mmol/L (21.0-32.0); CREATININE 1.1 mg/dL (0.70-1.30); Calcium 9.6 mg/dL (8.5-10.1); Chloride 107 mmol/L (98-107); Estimated GFR 77.33 (mL/min/1.73m2); Glucose 151 mg/dL (74-106); Potassium 3.9 mmol/L (3.5-5.1); Sodium 140 mmol/L (136-145)
[2023-04-13] MEDS: cefTRIAXone 1 GM/50 ML BAG IVPB (09:01)
[2023-04-13] MEDS: LORazepam 1 MG TAB PO (09:03)
[2023-04-13] MEDS: Aspirin E.C. 81 MG TABEC PO (09:03)
[2023-04-13] MEDS: Famotidine 20 MG TAB 40 MG PO (09:03)
[2023-04-13] MEDS: hydroCHLOROthiazide 25 MG TAB PO (09:04)
[2023-04-13] MEDS: Potassium Chloride 20 MEQ TABCR PO (09:04)
[2023-04-13] MEDS: predniSONE 20 MG TAB 40 MG PO (09:04)
[2023-04-13] MEDS: Loratidine 10 MG TAB PO (09:05)
[2023-04-13] MEDS: busPIRone 15 MG TAB 30 MG PO (09:05)
[2023-04-13] MEDS: Lisinopril 20 MG TAB 40 MG PO (09:05)
[2023-04-13] MEDS: NIFEdipine-CR 30 MG TABCR PO (09:06)
[2023-04-13] MEDS: Enoxaparin 40 MG/0.4 ML SYR SC (09:06)
[2023-04-13] MEDS: Metoprolol CR 25 MG TABCR PO (09:06)
[2023-04-13] MEDS: Insulin Aspart 300 UNITS/3 ML PEN SC (11:47)
--- NOTE | 2023-04-13 14:59 | DSE_ITS ---
Date of service: 04/13/23 Time of Service: 14:59 DS: Diagnosis Discharge Diagnosis (1) Acute respiratory failure with hypoxia: Status: Resolved (2) Severe sepsis: Status: Acute (3) Asthma exacerbation: Status: Acute (4) Pneumonia: Status: Ruled-out (5) Hypokalemia: Status: Resolved (6) Hyperglycemia: Status: Chronic (7) Essential hypertension: (8) Hyperlipemia: Status: Chronic (9) Gout: Status: Chronic Discharge Plan Disposition Patient Disposition: Home Condition: Improving Discharge Details Reason For Visit: Pneumonia, SIRS, Exacerbation of asthma, KAT Admit Date/Time: 04/11/23 23:28 Admit Provider: Frank Watkins Attending Provider: Frank Watkins Primary Care Provider: Ector Mora Hospital Course Hospital Course: Mr Bashir is a 57 year old male with PMHx of asthma, hypertension, hyperli pidemia, CVA in the past, who was a patient on [facility] hospitalist service from 04/11/23 until 04/13/23, having presented with acute hypoxic respiratory failure, requiring 5L of O2 to saturate >90% (he was recorded to saturate 90% on RA, however). He met SIRS criteria with leucocytosis and tachycardia; however, his chest imaging did not reveal a pneumonia. He was treated with bronchodilators, steroids and, due to severity of the patient's symptoms, empiric antibiotics. His blood cultures came back negative. The patient is now on RA and passed ambulatory pulse oximetry on RA as well. He feels much better and is ready for discharge home today to complete 3 more days of prednisone and doxycycline/cefpodoxime. His potassium was low on this admission, and repletion was initiated. He should have bloodwork done in 1 week. He should follow up with his PCP in 1-2 weeks. Care for patient in addition to completion of his discharge summary on the day of discharge took 45 minutes. Home Meds and New Rx's Prescriptions: New prednisone 20 mg Tablet 40 mg PO DAILY Qty: 6 0RF potassium chloride [Klor-Con M20] 20 mEq Tablet,Er Particles/Crystals 20 meq PO DAILY Qty: 10 0RF doxycycline hyclate 100 mg capsule 100 mg PO BID Qty: 7 0RF cefpodoxime 200 mg tablet 200 mg PO BID Qty: 6 0RF Rx Instructions: must administer with a meal/food Start on am of 04/14/23 Continued famotidine [Pepcid] 40 mg tablet 40 mg PO DAILY Qty: 90 4RF allopurinol 100 mg tablet 100 mg PO DAILY metoprolol succinate 25 mg tablet extended release 24 hr 25 mg PO DAILY Qty: 90 3RF albuterol sulfate 90 mcg/actuation HFA aerosol inhaler 2 puff INHALATION Q4H PRN (Reason: bronchospasm) Qty: 8.5 5RF hydrochlorothiazide 25 mg tablet 25 mg PO DAILY Qty: 90 3RF nifedipine 30 mg tablet extended release 30 mg PO DAILY Qty: 90 3RF pravastatin 10 mg tablet 10 mg PO QHS Qty: 90 3RF loratadine [Claritin] 10 mg tablet 10 mg PO DAILY Qty: 90 3RF aspirin 81 mg tablet,delayed release (DR/EC) 81 mg PO DAILY Qty: 90 3RF indomethacin 50 mg capsule 50 mg PO BID Qty: 90 0RF Rx Instructions: administer with food or milk buspirone 30 mg tablet 30 mg PO BID Qty: 180 3RF Rx Instructions: One half tab twice daily for 2 weeks then 1 tab twice daily lisinopril 40 mg tablet 40 mg PO DAILY Qty: 90 4RF lorazepam [Ativan] 1 mg tablet 1 mg PO DAILY Discharge Instructions Instructions: Doxycycline (By mouth), Prednisone (By mouth), Cefpodoxime Proxetil (By mouth), Asthma (DC) Additional Instructions: Finish your antibiotics and steroids (prednisone) as prescribed. Return to the hospital with any fever, bleeding, chest pain, or worsening shortness of breath. Follow up with your PCP in 1-2 weeks. Bloodwork in 1 week. Stand Alone Forms: Nursing Discharge Form Referrals: Ector Mora [employer] [Primary Care Provider] - (Please call your Primary to make a follow up appointment in one to two weeks) Activity:: Activity as Tolerated Equipment/Supplies:: No Equipment Needed Diet:: As Tolerated Discharge Orders Discharge Orders: Discharge Order (Routine); Ordered 04/13/23 Ordered By: Selena Gar Other Ambulatory Orders: Basic Metabolic Panel (Routine) Timeframe: [id number] Facility: [facility] - Location: Laboratory Outpatient - [facility] Ordered By: Selena Gar DS: Summary Time Spent with Patient providing and/or coordinating discharge services: Greater than 30 minutes Status at Discharge Functional status at discharge: independent ambulation Overall status at discharge: patient is progressing back to baseline Mental Status: mental status grossly normal Speech and Movement: speech and movement normal Mood: congruent mood Affect: normal affect Exam Narrative Exam Narrative: General: Pleasant middle-aged male who is sitting up in a chair, A&Ox3, on RA, comfortable, no dyspnea/tachypnea/cyanosis HEENT: EOMI, MMM Heart: RRR, no m/r/g Lungs: a very quiet wheeze on expiration B Abdomen: soft, nontender, nondistended Extremities: no edema BLEs Psych Mental Status: mental status grossly normal Speech and Movement: speech and movement normal Mood: congruent mood Affect: normal affect DS: Data Vitals/I&O Vitals and I&O: Vital Signs Temperature 36.3 C L 04/13/23 11:05 Temperature Source Tympanic 04/13/23 11:05 Pulse 72 04/13/23 14:50 Pulse Rhythm Regular 04/13/23 14:28 Pulse 89 04/12/23 00:20 Respiratory Rate 18 04/13/23 14:50 Respiratory Effort Normal 04/13/23 14:28 Respiratory Depth Normal 04/13/23 14:28 Respiratory Pattern Normal 04/13/23 14:28 Blood Pressure 148/92 H 04/13/23 11:05 Blood Pressure Mean 98 04/12/23 00:16 Pulse Oximetry 96 04/13/23 14:50 Oxygen Delivery Method Room Air 04/13/23 14:43 Oxygen Flow Rate 0 04/13/23 14:43 Pain Level 0 04/13/23 11:05 Intake & Output 04/12/23 04/13/23 04/13/23 23:59 11:59 23:59 Intake Total 200 / 2398.333 170 / 190 20 / 190 Output Total 1500 / 2200 Balance -1300 / 198.333 170 / 190 20 / 190 Intake: IV 200 / 2158.333 170 / 190 20 / 190 Output: Urine 1500 / 2200 Other: Urine Color Pale Yellow Urine Appearance Clear Clear Clear Urine Odor Normal Voiding Methods Toilet Data Completed and Pending Completed studies during hospitalization [Text1]: CXR 04/11/23: No acute pulmonary findings on this single AP portable view of the chest. Less than optimal lung volumes CT chest 04/11/23: 1. No evidence of acute pulmonary emboli. No evidence of pulmonary infarction.No pleural effusions. No confluent infiltrates. No intrathoracic adenopathy. 2. No significant findings. Labs on day of discharge: Labs from last 24 hours 04/13/23 06:40 WBC 14.54 H RBC 4.40 Hgb 13.3 L Hct 41.2 MCV 94 MCH 30.2 MCHC 32.3 RDW 12.3 Plt Count 247 MPV 10.2 Sodium 140 Potassium 3.9 Chloride 107 Carbon Dioxide 23.3 Anion Gap 9.7 BUN 26 H Creatinine 1.1 Est GFR (CKD-EPI 2020) 77.33 Glucose 151 H Calcium 9.6 Preliminary micro results at discharge 04/11/23 22:12 Blood Culture - Preliminary Blood NO GROWTH 24 HOURS 04/11/23 22:10 Blood Culture - Preliminary Blood NO GROWTH 24 HOURS PFSH All Active Problems (Updated 04/13/23 @ 15:00 by Selena Gar MD) Severe sepsis (Acute) Sepsis (Acute) Asthma exacerbation (Acute) SIRS (systemic inflammatory response syndrome) (Acute) Asthma (Chronic) Hyperglycemia (Chronic) Fatigue (Acute) Benign cystic neoplasm of exocrine pancreas (Acute) Renal cyst (Acute) Dermatitis, contact (Acute) Yeast dermatitis (Acute) NAFLD (nonalcoholic fatty liver disease) (Acute) Mass of pancreas (Acute) Cysts in the head of the pancreas. 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 4+ Obesity (Chronic) Asthma (Chronic) Occasional problem HTN (hypertension) (Chronic 10/21/13) Medical History History of claustrophobia Essential hypertension Surgical History History of esophagogastroduodenoscopy (EGD) (~11/19/22) History of colonoscopy (~11/19/22) Hx of tonsillectomy Hx of detached retina repair Nuclear sclerotic cataract of left eye Surgical Repair of umbilical hernia (05/26/15) Family History Mother , age 59 Bladder cancer Asthma Hypertension Maternal Uncle Bladder cancer Father , age 86 CML (chronic myelocytic leukemia) Stroke Brother Asthma Brother Asthma Maternal Grandfather No problems noted. Paternal Grandfather , age 72 Heart disease Maternal Grandmother No problems noted. Paternal Grandmother , age 82 Cancer blood Social History Smoking/Tobacco Use Status: Never Counseling given: counseling >3 minutes Smoking risk assessment performed?: Yes Alcohol Intake: current Alcohol Intake frequency: 3 or more drinks per day Alcohol type: hard liquor Drug use: Never Substance use type: does not use Details: alcohol: t-2. 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 [employer] Pets and animals: Yes Pets and animals: cat(s), dog(s) and fish Sexually active: No Do you think of yourself as: straight/heterosexual Current gender identity: male What is your relationship status?: never How often do you talk on the phone with friends or family?: three or more times per week How often do you get together with friends or relatives?: twice per week How often do you attend oriental orthodox or evangelical services?: decline to answer Do you belong to any clubs or organized social groups?: yes Panel score (0-1 are the most socially isolated patients): 2 What type of physical activity do you participate in: none Frequency: does not exercise Kyung/Muslim: None Special kyung needs: No Seatbelt use: always Drive intox or ride w/intox contract driver: No Do you feel safe at home: Yes Do you feel safe in your relationship?: Yes Time Spent with Patient Time Spent with Patient: 45-69 minutes Time was spent: preparing to see the patient(eg.review tests), obtaining and/or reviewing separately otained hiistory, ordering medications,tests, procedures, referring, communicating with other health progressive care nurse, indepentently interpreting results, counseling the patient and care coordination
== END 2023-04-13 16:24 | disposition home or self-care (01) | DRG 871 ==
LOC: ER 23:52 → MS 04-12 00:37
PROVIDERS: Family Medicine; Admitting Provider Family Medicine; Emergency Provider Emergency Medicine; PCP Nurse Practitioner Family; Visit Provider Family Medicine
DX: A41.9 Sepsis, unspecified organism (principal); J18.9 Pneumonia, unspecified organism; J96.01 Acute respiratory failure with hypoxia; J45.41 Moderate persistent asthma with (acute) exacerbation; E87.20 Acidosis, unspecified; R65.20 Severe sepsis without septic shock; R73.9 Hyperglycemia, unspecified; E87.6 Hypokalemia; E78.2 Mixed hyperlipidemia; I10 Essential (primary) hypertension; M1A.09X0 Idiopathic chronic gout, multiple sites, without tophus (tophi); E86.0 Dehydration; K76.0 Fatty (change of) liver, not elsewhere classified; R53.83 Other fatigue; D50.9 Iron deficiency anemia, unspecified; E78.5 Hyperlipidemia, unspecified; Z86.73 Personal history of transient ischemic attack (TIA), and cerebral infarction without residual deficits; F10.10 Alcohol abuse, uncomplicated; E66.9 Obesity, unspecified; Z68.33 Body mass index [BMI] 33.0-33.9, adult
CPT/HCPCS: 00123; 36415; 71275; 80048; 80053; 82805; 84145; 85027; 87040; 87635; 87637; 93005; 94618; 94640; 96365; 99291; J1650; 71045; 83605; 83735; 83880; 84484; 85025; 93010; 94760; 99223; 99233; 99239; J0696; J2543; J2930; J3490; J7512; J7620

== ENCOUNTER 2023-04-19 00:56 | Outpatient (CLI) | payer BC, SELFPAY ==
[2023-04-19 08:08] LABS: Absolute Basophil Count 0.04 10^3/uL (0.0-0.2); Absolute Lymphocyte Count 2.89 10^3/uL (1.2-3.4); Absolute Monocyte Count 1.19 10^3/uL (0.1-0.8); Absolute Neutrophil Count 7.83 10^3/uL (1.2-6.7); Basophils % 0.3; Eosinophils % 0.8; HCT 45.8 % (40.0-50.0); HGB 15.1 g/dL (13.5-17.5); Immature Grans % 1.6; Lymphocytes % 23.6; MCH 30.4 pg (27.0-33.0); MCV 92 fL (80-95); MPV 9.9 fL (8.0-11.0); Monocytes % 9.7; Platelet Count 272 10^3/uL (130-400); RBC 4.96 10^6/uL (4.36-5.78); RDW-SD 40.7 fL; WBC 12.23 10^3/uL (4.4-10.8)
[2023-04-19 08:35] LABS: Ferritin 389 ng/mL (26-388); TSH (W/Ref FT4) 2.47 uIU/mL (0.36-3.74)
[2023-04-19 08:44] LABS: GGT 14 U/L (15-85)
[2023-04-19 08:46] LABS: ALT 31 U/L (16-63); AST 16 U/L (15-37); Albumin 3.8 g/dL (3.4-5.0); Alkaline Phosphatase 83 U/L (46-116); Anion Gap 3.4 mmol/L (3-11); BUN 30 mg/dL (7-18); Bilirubin, Total 0.5 mg/dL (0.2-1.0); CO2 28.6 mmol/L (21.0-32.0); CREATININE 1.3 mg/dL (0.70-1.30); Calcium 8.6 mg/dL (8.5-10.1); Chloride 104 mmol/L (98-107); Estimated GFR 63.28 (mL/min/1.73m2); Folate 14.6 ng/mL (8.6-20.0); Glucose 133 mg/dL (74-106); Potassium 4.1 mmol/L (3.5-5.1); Sodium 136 mmol/L (136-145); Total Protein 7.4 g/dL (6.4-8.2); Vitamin B12 854 pg/mL (193-986)
[2023-04-19 09:03] LABS: Iron 88 ug/dL (65-175); Total Iron Binding Capacity 223 ug/dL (250-450); Transferrin Sat 39 % (20-55)
== END 2023-04-19 00:57 | disposition home or self-care (01) ==
PROVIDERS: Surgery; PCP Nurse Practitioner Family; Visit Provider Internal Medicine
DX: D13.6 Benign neoplasm of pancreas; D50.9 Iron deficiency anemia, unspecified; E66.9 Obesity, unspecified; E78.5 Hyperlipidemia, unspecified; F10.10 Alcohol abuse, uncomplicated; I10 Essential (primary) hypertension; I63.311 Cerebral infarction due to thrombosis of right middle cerebral artery; J45.909 Unspecified asthma, uncomplicated; K76.0 Fatty (change of) liver, not elsewhere classified; K86.89 Other specified diseases of pancreas; M10.9 Gout, unspecified; N28.1 Cyst of kidney, acquired; N28.89 Other specified disorders of kidney and ureter; Z78.9 Other specified health status; Z86.59 Personal history of other mental and behavioral disorders
CPT/HCPCS: 36415; 80048; 80053; 82607; 82728; 82746; 82977; 83540; 83550; 84443; 85025

== ENCOUNTER 2023-04-19 08:16 | Emergency (ER) | payer BC, SELFPAY ==
[2023-04-19] VITALS (41 sets, daily range): BP systolic 120–163; BP diastolic 66–98; PULSE 57–82; RESP 9–24; TEMP 36.4; O2SAT 97–100
--- NOTE | 2023-04-19 08:15 | RT.EKG_ITS ---
APPROVED REPORT Exam: Resting ECG Reason for Exam: Syncope Patient Location: E HR:75 bpm ECG Measurements Heart Rate 75 AXIS OH 156 P 32 QRSd 96 QRS -26 QT 395 T 32 QTc 441 Conclusion Sinus rhythm...normal P axis, V-rate 60- 99
--- NOTE | 2023-04-19 09:10 | DI.RAD_ITS ---
Exam(s) XR CHEST 2V PA LATERAL EXAM: XR CHEST 2V PA LATERAL CLINICAL HISTORY: dizziness TECHNIQUE: 2D digital imaging was performed of the chest. Two images were obtained. PA and lateral views were obtained. COMPARISON: CR XR CHEST 2V PA LATERAL from 03/01/2019 FINDINGS: MEDIASTINUM: Normal. HEART: Normal. PULMONARY VASCULATURE: Normal. LUNGS: Clear. PLEURAL SPACE: No pleural effusion or pneumothorax. BONE:Within normal limits for the patient's age. OTHER FINDINGS:Normal. IMPRESSION: No acute pulmonary findings. DATA REPOSITORY: RADIATION DOSE DELIVERED:
[2023-04-19 09:13] LABS: Magnesium 2.2 mg/dL (1.8-2.4); Troponin I < 50 ng/L (<or=60)
--- NOTE | 2023-04-19 09:29 | ED.GENADUL_ITS ---
Discharge Plan Disposition Patient Disposition: Home Condition: Stable Discharge Details Clinical Impression: Pre-syncope Primary Care Provider: Ector Mora ED Provider: Pooja Delong Home Meds and New Rx's Prescriptions: Continued famotidine [Pepcid] 40 mg tablet 40 mg PO DAILY Qty: 90 4RF allopurinol 100 mg tablet 100 mg PO DAILY metoprolol succinate 25 mg tablet extended release 24 hr 25 mg PO DAILY Qty: 90 3RF albuterol sulfate 90 mcg/actuation HFA aerosol inhaler 2 puff INHALATION Q4H PRN (Reason: bronchospasm) Qty: 8.5 5RF hydrochlorothiazide 25 mg tablet 25 mg PO DAILY Qty: 90 3RF nifedipine 30 mg tablet extended release 30 mg PO DAILY Qty: 90 3RF pravastatin 10 mg tablet 10 mg PO QHS Qty: 90 3RF loratadine [Claritin] 10 mg tablet 10 mg PO DAILY Qty: 90 3RF aspirin 81 mg tablet,delayed release (DR/EC) 81 mg PO DAILY Qty: 90 3RF indomethacin 50 mg capsule 50 mg PO BID Qty: 90 0RF Rx Instructions: administer with food or milk buspirone 30 mg tablet 30 mg PO BID Qty: 180 3RF Rx Instructions: One half tab twice daily for 2 weeks then 1 tab twice daily lisinopril 40 mg tablet 40 mg PO DAILY Qty: 90 4RF Discharge Instructions Instructions: Near Syncope (ED) Additional Instructions: Your workup in the emergency department including physical exam and vital signs lab EKG and x-ray showed no acute emergency condition to explain your symptoms. Your symptoms are thought to be a reaction to your lab draw that preceded your symptoms. Continue your previous medications as directed and follow-up with your primary care provider as scheduled. You can return here sooner for new or worsening symptoms Referrals: Ector Mora NP [Primary Care Provider] - Discharge Data Discharge Date/Time-TO BE ENTERED AT DEPARTURE: 04/19/23 13:14 Medical Decision Making <Pooja Delong NP - Last Filed: 04/21/23 11:52> Medical Records Medical records reviewed: Yes I reviewed the patient's medical records. Imaging Data Radiologic Study: Imaging: X-Ray Radiologist's impression: Exam(s) XR CHEST 2V PA LATERAL EXAM: XR CHEST 2V PA LATERAL CLINICAL HISTORY: dizziness TECHNIQUE: 2D digital imaging was performed of the chest. Two images were obtained. PA and lateral views were obtained. COMPARISON: CR XR CHEST 2V PA LATERAL from 03/01/2019 FINDINGS: MEDIASTINUM: Normal. HEART: Normal. PULMONARY VASCULATURE: Normal. LUNGS: Clear. PLEURAL SPACE: No pleural effusion or pneumothorax. BONE:Within normal limits for the patient's age. OTHER FINDINGS:Normal. IMPRESSION: No acute pulmonary findings. Lab Data Lab results reviewed: Yes I reviewed the patient's lab results. Labs: Lab Results 04/19/23 04/19/23 04/19/23 Range/Units 07:55 08:49 09:28 WBC Cancelled RBC Cancelled Hgb Cancelled Hct Cancelled MCV Cancelled MCH Cancelled MCHC Cancelled RDW Cancelled Plt Count Cancelled MPV Cancelled Immature Gran % Cancelled Neutrophils % Cancelled Band Neutrophils % Cancelled Lymphocytes % Cancelled Atypical Lymphs % Cancelled Monocytes % Cancelled Eosinophils % Cancelled Basophils % Cancelled Metamyelocytes % Cancelled Myelocytes % Cancelled Promyelocytes % Cancelled Other Cells % Cancelled Nucleated RBC % Cancelled Absolute Neutrophils Cancelled Absolute Lymphocytes Cancelled Absolute Monocytes Cancelled Absolute Eosinophils Cancelled Absolute Basophils Cancelled RBC Morphology Cancelled Polychromasia Cancelled Hypochromasia Cancelled Poikilocytosis Cancelled Basophilic Stippling Cancelled Anisocytosis Cancelled Microcytosis Cancelled Macrocytosis Cancelled Spherocytes Cancelled Tear Drop Cells Cancelled Ovalocytes Cancelled Stomatocytes Cancelled [place] Bodies Cancelled Ed Cells/Echinocytes Cancelled Acanthocytes (Spur) Cancelled Schistocytes Cancelled Magnesium 2.2 (1.8-2.4) mg/dL Troponin I < 50 (<or=60) ng/L Urine Color Yellow (Yellow) Urine Clarity Clear (Clear) Urine pH 6.0 (5-8) Ur Specific [place] 1.010 (1.005-1.025) Urine Protein Negative (Negative) mg/dL Urine Ketones Negative (Negative) mg/dL Urine Blood Negative (Negative) Urine Nitrite Negative (Negative) Urine Bilirubin Negative (Negative) Urine Urobilinogen 0.2 (Up to 0.2) mg/dL Ur Leukocyte Esterase Negative (Negative) Urine Glucose Negative (Negative) mg/dL 04/19/23 Range/Units 12:16 WBC RBC Hgb Hct MCV MCH MCHC RDW Plt Count MPV Immature Gran % Neutrophils % Band Neutrophils % Lymphocytes % Atypical Lymphs % Monocytes % Eosinophils % Basophils % Metamyelocytes % Myelocytes % Promyelocytes % Other Cells % Nucleated RBC % Absolute Neutrophils Absolute Lymphocytes Absolute Monocytes Absolute Eosinophils Absolute Basophils RBC Morphology Polychromasia Hypochromasia Poikilocytosis Basophilic Stippling Anisocytosis Microcytosis Macrocytosis Spherocytes Tear Drop Cells Ovalocytes Stomatocytes [place] Bodies Branch Cells/Echinocytes Acanthocytes (Spur) Schistocytes Magnesium (1.8-2.4) mg/dL Troponin I < 50 (<or=60) ng/L Urine Color (Yellow) Urine Clarity (Clear) Urine pH (5-8) Ur Specific [place] (1.005-1.025) Urine Protein (Negative) mg/dL Urine Ketones (Negative) mg/dL Urine Blood (Negative) Urine Nitrite (Negative) Urine Bilirubin (Negative) Urine Urobilinogen (Up to 0.2) mg/dL Ur Leukocyte Esterase (Negative) Urine Glucose (Negative) mg/dL <Corey Barboza MD - Last Filed: 05/10/23 07:25> Date: 04/19/23 Time: 11:59 Note: Patient seen, examined, and discussed with DESTINI Delong. I agree with treatment plan as discussed/documented. HPI <Pooja Delong NP - Last Filed: 04/21/23 11:52> General Mode of arrival: wheelchair . Date/Time Provider Initiated Documentation: 04/19/23 08:34 . Limitations to Documentation: no limitations . Information obtained by: patient . HPI Narrative: This is a 57-year-old male patient recently hospitalized for sepsis due to pneumonia who was discharged approximately a week ago with instruction for follow-up lab. He states that he was doing well and in his usual state of health and presented today for lab draw as scheduled. He reports after his lab was drawn he went to scoot up and all of a sudden became very lightheaded and felt like he was going to pass out. A rapid response was called. His blood sugar was checked and was 136. Vital signs on remarkable with no evidence of tachycardia or hypotension. He was brought to the emergency department for further evaluation. On arrival to the emergency department he continues to state that he does not feel well but is very vague with his symptoms. He does deny any chest pain. He states he did use his inhaler when he was in the lab as he may have experienced some shortness of breath but he states that this was not effective. He is noted to be hyperventilating. Related Data Home Medications Medication Instructions Recorded Confirmed metoprolol succinate 25 mg 25 mg PO DAILY #90 tabs 03/23/22 04/29/23 tablet,extended release 24 hr albuterol sulfate 90 mcg/actuation 2 puff inhalation Q4H PRN 03/30/22 04/29/23 aerosol inhaler bronchospasm #8.5 grams hydrochlorothiazide 25 mg tablet 25 mg PO DAILY #90 tabs 04/18/22 04/29/23 nifedipine 30 mg tablet,extended 30 mg PO DAILY #90 tabs 04/18/22 04/29/23 release pravastatin 10 mg tablet 10 mg PO QHS #90 tabs 04/18/22 04/29/23 loratadine 10 mg tablet (Claritin) 10 mg PO DAILY #90 tabs 06/18/22 04/29/23 aspirin 81 mg tablet,delayed 81 mg PO DAILY #90 tabs 07/12/22 04/29/23 release indomethacin 50 mg capsule 50 mg PO BID #90 caps 07/20/22 04/29/23 buspirone 30 mg tablet 30 mg PO BID #180 tabs 07/26/22 04/29/23 lisinopril 40 mg tablet 40 mg PO DAILY #90 tabs 11/21/22 04/29/23 famotidine 40 mg tablet (Pepcid) 40 mg PO DAILY #90 tabs 12/27/22 04/29/23 allopurinol 100 mg tablet 100 mg PO DAILY 01/21/23 04/29/23 Previous Rx's Medication Instructions Recorded metoprolol succinate 25 mg 25 mg PO DAILY #90 tabs 03/23/22 tablet,extended release 24 hr albuterol sulfate 90 mcg/actuation 2 puff inhalation Q4H PRN 03/30/22 aerosol inhaler bronchospasm #8.5 grams hydrochlorothiazide 25 mg tablet 25 mg PO DAILY #90 tabs 04/18/22 nifedipine 30 mg tablet,extended 30 mg PO DAILY #90 tabs 04/18/22 release pravastatin 10 mg tablet 10 mg PO QHS #90 tabs 04/18/22 loratadine 10 mg tablet (Claritin) 10 mg PO DAILY #90 tabs 06/18/22 aspirin 81 mg tablet,delayed 81 mg PO DAILY #90 tabs 07/12/22 release indomethacin 50 mg capsule 50 mg PO BID #90 caps 07/20/22 buspirone 30 mg tablet 30 mg PO BID #180 tabs 07/26/22 lisinopril 40 mg tablet 40 mg PO DAILY #90 tabs 11/21/22 famotidine 40 mg tablet (Pepcid) 40 mg PO DAILY #90 tabs 12/27/22 Allergies Allergy/AdvReac Type Severity Reaction Status Date / Time atorvastatin [From Lipitor] Allergy Intermediate rash Verified 04/29/23 10:02 General Stated Complaint: Dizzy/Sync SOFIA: 3 Review of Systems <Pooja Delong NP - Last Filed: 04/21/23 11:52> All systems reviewed & are unremarkable except as noted in HPI and below PFSH <Pooja Delong NP - Last Filed: 04/21/23 11:52> All Active Problems (Updated 04/29/23 @ 11:24 by Ector Mora NP) Varicose vein of leg (Acute) Pre-syncope (Acute) Severe sepsis (Acute) Sepsis (Acute) Asthma exacerbation (Acute) SIRS (systemic inflammatory response syndrome) (Acute) Asthma (Chronic) Hyperglycemia (Chronic) Fatigue (Acute) Benign cystic neoplasm of exocrine pancreas (Acute) Renal cyst (Acute) Dermatitis, contact (Acute) Yeast dermatitis (Acute) NAFLD (nonalcoholic fatty liver disease) (Acute) Mass of pancreas (Acute) Cysts in the head of the pancreas. 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 4+ Obesity (Chronic) Asthma (Chronic) Occasional problem HTN (hypertension) (Chronic 10/21/13) Medical History History of claustrophobia Essential hypertension Surgical History History of esophagogastroduodenoscopy (EGD) (~11/19/22) History of colonoscopy (~11/19/22) Hx of tonsillectomy Hx of detached retina repair Nuclear sclerotic cataract of left eye Surgical Repair of umbilical hernia (05/26/15) Family History Mother , age 59 Bladder cancer Asthma Hypertension Maternal Uncle Bladder cancer Father , age 86 CML (chronic myelocytic leukemia) Stroke Brother Asthma Brother Asthma Maternal Grandfather No problems noted. Paternal Grandfather , age 72 Heart disease Maternal Grandmother No problems noted. Paternal Grandmother , age 82 Cancer blood Social History Smoking/Tobacco Use Status: Never Counseling given: counseling >3 minutes Smoking risk assessment performed?: Yes Alcohol Intake: current Alcohol Intake frequency: 3 or more drinks per day Alcohol type: hard liquor Drug use: Never Substance use type: does not use Details: alcohol: t-2. 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 [employer] Pets and animals: Yes Pets and animals: cat(s), dog(s) and fish Sexually active: No Do you think of yourself as: straight/heterosexual Current gender identity: male What is your relationship status?: never How often do you talk on the phone with friends or family?: three or more times per week How often do you get together with friends or relatives?: twice per week How often do you attend cheondoism or latter-day services?: decline to answer Do you belong to any clubs or organized social groups?: yes Panel score (0-1 are the most socially isolated patients): 2 What type of physical activity do you participate in: none Frequency: does not exercise Kyung/Temple: None Special kyung needs: No Seatbelt use: always Drive intox or ride w/intox auto crane driver: No Do you feel safe at home: Yes Do you feel safe in your relationship?: Yes Exam <Pooja Delong NP - Last Filed: 04/21/23 11:52> Const General: no acute distress and anxious Nutritional Appearance: overweight Orientation: alert, awake and oriented x3 [facility] Head: normal to inspection, normocephalic and atraumatic General nose exam: external nose normal Face and sinus: normal facial exam Mouth: oral mucosae normal Eyes General: appearance normal, both eyes and all related structures Alignment and Position: alignment normal Periorbital: periorbital findings normal Eyelids: eyelids normal Conjunctivae: conjunctivae normal Sclera: sclerae normal Cornea: corneas normal Pupils: PERRL EOM: EOM intact bilaterally Neck Neck: normal visual inspection, full ROM and no JVD Chest Chest: normal inspection of the chest Resp Effort & Inspection: normal respiratory effort Auscultation: clear to auscultation bilaterally, no rhonchi and no wheezes Cardio Rate: regular rate Rhythm: regular rhythm GI Inspection: normal to inspection Palpation: soft Auscultation: normal bowel sounds Skin General skin exam: no rashes or lesions noted Neuro General: patient alert, patient awake, patient oriented x3 and no focal motor deficits Cognition: normal cognition Speech: speech normal Gait: normal gait Motor: muscle tone normal throughout and strength 5/5 throughout Sensory Exam: no sensory deficits noted Extrem General: normal to inspection and full ROM Psych Appearance: grossly normal Mental Status: mental status grossly normal Speech and Movement: speech and movement normal Affect: anxious affect Course <Pooja Delong NP - Last Filed: 04/21/23 11:52> Vital Signs Vital signs: Vital Signs Temperature 36.4 C L 04/19/23 08:21 Pulse 72 04/19/23 08:21 Respiratory Rate 21 04/19/23 08:21 Blood Pressure 161/95 H 04/19/23 08:21 Pulse Oximetry 99 04/19/23 08:21 Temperature 36.4 C L 04/19/23 08:21 Temperature Source Temporal Artery Scan 04/19/23 08:21 Pulse 67 04/19/23 08:48 Respiratory Rate 14 04/19/23 08:26 Respiratory Effort Normal 04/19/23 08:26 Respiratory Depth Normal 04/19/23 08:26 Respiratory Pattern Normal 04/19/23 08:26 Blood Pressure 148/88 H 04/19/23 08:48 Blood Pressure Position Supine 04/19/23 08:21 Pulse Oximetry 99 04/19/23 08:21 Oxygen Delivery Method Room Air 04/19/23 08:21 Oxygen Flow Rate 0 04/19/23 08:21 Lab/Test Results Lab/Test Results: Laboratory Tests Range/Units 04/19/23 04/19/23 07:55 08:49 WBC Cancelled RBC Cancelled Hgb Cancelled Hct Cancelled MCV Cancelled MCH Cancelled MCHC Cancelled RDW Cancelled Plt Count Cancelled MPV Cancelled Immature Gran % Cancelled Neutrophils % Cancelled Band Neutrophils % Cancelled Lymphocytes % Cancelled Atypical Lymphs % Cancelled Monocytes % Cancelled Eosinophils % Cancelled Basophils % Cancelled Metamyelocytes % Cancelled Myelocytes % Cancelled Promyelocytes % Cancelled Other Cells % Cancelled Nucleated RBC % Cancelled Absolute Neutrophils Cancelled Absolute Lymphocytes Cancelled Absolute Monocytes Cancelled Absolute Eosinophils Cancelled Absolute Basophils Cancelled RBC Morphology Cancelled Polychromasia Cancelled Hypochromasia Cancelled Poikilocytosis Cancelled Basophilic Stippling Cancelled Anisocytosis Cancelled Microcytosis Cancelled Macrocytosis Cancelled Spherocytes Cancelled Tear Drop Cells Cancelled Ovalocytes Cancelled Stomatocytes Cancelled [place] Bodies Cancelled Branch Cells/Echinocytes Cancelled Acanthocytes (Spur) Cancelled Schistocytes Cancelled Magnesium (1.8-2.4) mg/dL 2.2 Troponin I (<or=60) ng/L < 50 PAWSS <Pooja Delong NP - Last Filed: 04/21/23 11:52> Have you Been Recently Intoxicated or Drunk Within the Last 30 days?: No Have you Ever Experienced Previous Episodes of Alcohol Withdrawal?: No Have you ever Experienced Withdrawal Seizures?: No Have you ever Experienced Delirium Tremens(DT)s?: No Have you ever undergone Alcohol Rehabilitation Treatment (i.e, inpt ot outpatien t treatment programs)?: No Have you ever Experienced Blackouts?: No Have you ever Combined Alcohol with other Downers within the last 90 days?: No Have you ever Combined Alcohol with any other Substance of Abuse during the last 90 days?: No Positive Blood Alcohol level on Presentation? [PCS.BAL]: No Evidence of Increased Autonomic Activity (i.e. HR>120, tremor, sweating, agitation, nausea)?: No Result: 0 <Corey Barboza MD - Last Filed: 05/10/23 07:25> Result: 0
[2023-04-19] MEDS: Normal Saline 1,000 ML 150 ML IV (09:34)
[2023-04-19 09:43] LABS: Bilirubin Negative (Negative); Blood Negative (Negative); Clarity Clear (Clear); Glucose Negative (Negative); Ketones Negative (Negative); Leukocyte Esterase Negative (Negative); Nitrite Negative (Negative); Urobilinogen 0.2 mg/dL (Up to 0.2)
[2023-04-19] MEDS: LORazepam 0.5 MG TAB 0.25 MG PO (11:48)
--- NOTE | 2023-04-19 12:00 | RT.EKG_ITS ---
APPROVED REPORT Exam: Resting ECG Reason for Exam: Dizzy Patient Location: E HR:66 bpm ECG Measurements Heart Rate 66 AXIS LA 176 P 18 QRSd 100 QRS -28 QT 412 T 25 QTc 432 Conclusion Sinus rhythm...normal P axis, V-rate 60- 99 Probable left ventricular hypertrophy...multiple LVH criteria
[2023-04-19 12:39] LABS: Troponin I < 50 ng/L (<or=60)
== END 2023-04-19 13:14 | disposition home or self-care (01) ==
PROVIDERS: Emergency Provider Nurse Practitioner Acute Care; PCP Nurse Practitioner Family
DX: R55 Syncope and collapse (principal); I10 Essential (primary) hypertension; E78.5 Hyperlipidemia, unspecified; Z79.82 Long term (current) use of aspirin; Z86.73 Personal history of transient ischemic attack (TIA), and cerebral infarction without residual deficits
CPT/HCPCS: 80053; 93005; 99283; 71046; 81003; 83735; 84484; 85025; 93010; 99285

== ENCOUNTER → 2023-07-01 03:23 | Outpatient (CLI) | payer BC, SELFPAY ==
--- NOTE | 2023-07-01 06:45 | DI.MRI_ITS ---
Exam(s) MR ABDOMEN WO/W EXAM: MR ABDOMEN WO/W CLINICAL HISTORY: 6-month f/u,cyst of pancreas,K86.3 TECHNIQUE: Multiplanar multisequence MRI was performed with both pre and post contrast infused seque nces. Contrast injected sequences were performed following IV injection of 20 cc of Dotarem. MRCP also performed. COMPARISON: MR MR ABDOMEN WO/W from 01/18/2023 FINDINGS: VISUALIZED LUNG BASES: No pleural effusions evident. There is no ascites evident. LIVER: Liver size is normal. There no focal hepatic lesions. No dilated intrahepatic ducts. In BILIARY: There is no obvious gallbladder pathology. The CBD is not dilated. PANCREAS: There is a solitary lesion again noted the pancreas which is a multi-septated cystic lesion in the superior aspect of the mid pancreaticbody level, this measuring 2.1 cm AP by 1 cm wide by 1.4 cm cephalocaudal. This is comprised of multiple small cystic structures, the largest measuring appr oximately 9 mm. This finding does not enhance and does not appear to obviously communicate with the pancreatic duct. The pancreatic duct is not dilated. There is no peripancreatic adenopathy. No ret roperitoneal adenopathy. No peripancreatic fluid. SPLEEN: Spleen is not enlarged and there are no intrasplenic lesions.Splenic and portal veins are pat ent ADRENALS: There are no significant adrenal masses. KIDNEYS: Previously described multiple cysts in the kidneys are again noted. Largest is again noted be exophytic off the posterior aspect of the right kidney and measures 6.9 cm wide by 4 cm AP by 7.7 cm craniocaudal. In the superior pole region of the opposite-left kidney there is a conglomeration o f microcysts noted which appears unchanged.No cysts evident. ABDOMINAL AORTA: Not enlarged and there is no significant para-aortic adenopathy. ANTERIOR ABDOMINAL WALL/GI: There is no evidence of significant anterior abdominal wall hernia in the field of view of this study.Is no evidence of obvious bowel obstruction. OSSEOUS: There are no lytic osseous lesions in the field of view of this study. IMPRESSION: 1. Compared to the prior MRI scan of 01/18/2023 the previously described multi septated cystic lesion in the superior aspect of the pancreatic body appears unchanged in size configuration and remains a solitary nonenhancing lesion which does not appear to communicate with the main pancreatic duct. The size measures 2.1 x 1.0 x 1.4 cm. The main differential diagnosis here is presence of a cystic micr ocystic-type neoplasm, either a serous cystic neoplasm (which does not connect with the pancreatic du ct) or a side branch intra pancreatic mucinous neoplasm (which does usually connect with the pancreat ic duct). 2. Recommend repeat MRI scan in 6 months (Tony et all, 2017). DATA REPOSITORY:
[2023-07-01 07:52] LABS: CREATININE 1.1 mg/dL (0.70-1.30); Estimated GFR 77.33 (mL/min/1.73m2)
[2023-07-01] MEDS: Normal Saline - Diluent 50 ML VIAL 25 ML IJ (08:01)
[2023-07-01] MEDS: Gadoterate meglumine 20 ML VIAL IVP (08:02)
== END ==
PROVIDERS: PCP Nurse Practitioner Family; Visit Provider Surgery
DX: I10 Essential (primary) hypertension (principal); K86.89 Other specified diseases of pancreas; N28.89 Other specified disorders of kidney and ureter; K86.3 Pseudocyst of pancreas; N28.1 Cyst of kidney, acquired; Z86.59 Personal history of other mental and behavioral disorders
CPT/HCPCS: 74183; 82565

== ENCOUNTER 2023-11-15 01:22 | Outpatient (CLI) | payer BC, SELFPAY ==
[2023-11-15 10:51] LABS: ALT 38 U/L (16-63); AST 22 U/L (15-37); Albumin 4.2 g/dL (3.4-5.0); Alkaline Phosphatase 82 U/L (46-116); Anion Gap 9.1 mmol/L (3-11); BUN 21 mg/dL (7-18); Bilirubin, Total 0.73 mg/dL (0.2-1.0); CO2 26.9 mmol/L (21.0-32.0); CREATININE 1.1 mg/dL (0.70-1.30); Calcium 9.3 mg/dL (8.5-10.1); Calculated LDL 122 mg/dL (<100); Chloride 103 mmol/L (98-107); Cholesterol 201 mg/dL (<200); Estimated GFR 76.85 (mL/min/1.73m2); Glucose 132 mg/dL (74-106); HDL Cholesterol 62 mg/dL (40-60); Potassium 4.1 mmol/L (3.5-5.1); Sodium 139 mmol/L (136-145); Total Protein 7.8 g/dL (6.4-8.2); Triglyceride 87 mg/dL (<150)
[2023-11-15 11:16] LABS: Hemoglobin A1C 6.3 % (<5.7)
== END 2023-11-15 01:23 | disposition home or self-care (01) ==
LOC: LBO 01:23
PROVIDERS: PCP Nurse Practitioner Family; Visit Provider Nurse Practitioner Family
DX: I10 Essential (primary) hypertension (principal); R73.9 Hyperglycemia, unspecified; E66.09 Other obesity due to excess calories; Z68.35 Body mass index [BMI] 35.0-35.9, adult
CPT/HCPCS: 36415; 80053; 80061; 83036

== ENCOUNTER 2024-01-24 00:08 | Outpatient (CLI) | payer BC, SELFPAY ==
--- NOTE | 2024-01-24 06:45 | DI.MRI_ITS ---
Exam(s) MR ABDOMEN WO/W EXAM: MR ABDOMEN WO/W CLINICAL HISTORY: Cystic mass in head of pancreas. 6-month follow-u TECHNIQUE: Multiplanar multisequence MRI of the Abdomen was performed. MRCP sequences also perform ed. CONTRAST MATERIAL: IV Contrast: 20 mL of Dotarem contrast administered. COMPARISON: MR MR ABDOMEN WO/W from 01/18/2023 MR MR ABDOMEN WO/W from 07/01/2023 FINDINGS: Liver: Unremarkable. Pancreas: Stable size and appearance of ovoid multiloculated cystic lesion in the body of the pancrea s. Gallbladder and Bile Ducts: Unremarkable. Adrenals: Unremarkable. Kidneys: Multiple cysts again noted. Spleen: Unremarkable. Aorta: Unremarkable. Soft Tissues: Unremarkable. Bone: Unremarkable. Lymph Nodes: Unremarkable. IMPRESSION: Stable size and appearance of pancreatic cyst. Further six-month follow-up recommended. DATA REPOSITORY:
[2024-01-24] MEDS: Gadoterate meglumine 20 ML VIAL IVP (07:49)
[2024-01-24] MEDS: Normal Saline - Diluent 50 ML VIAL IJ (07:50)
== END 2024-01-24 00:28 ==
LOC: DI 00:09
PROVIDERS: PCP Nurse Practitioner Family; Visit Provider Surgery
DX: K86.3 Pseudocyst of pancreas
CPT/HCPCS: 74183

== ENCOUNTER 2024-02-21 09:02 | Day surgery (SDC) | payer BC, SELFPAY ==
--- NOTE | 2024-02-20 19:40 | W.PM.DSUDISC ---
Date of service: 02/21/24 Time of Service: 11:53 Discharge Plan Disposition Patient Disposition: Home Condition: Good Discharge Details Reason For Visit: screening colonoscopy Attending Provider: Jose Vail Primary Care Provider: Ector Mora Home Meds and New Rx's Prescriptions: Continued famotidine [Pepcid] 40 mg tablet 40 mg PO DAILY Qty: 90 4RF buspirone 30 mg tablet 30 mg PO BID Qty: 180 3RF Rx Instructions: One half tab twice daily for 2 weeks then 1 tab twice daily lisinopril 40 mg tablet 40 mg PO DAILY Qty: 90 4RF pravastatin 10 mg tablet 10 mg PO QHS Qty: 90 3RF indomethacin 50 mg capsule 50 mg PO BID Qty: 90 0RF Rx Instructions: administer with food or milk albuterol sulfate 90 mcg/actuation HFA aerosol inhaler 2 puff INHALATION Q4H PRN (Reason: bronchospasm) Qty: 8.5 5RF hydrochlorothiazide 25 mg tablet 25 mg PO DAILY Qty: 90 3RF nifedipine 30 mg tablet extended release 30 mg PO DAILY Qty: 90 3RF ketoconazole 2 % cream 1 applic topical DAILY Qty: 120 6RF Rx Instructions: Apply to toenails once daily metoprolol succinate 25 mg tablet extended release 24 hr 25 mg PO DAILY Qty: 90 3RF loratadine [Claritin] 10 mg tablet 10 mg PO DAILY Qty: 90 3RF aspirin 81 mg tablet,delayed release (DR/EC) 81 mg PO DAILY Qty: 90 3RF Discontinued bisacodyl [Dulcolax (bisacodyl)] 5 mg tablet,delayed release (DR/EC) 5 mg PO ONCE Qty: 4 0RF Rx Instructions: Take per colonoscopy instructions provided by ordering providers office polyethylene glycol 3350 17 gram/dose powder 17 g PO ONCE Qty: 238 0RF Rx Instructions: Take per colonoscopy instructions provided by ordering providers office Discharge Instructions Additional Instructions: To me, I am sorry to bring him back within 1 year, but I was happy to see you today, and I am glad that we repeated your colonoscopy. I did find 3 more polyps today. 2 of these were quite small, and the other was medium in size. I suspect the smaller 2 are new ones, and I did go ahead and remove them today. It is difficult to say whether the other 1 is some residual polyp from your last colonoscopy, or if it is truly a new polyp. Regardless, this 1 was removed as well. Similar to your last experience, we will see what the pathology report is on these before making any decisions regarding the timing of your next colonoscopy. Again, like last time, we will be in touch as soon as I have those results. 1. If tolerated, consume a soft, low fiber diet for 1-2 days. 2[address] Do not drive, drink alcohol, operate machinery, make critical decisions, or do activities that require coordination or balance for 24 hours. 3. Because air was put into your colon during the procedure, expelling air from your rectum (passing gas or farting) is normal. 4. You may not have a bowel movement for 1-3 days because of the colonoscopy prep. This is normal. 5. Go directly to the emergency room if you notice any of the following: Develop chills (warm to touch), or if you have a thermometer and your temperature is above 101 Difficulty breathing or difficultly swallowing Persistent vomiting Severe abdominal pain, other than gas cramps Severe chest pain Black, tarry stools Any bleeding ? exceeding one tablespoon 6. Call your physician if the site where your intravenous was started becomes red, swollen, painful, and warm to touch. 7. Your physician has reviewed your pre-procedure medications. Please continue to take those medications as previously ordered. You will be given specific information/education regarding any changes to your medications before leaving. Activity:: Activity as Tolerated Diet:: As Tolerated Discharge Orders Discharge Orders: Discharge Order (Routine); Ordered 02/20/24 Ordered By: Jose Vail DS: Diagnosis Discharge Diagnosis (1) Encounter for screening colonoscopy: Status: Acute Asessment and Plan: Follow-up on polypectomy results
--- NOTE | 2024-02-20 19:42 | COLE_ITS ---
Date of service: 02/21/24 Time of Service: 11:55 Colonoscopy Report Date of procedure: 02/21/24 Pre-op diagnosis general: screening colonoscopy Post-op diagnosis procedure note: other (Colon polyps) Procedure: colonoscopy with polypectomy Surgeon: Jose Vail Anesthesia Type: General:No Airway Estimated blood loss (mL): 10 Pathology: other (0.25 cm cecal polyp, 0.5 cm cecal polyp, 0.25 cm polyp at 25 cm) Complications: None Disposition: same day Indications: Robert is a 58 year old man with a history of a large villous adenoma. He needs another screening colonoscopy Prep: Miralax/Dulcolax Procedure Start Time: 11:29 Procedure End Time: 11:45 Retraction Time: 14 Findings: After the induction of anesthesia, and with Akanksha in left lateral decubitus position, I began by performing an external anorectal exam.? Perineum and skin were normal, as was the anal verge.? There was no evidence of external hemorrhoids.? Next, I performed a digital rectal exam.? I did not appreciate any abnormal findings.? Next, I advanced a colonoscope into the rectal vault.? I performed retroflexion.? This was normal.? Using insufflation, I then advanced the colonoscope beyond the rectal folds and into the sigmoid colon before advancing towards the cecum.? There was a small, slightly pedunculated polyp in the cecum. It was less than 0.25 cm. This was removed with cold forceps polypectomy without any issue. The scope was noted to be in the cecum by identification of the ileocecal valve and appendiceal orifice.? Few centimeters proximal to the ileocecal valve was another polyp. This was flat, and about half centimeter in size. It is little difficult to say whether or not this is the same location as the previous polyp. Regardless, I was able to remove this with snare polypectomy. Resection appeared complete. There was minimal bleeding. I then began withdrawing the colonoscope using repeated irrigation as necessary for full evaluation of the colonic mucosa. Around 25 cm from the anus was another polyp. Clinically, it appeared more consistent with hyperplastic polyp, but given history, I did elect to remove this today. This was removed with cold forceps without any issues. ?Once the scope was withdrawn to the level of the rectum, great care was taken to examine portions of the rectal folds.? Finally, the scope was withdrawn and the patient was brought to the same-day surgery recovery unit as the anesthetic wore off. ?The findings and instructions were shared with the patient prior to discharge. [place] Common Bowel Prep [place] Bowel Prep Right Colon: 2 Left Colon: 3 Transverse Colon: 3 Total Score: 8
[2024-02-21 09:33] VITALS: BP 161/104; PULSE 84; RESP 16; TEMP 37; O2SAT 100
[2024-02-21] MEDS: Lactated Ringers 1,000 ML 80 ML IV (09:45)
--- NOTE | 2024-02-21 10:03 | ANES.PREOP_ITS ---
General Info Date of Service Date Performed: 02/21/24 Height: 6 ft Weight: 111.9 kg Body Mass Index (BMI): 33.4 Surgical Procedure: Operation Date: 02/21/24 10:50 Proposed Procedure Side Surgeon freddie Vail MD Meds Allergies and Home Medications Allergies Allergy/AdvReac Type Severity Reaction Status Date / Time atorvastatin (From Lipitor) Allergy Intermediate rash Verified 02/21/24 09:37 Home Medication ?Medication ?Instructions ?Recorded buspirone 30 mg tablet 30 mg PO BID #180 tabs 07/26/22 lisinopril 40 mg tablet 40 mg PO DAILY #90 tabs 11/21/22 famotidine 40 mg tablet (Pepcid) 40 mg PO DAILY #90 tabs 12/27/22 pravastatin 10 mg tablet 10 mg PO QHS #90 tabs 05/15/23 indomethacin 50 mg capsule 50 mg PO BID #90 caps 05/22/23 albuterol sulfate 90 mcg/actuation 2 puff inhalation Q4H PRN 05/29/23 aerosol inhaler bronchospasm #8.5 grams hydrochlorothiazide 25 mg tablet 25 mg PO DAILY #90 tabs 06/14/23 nifedipine 30 mg tablet,extended 30 mg PO DAILY #90 tabs 06/14/23 release ketoconazole 2 % topical cream 1 applic topical DAILY #120 grams 07/04/23 metoprolol succinate 25 mg 25 mg PO DAILY #90 tabs 07/11/23 tablet,extended release 24 hr loratadine 10 mg tablet (Claritin) 10 mg PO DAILY #90 tabs 08/15/23 aspirin 81 mg tablet,delayed 81 mg PO DAILY #90 tabs 11/08/23 release Current Visit Medications: Current Medications Generic Name Dose Route Start Last Admin Trade Name Freq PRN Reason Stop Dose Admin Ringer's Solution 1,000 mls @ 80 mls/hr 02/21/24 06:00 02/21/24 09:45 IV 02/21/24 23:59 80 mls/hr INFUSION JAY Administration IV Miscellaneous Supplies 1 each 02/21/24 06:00 Iv Access IV 02/21/24 23:59 DIRECTED JAY Ondansetron HCl 4 mg 02/20/24 19:43 Ondansetron 4 Mg/2 Ml Vial IVP 03/21/24 19:42 Q4H PRN PRN Nausea / Vomiting Sodium Chloride 0 ml 02/21/24 06:00 Normal Saline Flush 10 Ml Syr IV 02/21/24 23:59 PRN PRN Sodium Chloride 0 ml 02/21/24 06:00 Normal Saline 10 Ml Vial IJ 02/21/24 23:59 DIRECTED PRN Sterile Water 0 ml 02/21/24 06:00 Water,Injection,Sterile 10 Ml Vial IJ 02/21/24 23:59 DIRECTED PRN PFSH Active Problems Active Problems: Problem Status Onset Code Encounter for screening colonoscopy Acute Z12.11 Pain in toes of both feet Acute M79.674, M79.675 Nail dystrophy Acute L60.3 Onychomycosis Acute B35.1 Varicose vein of leg Acute I83.90 Severe sepsis Acute A41.9, R65.20 Acute respiratory failure with hypoxia Resolved J96.01 Sepsis Acute A41.9 Asthma exacerbation Acute J45.901 Hypokalemia Resolved E87.6 SIRS (systemic inflammatory response syndrome) Acute R65.10 Asthma Chronic J45.909 Hyperglycemia Chronic R73.9 Fatigue Acute R53.83 Benign cystic neoplasm of exocrine pancreas Acute D13.6 Renal cyst Acute N28.1 Dermatitis, contact Acute L25.9 Yeast dermatitis Acute B37.2 NAFLD (nonalcoholic fatty liver disease) Acute K76.0 Mass of pancreas Acute K86.89 Tubulovillous adenoma Acute ~11/19/23 D36.9 Kidney mass Acute N28.89 Microcytic anemia Acute D50.9 Chronic iron deficiency anemia Acute D50.9 Daily consumption of alcohol Acute Z78.9 Varicose vein of leg Acute I83.90 History of detached retina repair Resolved Z98.890, Z86.69 History of vitrectomy Resolved Z98.890 Scapholunate ligament injury with no instability Acute S69.90XA Hyperlipemia Chronic E78.5 Gout Chronic M10.9 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 ETOH abuse Chronic F10.10 Obesity Chronic E66.9 Asthma Chronic J45.909 HTN (hypertension) Chronic 10/21/13 I10 Medical History Medical History History of claustrophobia Essential hypertension Surgical History Surgical History History of esophagogastroduodenoscopy (EGD) (~11/19/22) History of colonoscopy (~11/19/22) Hx of tonsillectomy Hx of detached retina repair Nuclear sclerotic cataract of left eye Surgical Repair of umbilical hernia (05/26/15) Tobacco Smoking/Tobacco Use Status: Never Passive smoking exposure: Yes Counseling given: counseling >3 minutes Alcohol Alcohol Intake: current Alcohol intake frequency: 3 or more drinks per day Alcohol type: hard liquor Substance Use Substance use: Never Substance use type: does not use Details: alcohol: t-2, one drink Vital Signs and Lab Results Vital Signs Most Recent Vital Signs in EMR: Most Recent Vital Signs Temp Pulse Resp BP Pulse Ox 37.0 C 84 16 161/104 H 100 02/21/24 09:33 02/21/24 09:33 02/21/24 09:33 02/21/24 09:33 02/21/24 09:33 Lab Results Blood Type / Crossmatch: No Data to Display Complete Blood Count: No Data to Display Complete Metabolic Panel: No Data to Display Liver Function Panel: No Data to Display Coagulation Panel: No Data to Display Cardiac Panel: No Data to Display Arterial Blood Gas: No Data to Display Venous Blood Gas: No Data to Display Pancreas Panel: No Data to Display Thyroid Panel: No Data to Display Infectious Disease: No Data to Display Blood Cultures: No Data to Display Toxicology Panel: No Data to Display Imaging and Studies Imaging and Studies Study information below may be from another EMR and interpreted by another provider. Please see original notes in EMR for more complete details. EKG Summary: 04/19/23 Conclusion Sinus rhythm...normal P axis, V-rate 60- 99 Probable left ventricular hypertrophy...multiple LVH criteria Echocardiogram Summary: Left Ventricle : The left ventricle is normal size. There is normal left ventricular wall thickness. Diastolic function is indeterm inant The left ventricular systolic function is normal. The left ventricular ejection fraction is within the normal range. There is normal LV segmental wall motion. LVEF is 60-65%. Right Ventricle : The right ventricle is normal size. The right ventricular systolic function is normal. Atria : The left atrium size is normal. The right atrium size is normal. Aortic Valve : The aortic valve is normal in structure. No aortic regurgitation is present. There is no aortic valvular stenosis. Mitral Valve : The mitral valve is normal in structure. There is no mitral valve regurgitation noted. Tricuspid Valve : The tricuspid valve is normal in structure. Trace to mild tricuspid regurgitation. Estimated RVSP is within normal limits Great Vessels : mildly dilated aortic root (4.0cm) Pericardium : There is no pericardial effusion. Great Vessels : normal in size. collapses more than 50%. lots of IVC flow Summary: This study is not ideal for evaluating CVA as the study was not done with bubbles. However, there is no clear cardiac source of emboli. 03/03/19 Anesthesia Assessment and Plan Anesthesia History Personal History: No History of Anesthesia Complications Family History: No Family History of Anesthesia Complications Exercise Tolerance Exercise Tolerance: Metabolic Equivalents<4 Pertinent Negatives Pertinent Negatives: No Symptoms of GERD, No Major Cardiovascular Symptoms or Co mplaints, No Major Pulmonary Symptoms or Complaints and Other (hx of stroke ~4 yrs ago, no residual) Cardiac & Pulmonary Exam Cardiac Exam: Normal S1/S2 Heart Sounds Pulmonary Exam: Clear Bilateral Breath Sounds Implantable Cardiac Device Does patient have a Pacemaker or an ICD?: No Airway Exam Known Difficult Airway: No Mallampati Class: 3 Mouth Opening: Normal (> 3cm) Thyromental Distance: Greater than 3 cm Neck Range of Motion: Full ROM Neck Circumference: Normal Teeth Condition: Normal Dentition ASA Classification ASA Score: ASA 2 Emergency Case?: No NPO Status NPO Status: NPO Clears >2 hours, Solids >8 hours Anesthesia Plan Resuscitation Status: Full Code Anesthesia Technique: General Anesthesia Airway Planned: Natural Airway Monitors Used: Standard Monitors
[2024-02-21 11:13] VITALS: BMI 33.4
--- NOTE | 2024-02-21 11:33 | BOWEL_PTH ---
PATIENT: Robert Bashir LOC: [facility] U#:[id number] AGE/SX: 58/M ROOM: RE02/21/[address]: Jose Vail MD : 1965 BED: DIS: 02/21/2024 SPEC #: [id number] RECD: 02/21/24 13:11 STATUS: TRACY RE #: [id number] TRAVIS: 02/21/24 11:[address]: Jose Vail DEPT: Surgical Specimen RECD BY: Nydia Minor ENTERED: 02/21/24 13:12 SP TYPE: Bowel OTHR DR: Ector Mora, SUPERVISOR TWISTING DEPARTMENT Tissues: 1 - BIOPSY BOWEL 2 - BIOPSY BOWEL 3 - BIOPSY BOWEL Procedures: GROSS AND MICRO LEVEL 4 Comments: [id number]
[2024-02-21 11:54] VITALS: BP 107/76; PULSE 77; RESP 18; TEMP 36.2; O2SAT 96
[2024-02-21 12:16] VITALS: BP 132/87; PULSE 99; RESP 16; TEMP 36.4; O2SAT 99
--- NOTE | 2024-02-21 12:17 | W.ANESPOSTOP ---
Postoperative Evaluation Date, Time and Location Date Performed: 02/21/24 Time Performed: 11:55 Patient Location: Day Surgery Unit Vital Signs Most Recent Imported Vital Signs: Most Recent Vital Signs Temp Pulse Resp BP Pulse Ox 36.2 C L 77 18 107/76 96 02/21/24 11:54 02/21/24 11:54 02/21/24 11:54 02/21/24 11:54 02/21/24 11:54 Pain Score Most Recent Pain Score: Most Recent Pain Score Pain Level 0 02/21/24 11:54 Assessment Mental Status: Awake (Alert & Oriented to Patient Baseline) Airway and Respiratory Function: Patent airway with normal (patient baseline) respiratory exam Cardiovascular Function: Hemodynamically Stable Hydration Status: Adequately Hydrated Nausea & Vomiting: No Nausea or Vomiting Pain: Pt. Denies Any Pain Peripheral Nerve Block: Patient did not receive a nerve block
== END 2024-02-21 12:50 | disposition home or self-care (01) ==
LOC: SUR 09:03
PROVIDERS: PCP Nurse Practitioner Family; Visit Provider Surgery
PROC: 0DJD8ZZ Inspection of Lower Intestinal Tract, Via Natural or Artificial Opening Endoscopic (ICD-10-PCS; CPT 45378; principal; 2024-02-21 10:45)
DX: Z12.11 Encounter for screening for malignant neoplasm of colon (principal); D12.0 Benign neoplasm of cecum
CPT/HCPCS: 45385; 45380; 88305; J2704

== ENCOUNTER 2024-08-13 01:07 | Outpatient (CLI) | payer MEDICAID, SELFPAY ==
--- NOTE | 2024-08-13 06:00 | DI.MRI_ITS ---
Exam(s) MR ABDOMEN WO/W EXAM: MR ABDOMEN WO/W CLINICAL HISTORY: 6 mo f/u pancreatic cysts,benign neoplasm exocrine pancreas TECHNIQUE: Multiplanar multisequence MRI of the Abdomen was performed. MRCP sequences also perform ed. CONTRAST MATERIAL: IV Contrast: 20 mL of Dotarem contrast administered. COMPARISON: MR MR ABDOMEN WO/W from 01/18/2023 MR MR ABDOMEN WO/W from 07/01/2023 FINDINGS: Lung bases: Unremarkable. Liver: Unremarkable. Pancreas: Unremarkable stable size and appearance of previously noted multiloculated cystic lesion in the body of the pancreas. No evidence of mural nodularity or areas of enhancement. Gallbladder and Bile Ducts: Unremarkable. Adrenals: Unremarkable. Kidneys: Multiple bilateral cysts. No suspicious masses Spleen: Unremarkable. Aorta: Unremarkable. Soft Tissues: Unremarkable. Bone: Unremarkable. Lymph Nodes: Unremarkable. Stomach and bowel: Unremarkable. Peritoneal cavity: Unremarkable. No evidence of ascites. IMPRESSION: Stable appearance of cyst in the body of the pancreas. Follow-up is recommended in 6 months. DATA REPOSITORY:
[2024-08-13] MEDS: Normal Saline - Diluent 50 ML VIAL 25 ML IJ (08:25)
[2024-08-13] MEDS: Gadoterate meglumine 20 ML VIAL IVP (08:25)
== END 2024-08-13 01:27 ==
LOC: DI 01:07
PROVIDERS: PCP Nurse Practitioner Family; Visit Provider Surgery
DX: D13.6 Benign neoplasm of pancreas (principal); K86.89 Other specified diseases of pancreas
CPT/HCPCS: 74183

== ENCOUNTER 2024-11-19 01:02 | Outpatient (CLI) | payer MEDICAID, SELFPAY ==
[2024-11-19 08:24] LABS: Hemoglobin A1C 5.7 % (<5.7)
[2024-11-19 08:32] LABS: Anion Gap 7.6 mmol/L (3-11); BUN 14 mg/dL (7-18); CO2 28.4 mmol/L (21.0-32.0); CREATININE 0.9 mg/dL (0.70-1.30); Calculated LDL 113 mg/dL (<100); Chloride 105 mmol/L (98-107); Cholesterol 186 mg/dL (<200); Estimated GFR 97.17 (mL/min/1.73m2); Glucose 134 mg/dL (74-106); HDL Cholesterol 65 mg/dL (>or=40); Potassium 4.3 mmol/L (3.5-5.1); Sodium 141 mmol/L (136-145); Triglyceride 44 mg/dL (<150)
[2024-11-19 18:20] LABS: PSA, Screening 1.3 ng/mL (<=4.5)
== END 2024-11-19 01:03 | disposition home or self-care (01) ==
LOC: LBO 01:02
PROVIDERS: PCP Nurse Practitioner Family; Visit Provider Nurse Practitioner Family
DX: Z13.220 Encounter for screening for lipoid disorders (principal); Z13.1 Encounter for screening for diabetes mellitus; Z12.5 Encounter for screening for malignant neoplasm of prostate; E87.6 Hypokalemia
CPT/HCPCS: 36415; 80048; 80061; 84153; 83036

== ENCOUNTER 2025-02-15 07:13 | Outpatient (CLI) | payer MEDICAID, SELFPAY ==
--- NOTE | 2025-02-15 05:45 | DI.MRI_ITS ---
Exam(s) MR ABDOMEN WO/W EXAM: MR ABDOMEN WO/W CLINICAL HISTORY: 6 month f/u mass/cyst of pancreas,k86.89 TECHNIQUE: Multiplanar multisequence MRI of the Abdomen was performed. CONTRAST MATERIAL: IV Contrast: 20 mL of Dotarem contrast administered. COMPARISON: MR MR ABDOMEN WO/W from 01/18/2023 MR MR ABDOMEN WO/W from 01/24/2024 MR MR ABDOMEN WO/W from 08/13/2024 FINDINGS: Lung bases: Unremarkable. Liver: Unremarkable. Pancreas: Stable size and appearance of multiloculated cystic lesion in the superior body of the pancreas measuring 2.1 by 1 by 1.3 cm. No nodular or enhancing components. No new lesions. No inflammatory changes. No ductal dilatation. Gallbladder and Bile Ducts: Unremarkable. Adrenals: Unremarkable. Kidneys: Unremarkable multiple bilateral cysts are again noted. No suspicious masses. Spleen: Unremarkable. Aorta: Unremarkable. Soft Tissues: Unremarkable. Bone: Unremarkable. Lymph Nodes: Unremarkable. Stomach and bowel: Unremarkable. Peritoneal cavity: Unremarkable. No evidence of ascites. IMPRESSION: Stable size and appearance of pancreatic cyst. Follow-up could be considered in 1 year. DATA REPOSITORY:
[2025-02-15] MEDS: Gadoterate meglumine 20 ML VIAL IVP (08:10)
[2025-02-15] MEDS: Normal Saline - Diluent 50 ML VIAL IJ (08:11)
== END 2025-02-15 07:33 ==
LOC: DI 07:13
PROVIDERS: PCP Nurse Practitioner Family; Visit Provider Nurse Practitioner Family
DX: K86.89 Other specified diseases of pancreas (principal)
CPT/HCPCS: 74183